=== PATIENT | male | born 1955 | race Caucasian/White ===

== ENCOUNTER 2022-08-04 14:57 | Emergency (ER) | payer SELFPAY ==
[2022-08-04 16:10] LABS: Urine Blood Trace-lysed (Negative); Urine Glucose Negative (Negative); Urine Protein 2+ (Negative)
--- NOTE | 2022-08-04 16:21 | RAD REPORT ---
EXAM DESCRIPTION: Irwin Single View08/04/2022 3:48 pm CLINICAL HISTORY: sob COMPARISON: none FINDINGS: The lungs appear clear of acute infiltrate. The heart is normal size IMPRESSION: No acute abnormalities displayed
[2022-08-04 16:25] LABS: Urine RBC <5 /HPF (None Seen)
[2022-08-04 16:43] LABS: Absolute Lymphocytes (CBC) 1.1 K/uL (0.7-4.9); Hematocrit 31.8 % (39.6-49.0); Lymphocytes % 13.8 % (15.3-44.8); MCV 88.7 fL (80-100); MPV 8.8 fL (7.6-11.3); Protime INR 0.96; RBC Red Blood Cell Count 3.59 M/uL (4.33-5.43)
[2022-08-04 17:01] LABS: ALT/SGPT 30 U/L (12-78); AST/SGOT 12 U/L (15-37); Albumin 3.8 g/dL (3.4-5.0); Alkaline Phosphatase 111 U/L (45-117); BUN Blood Urea Nitrogen 118 mg/dL (7-18); Bilirubin Direct 0.1 mg/dL (0-0.2); Bilirubin Total 0.3 mg/dL (0.2-1.0); Glomerular Filtration Rate 6 ml/min (=/>90); Glucose Level 127 mg/dL (74-106); Lipase 2900 U/L (73-393); Magnesium 1.7 mg/dL (1.8-2.4); NT PRO-BNP 1873 pg/mL (<125); Protein, Total 7.3 g/dL (6.4-8.2); Sodium Level 133 mmol/L (136-145); Troponin High Sensitivity 19.3 pg/mL (<58.9)
[2022-08-04 17:02] LABS: Bicarbonate < 8 mmol/L (21-32)
[2022-08-04 17:04] LABS: Potassium 5.9 mmol/L (3.5-5.1)
--- NOTE | 2022-08-04 17:59 | RAD REPORT ---
EXAM DESCRIPTION: USExtrem Venous W Compress Bil08/04/2022 5:50 pm CLINICAL HISTORY: Leg pain COMPARISON: none FINDINGS: The common femoral, superficial femoral, popliteal and posterior tibial veins bilaterally are compressible and demonstrate augmentation. Doppler demonstrates good flow. Grayscale, color and spectral analysis performed on all vessels IMPRESSION: No evidence of deep venous thrombosis involving either lower extremity.
--- NOTE | 2022-08-04 18:03 | RAD REPORT ---
EXAM DESCRIPTION: RAD - Foot Right 3 View - 08/04/2022 5:57 pm CLINICAL HISTORY: Right foot pain FINDINGS: No fracture or dislocation is seen Amputation fourth phalanx Osteoporosis. Vascular calcifications. Large calcaneal spurs
--- NOTE | 2022-08-04 18:05 | RAD REPORT ---
EXAM DESCRIPTION: RAD - Foot Left 3 View - 08/04/2022 5:56 pm CLINICAL HISTORY: Left Foot pain FINDINGS: No fracture or dislocation is seen. 2.5 centimeter ossification/ calcification along the posterior aspect of talus. Vascular calcifications. Osteoporosis. Moderate calcaneal spurs
--- NOTE | 2022-08-04 18:16 | RAD REPORT ---
EXAM DESCRIPTION: CT - Chest Abd Pelvis Wo Con - 08/04/2022 6:01 pm CLINICAL HISTORY: Chest and abdominal pain COMPARISON: none TECHNIQUE: Computed axial tomography of the chest, abdomen and pelvis was obtained. Oral contrast wa s given. IV contrast was not requested. All CT scans are performed using dose optimization technique as appropriate and may include automated exposure control or mA/KV adjustment according to patient size. FINDINGS: The evaluation of mediastinum, yesy, vessels and solid organs is limited secondary to the lack of IV contrast administration Lungs are clear No mediastinal or hilar lymphadenopathy is seen. A pleural effusion is not present. A pericardial effusion is not seen. Coronary arterial calcificatio ns The liver, spleen, pancreas, and adrenals appear grossly normal Atherosclerotic disease There is no evidence of diverticulitis. Normal appendix Bladder wall mildly thickened. Mild enlargement of the prostate Spondylosis lumbar spine results in spinal stenosis Cholelithiasis IMPRESSION: No acute abnormality of the chest Cholelithiasis Mild bladder wall thickening may indicate cystitis or be secondary to a chronic outlet obstruction
[2022-08-04 18:18] LABS: SARS-CoV-2 Antigen Rapid Res Negative (Negative)
--- NOTE | 2022-08-04 18:29 | RAD REPORT ---
EXAM DESCRIPTION: US - Lower Extremity Arterial Bilat - 08/04/2022 5:50 pm CLINICAL HISTORY: Leg pain COMPARISON: None FINDINGS: Right common femoral and right superficial femoral arterial waveform is triphasic Right popliteal artery waveform biphasic Right posterior tibial and dorsalis pedis arterial waveform is monophasic and diminished in amplitude Left common femoral, left superficial femoral, left popliteal, left dorsalis pedis and left posterior tibial arterial waveform is monophasic and diminished in amplitude Grayscale, color and spectral analysis performed on all vessels IMPRESSION: Significantly abnormal waveforms throughout the left lower extremity suggest a 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
[2022-08-04] MEDS ORDERED: ALBUTEROL 2.5 MG/3 ML NEB SOL ONE (19:09)
[2022-08-04] MEDS ORDERED: INSULIN -REGULAR HUMAN 50 UNIT/0.5 ML ML ONE (19:10)
[2022-08-04] MEDS ORDERED: DEXTROSE 10%-WATER 500 ML IV ONE (19:10)
[2022-08-04] MEDS ORDERED: SOD POLYSTYREN SUL 15 GM/60 ML UCUP ONE (19:10)
[2022-08-04] MEDS ORDERED: SODIUM BICARB 50 MEQ/50ML VIAL ONE (20:20)
[2022-08-04] MEDS ORDERED: D5W 1,000 ML IV ONE (20:22)
[2022-08-04 20:52] LABS: Arterial Blood Carboxyhemoglob 0.7 % (0-1.5); Blood Gas Oxyhemoglobin 95.1 % (94-97); Blood O2 Saturation 97.5 % (92-98.5)
[2022-08-04] MEDS ORDERED: FENTANYL CITR 100 MCG/2 ML ONE (21:35)
--- NOTE | 2022-08-04 21:35 | ER ---
Nurse's Notes [facility] Name: Charlie Sky Age: 67 yrs Sex: Male : 1955 Arrival Date: 08/04/2022 Time: 15:02 Bed 15 Private MD: Diagnosis: Metabolic acidemia, unspecified;Unspecified kidney failure;Acute pancreatitis without necrosis or infection, unspecified;Hyperkalemia;Pain in left leg;Pain in left foot Presentation: 08/04 15:29 Chief complaint: Patient states: left sided chest pain X 2 days. + SOB, +vomiting, iw +dizziness, numbness to left arm. Coronavirus screen: At this time, the client does not indicate any symptoms associated with coronavirus-19. Ebola Screen: Patient negative for fever greater than or equal to 101.5 degrees Fahrenheit, and additional compatible Ebola Virus Disease symptoms Patient denies exposure to infectious person. Patient denies travel to an Ebola-affected area in the 21 days before illness onset. No symptoms or risks identified at this time. Initial Sepsis Screen: Does the patient meet any 2 criteria? No. Patient's initial sepsis screen is negative. Does the patient have a suspected source of infection? No. Patient's initial sepsis screen is negative. Risk Assessment: Do you want to hurt yourself or someone else? Patient reports no desire to harm self or others. Onset of symptoms was August 02, 2022. 15:29 Method Of Arrival: Ambulatory iw 15:29 Acuity: MAURIZIO 3 iw Triage Assessment: 15:30 General: Appears in no apparent distress. comfortable, Behavior is calm, cooperative, bp appropriate for age. Pain: Complains of pain in chest. EENT: No deficits noted. Neuro: No deficits noted. Cardiovascular: Reports chest pain. Respiratory: Reports shortness of breath. GI: No signs and/or symptoms were reported involving the gastrointestinal system. : No signs and/or symptoms were reported regarding the genitourinary system. Derm: No deficits noted. Musculoskeletal: No deficits noted. Historical: - Allergies: 15:31 No Known Allergies; iw - Home Meds: 15:31 Januvia 100 mg oral tab 1 tab once daily [Active]; Lipitor 40 mg Oral tab 1 tab once iw daily [Active]; carvedilol 6.25 mg oral tab 1 tab 2 times per day [Active]; amlodipine 10 mg tab 1 tab once daily [Active]; enalapril maleate 10 mg Oral tab 1 tab once daily [Active]; - PMHx: 15:31 Hypertensive disorder; Kidney disease; Diabetes mellitus; iw - Immunization history:: Adult Immunizations up to date. - Social history:: Smoking status: Patient reports the use of cigarette tobacco products, smokes one-half pack cigarettes per day. Screenin:00 Abuse screen: Denies threats or abuse. Denies injuries from another. Nutritional bp screening: No deficits noted. Tuberculosis screening: No symptoms or risk factors identified. Fall Risk None identified. Assessment: 16:00 General: SEE TRIAGE NOTE. bp 18:00 Reassessment: No changes from previously documented assessment. Patient and/or family bp updated on plan of care and expected duration. Pain level reassessed. Vital Signs: 15:29 BP 138 / 66; Pulse 78; Resp 16; Temp 98.1; Pulse Ox 100% on R/A; iw 18:08 BP 115 / 60; Pulse 77; Resp 16; Pulse Ox 100% ; bp 22:00 BP 118 / 56; Pulse 86; Resp 14; Pulse Ox 100% on R/A; bm7 ED Course: 15:02 Patient arrived in ED. am2 15:06 Naseem Jean PA is PHCP. cp 15:06 Naseem Paz MD is Attending Physician. cp 15:30 Triage completed. iw 15:32 Arm band placed on. iw 15:49 XRAY Chest (1 view) In Process Unspecified. EDMS 16:00 Patient has correct armband on for positive identification. Client placed on continuous bp cardiac and pulse oximetry monitoring. NIBP monitoring applied. 16:00 Patient maintains SpO2 saturation greater than 95% on room air. bp 16:02 Anuel Cortez, RN is Primary Nurse. bp 16:10 EKG done, by ED staff, reviewed by Naseem PENNINGTON. Missed attempt(s): 20 gauge in right mb7 forearm. Bleeding controlled, band aid applied, catheter tip intact. 16:10 Urine Microscopic Only Sent. mb7 16:21 Initial lab(s) drawn, by mn, sent to lab. Inserted saline lock: 20 gauge in right mb7 forearm, using aseptic technique. Blood collected. 17:52 US Extremity Venous W Compression John In Process Unspecified. EDMS 17:52 US LE Arterial Bilateral In Process Unspecified. EDMS 17:59 XRAY Foot LEFT 3 View In Process Unspecified. EDMS 17:59 XRAY Foot RIGHT 3 View In Process Unspecified. EDMS 18:03 CT Chest Abdomen Pelvis W/O Contrast In Process Unspecified. EDMS 19:18 Contacted the [employer] Field Agent upper extremity surgeon for Naseem Pennington. mw2 19:38 initiated a transfer with Laxmi from [facility] [place]. mw2 20:38 Initiated a transfer with Anna from [facility] [place]. mw2 21:00 Repeat lab(s) drawn. by me, sent to lab. First set of blood cultures drawn by me. 3 21:06 Missed attempt(s): 22 gauge in left hand. antecubital area. 3 21:37 Connected Naseem PENNINGTON with the Doctor from [facility]. 2 22:40 Administrative approval given by Anna Johnson/ patient has been accepted to [address] to floor 8B bed 832/Dr. Higgins accepted the patient in transfer/report to be called to [phone]. 23:24 Notified Nurse Practitioner and/or Physician Flexo Operator of a critical lab result(s), bb bicarb of 10, creatinine of 9.25 Naseem PENNINGTON notified. 23:50 Report given to felice ramos. jaUsha 08/05 00:13 Inserted saline lock: 18 gauge upper arm, using aseptic technique. ja4 00:13 Accessed peripheral vein via ultrasound, utilizing dynamic ultrasound technique bb Powerglide midline 18g 10cm to right upper arm using hospital protocol with good blood return and flushes easily pt tolerated well. Administered Medications: 08/04 19:00 Drug: Kayexalate (polystyrene) 30 grams Route: PO; bp 19:00 Drug: Albuterol 2.5 mg Route: Inhalation; bp 19:07 Drug: Insulin Regular Human 5 units {Co-Signature: kevin (Wu Sinha RN).} Route: IVP; bp Site: right forearm; 19:07 Drug: D50W 50 ml Route: IVP; Site: right forearm; bp 20:33 Drug: D5W 1000 ml, Sodium Bicarbonate 150 mEq Route: IV; Rate: 100 ml/hr; Site: left ja4 antecubital; 21:33 Drug: Sodium Bicarbonate 1 amp Route: IVP; Site: left forearm; bm7 21:33 Drug: fentaNYL (PF) 25 mcg Route: IVP; Site: left forearm; bm7 Medication: 16:00 VIS not applicable for this client. bp Point of Care Testing: Blood Glucose: 20:42 Blood Glucose: 163 mg/dL; ll3 Ranges: Outcome: 21:35 ER care complete, transfer ordered by MD. conway 08/05 00:47 Patient left the ED. bb Signatures: Dispatcher [employer] EDMS Agueda Quiroz, RN RN Courtney Dai, RN RN iw Naseem Jean PA PA cp Moreno, Amanda amAnuel Mendoza RN RN bp Dorothy Francis 2 Aditi Langston RN RN 7 Charlotte Arevalo RN RN ll3 Mayte Crandall Wu Trammell RN RN ja4 Wu Sinha RN ja4
--- NOTE | 2022-08-04 21:36 | EDPHYS ---
Physician Documentation [facility] Name: Charlie Sky Age: 67 yrs Sex: Male : 1955 Arrival Date: 08/04/2022 Time: 15:02 Bed 15 Private MD: [place] Physician Naseem Paz HPI: 08/04 15:35 This 67 yrs old Male presents to ER via Ambulatory with complaints of Chest Pain, cp Shortness Of Breath, Foot Pain. 15:35 The patient or guardian reports chest pain that is located primarily in the anterior cp chest wall, left. 15:35 Onset: 2 day(s) ago. The pain does not radiate. Associated signs and symptoms: cp Pertinent positives: lower extremity pain, nausea, shortness of breath, vomiting, numbness of left arm, Pertinent negatives: abdominal pain, cough. 15:35 The chest pain is described as a pressure. Duration: The patient or guardian reports a cp single episode, that is still ongoing, and unchanged. 15:35 Patient also c/o left lateral lower leg pain that has worsened over past 1 week. Now cp having pain to left foot. Denies injury. Reports pain to left lower leg and left foot that is worse when walking and improves with rest. Historical: - Allergies: 15:31 No Known Allergies; iw - Home Meds: 15:31 Januvia 100 mg oral tab 1 tab once daily [Active]; Lipitor 40 mg Oral tab 1 tab once iw daily [Active]; carvedilol 6.25 mg oral tab 1 tab 2 times per day [Active]; amlodipine 10 mg tab 1 tab once daily [Active]; enalapril maleate 10 mg Oral tab 1 tab once daily [Active]; - PMHx: 15:31 Hypertensive disorder; Kidney disease; Diabetes mellitus; iw - Immunization history:: Adult Immunizations up to date. - Social history:: Smoking status: Patient reports the use of cigarette tobacco products, smokes one-half pack cigarettes per day. ROS: 15:40 Constitutional: Negative for body aches, chills, fever, poor PO intake. cp 15:40 Eyes: Negative for injury, pain, redness, and discharge. cp 15:40 ENT: Negative for drainage from ear(s), ear pain, sore throat, difficulty swallowing, difficulty handling secretions. 15:40 Cardiovascular: Positive for chest pain, Negative for edema, palpitations. 15:40 Respiratory: Positive for shortness of breath, at rest. Negative for cough, wheezing. 15:40 Abdomen/GI: Positive for nausea and vomiting, Negative for abdominal pain, diarrhea, constipation. 15:40 Back: Negative for pain at rest, pain with movement. 15:40 MS/extremity: Positive for pain, of the left lower leg and left foot, Negative for injury or acute deformity, decreased range of motion, paresthesias. 15:40 Neuro: Negative for altered mental status, dizziness, headache, syncope, weakness. 15:40 All other systems are negative. Exam: 15:45 Constitutional: The patient appears in no acute distress, alert, awake, cp non-diaphoretic, non-toxic, well developed, well nourished. 15:45 Head/Face: Normocephalic, atraumatic. cp 15:45 Eyes: Periorbital structures: appear normal, Pupils: equal, round, and reactive to light and accomodation, Extraocular movements: intact throughout, Conjunctiva: normal, no exudate, no injection, Sclera: no appreciated abnormality, Lids and lashes: appear normal, bilaterally. 15:45 ENT: External ear(s): are unremarkable, Nose: is normal, Mouth: Lips: moist, Oral mucosa: pink and intact, moist, Posterior pharynx: Airway: no evidence of obstruction, patent. 15:45 Neck: ROM/movement: is normal, is supple, without pain, no range of motions limitations, no nuchal rigidity. 15:45 Chest/axilla: Inspection: normal, Palpation: is normal, no crepitus, no tenderness. 15:45 Cardiovascular: Rate: normal, Rhythm: regular, Edema: is not appreciated, JVD: is not appreciated. 15:45 Respiratory: the patient does not display signs of respiratory distress, Respirations: normal, no use of accessory muscles, no retractions, labored breathing, is not present, Breath sounds: are clear throughout, no decreased breath sounds, no stridor, no wheezing. 15:45 Abdomen/GI: Inspection: abdomen appears normal, Palpation: abdomen is soft and non-tender, in all quadrants. 15:45 Back: pain, is absent, ROM is normal. 15:45 Musculoskeletal/extremity: Extremities: noted in the left leg: pain and tenderness to palpation noted left lateral lower leg and left foot, skin cool, dry with no discoloration, dorsalis pedis pulse not palpated. 15:45 Skin: cellulitis, is not appreciated, no rash present. 15:45 Neuro: Orientation: to person, place \T\ time. Mentation: is normal, Motor: moves all fours, strength is normal, Sensation: no obvious gross deficits. 15:51 ECG was reviewed by the Attending Physician. Vital Signs: 15:29 BP 138 / 66; Pulse 78; Resp 16; Temp 98.1; Pulse Ox 100% on R/A; iw 18:08 BP 115 / 60; Pulse 77; Resp 16; Pulse Ox 100% ; bp 22:00 BP 118 / 56; Pulse 86; Resp 14; Pulse Ox 100% on R/A; bm7 MDM: 15:30 Patient medically screened. 19:30 Data reviewed: vital signs, nurses notes, EMS record, lab test result(s), EKG, radiologic studies, CT scan, plain films, ultrasound. 19:30 Physician consultation: Jose Louie DO was called at 19:20, was contacted at 19:20, regarding consult, patient's condition, would like admission per Dr. Sergey Briceño wants patient started on IV D5W with 150 meq sodium bicarb administered at 100 cc/hr. 19:45 Physician consultation: Sergey Briceño regarding admission, to the ICU, patient's cp condition, after a discussion of the case, a recommendation for transfer for higher level of care is made, for vascular consultation of left leg. 21:35 ED course: spoke with DR Rios, electrical design engineer \T\ [facility], declined transfer at this time due to ph of 7.1. Wants patient to be given Sodium Bicarb times 2 and will accept transfer once ph is at least 7.2. 23:30 Physician consultation: was contacted at 23:30, regarding regarding transfer, to [facility]. patient's condition, accepting physician will be DR Calle, electrical design engineer. 08/04 15:31 Order name: Basic Metabolic Panel; Complete Time: 17:07 08/04 17:07 Interpretation: Normal except: NA 133; K 5.9; CL 111; CO2 < 8; ANION GAP 19.9; GLUC cp 127; BUN 118; CRE 9.44; GFR 6; CA 8.0. 08/04 15:31 Order name: CBC with Diff; Complete Time: 17:07 cp 08/04 17:08 Interpretation: Normal except: RBC 3.59; HGB 10.7; HCT 31.8; FABIENNE% 76.4; LYM% 13.8. cp 08/04 15:31 Order name: LFT's; Complete Time: 17:07 cp 08/04 18:27 Interpretation: Normal except: AST 12. cp 08/04 15:31 Order name: Magnesium; Complete Time: 17:07 cp 08/04 23:24 Interpretation: Abnormal: MG 1.7. cp 08/04 15:31 Order name: NT PRO-BNP; Complete Time: 17:07 cp 08/04 17:09 Interpretation: Abnormal: NT PRO-BNP 1873. cp 08/04 15:31 Order name: PT-INR; Complete Time: 17:07 cp 08/04 17:22 Interpretation: Reviewed. 08/04 15:31 Order name: Troponin HS; Complete Time: 17:07 cp 08/04 17:22 Interpretation: Reviewed. 08/04 15:31 Order name: Lipase; Complete Time: 17:07 cp 08/04 17:09 Interpretation: Abnormal: LIP 2900. cp 08/04 15:32 Order name: Urine Microscopic Only; Complete Time: 17:07 cp 08/04 16:10 Order name: Urine Dipstick-Ancillary; Complete Time: 17:07 EDMS 08/04 17:07 Order name: SARS RAPID; Complete Time: 18:25 iw 08/04 18:55 Order name: ABG; Complete Time: 21:08 cp 08/04 20:31 Order name: Lactate; Complete Time: 22:08 cp 08/04 22:08 Interpretation: Reviewed. cp 08/04 20:31 Order name: Procalcitonin; Complete Time: 22:08 cp 08/04 22:08 Interpretation: Reviewed. cp 08/04 15:31 Order name: XRAY Chest (1 view); Complete Time: 17:07 cp 08/04 17:22 Interpretation: Report review. cp 08/04 16:29 Order name: US Extremity Venous W Compression John; Complete Time: 18:25 cp 08/04 18:25 Interpretation: Report reviewed. cp 08/04 16:29 Order name: US LE Arterial Bilateral; Complete Time: 18:37 08/04 16:29 Order name: XRAY Foot LEFT 3 View; Complete Time: 18:25 08/04 18:26 Interpretation: Reviewed report. 08/04 16:29 Order name: XRAY Foot RIGHT 3 View; Complete Time: 18:25 08/04 18:26 Interpretation: Report reviewed. 08/04 17:10 Order name: CT Chest Abdomen Pelvis W/O Contrast; Complete Time: 18:25 08/04 20:31 Order name: Blood Culture Adult (2) 08/04 20:53 Order name: Glucose, Ancillary Testing; Complete Time: 21:08 EDMS 08/04 22:12 Order name: BMP: recheck at 2230; Complete Time: 23:23 08/04 23:23 Interpretation: Normal except: NA 134; CL 109; CO2 10; ANION GAP 19.7; GLUC 191; BUN cp 121; CRE 9.25; GFR 6; CA 7.6. 08/04 15:31 Order name: EKG; Complete Time: 15:31 08/04 15:31 Order name: Cardiac monitoring; Complete Time: 16:03 08/04 15:31 Order name: EKG - Nurse/Tech; Complete Time: 16:03 08/04 15:31 Order name: IV Saline Lock; Complete Time: 16:21 08/04 15:31 Order name: Labs collected and sent; Complete Time: 16:21 08/04 15:31 Order name: O2 Per Protocol; Complete Time: 16:03 08/04 15:31 Order name: O2 Sat Monitoring; Complete Time: 16:03 08/04 15:32 Order name: Urine Dipstick-Ancillary (obtain specimen); Complete Time: 16:02 cp EC:51 Rate is 71 beats/min. Rhythm is regular. NJ interval is normal. QRS interval is normal. cp QT interval is normal. T waves are Inverted in leads aVL, aVR. Interpreted by me. Reviewed by me. Administered Medications: 19:00 Drug: Kayexalate (polystyrene) 30 grams Route: PO; bp 19:00 Drug: Albuterol 2.5 mg Route: Inhalation; bp 19:07 Drug: Insulin Regular Human 5 units {Co-Signature: ja4 (Wu Bharath RN).} Route: IVP; bp Site: right forearm; 19:07 Drug: D50W 50 ml Route: IVP; Site: right forearm; bp 20:33 Drug: D5W 1000 ml, Sodium Bicarbonate 150 mEq Route: IV; Rate: 100 ml/hr; Site: left ja4 antecubital; 21:33 Drug: Sodium Bicarbonate 1 amp Route: IVP; Site: left forearm; bm7 21:33 Drug: fentaNYL (PF) 25 mcg Route: IVP; Site: left forearm; bm7 Point of Care Testing: Blood Glucose: 20:42 Blood Glucose: 163 mg/dL; ll3 Ranges: Critical Glucose Levels:Adult <50 mg/dl or >400 mg/dl <40 mg/dl or >180 mg/dl Disposition Summary: 08/04/22 21:35 Transfer Ordered Transfer Location: [facility] cp Reason: Higher level of care cp Condition: Stable cp Problem: new cp Symptoms: have improved cp Accepting Physician: DR Calle, electrical design engineer(08/05/22 00:47) mago Diagnosis - Metabolic acidemia, unspecified cp - Unspecified kidney failure cp - Acute pancreatitis without necrosis or infection, unspecified cp - Hyperkalemia cp - Pain in left leg cp - Pain in left foot cp Forms: - Medication Reconciliation Form cp - SBAR form cp Signatures: Dispatcher [employer] EDAgueda Prince RN RN bb Courtney Paulino RN RN Naseem Anderson PA PA cp Anuel Cortez RN Aditi Wheatley RN SAMARA [facility] Wu Sinha RN RN ja4 Wu brown Corrections: (The following items were deleted from the chart) 22:38 21:35 Doctor cp cp 22:41 22:38 DR Calle, electrical design engineer cp cp 08/05 00:47 08/04 22:41 DR Calle, electrical design engineer cp bb 08/05 15:16 08/04 15:35 The patient or guardian reports chest pain that is located primarily in the cp anterior chest wall, cp 08/05 15:16 08/04 15:35 Associated signs and symptoms: Pertinent positives: lower extremity pain, cp nausea, shortness of breath, vomiting, Pertinent negatives: abdominal pain, cough, cp
[2022-08-04 23:18] LABS: Potassium 4.7 mmol/L (3.5-5.1)
[2022-08-05 03:38] VITALS: TEMP 98.1; O2SAT 100
[2022-08-05 03:55] VITALS: BP 118/56
--- NOTE | 2022-08-05 15:39 | EKG ---
Test Date: 2022-08-04 Test Time: 15:45:29 Compensation And Hris Analyst: MB MEASUREMENT RESULTS: Intervals: Rate: 71 CT: 146 QRSD: 100 QT: 404 QTc: 439 [place]: P: 80 CT: 146 QRS: 69 T: 91 INTERPRETIVE STATEMENTS: Normal sinus rhythm Minimal voltage criteria for LVH, may be normal variant Borderline ECG No previous ECG available for comparison Electronically Signed On 08-05-22 15:38:33 CDT by Amado Chandra
== END 2022-08-05 00:47 | disposition short-term general hospital (02) ==
LOC: ER 14:57
DX: M79.605 Pain in left leg (principal); M79.672 Pain in left foot; K85.90 Acute pancreatitis without necrosis or infection, unspecified; E87.5 Hyperkalemia; N19 Unspecified kidney failure; E11.9 Type 2 diabetes mellitus without complications; I10 Essential (primary) hypertension; F17.210 Nicotine dependence, cigarettes, uncomplicated
CPT/HCPCS: 36415; 71045; 71250; 74176; 80048; 80076; 81003; 81015; 82805; 82947; 83605; 83690; 83735; 83880; 84145; 84484; 85025; 85610; 87040; 87811; 93005; 93925; 93970; 99285; J1815; J3010

== ENCOUNTER 2022-09-13 14:26 | Inpatient (IN) | payer OTHER ==
--- OUTSIDE RECORDS SUMMARY | 2022-09-13 14:34 | XMS REPORT | Continuity of Care Document ---
:1955 Author Organization [facility] t Address [address] [place] [place] [address] Care Team Providers Name Role Phone PCP, PATIENT DOES NOT HAVE A Primary Care Physician UnavailZHEN Gonzales Attending Clinician Unavailable Doctor Unassigned, Mears Attending Clinician Unavailable Jose Nelson RN A Attending Clinician Unavailable KEE WIN Attending Clinician Unavailable Raissa Guerra DO Attending Clinician Grace Milligan MD Attending Clinician Kee Win MD Attending Clinician RAISSA GUERRA Admitting Clinician Unavailable Raissa Guerra DO Admitting Clinician Payers Payer Name Policy Type Policy Number Effective Date Expiration Date S [facility] [employer] [facility]IC[facility] 7 [id number] 2022 [id number] [facility] 00:00:00 PLUS 2021 Problems Condition Condition Condition Status Onset Resolution Last Treating Co mments Source Name Details Category Date Date Treatment Clinician Date At risk At risk Disease Active 2021-11 Kylee for falls for falls 0-05 Seyb old 00:00: - 00 Externa l Repeated Repeated Disease Active 2021-11 Kelse y falls falls 0-05 Seybold 00:00: - 00 Externa l Primary Primary Disease Active 2021-11 Kylee hypertensi hypertensi 0-05 Se ybold on on 00:00: - 00 Externa l PVD PVD Disease Active 2021-11 Kylee (periphera (periphera 0-05 Se ybold l vascular l vascular 00:00: - disease) disease) 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 Type 2 Type 2 Disease Active 2021-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 0-05 Seybol d mellitus mellitus 00:00: - with with 00 Externa diabetic diabetic l peripheral peripheral angiopathy angiopathy without without gangrene, gangrene, without without long-term long-term current current use of use of insulin insulin Type 2 Type 2 Disease Active 2021-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 0-05 Seybol d mellitus mellitus 00:00: - with with 00 Externa chronic chronic l kidney kidney disease on disease on chronic chronic dialysis, dialysis, with with long-term long-term current current use of use of insulin insulin Well adult Well adult Disease Active 2021-11 K elsey exam exam 0-05 Seybold 00:00: - 00 Externa l Diabetic Diabetic Disease Active 2021-11 Kelse y ulcer of ulcer of 0-05 Seybol d toe of toe of 00:00: - left foot left foot 00 Exte rna associated associated l with type with type 2 diabetes 2 diabetes mellitus, mellitus, limited to limited to breakdown breakdown of skin of skin Tobacco Tobacco Disease Active 2021-11 Kylee abuse abuse 0-05 Seybold 00:00: - 00 Externa l ESRD (end ESRD (end Disease Active Uni vers stage stage 9-15 ity of renal renal 00:00: [place] disease) disease) 00 Medica l Branch Pulmonary Pulmonary Disease Active Uni vers disease disease 9-13 ity of 00:00: [place] 00 Medical Branch Vomiting, Vomiting, Disease Active Uni vers intractabi intractabi 9-13 it y of lity of lity of 00:00: [place] vomiting vomiting 00 Medica l not not Branch specified, specified, presence presence of nausea of nausea not not specified, specified, unspecifie unspecifie d vomiting d vomiting type type History of History of Disease Active Overview : Kylee osteomyeli osteomyeli 1-01 Formattin Seybold tis tis 00:00: g of this - 00 note Externa might be l different from the original. 4th right toe amputatio n Allergies, Adverse Reactions, Alerts Allergy Allergy Status Severity Reaction(s) Onset Inactive Treating Comm ents Source Name Type Date Date Clinician NO KNOWN Drug Active Univers ALLERGIE Class ity of S [facility] Social History Social Habit Start Date Stop Date Quantity Comments Source History of tobacco Cigarette Smoker Kylee Rizzo - use External Education 2022-08-27 2022-08-27 9 Kylee Rizzo - 00:00:00 00:00:00 External Cigarettes smoked 2022-08-27 2022-08-27 Kylee Rizzo - current (pack per 00:00:00 00:00:00 Externa l day) - Reported Cigarette 2022-08-27 2022-08-27 Kylee Rizzo - pack-years 00:00:00 00:00:00 External Tobacco use and 2022-08-27 2022-08-27 Smokeless Kylee torres - exposure 00:00:00 00:00:00 tobacco non-user External Alcohol intake 2022-08-27 2022-08-27 Lifetime Kylee pickard - 00:00:00 00:00:00 non-drinker External (finding) Exposure to 2022-07-26 2022-08-05 Not sure University SARS-CoV-2 (event) 00:00:00 06:24:00 [facility] Sex [birth year] Kylee torres - 00:00:00 00:00:00 External Smoking Status Start Date Stop Date Source Smokes tobacco daily 2022-08-27 00:00:00 Kylee Rizzo - External Medications Ordered Filled Start Stop Current Ordering Indication Dosage Frequency Signature Comments Components Source Medication Medication Date Date Medication? Clinician (SIG) Name Name Enalapril 2021-11- No 1{each} 1 each Ke lsey Maleate 10 0-05 10-05 daily Seybold MG oral 11:31: 00:00 - Tablet 13 :00 Externa l Carvedilol 2021-11- No 1{each} 1 each K elsey 6.25 MG 0-05 10-05 every 12 Seybold oral Tablet 11:31: 00:00 hours - 13 :00 Externa l Atorvastati 2021-11- No 40mg Take 40 mg Kylee henderson Calcium 0-05 10-05 by mouth Seybo ld 40 MG oral 11:31: 00:00 at bedtime - Tablet 13 :00 Externa l Amlodipine 2021-11- No amlodipine Kylee Besylate 10 0-05 10-05 10 mg Seybol d MG oral 11:31: 00:00 tablet - Tablet 13 :00 TAKE ONE Externa (1) l TABLET(S) BY MOUTH ONCE A DAY. Sitagliptin 2021-11 Yes 1{each} 1 each K elsey Phosphate 0-05 daily Seybold 100 MG oral 10:23: - Tablet 54 Externa l Insulin 2021-11 Yes 38U 38 units Kylee Glargine 0-05 daily Seybold (Lantus 10:23: - SoloStar) 54 Externa 100 UNIT/ML l subcutaneou s Solution Pen-injecto r Enalapril 2021-11 Yes [id number] 10mg Take 1 Ke lsey Maleate 10 0-05 tablet (10 Sey bold MG oral 00:00: mg total) - Tablet 00 by mouth Externa daily l Carvedilol 2021-11 Yes [id number] 6.25mg Take 1 Kylee 6.25 MG 0-05 tablet Seybold oral Tablet 00:00: (6.25 mg - 00 total) by Externa mouth l every 12 hours Atorvastati 2021-11 Yes [id number] 40mg Take 1 Kylee n Calcium 0-05 tablet (40 Seyb old 40 MG oral 00:00: mg total) - Tablet 00 by mouth Externa at bedtime l Amlodipine 2021-11 Yes [id number] amlodipine Kylee Besylate 10 0-05 10 mg Seybold MG oral 00:00: tablet - Tablet 00 TAKE ONE Externa (1) l TABLET(S) BY MOUTH ONCE A DAY. 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 Medical Branch atorvastati Yes 40mg Take 40 mg Univers n (LIPITOR) 9-21 by mouth ity of 40 mg 13:09: at [place] tablet 25 bedtime. Medical Branch atorvastati Yes 40mg Take 40 mg Univers n (LIPITOR) 9-21 by mouth ity of 40 mg 13:09: at [place] tablet 25 bedtime. Medical Branch carvediloL 2021- No 6.25mg Take 6.25 Univers 6.25 mg -13 08-21 mg by ity of tablet 12:00: 00:00 mouth in [place] 22 :00 the Medical morning Branch and 6.25 mg in the evening. Take with meals. SITagliptin 2021- No 100mg Take 100 Univers (JANUVIA) -13 08-21 mg by ity of 100 mg 12:00: 00:00 mouth in [place] tablet 20 :00 the Medical morning. Branch amLODIPine 2021- No 10mg Take 10 mg Univers 10 mg 08-13 by mouth ity of tablet 11:23: 00:00 in the [place] 28 :00 morning. Medical Branch enalapril 2021- No 10mg Take 10 mg U nivers 10 mg 08-13 by mouth ity of tablet 11:23: 00:00 in the [place] 28 :00 morning. Medical Branch insulin 2021- No 38U inject 38 Univ ers glargine 08-13- Units ity of (LANTUS 11:23: 00:00 under the [place] U-100 28 :00 skin at [facility] INSULIN) bedtime. Branch 100 unit/mL injection carvediloL Yes [id number] 6.25mg Take 1 Univers 6.25 mg 9-21 tablet by ity of tablet 00:00: mouth in [place] 00 the Medical morning Branch and 1 tablet in the evening. Take with meals. calcium Yes [id number] 1000mg Take 2 Un marivel carbonate 9-21 tablets by ity of 500 mg 00:00: mouth in [place] calcium 00 the Medical (1,250 mg) morning Branch tablet and 2 tablets at noon and 2 tablets in the evening. Take with meals. sevelamer Yes [id number] 800mg Take 1 U nivers 800 mg 9-21 tablet by ity of tablet 00:00: mouth in [place] 00 the Medical morning Branch and 1 tablet at noon and 1 tablet in the evening. Take with meals. insulin 2021-0 Yes [id number] 5U inject 5 Un marivel glargine 9-21 Units ity of 100 unit/mL 00:00: under the [place] injection 00 skin at Medical bedtime. Branch SITagliptin 2021-0 Yes [id number] 25mg Take 1 Univers (JANUVIA) 9-21 tablet by ity o f 25 mg 00:00: mouth in [place] tablet 00 the Medical morning. Branch carvediloL 2021-0 Yes [id number] 6.25mg Take 1 Univers 6.25 mg 9-21 tablet by ity of tablet 00:00: mouth in [place] [address] the [facility] morning Branch and 1 tablet in the evening. Take with meals. calcium 2021-0 Yes [id number] 1000mg Take 2 Un marivel carbonate 9-21 tablets by ity of 500 mg 00:00: mouth in [place] calcium 00 the [facility] (1,250 mg) morning Branch tablet and 2 tablets at noon and 2 tablets in the evening. Take with meals. sevelamer 2021-0 Yes [id number] 800mg Take 1 U nivers 800 mg 9-21 tablet by ity of tablet 00:00: mouth in [place] [address] the [facility] morning Branch and 1 tablet at noon and 1 tablet in the evening. Take with meals. insulin 2021-0 Yes [id number] 5U inject 5 Un marivel glargine 9-21 Units ity of 100 unit/mL 00:00: under the [place] injection 00 skin at Medical bedtime. Branch SITagliptin 2021-0 Yes [id number] 25mg Take 1 Univers (JANUVIA) 9-21 tablet by ity o f 25 mg 00:00: mouth in [place] tablet 00 the morning. Branch carvediloL 2021-0 Yes [id number] 6.25mg Take 1 Univers 6.25 mg 9-21 tablet by ity of tablet 00:00: mouth in [place] [address] the [facility] morning Branch and 1 tablet in the evening. Take with meals. calcium 2021-0 Yes [id number] 1000mg Take 2 Un marivel carbonate 9-21 tablets by ity of 500 mg 00:00: mouth in [place] calcium 00 the Medical (1,250 mg) morning Branch tablet and 2 tablets at noon and 2 tablets in the evening. Take with meals. sevelamer Yes [id number] 800mg Take 1 U nivers 800 mg - tablet by ity of tablet 00:00: mouth in [place] 00 the Medical morning Branch and 1 tablet at noon and 1 tablet in the evening. Take with meals. insulin Yes [id number] 5U inject 5 Un marivel glargine - Units ity of 100 unit/mL 00:00: under the [place] injection 00 skin at Medical bedtime. Branch SITagliptin Yes [id number] 25mg Take 1 Univers (JANUVIA) 08-13 tablet by ity o f 25 mg 00:00: mouth in [place] tablet 00 the Medical morning. Branch sevelamer 2021- No [id number] 800mg Take 1 Univers 800 mg 08-13 tablet by ity of tablet 00:00: 00:00 mouth in [place] 00 :00 the Medical morning Branch and 1 tablet at noon and 1 tablet in the evening. Take with meals. calcium 2021-2021- No [id number] 1000mg Take 2 U nivers carbonate 08-13 tablets by ity of 500 mg 00:00: 00:00 mouth in [place] calcium 00 :00 the Medical (1,250 mg) morning Branch tablet and 2 tablets at noon and 2 tablets in the evening. Take with meals. insulin 2021-2021- No [id number] 5U inject 5 U nivers glargine 08-13 Units ity of 100 unit/mL 00:00: 00:00 under the [place] injection 00 :00 skin at Medical bedtime. Branch SITagliptin 0 2021- No [id number] 25mg Take 1 Univers (JANUVIA) 08-13 tablet by ity of 25 mg 00:00: 00:00 mouth in [place] tablet 00 :00 the Medical morning. Branch NaCl 0.9% 2021- No 5mL 5 mL, Slow U nivers (NS) 08-12 IV Push, ity of injection 5 14:00: 18:36 ONCE, 1 [place] mL 00 :00 dose, On Medical Tue Branch 08/12/22 at 0900, Routine heparin 0 Yes 2000U PRN - SEE Univ ers 1,000 08-12 INSTRUCTIO ity of unit/mL 13:59: NS, [place] injection 32 Starting Medica l 2,000 Units on [facility] Branch 08/12/22 at 0859, Until Discontinu ed, Routine
For Priming of Ports:&nbs p; &n bsp; After initial saline flush, prime each port with heparin according to the priming volume listed on each catheter port for catheter lock.
magnesium 2021- No 4g 4 g, IV Univ ers sulfate in 08-12 Piggyback, it y of water 4 10:45: 20:53 ONCE, 1 [place] gram/50 mL 00 :00 dose, On Medic al (8 %) IV [facility] Branch Piggyback 4 08/12/22 at g 0545, Routine insulin Yes 5U 5 Units, Univer s glargine 08-10 Subcutaneo ity o f (LANTUS 02:00: us, HS, [place] U-100) 00 First dose Medical injection 5 on Sat Branch Units 08/09/22 at 2100, Until Discontinu ed, Routine NaCl 0.9% 2021- No 5mL 5 mL, Slow U nivers (NS) 08-08 IV Push, ity of injection 5 12:15: 15:00 ONCE, 1 [place] mL 00 :00 dose, On Medical Fri Branch 08/08/22 at 0715, Routine mupirocin Yes Nasal, Univer s (BACTROBAN 08-08 Q12H, For ity of NASAL OINT) 12:06: 5 days, [place] as 2 % nasal 33 First dose Medi liza ointment conditiona Branc h l, Routine sevelamer Yes 800mg 800 mg, Univ ers (RENVELA) 08-07 Oral, TID ity o f tablet 800 22:00: MEALS, [place] mg 00 First dose Medical on [place] Branch 08/07/22 at 1700, Until Discontinu ed, Routine iron 2021- No 200mg 200 mg, IV Unive rs sucrose 08-07 Infusion, ity of (VENOFER) 22:00: 06:51 ONCE, [place] 200 mg in 00 :00 Administer Medi liza NaCl 0.9% over 4 Branch (NS) 100 mL Hours, On infusion [place] 08/07/22 at 1700, For 1 dose FENTanyl PF 2021- No Slow IV Un marivel (SUBLIMAZE 08-07 Push, PRN, it y of (PF)) 20:09: 20:09 Starting [place] injection 00 :00 on [place] Medical 08/07/22 at Branch 1509, Until Discontinu ed, Routine midazolam 2021- No IV Push, Uni vers (VERSED) 08-07 PRN, ity of injection 20:09: 20:09 Starting [place] as 00 :00 on [facility] Medical 08/07/22 at Branch 1509, Until Discontinu ed, Routine heparin 2021- No 2000U PRN - SEE Uni vers 1,000 08-07 INSTRUCTIO ity of unit/mL 20:02: 14:02 NS, [place] injection 37 :05 Starting Medica l 2,000 Units on [place] Branch 08/07/22 at 1502, Until 08/12/22 at 0902, Routine
For Priming of Ports:&nbs p; &n bsp; After initial saline flush, prime each port with heparin according to the priming volume listed on each catheter port for catheter lock.
enalapril 2021- No 10mg 10 mg, Unive rs (VASOTEC) 08-07 Oral, ity of tablet 10 14:00: 16:32 DAILY, [place] mg 00 :56 First dose Medical on [place] Branch 08/07/22 at 0900, Until Discontinu ed, Routine amLODIPine 2021- No 10mg 10 mg, Univ ers (NORVASC) 08-07 Oral, ity of tablet 10 14:00: 16:32 DAILY, [place] mg 00 :56 First dose Medical on [place] Branch 08/07/22 at 0900, Until Discontinu ed, Routine carvediloL Yes 6.25mg 6.25 mg, U nivers (COREG) 08-07 Oral, BID ity of tablet 6.25 01:15: MEALS, [place] mg 00 First dose Medical on Thu Branch 08/06/22 at 2015, Until Discontinu ed, Routine SITagliptin Yes 100mg Take 100 U nivers (JANUVIA) 9-14 mg by ity of 100 mg 20:21: mouth in [place] tablet 16 the Medical morning. Branch atorvastati Yes 40mg Take 40 mg Univers n (LIPITOR) 9-14 by mouth ity of 40 mg 20:21: at [facility] 16 bedtime. Medical Branch carvediloL 0 Yes 6.25mg Take 6.25 Univers 6.25 mg 9-14 mg by ity of tablet 20:21: mouth in [place] [address] the Medical morning Branch and 6.25 mg in the evening. Take with meals. amLODIPine Yes 10mg Take 10 mg U nivers 10 mg 9-14 by mouth ity of tablet 20:21: in the [place] [address] morning. Medical Branch enalapril 0 Yes 10mg Take 10 mg Un marivel 10 mg 9-14 by mouth ity of tablet 20:21: in the [place] [address] morning. Medical Branch insulin Yes 38U inject 38 Unive rs glargine 9-14 Units ity of (LANTUS 20:21: under the [place] U-100 16 skin at [facility] INSULIN) bedtime. Branch 100 unit/mL injection lactated 2021- No 1000mL at 150 Univ ers ringers IV 08-06 mL/hr, ity of infusion 08:30: 23:58 1,000 mL, [place] as 1,000 mL 00 :56 IV Medical Infusion, Branch CONTINUOUS , Starting on Thu08/06/22 at 0330, Until Thu08/06/22 at 1858, Routine potassium 2021- No 20meq 20 mEq, IV Univers chloride in 08-06 Piggyback, i ty of water (KCL) 07:30: 12:32 Q2H, 2 [place] as 20 mEq/100 00 :00 doses, Medical mL RTU IVPB First dose Br anch 20 mEq on Thu08/06/22 at 0230, Last dose on Thu08/06/22 at 0400, 100 mL atorvastati 2022-0 Yes 40mg 40 mg, Univ ers n (LIPITOR) 08-06 Oral, QHS, it y of tablet 40 03:30: First dose [place] mg 00 on [facility] Medical 08/05/22 at Branch 2230, Until Discontinu ed, Routine proMETHazin Yes 12.5mg 12.5 mg, Univers e 08-05 IV ity of (PHENERGAN) 17:24: Piggyback, [place] 12.5 mg in 36 at 200 Medical NS 50 mL IV mL/hr Branch piggyback Administer (CNR) over 15 Minutes, Q4HPRN, Starting on Thu08/05/22 at 1224, Until Discontinu ed, Routine, Nausea and Vomiting (N/V) ondansetron Yes 4mg 4 mg, Slow Univers (ZOFRAN 08-05 IV Push, ity of (PF)) 17:24: Q6HPRN, [place] injection 4 24 Nausea and Me dical mg Vomiting Branch (N/V), Starting on Thu08/05/22 at 1224
Do ses of ondansetro n 16 mg and above need to be administer ed via IV piggyback. For Dose >=24mg ECG monitoring is advisable.
ondansetron 2021-0 2021- No 4mg 4 mg, Slow Univers (ZOFRAN 08-05 IV Push, ity of (PF)) 15:45: 16:29 ONCE, On [place] injection 4 00 :00 [facility] Medical mg 08/05/22 at Branch 1045, For 1 dose
Do ses of ondansetro n 16 mg and above need to be administer ed via IV piggyback. For Dose >=24mg ECG monitoring is advisable.
magnesium 2021-0 202- No 4g 4 g, IV Univ ers sulfate in 08-05 Piggyback, it y of water 4 13:45: 01:26 ONCE, 1 [place] gram/50 mL 00 :00 dose, On Medic al (8 %) IV [facility] Branch Piggyback 4 08/05/22 at g 0845, Routine calcium 0 Yes 1000mg 1,000 mg, Uni vers carbonate 08-05 Oral, TID ity o f (OSCAL-500) 13:00: MEALS, [place] tablet 00 First dose Medical 1,000 mg on Thu Branch 08/05/22 at 0800, Until Discontinu ed, Routine Sliding Yes Subcutaneo Univ ers Scale - us, TID ity of Insulin - 13:00: MEALS+HS, [place] as Lispro 00 First dose Medical (HumaLOG) + on Thu Fsbg 08/05/22 at Testing 0800, Until Discontinu ed, Routine heparin Yes 5000U 5,000 Univers (porcine) 08-05 Units, ity of injection 13:00: Subcutaneo [place] 5,000 Units 00 us, Q12H, Med ical First dose Branch on Thu08/05/22 at 0800, Until Discontinu ed, Routine sodium 202- No IV Univers bicarbonate 08-05 Infusion, it y of 150 mEq in 12:45: 07:23 CONTINUOUS [place] D5W 1,000 00 :38 , Starting Medi liza mL IV on Thu Branch Solution 08/05/22 at 0745, Until Thu08/06/22 at 0223, 1,000 mL, at 150 mL/hr magnesium 2021- No 4g 4 g, IV [facility] [place] [facility] ers sulfate in 08-05 Piggyback, it y of water 4 10:30: 01:26 ONCE, 1 [place] gram/50 mL 00 :00 dose, On Medic al (8 %) IV Thu Branch Piggyback 4 08/05/22 at g 0530, Routine sodium 2021- No 150meq IV Univers bicarbonate 08-05 Infusion, it y of 150 mEq in 10:15: 11:32 at 100 [place] D5W 1,000 00 :05 mL/hr, 150 Medi liza mL IV mEq, Branch infusion CONTINUOUS , Starting on Thu08/05/22 at 0515, Until Thu08/05/22 at 0632, Routine sodium 2021- No 100meq 100 mEq, [facility] [place] [facility] ers bicarbonate 08-05 Slow IV ity of 1 mEq/mL 10:00: 11:01 Push, [place] (8.4 %) 00 :00 ONCE, 1 Medical injection dose, On Branch 100 mEq Thu08/05/22 at 0500, Routine nicotine Yes 1{patch 1 Patch, Un marivel (NICODERM) 08-05 } Topical, ity o f 14 mg/24 hr 08:30: Administer [place] patch 1 00 over 24 Medical Patch Hours, Branch Q24H, First dose on Thu08/05/22 at 0330, Until Discontinu ed, Routine ondansetron 2021- No 4mg 4 mg, Slow Univers (ZOFRAN 08-05 IV Push, ity of (PF)) 08:30: 07:10 ONCE, On [place] injection 4 00 :00 Tue Medical mg 08/05/22 at Branch 0330, For 1 dose
Do ses of ondansetro n 16 mg and above need to be administer ed via IV piggyback. For Dose >=24mg ECG monitoring is advisable.
glucagon Yes 1mg 1 mg, Univers (GLUCAGEN 08-05 Intramuscu ity of DIAGNOSTIC 07:19: lar, PRN, [place] KIT) 17 Starting Medical injection 1 on Thu Branch mg 08/05/22 at 0219, Until Discontinu ed, ATUL, Blood Glucose < or = 70 mg/dL and patient is unable to swallow or has mental changes. Immunizations Ordered Immunization Filled Immunization Date Status Commen ts Source Name Name Pneumococcal Vaccine, 2022-08-27 Completed Gama Rizzo Polysaccharide 00:00:00 - External Vital Signs Vital Name Observation Time Observation Value Comments Source Systolic blood 2022-08-27 15:18:00 124 mm[Hg] Kylee Rizzo - pressure External Diastolic blood 2022-08-27 15:18:00 62 mm[Hg] Haleigh Rizzo - pressure External Heart rate 2022-08-27 15:18:00 73 /min Kylee sparks - External Body temperature 2022-08-27 15:18:00 36.39 Mona Harriett Rizzo - External Respiratory rate 2022-08-27 15:18:00 16 /min Harriett Rizzo - External Body height 2022-08-27 15:18:00 175.3 cm Kylee sparks - External Body weight 2022-08-27 15:18:00 83.008 kg Kylee S eybold - External BMI 2022-08-27 15:18:00 27.02 kg/m2 Kylee Smith eybold - External Systolic blood 2022-08-13 16:46:00 144 mm[Hg] Univer sity of pressure [place] [facility] Diastolic blood 2022-08-13 16:46:00 60 mm[Hg] Unive rsity of pressure [place] [facility] Heart rate 2022-08-13 16:46:00 56 /min Universi ty of [place] [facility] Body temperature 2022-08-13 16:46:00 36 Mona Univ ersity of [place] [facility] Respiratory rate 2022-08-13 16:46:00 16 /min Univ ersity of [place] [facility] Oxygen saturation in 2022-08-13 16:46:00 98 /min University of Arterial blood by [place] [employer] liza Pulse oximetry Branch Body weight 2022-08-12 18:38:00 81 kg Universi ty of [place] [facility] BMI 2022-08-12 18:38:00 27.15 kg/m2 [facility] [place] [facility] Body height 2022-08-05 10:00:00 172.7 cm Universi ty [facility] [place] [facility] Systolic blood 2022-08-09 15:45:00 156 mm[Hg] Univer sity of pressure [place] [facility] Diastolic blood 2022-08-09 15:45:00 78 mm[Hg] Unive rsity of pressure [place] [facility] Heart rate 2022-08-09 15:45:00 70 /min Universi ty [facility] [place] [facility] Body temperature 2022-08-09 13:30:00 36.61 Mona Univ ersity of [place] [facility] Respiratory rate 2022-08-09 13:30:00 20 /min Univ ersity [facility] [place] [facility] Body weight 2022-08-09 13:30:00 82.4 kg [facility]i [facility] [place] [facility] BMI 2022-08-09 13:30:00 27.62 kg/m2 [facility] [place] [facility] Oxygen saturation in 2022-08-09 13:15:00 98 /min University of Arterial blood by [place] [employer] liza Pulse oximetry Branch Body height 2022-08-05 10:00:00 172.7 cm [facility] [place] [facility] Procedures Procedure Date / Time Performing Clinician Source Performed [facility] 2022-08-27 15:37:11 Zhen Vargas - External EXTERNAL PROVIDER RECORDS 2022-08-25 05:01:00 Doctor Unassigned, [facility] Mears [facility] POCT GLUCOSE (AUTOMATED) 2022-08-13 16:49:00 Raissa Guerra [facility] POCT GLUCOSE (AUTOMATED) 2022-08-13 12:57:00 [facility] 10:40:00 [facility] 2022-08-13 10:40:00 L[facility] BASIC METABOLIC PANEL (NA, 2022-08-13 10:40:00 Allison Platt [facility] K, CL, CO2, GLUCOSE, BUN, Medica l Branch CREATININE, CA) POCT GLUCOSE (AUTOMATED) 2022-08-13 02:40:00 Raissa Guerar [facility] POCT GLUCOSE (AUTOMATED) 2022-08-12 21:00:00 Raissa Guerra [facility] POST DIALYSIS BUN 2022-08-12 18:36:00 Jc Chan [facility] POCT GLUCOSE (AUTOMATED) 2022-08-12 18:13:00 Raissa Guerra [facility] POCT GLUCOSE (AUTOMATED) 2022-08-12 13:04:00 Raissa Guerra [facility] PHOSPHORUS 2022-08-12 09:06:00 [facility] 2022-08-12 09:06:00 Lc [facility] BASIC METABOLIC PANEL (NA, 2022-08-12 09:06:00 Alilson Platt [facility] K, CL, CO2, GLUCOSE, BUN, Medica l Branch CREATININE, CA) CBC WITH DIFF 2022-08-12 09:06:00 Lc [facility] POCT GLUCOSE (AUTOMATED) 2022-08-12 00:55:00 Raissa Guerra [facility] POCT GLUCOSE (AUTOMATED) 2022-08-11 21:42:00 Raissa Guerra versity [facility] POCT GLUCOSE (AUTOMATED) 2022-08-11 17:16:00 Raissa Guerra versity of [facility] POCT GLUCOSE (AUTOMATED) 2022-08-11 12:37:00 Raissa Guerra versity of [facility] PHOSPHORUS 2022-08-11 08:18:00 [facility] MAGNESIUM 2022-08-11 08:18:[address] [facility] [place] [place] BASIC METABOLIC PANEL (NA, 2022-08-11 08:18:00 Cat Ventura [facility] K, CL, CO2, GLUCOSE, BUN, Medica l Branch CREATININE, CA) CBC WITH DIFF 2022-08-11 08:18:[address] [facility] [place] [place] POCT GLUCOSE (AUTOMATED) 2022-08-11 01:53:00 Raissa Guerra versity [facility] POCT GLUCOSE (AUTOMATED) 2022-08-10 22:48:00 Raissa Guerra versity [facility] POCT GLUCOSE (AUTOMATED) 2022-08-10 17:00:00 Raissa Guerra Uni versity of [facility] POCT GLUCOSE (AUTOMATED) 2022-08-10 14:05:00 Raissa Guerra versity [facility] MAGNESIUM 2022-08-10 07:54:00 Lc [facility] BASIC METABOLIC PANEL (NA, 2022-08-10 07:54:00 Allison Platt [facility] K, CL, CO2, GLUCOSE, BUN, Medica l Branch CREATININE, CA) CBC WITH DIFF 2022-08-10 07:54:00 Lc [facility] POCT GLUCOSE (AUTOMATED) 2022-08-10 01:40:00 Raissa Guerra versity of [facility] POCT GLUCOSE (AUTOMATED) 2022-08-09 23:04:00 Raissa Guerra versity of [facility] POCT GLUCOSE (AUTOMATED) 2022-08-09 21:19:00 Raissa Guerra versity of [facility] POCT GLUCOSE (AUTOMATED) 2022-08-09 15:22:00 Raissa Guerra versity of [facility] POCT GLUCOSE (AUTOMATED) 2022-08-09 15:22:00 Raissa Guerra versity of [facility] POCT GLUCOSE (AUTOMATED) 2022-08-09 01:06:00 Raissa Guerra Uni versity of [facility] POCT GLUCOSE (AUTOMATED) 2022-08-09 01:06:00 Raissa Guerra versity of [facility] POCT GLUCOSE (AUTOMATED) 2022-08-08 22:46:00 Raissa Guerra Uni versity of [facility] POCT GLUCOSE (AUTOMATED) 2022-08-08 22:46:00 Raissa Guerra Uni versity of [facility] POCT GLUCOSE (AUTOMATED) 2022-08-08 18:40:00 Raissa Guerra Uni versity of [facility] POCT GLUCOSE (AUTOMATED) 2022-08-08 18:40:00 Raissa Guerra versity of [facility] POCT GLUCOSE (AUTOMATED) 2022-08-08 14:15:00 Raissa Guerra versity of [facility] POCT GLUCOSE (AUTOMATED) 2022-08-08 14:15:00 Raissa Guerra versity of [facility] CBC WITH DIFF 2022-08-08 08:50:00 Lc [facility] BASIC METABOLIC PANEL (NA, 2022-08-08 08:50:00 [facility], CO2, GLUCOSE, BUN, Medica l Branch CREATININE, CA) MAGNESIUM 2022-08-08 08:50:00 Lc [facility] PHOSPHORUS 2022-08-08 08:50:00 Lc [facility] PHOSPHORUS 2022-08-08 08:50:00 L[facility] MAGNESIUM 2022-08-08 08:50:00 Lc [facility] BASIC METABOLIC PANEL (NA, 2022-08-08 08:50:00 [facility], CL, CO2, GLUCOSE, BUN, Medica l Branch CREATININE, CA) CBC WITH DIFF 2022-08-08 08:50:00 Lc [facility] POCT GLUCOSE (AUTOMATED) 2022-08-08 03:08:00 [facility] 2022-08-08 03:08:00 Raissa Guerra [facility] XR CHEST 1 VW 2022-08-08 00:59:00 Lc [facility] XR CHEST 1 VW 2022-08-08 00:59:00 L[facility] POCT GLUCOSE (AUTOMATED) 2022-08-07 22:46:00 [facility]) 2022-08-07 22:46:00 Raissa Guerra [facility] IR CENTRALLY INSERTED 2022-08-07 20:51:00 [facility]rita [facility] [place] DEVICE TUNNELED 5 OR OLDER Medic al Branch NO PORT/PUMP IR CENTRALLY INSERTED 2022-08-07 20:51:00 Chaparrita Barrett [facility] [place] DEVICE TUNNELED 5 OR OLDER Medic al Branch NO PORT/PUMP POCT GLUCOSE (AUTOMATED) 2022-08-07 16:46:00 Raissa Guerra [facility] POCT GLUCOSE (AUTOMATED) 2022-08-07 16:46:00 Raissa Guerra [facility] POCT GLUCOSE (AUTOMATED) 2022-08-07 13:34:00 Raissa Guerra [facility] POCT GLUCOSE (AUTOMATED) 2022-08-07 13:34:00 Raissa Guerra [facility] CBC WITH DIFF 2022-08-07 10:29:00 Wilfredo [facility] BASIC METABOLIC PANEL (NA, 2022-08-07 10:29:00 Delilah Villalobos [facility] K, CL, CO2, GLUCOSE, BUN, Medica l Branch CREATININE, CA) MAGNESIUM 2022-08-07 10:29:00 Wilfredo [facility] MAGNESIUM 2022-08-07 10:29:00 Wilfredo [facility] BASIC METABOLIC PANEL (NA, 2022-08-07 10:29:00 Delilah Villalobos [facility] K, CL, CO2, GLUCOSE, BUN, Medica l Branch CREATININE, CA) CBC WITH DIFF 2022-08-07 10:29:00 Delilah Villalobos o f [facility] POCT GLUCOSE (AUTOMATED) 2022-08-07 01:25:00 [facility]) 2022-08-07 01:25:00 Raissa Guerra [facility] IRON PANEL 2022-08-06 22:56:00 Jennifer Valero [facility] FERRITIN SERUM 2022-08-06 22:56:00 Jennifer Valero [facility] HEPATITIS B SURFACE 2022-08-06 22:56:[facility] HEPATITIS B SURFACE 2022-08-06 22:56:00 [facility] ANTIBODY [facility] HBC ANTIBODY (IGM & IGG) 2022-08-06 22:56:00 Lc [facility] FERRITIN SERUM 2022-08-06 22:56:00 Jennifer Valero [facility] IRON PANEL 2022-08-06 22:56:00 Jennifer Valero [facility] HEPATITIS B SURFACE 2022-08-06 22:56:00 [facility] ANTIBODY [facility] HEPATITIS B SURFACE 2022-08-06 22:56:00 [facility] ANTIGEN [facility] HBC ANTIBODY (IGM & IGG) 2022-08-06 22:56:00 Allison Platt [facility] POCT GLUCOSE (AUTOMATED) 2022-08-06 21:57:00 [facility]) 2022-08-06 21:57:00 [facility] ([facility]OMATED) 2022-08-06 21:25:00 [facility] (AUTOMATED) 2022-08-06 21:25:00 Guerra, Shiwan [facility] POCT GLUCOSE (AUTOMATED) 2022-08-06 16:54:00 Raissa Guerra [facility] POCT GLUCOSE (AUTOMATED) 2022-08-06 16:54:00 Raissa Guerra [facility] BASIC METABOLIC PANEL (NA, 2022-08-06 13:38:00 Hoover [facility] K, CL, CO2, GLUCOSE, BUN, Medica l Branch CREATININE, CA) MAGNESIUM 2022-08-06 13:38:00 Hoover [place] PHOSPHORUS 2022-08-06 13:38:00 Hoover [place] PHOSPHORUS 2022-08-06 13:38:00 Hoover [place] MAGNESIUM 2022-08-06 13:38:00 Hoover [place] BASIC METABOLIC PANEL (NA, 2022-08-06 13:38:00 Hoover [facility] K, CL, CO2, GLUCOSE, BUN, Medica l Branch CREATININE, CA) POCT GLUCOSE (AUTOMATED) 2022-08-06 13:01:00 Raissa Guerra [facility] POCT GLUCOSE (AUTOMATED) 2022-08-06 13:01:00 Raissa Guerra [facility] MAGNESIUM 2022-08-06 04:11:00 Chris [facility] PHOSPHORUS 2022-08-06 04:11:00 Chris [facility] PHOSPHORUS 2022-08-06 04:11:00 Chris [facility] MAGNESIUM 2022-08-06 04:11:00 Chris [facility] BASIC METABOLIC PANEL (NA, 2022-08-06 04:11:00 Braden Perez [facility] K, CL, CO2, GLUCOSE, BUN, Medica l Branch CREATININE, CA) AC PANEL 21 + LACTIC ACID 2022-08-06 04:11:00 Keyla Hassan [facility] AC PANEL 21 + LACTIC ACID 2022-08-06 04:11:00 Keyla Hassan [facility] BASIC METABOLIC PANEL (NA, 2022-08-06 04:11:00 Braden Perez [facility] K, CL, CO2, GLUCOSE, BUN, Medica l Branch CREATININE, CA) POCT GLUCOSE (AUTOMATED) 2022-08-06 01:15:00 Raissa Guerra Uni versity [facility] POCT GLUCOSE (AUTOMATED) 2022-08-06 01:15:00 [facility] ([facility]ATED) 2022-08-05 20:52:00 Raissa Guerra Uni versity [facility] POCT GLUCOSE (AUTOMATED) 2022-08-05 20:52:00 Raissa Guerra [facility] MAGNESIUM 2022-08-05 20:35:00 [facility] 2022-08-05 20:35:00 Sneha [place] MAGNESIUM 2022-08-05 20:35:00 [facility] 2022-08-05 20:35:00 Sneha [place] DUPLEX VENOUS LEG LEFT - 2022-08-05 17:34:34 Dosmendoza Dipesh [facility] [place] BY VASCULAR LAB [facility] DUPLEX VENOUS LEG LEFT - 2022-08-05 17:34:34 Dostal, Dipesh Uni [facility] BY VASCULAR LAB [facility] DUPLEX ARTERIAL LEG LEFT - 2022-08-05 17:34:24 DostalBassams U niversity [facility] BY VASCULAR LAB [facility] DUPLEX ARTERIAL LEG LEFT - 2022-08-05 17:34:24 Dostal, Dipesh U [facility] BY VASCULAR LAB [facility] POCT GLUCOSE (AUTOMATED) 2022-08-05 17:08:00 Raissa Guerra versity [facility] POCT GLUCOSE (AUTOMATED) 2022-08-05 17:08:00 Raissa Guerra Uni versity [facility] CT ABDOMEN PELVIS WO 2022-08-05 16:11:25 Sonja Vanessa [facility] [place] CONTRAST [facility] CT ABDOMEN PELVIS WO 2022-08-05 16:11:25 Sonja Vanessa [facility] [place] CONTRAST [facility] CT THORAX WO CONTRAST 2022-08-05 16:11:14 Sonja Vanessa Un iversity of [facility] CT THORAX WO CONTRAST 2022-08-05 16:11:14 [facility]+ VW BILATERAL 2022-08-05 16:10:44 [facility] XR FOOT 3+ VW BILATERAL 2022-08-05 16:10:44 Rasheeda [facility] XR CHEST 1 VW 2022-08-05 16:09:17 Rasheeda [facility] XR CHEST 1 VW 2022-08-05 16:09:17 [facility] AC PANEL 20 + LACTIC ACID 2022-08-05 13:42:00 [facility] PANEL 20 + LACTIC ACID 2022-08-05 13:42:00 Vashti Marshall [facility] PHOSPHORUS 2022-08-05 13:13:00 [facility] 2022-08-05 13:13:00 [facility] 2022-08-05 13:13:00 Tato Hoover [facility] BASIC METABOLIC PANEL (NA, 2022-08-05 13:13:00 Dostal, [facility] K, CL, CO2, GLUCOSE, BUN, Medica l Branch CREATININE, CA) BASIC METABOLIC PANEL (NA, 2022-08-05 13:13:00 Dostal, [facility] K, CL, CO2, GLUCOSE, BUN, Medica l Branch CREATININE, CA) MAGNESIUM 2022-08-05 13:13:00 Dostal, [facility] PHOSPHORUS 2022-08-05 13:13:00 [facility] TROPONIN [facility] 2022-08-05 13:13:00 Tato Hoover [facility] POCT GLUCOSE (AUTOMATED) 2022-08-05 12:57:00 Raissa Guerra [facility] POCT GLUCOSE (AUTOMATED) 2022-08-05 12:57:00 Raissa Guerra [facility] RETROPERITONEAL LIMITED 2022-08-05 11:00:00 DostalDipesh [facility] RETROPERITONEAL LIMITED 2022-08-05 11:00:00 DostalDipesh [facility] INTACT PTH CALCIUM GROUP 2022-08-05 10:47:00 Dostal [facility] INTACT PTH CALCIUM GROUP 2022-08-05 10:47:00 [facility] 2022-08-05 10:46:00 Amparo Moyer [facility] PROTEIN CREAT RATIO URINE 2022-08-05 10:46:00 Amparo Moyer [facility] UREA NITROGEN, URINE 2022-08-05 10:46:00 Amparo Moyer [facility] SODIUM, URINE RANDOM 2022-08-05 10:46:00 Amparo Moyer [facility] URINALYSIS 2022-08-05 10:46:00 Amparo Moyer [facility] PROTEIN CREAT RATIO URINE 2022-08-05 10:46:00 Amparo Moyer [facility] SODIUM, URINE RANDOM 2022-08-05 10:46:00 Amparo Moyer [facility] UREA NITROGEN, URINE 2022-08-05 10:46:00 Amparo Moyer [facility] AC PANEL 20 + LACTIC ACID 2022-08-05 08:41:00 Calvin Vanessa [facility] AC PANEL 20 + LACTIC ACID 2022-08-05 08:41:00 Calvin Vanessa [facility] BLOOD CULTURE SCREEN 2022-08-05 08:39:00 Amparo Moyer [facility] COVID-19 (ID NOW RAPID 2022-08-05 08:39:00 Sonja Vanessa [facility] TESTING) [facility] LAB ONLY COVID 2022-08-05 08:39:00 Sonja Vanessa [facility] INTERPRETATION [facility] COVID-19 (ID NOW RAPID 2022-08-05 08:39:00 Sonja Vanessa [facility] TESTING) [facility] BLOOD CULTURE SCREEN 2022-08-05 08:39:00 Amparo Moyer [facility] LAB ONLY COVID 2022-08-05 08:39:00 [facility] INTERPRE[facility] PHOSPHORUS 2022-08-05 07:38:00 Rasheeda [facility] LACTATE DEHYDROGENASE 2022-08-05 07:38:00 [facility] 2022-08-05 07:38:00 [facility] TROPONIN I 2022-08-05 07:38:00 [facility] HEPATIC FUNCTION PANEL 2022-08-05 07:38:00 [facility] ([id number]) (ALB,T.PRO,BILI [facility] T,BU/BC,ALT,AST,ALK PHOS) BASIC METABOLIC PANEL (NA, 2022-08-05 07:38:00 Louisa Vanessa [facility] K, CL, CO2, GLUCOSE, BUN, [facility] CREATININE, CA) LIPID PANEL ([id number])(TOTAL 2022-08-05 07:38:00 Calvin Vanessa [facility] TRIGLYCERIDES, HDL) CBC WITH DIFF 2022-08-05 07:38:00 Sonja Vanessa [facility] GLYCOSYLATED HEMOGLOBIN 2022-08-05 07:38:00 Rasheeda [facility] (A1C) [facility] PROTHROMBIN TIME / INR 2022-08-05 07:38:00 Sonja Vanessa [facility] MRSA / MSSA SCREEN BY PCR, 2022-08-05 07:38:00 Louisa Vanessa [facility] MRSA / MSSA SCREEN BY PCR, 2022-08-05 07:38:00 Louisa Vanessa [facility] CBC WITH DIFF 2022-08-05 07:38:00 Rasheeda [facility] PROTHROMBIN TIME / INR 2022-08-05 07:38:00 Sonja Vanessa [facility] BASIC METABOLIC PANEL (NA, 2022-08-05 07:38:00 Louisa Vanessa [facility] K, CL, CO2, GLUCOSE, BUN, [facility] CREATININE, CA) MAGNESIUM 2022-08-05 07:38:00 Sonja Vanessa [facility] PHOSPHORUS 2022-08-05 07:38:00 Rasheeda [facility] HEPATIC FUNCTION PANEL 2022-08-05 07:38:00 Sonja Vanessa [facility] ([id number]) (ALB,T.PRO,BILI [facility] T,BU/BC,ALT,AST,ALK PHOS) LACTATE DEHYDROGENASE 2022-08-05 07:38:00 Sonja Vanessa [facility] TROPONIN I 2022-08-05 07:38:00 Sonja Vanessa [facility] GLYCOSYLATED HEMOGLOBIN 2022-08-05 07:38:00 Sonja Vanessa [facility] (A1C) [facility] LIPID PANEL (70139)(TOTAL 2022-08-05 07:38:00 Calvin Vanessa [facility] CHOLESTEROL, [facility] TRIGLYCERIDES, HDL) HOSPITAL ADMISSION 2022-08-05 05:01:00 Doctor Unassigned, [facility] HOSPITAL ADMISSION 2022-08-05 05:01:00 Doctor Unassigned, [facility] Medical [place] Encounters Start End Encounter Admission Attending Care Care Encounter Source Date/Time Date/Time Type Type Clinicians Facility Department ID 2022-09-23 2022-09-23 Outpatient KYLEE VARGAS [id number] Kylee 11:15:00 11:15:00 ZHEN Lakhaniol kenneth 2022-09-11 2022-09-11 Outpatient KYLEE MARIA [id number] Kylee 13:30:00 13:30:00 Seybol d 2022-08-27 2022-08-27 Outpatient KYLEE VARGAS [id number] Kylee 10:30:00 10:30:00 ZHEN Seybol d 2022-08-25 2022-08-25 Orders Doctor NAREN [id number] Univers 00:00:00 00:00:00 Only Unassigned, BEN 350.1.13.10 [facility] [place] [facility] 4.2.7.2.686 Rolando as [id number] [facility] 009 Branch 2022-08-14 2022-08-14 Transition LEODAN Nelson [id number] Univers 00:00:00 00:00:00 of Care Jose RAWLS 350.1.13.10 [place] [id number] [facility] 403 Branch 2022-08-05 2022-08-13 Inpatient U [facility] [id number] Univers 02:04:00 13:09:00 ity of [facility] 2022-08-05 2022-08-13 Hospital Raissa Guerra [id number] Univers 02:04:00 13:09:00 Encounter Grace Milligan 350.1.13.10 [facility] [place] [facility] 4.2.7.2.686 [place] [id number] [facility] 099 Branch 2022-08-05 2022-08-05 Travel 1.2.840.1 [id number] [id number] Univers 00:00:00 00:00:00 80464.1.1 350.1.13.10 ity of 3.104.2.[place].698 [place][id number] 084.8 Medica l .8 Branch Results Test Description Test Time Test Comments Results Result Comments Source [facility] 2022-08-27 15:39:02 Test Item Value Reference Range Interpretation Comme nts [facility] left side (test code See_Comment L [Automated message] The system = 55960-5N) which generated this result transmitted ref erence range: 1.40 - 0.90 NA. The reference range was not u sed to interpret this result as normal/abnormal. [facility] right side (test See_Comment L P resentation Factors: code = 34112-3N) Hypertensio n, Hyperlipidemia, Smoking History , DiabetesExercis e Modality: At Restmultiple at tempts on bilateral feet. feet feel warm to touch. turne d lights off and got same readin g. 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 Normal - 1.40 - 1.00Bord lewis - 0.99 - 0.90Mild - 0.89 - 0.60Moderate - 0.59 - 0.30Seve re - 0.29 - 0.00 [Automated mess age] The system which generated this result transmitted ref erence range: 1.40 - 0.90 NA. The reference range was not u sed to interpret this result as normal/abnormal. Lab Interpretation (test code Abnormal = 42094-5) Kylee Rizzo [facility] GLUCOSE (AUTOMATED)2022-08-13 16:50:21 Test Item Value Reference Range Interpretation Comments POCT GLU (test code = 5998387119) 142 mg/dL 70-110 H Lab Interpretation (test code = Abnormal 87278-7) [facility] GLUCOSE (AUTOMATED)2022-08-13 12:58:22 Test Item Value Reference Range Interpretation Comments POCT GLU (test code = 8258513049) 111 mg/dL 70-110 H Lab Interpretation (test code = Abnormal 92079-2) [facility] GLUCOSE (AUTOMATED)2022-08-13 02:41:43 Test Item Value Reference Range Interpretation Comments POCT GLU (test code = 7265983942) 195 mg/dL 70-110 H Lab Interpretation (test code = Abnormal 61773-2) [facility] GLUCOSE (AUTOMATED)2022-08-12 21:01:39 Test Item Value Reference Range Interpretation Comments POCT GLU (test code = 3982795883) 110 mg/dL 70-110 Lab Interpretation (test code = Normal 14910-2) [facility]IAL[facility] [id number] 19:10:16 Test Item Value Reference Range Interpretation Comments PostBUN (test code = 9815362715) 14 mg/dl 7-23 Lab Interpretation (test code = Normal 86552-3) [facility] GLUCOSE (AUTOMATED)2022-08-12 18:14:14 Test Item Value Reference Range Interpretation Comments POCT GLU (test code = 7148442986) 130 mg/dL 70-110 H Lab Interpretation (test code = Abnormal 52891-0) [facility]2022-08-12 13:05:35 Test Item Value Reference Range Interpretation Comments POCT GLU (test code = 4119934877) 115 mg/dL 70-110 H Lab Interpretation (test code = Abnormal 25342-5) [facility] METABOLIC PANEL (NA, K, CL, CO2, GLUCOSE, BUN, CREATININE, CA)2022-08-12 09:50:31 Test Item Value Reference Range Interpretation Comments NA (test code = 127 mmol/L 135-145 L 4457812366) K (test code = 4.4 mmol/L 3.5-5 6460483847) CL (test code = 100 mmol/L 98-108 3517806762) CO2 TOTAL (test code = 20 mmol/L 23-31 L 8719322861) AGAP (test code = 2-16 6024930375) BUN (test code = 45 mg/dL 7-23 H 6394160220) GLUCOSE (test code = 104 mg/dL 70-110 2392506293) CREATININE (test code = 3.99 mg/dL 0.6-1.25 H 2738455327) CALCIUM (test code = 8.4 mg/dL 8.6-10.6 L 8479020218) eGFR (test code = mL/min/1.73m2 1485434413) TORITO (test code = TORITO) Association of Glomerular Filtration Rate (GFR) and Staging of Kidney Disease* + --+ --+ ------+| GFR (mL/min/1.73 m2) ?| With Kidney Damage ?| ?Without Kidney Damage+ --------+ --------+ +| ?>90 ?| ?Stage one ?| ? Normal ?+ ---+ ---+ -------+| ?60-89 ?| ?Stage two ?| ? Decreased GFR ? + --+ --+ ------+| ?30-59 ?| ?Stage three ?| ? Stage three ? + --+ --+ ------+| ?15-29 ?| ?Stage four ? | ? Stage four ?+ ---+ ---+ -------+| ?<15 (or dialysis) ? ?| ?Stage five ? | ? Stage five ?+ ---+ ---+ -------+ *Each stage assumes the associated GFR level has been in effect for at least three months. ?Stages 1 to 5, with or without kidney disease, indicate chronic kidney disease. Notes: Determination of stages one and two (with eGFR >59mL/min/1.73 m2) requires estimation of kidney damage for at least three months as defined by structural or functional abnormalities of the kidney, manifested by either:Pathological abnormalities or Markers of kidney damage (including abnormalities in the composition of the blood or urine or abnormalities in imaging tests). Lab Interpretation Abnormal (test code = 90220-2) [facility] 09:50:31 Test Item Value Reference Range Interpretation Comments MAGNESIUM (test code = 5773669996) 1.5 mg/dL 1.7-2.4 L Lab Interpretation (test code = Abnormal 49349-6) [facility] 09:50:31 Test Item Value Reference Range Interpretation Comments PHOSPHORUS (test code = 1679727711) 3.4 mg/dL 2.5-5 Lab Interpretation (test code = Normal 24922-3) [facility] [id number] 09:21:11 Test Item Value Reference Range Interpretation Comments WBC (test code = See_Comment [Automated 6690-2) message] The sy stem which generated this result transmitted reference range : 4.20 - 10.70 10*3/?L. The reference range was not used to interpret this result as normal/abnormal . RBC (test code = See_Comment L [Automated 719-8) message] The sy stem which generated this result transmitted reference range : 4.26 - 5.52 10*6/?L. The reference range was not used to interpret this result as normal/abnormal . HGB (test code = 8.2 g/dL 12.2-16.4 L 718-7) HCT (test code = 22.4 % 38.4-49.3 L 4544-3) MCV (test code = 83.3 fL 81.7-95.6 787-2) MCH (test code = 30.5 pg 26.1-32.7 785-6) MCHC (test code = 36.6 g/dL 31.2-35 H 786-4) RDW-SD (test code = 38.5 fL 38.5-51.6 67774-1) RDW-CV (test code = 12.9 % 12.1-15.4 788-0) PLT (test code = See_Comment [Automated 777-3) message] The sy stem which generated this result transmitted reference range : 150 - 328 10*3/ ?L. The reference r mallika was not used to interpret this result as normal/abnormal . MPV (test code = 9.9 fL 9.8-13 49630-2) NRBC/100 WBC (test See_Comment [Automat ed code = 5655335660) message] The system which generated this result transmitted reference range : 0.0 - 10.0 /100 WBCs. The refer ence range was not u sed to interpret th is result as normal/abnormal . NRBC x10^3 (test code See_Comment [Auto mated = 6518661595) message] The s ystem which generated this result transmitted reference range : 10*3/?L. The reference range was not used to interpret this result as normal/abnormal . GRAN MAT (NEUT) % 66.5 % (test code = 770-8) IMM GRAN % (test code 0.60 % = 1738035032) LYMPH % (test code = 18.8 % 736-9) MONO % (test code = 7.6 % 5905-5) EOS % (test code = 5.9 % 713-8) BASO % (test code = 0.6 % 706-2) GRAN MAT x10^3(ANC) 4.39 10*3/uL 1.99-6.95 (test code = 0278340719) IMM GRAN x10^3 (test 0.04 10*3/uL 0-0.06 code = 0296782352) LYMPH x10^3 (test code 1.24 10*3/uL 1.09-3.23 = 731-0) MONO x10^3 (test code 0.50 10*3/uL 0.36-1.02 = 742-7) EOS x10^3 (test code = 0.39 10*3/uL 0.06-0.53 711-2) BASO x10^3 (test code 0.04 10*3/uL 0.01-0.09 = 704-7) Lab Interpretation Abnormal (test code = 17139-3) [facility] GLUCOSE (AUTOMATED)2022-08-12 00:57:06 Test Item Value Reference Range Interpretation Comments POCT GLU (test code = 9141430856) 210 mg/dL 70-110 H Lab Interpretation (test code = Abnormal 61421-9) [facility] GLUCOSE (AUTOMATED)2022-08-11 21:43:33 Test Item Value Reference Range Interpretation Comments POCT GLU (test code = 6167270675) 145 mg/dL 70-110 H Lab Interpretation (test code = Abnormal 65015-1) [facility] GLUCOSE (AUTOMATED)2022-08-11 17:17:25 Test Item Value Reference Range Interpretation Comments POCT GLU (test code = 8985611481) 178 mg/dL 70-110 H Lab Interpretation (test code = Abnormal 62888-3) [facility] GLUCOSE (AUTOMATED)2022-08-11 12:37:49 Test Item Value Reference Range Interpretation Comments POCT GLU (test code = 1979663698) 118 mg/dL 70-110 H Lab Interpretation (test code = Abnormal 98111-2) [facility] GLUCOSE (AUTOMATED)2022-08-11 01:54:39 Test Item Value Reference Range Interpretation Comments POCT GLU (test code = 0106418710) 184 mg/dL 70-110 H Lab Interpretation (test code = Abnormal 09748-0) [facility] GLUCOSE (AUTOMATED)2022-08-10 22:51:08 Test Item Value Reference Range Interpretation Comments POCT GLU (test code = 0710535628) 167 mg/dL 70-110 H Lab Interpretation (test code = Abnormal 38135-7) [facility] GLUCOSE (AUTOMATED)2022-08-10 17:02:13 Test Item Value Reference Range Interpretation Comments POCT GLU (test code = 4287719948) 165 mg/dL 70-110 H Lab Interpretation (test code = Abnormal 96760-8) [facility] GLUCOSE (AUTOMATED)2022-08-10 14:06:48 Test Item Value Reference Range Interpretation Comments POCT GLU (test code = 7775591297) 143 mg/dL 70-110 H Lab Interpretation (test code = Abnormal 41171-7) [facility] GLUCOSE (AUTOMATED)2022-08-10 01:43:42 Test Item Value Reference Range Interpretation Comments POCT GLU (test code = 6393572909) 193 mg/dL 70-110 H Lab Interpretation (test code = Abnormal 99539-6) [facility] GLUCOSE (AUTOMATED)2022-08-09 23:05:58 Test Item Value Reference Range Interpretation Comments POCT GLU (test code = 7235699686) 186 mg/dL 70-110 H Lab Interpretation (test code = Abnormal 68689-4) [facility] GLUCOSE (AUTOMATED)2022-08-09 21:28:17 Test Item Value Reference Range Interpretation Comments POCT GLU (test code = 2148243900) 202 mg/dL 70-110 H Lab Interpretation (test code = Abnormal 96734-0) [facility] GLUCOSE (AUTOMATED)2022-08-09 15:23:04 Test Item Value Reference Range Interpretation Comments POCT GLU (test code = 1392128388) 106 mg/dL 70-110 Lab Interpretation (test code = Normal 36826-2) [facility] GLUCOSE (AUTOMATED)2022-08-09 15:23:04 Test Item Value Reference Range Interpretation Comments POCT GLU (test code = 2181050321) 106 mg/dL 70-110 Lab Interpretation (test code = Normal 53068-7) [facility] GLUCOSE (AUTOMATED)2022-08-09 01:22:12 Test Item Value Reference Range Interpretation Comments POCT GLU (test code = 9360753599) 217 mg/dL 70-110 H Lab Interpretation (test code = Abnormal 96178-7) [facility] GLUCOSE (AUTOMATED)2022-08-08 22:48:26 Test Item Value Reference Range Interpretation Comments POCT GLU (test code = 1067180578) 183 mg/dL 70-110 H Lab Interpretation (test code = Abnormal 94412-2) [facility] GLUCOSE (AUTOMATED)2022-08-08 18:41:48 Test Item Value Reference Range Interpretation Comments POCT GLU (test code = 9980578110) 208 mg/dL 70-110 H Lab Interpretation (test code = Abnormal 31086-3) [facility] GLUCOSE (AUTOMATED)2022-08-08 14:17:16 Test Item Value Reference Range Interpretation Comments POCT GLU (test code = 1259128984) 126 mg/dL 70-110 H Lab Interpretation (test code = Abnormal 43150-8) [facility] GLUCOSE (AUTOMATED)2022-08-08 03:10:01 Test Item Value Reference Range Interpretation Comments POCT GLU (test code = 0182389552) 250 mg/dL 70-110 H Lab Interpretation (test code = Abnormal 36512-6) [facility] GLUCOSE (AUTOMATED)2022-08-07 22:50:11 Test Item Value Reference Range Interpretation Comments POCT GLU (test code = 2313948111) 127 mg/dL 70-110 H Lab Interpretation (test code = Abnormal 74177-7) [facility] [id number] 22:45:00 Test Item Value Reference Range Interpretation Comments HBsAB (test code = Negative 3843088773) HBsAb mIU/mL Semi-Quantitative (test code = 0154058655) TOIRTO (test code = Interpretation: TORITO) ?Hepatitis B Surface Antibody ? Negative - Patient is considered to be not immune to infection with HBV. ? ? Positive - Anti-HBs detected at greater than or equal to 12 mIU/mL. ?Patient is considered to be immune to infection with HBV. ? [facility]2022-08-07 22:45:00 Test Item Value Reference Range Interpretation Comments HBC (test code = 1884570017) Negative HBC Semi-Quantitative (test code = 8685832393) [facility] B SURFACE [id number] 22:45:00 Test Item Value Reference Range Interpretation Comments HBsAB (test code = Negative 2606424550) HBsAb mIU/mL Semi-Quantitative (test code = 9027264674) TORITO (test code = Interpretation: TORITO) ?Hepatitis B Surface Antibody ? Negative - Patient is considered to be not immune to infection with HBV. ? ? Positive - Anti-HBs detected at greater than or equal to 12 mIU/mL. ?Patient is considered to be immune to infection with HBV. ? [facility]2022-08-07 22:45:00 Test Item Value Reference Range Interpretation Comments HBC (test code = 4790226709) Negative HBC Semi-Quantitative (test code = 7637300295) [facility] B SURFACE [id number] 22:26:56 Test Item Value Reference Range Interpretation Comments HBsAg Semi-Quantitative (test code = Negative Negative 5195-3) [facility] B SURFACE [id number] 22:26:56 Test Item Value Reference Range Interpretation Comments HBsAg Semi-Quantitative (test code = Negative Negative 5195-3) [facility] GLUCOSE (AUTOMATED)2022-08-07 16:51:06 Test Item Value Reference Range Interpretation Comments POCT GLU (test code = 0442402336) 116 mg/dL 70-110 H Lab Interpretation (test code = Abnormal 10201-7) [facility] GLUCOSE (AUTOMATED)2022-08-07 13:39:37 Test Item Value Reference Range Interpretation Comments POCT GLU (test code = 7558734518) 147 mg/dL 70-110 H Lab Interpretation (test code = Abnormal 86169-1) [facility] GLUCOSE (AUTOMATED)2022-08-07 01:27:04 Test Item Value Reference Range Interpretation Comments POCT GLU (test code = 2642478111) 193 mg/dL 70-110 H Lab Interpretation (test code = Abnormal 51310-7) [facility] [id number] 00:41:11 Test Item Value Reference Range Interpretation Comments FERRITIN (test code = 393.0 ng/mL 18464 4650215479) TORITO (test code = TORITO) Biotin has been reported to cause a negative bias, interpret results relative to patient's use of biotin. Lab Interpretation (test Normal code = 62463-6) [facility] [id number] 00:41:11 Test Item Value Reference Range Interpretation Comments FERRITIN (test code = 393.0 ng/mL 18-464 1812877338) TORITO (test code = TORITO) Biotin has been reported to cause a negative bias, interpret results relative to patient's use of biotin. Lab Interpretation (test Normal code = 01478-7) [facility] [id number] 00:14:07 Test Item Value Reference Range Interpretation Comments IRON (test code = 2836146320) 41 ug/dL 50-160 L TIBC (test code = 2556156363) 200 ug/dL 250-410 L % FE SAT (test code = 9801163351) 21 % 20-50 Lab Interpretation (test code = Abnormal 73763-4) [facility] [id number] 00:14:07 Test Item Value Reference Range Interpretation Comments IRON (test code = 5432590188) 41 ug/dL 50-160 L TIBC (test code = 4012009541) 200 ug/dL 250-410 L % FE SAT (test code = 7199712366) 21 % 20-50 Lab Interpretation (test code = Abnormal 79856-1) [facility] GLUCOSE (AUTOMATED)2022-08-06 22:28:19 Test Item Value Reference Range Interpretation Comments POCT GLU (test code = 7746096721) 139 mg/dL 70-110 H Lab Interpretation (test code = Abnormal 25497-1) [facility] GLUCOSE (AUTOMATED)2022-08-06 22:28:19 Test Item Value Reference Range Interpretation Comments POCT GLU (test code = 8793459944) 109 mg/dL 70-110 Lab Interpretation (test code = Normal 14195-0) [facility] GLUCOSE (AUTOMATED)2022-08-06 16:58:03 Test Item Value Reference Range Interpretation Comments POCT GLU (test code = 4136097818) 211 mg/dL 70-110 H Lab Interpretation (test code = Abnormal 51718-9) [facility] METABOLIC PANEL (NA, K, CL, CO2, GLUCOSE, BUN, CREATININE, CA)2022-08-06 13:56:59 Test Item Value Reference Range Interpretation Comments NA (test code = 139 mmol/L 135-145 8610546444) K (test code = 3.7 mmol/L 3.5-5 8682192425) CL (test code = 104 mmol/L 98-108 8692364673) CO2 TOTAL (test code = 27 mmol/L 23-31 1437375136) AGAP (test code = 2-16 1692237523) BUN (test code = 91 mg/dL 7-23 H 9303221064) GLUCOSE (test code = 149 mg/dL 70-110 H 9989291339) CREATININE (test code = 6.98 mg/dL 0.6-1.25 H 9468842669) CALCIUM (test code = 7.1 mg/dL 8.6-10.6 L 4711656663) eGFR (test code = mL/min/1.73m2 9451250227) TORITO (test code = TORITO) Association of Glomerular Filtration Rate (GFR) and Staging of Kidney Disease* + --+ --+ ------+| GFR (mL/min/1.73 m2) ?| With Kidney Damage ?| ?Without Kidney Damage+ --------+ --------+ +| ?>90 ?| ?Stage one ?| ? Normal ?+ ---+ ---+ -------+| ?60-89 ?| ?Stage two ?| ? Decreased GFR ? + --+ --+ ------+| ?30-59 ?| ?Stage three ?| ? Stage three ? + --+ --+ ------+| ?15-29 ?| ?Stage four ? | ? Stage four ?+ ---+ ---+ -------+| ?<15 (or dialysis) ? ?| ?Stage five ? | ? Stage five ?+ ---+ ---+ -------+ *Each stage assumes the associated GFR level has been in effect for at least three months. ?Stages 1 to 5, with or without kidney disease, indicate chronic kidney disease. Notes: Determination of stages one and two (with eGFR >59mL/min/1.73 m2) requires estimation of kidney damage for at least three months as defined by structural or functional abnormalities of the kidney, manifested by either:Pathological abnormalities or Markers of kidney damage (including abnormalities in the composition of the blood or urine or abnormalities in imaging tests). Lab Interpretation Abnormal (test code = 90569-7) [facility] 13:56:59 Test Item Value Reference Range Interpretation Comments MAGNESIUM (test code = 1419206806) 2.7 mg/dL 1.7-2.4 H Lab Interpretation (test code = Abnormal 42382-9) [facility] 13:56:59 Test Item Value Reference Range Interpretation Comments PHOSPHORUS (test code = 7929085152) 6.3 mg/dL 2.5-5 H Lab Interpretation (test code = Abnormal 77930-0) [facility]2022-08-06 13:05:26 Test Item Value Reference Range Interpretation Comments POCT GLU (test code = 2829526919) 135 mg/dL 70-110 H Lab Interpretation (test code = Abnormal 83928-4) [facility] METABOLIC PANEL (NA, K, CL, CO2, GLUCOSE, BUN, CREATININE, CA)2022-08-06 05:06:04 Test Item Value Reference Range Interpretation Comments NA (test code = 137 mmol/L 135-145 8219828163) K (test code = 3.2 mmol/L 3.5-5 L 4159010003) CL (test code = 104 mmol/L 98-108 6650865478) CO2 TOTAL (test code = 24 mmol/L 23-31 4139181739) AGAP (test code = 2-16 0210735584) BUN (test code = 103 mg/dL 7-23 H 7494053796) GLUCOSE (test code = 158 mg/dL 70-110 H 5951688250) CREATININE (test code = 7.29 mg/dL 0.6-1.25 H 3493778053) CALCIUM (test code = 7.3 mg/dL 8.6-10.6 L 4817976887) eGFR (test code = mL/min/1.73m2 1251646100) TORITO (test code = TORITO) Association of Glomerular Filtration Rate (GFR) and Staging of Kidney Disease* + --+ --+ ------+| GFR (mL/min/1.73 m2) ?| With Kidney Damage ?| ?Without Kidney Damage+ --------+ --------+ +| ?>90 ?| ?Stage one ?| ? Normal ?+ ---+ ---+ -------+| ?60-89 ?| ?Stage two ?| ? Decreased GFR ? + --+ --+ ------+| ?30-59 ?| ?Stage three ?| ? Stage three ? + --+ --+ ------+| ?15-29 ?| ?Stage four ? | ? Stage four ?+ ---+ ---+ -------+| ?<15 (or dialysis) ? ?| ?Stage five ? | ? Stage five ?+ ---+ ---+ -------+ *Each stage assumes the associated GFR level has been in effect for at least three months. ?Stages 1 to 5, with or without kidney disease, indicate chronic kidney disease. Notes: Determination of stages one and two (with eGFR >59mL/min/1.73 m2) requires estimation of kidney damage for at least three months as defined by structural or functional abnormalities of the kidney, manifested by either:Pathological abnormalities or Markers of kidney damage (including abnormalities in the composition of the blood or urine or abnormalities in imaging tests). Lab Interpretation Abnormal (test code = 64832-6) [facility] 05:06:04 Test Item Value Reference Range Interpretation Comments MAGNESIUM (test code = 8633346351) 3.4 mg/dL 1.7-2.4 H Lab Interpretation (test code = Abnormal 70362-2) [facility] 05:06:04 Test Item Value Reference Range Interpretation Comments PHOSPHORUS (test code = 6922783139) 7.4 mg/dL 2.5-5 H Lab Interpretation (test code = Abnormal 27246-5) [facility] + LACTIC [id number] 04:22:52 Test Item Value Reference Range Interpretation Comments PH (test code = 7.32-7.42 H 7683411464) PCO2 NADIR (test code = See_Comment L [Auto mated 8657151014) message] The sy stem which generated this result transmitted reference range : 41 - 51 mmHg. The reference range was not used to interpret this result as normal/abnormal . PO2 NADIR (test code = See_Comment H [Autom ated 0732407999) message] The sy stem which generated this result transmitted reference range : 25 - 40 mmHg. The reference range was not used to interpret this result as normal/abnormal . HCO3 NADIR (test code = See_Comment [Auto mated 4418539449) message] The sy stem which generated this result transmitted reference range : 24 - 28 mEq/L. The reference range was not used to interpret this result as normal/abnormal . AC VBE(BEAKER) (test mEq/L code = 8819549670) THB NADIR (test code = 10.3 g/dL 13.5-18 L 5247842009) %O2HB NADIR (test code = 79.1 % 52-63 H 1456110397) %COHB NADIR (test code = 0.5 % 0-1.5 2098420880) %METHB NADIR (test code = 0.3 % 0.4-1.5 L 1862501255) VOL%O2 NADIR (test code = 11.5 % 6-12 4732427181) NA (test code = 137 mmol/L 135-145 2082533994) K+ (test code = 3.2 mmol/L 3.5-5 L 1519131337) AC CA IONZ (test code = 4.00 mg/dL 4.5-5.3 L 1654159108) GLUCOSE (test code = 164 mg/dL 70-110 H 1599574846) LACTIC ACID (test code 0.95 mmol/L 0.5-2.2 = 0382292876) Lab Interpretation Abnormal (test code = 70519-7) [facility] + LACTIC [id number] 04:22:52 Test Item Value Reference Range Interpretation Comments PH (test code = 7.32-7.42 H 0233892091) PCO2 NADIR (test code = See_Comment L [Auto mated 6514812265) message] The sy stem which generated this result transmitted reference range : 41 - 51 mmHg. The reference range was not used to interpret this result as normal/abnormal . PO2 NADIR (test code = See_Comment H [Autom ated 4756075886) message] The sy stem which generated this result transmitted reference range : 25 - 40 mmHg. The reference range was not used to interpret this result as normal/abnormal . HCO3 NADIR (test code = See_Comment [Auto mated 3230554847) message] The sy stem which generated this result transmitted reference range : 24 - 28 mEq/L. The reference range was not used to interpret this result as normal/abnormal . AC VBE(BEAKER) (test mEq/L code = 6264257665) THB NADIR (test code = 10.3 g/dL 13.5-18 L 0080714092) %O2HB NADIR (test code = 79.1 % 52-63 H 3431995384) %COHB NADIR (test code = 0.5 % 0-1.5 9312233757) %METHB NADIR (test code = 0.3 % 0.4-1.5 L 7110959867) VOL%O2 NADIR (test code = 11.5 % 6-12 5322292149) NA (test code = 137 mmol/L 135-145 5446304344) K+ (test code = 3.2 mmol/L 3.5-5 L 2648701783) AC CA IONZ (test code = 4.00 mg/dL 4.5-5.3 L 5070968440) GLUCOSE (test code = 164 mg/dL 70-110 H 5821105671) LACTIC ACID (test code 0.95 mmol/L 0.5-2.2 = 3068001994) Lab Interpretation Abnormal (test code = 43097-0) [facility] GLUCOSE (AUTOMATED)2022-08-06 01:26:24 Test Item Value Reference Range Interpretation Comments POCT GLU (test code = 6858694936) 231 mg/dL 70-110 H Lab Interpretation (test code = Abnormal 75532-4) [facility] [id number] 21:13:49 Test Item Value Reference Interpretation Comments Range TROPONIN I (test 0.026 ng/mL See_Comment [Automated code = 5030951612) message] The system which generated this result transmitted reference range : <=0.034. The reference range was not used to interpret this result as normal/abnormal . TORITO (test code = Reference (Normal) TORITO) Range (defined by the 99th percentile reference limit): <= 0.034 ng/mL Note: Cardiac troponin begins to rise 3-4 hours after the onset of ischemia. Repeat in 4-6 hours if the sample was drawn within 3-4 hours of the onset of the symptom and found normal. Diagnosis of myocardial injury is made with acute changes in cTn concentrations with at least one serial sample above the 99th percentile upper reference limit (URL), taken together with the patient's clinical presentation. Biotin has been reported to cause a negative bias, interpret results relative to patient's use of biotin. Lab Interpretation Normal (test code = 00632-6) [facility] [id number] 21:13:49 Test Item Value Reference Interpretation Comments Range TROPONIN I (test 0.026 ng/mL See_Comment [Automated code = 1662116282) message] The system which generated this result transmitted reference range : <=0.034. The reference range was not used to interpret this result as normal/abnormal . TORITO (test code = Reference (Normal) TORITO) Range (defined by the 99th percentile reference limit): <= 0.034 ng/mL Note: Cardiac troponin begins to rise 3-4 hours after the onset of ischemia. Repeat in 4-6 hours if the sample was drawn within 3-4 hours of the onset of the symptom and found normal. Diagnosis of myocardial injury is made with acute changes in cTn concentrations with at least one serial sample above the 99th percentile upper reference limit (URL), taken together with the patient's clinical presentation. Biotin has been reported to cause a negative bias, interpret results relative to patient's use of biotin. Lab Interpretation Normal (test code = 01970-2) [facility]:10:16 Test Item Value Reference Range Interpretation Comments MAGNESIUM (test code = 5074162111) 5.2 mg/dL 1.7-2.4 H Lab Interpretation (test code = Abnormal 60409-2) [facility] GLUCOSE (AUTOMATED)2022-08-05 20:53:12 Test Item Value Reference Range Interpretation Comments POCT GLU (test code = 3198997001) 270 mg/dL 70-110 H Lab Interpretation (test code = Abnormal 62832-1) [facility] GLUCOSE (AUTOMATED)2022-08-05 17:14:05 Test Item Value Reference Range Interpretation Comments POCT GLU (test code = 3984298332) 370 mg/dL 70-110 H Lab Interpretation (test code = Abnormal 53394-6) [facility] [id number] 14:50:57 Test Item Value Reference Interpretation Comments Range TROPONIN I (test 0.026 ng/mL See_Comment [Automated code = 8583397284) message] The system which generated this result transmitted reference range : <=0.034. The reference range was not used to interpret this result as normal/abnormal . TORITO (test code = Reference (Normal) TORITO) Range (defined by the 99th percentile reference limit): <= 0.034 ng/mL Note: Cardiac troponin begins to rise 3-4 hours after the onset of ischemia. Repeat in 4-6 hours if the sample was drawn within 3-4 hours of the onset of the symptom and found normal. Diagnosis of myocardial injury is made with acute changes in cTn concentrations with at least one serial sample above the 99th percentile upper reference limit (URL), taken together with the patient's clinical presentation. Biotin has been reported to cause a negative bias, interpret results relative to patient's use of biotin. Lab Interpretation Normal (test code = 20470-0) [facility] 13:55:06 Test Item Value Reference Range Interpretation Comments MAGNESIUM (test code = 3206610900) 6.2 mg/dL 1.7-2.4 H Lab Interpretation (test code = Abnormal 81909-7) [facility] + Lactic [id number] 13:45:21 Test Item Value Reference Range Interpretation Comments PH (test code = 2) 7.35-7.45 L PCO2 (test code = See_Comment L [Automate d 1212379565) message] The sy stem which generated this result transmitted reference range : 35 - 45 mmHg. The reference range was not used to interpret this result as normal/abnormal . PO2 (test code = See_Comment [Automated 2013915179) message] The sy stem which generated this result transmitted reference range : 80 - 100 mmHg. The reference range was not used to interpret this result as normal/abnormal . HCO3 (test code = See_Comment L [Automate d 4642620096) message] The sy stem which generated this result transmitted reference range : 22 - 26 mEq/L. The reference range was not used to interpret this result as normal/abnormal . BE (test code = See_Comment L [Automated 7252796985) message] The sy stem which generated this result transmitted reference range : -3.0 - 3.0 mEq/ L. The reference r mallika was not used to interpret this result as normal/abnormal . THB (test code = 9.5 g/dL 13.5-18 L 0630491513) %O2HB (test code = 95.5 % 94-99 9801150328) %COHB ART (test code = 0.2 % 0-1.5 1215177726) %METHB ART (test code = 0.3 % 0.4-1.5 L 3315618530) VOL%O2 ART (test code = 12.9 % 15-23 L 8883582431) NA (test code = 136 mmol/L 135-145 9069451767) K+ (test code = 3.9 mmol/L 3.5-5 3150060651) AC CA IONZ (test code = 4.10 mg/dL 4.5-5.3 L 8361036091) GLUCOSE (test code = 148 mg/dL 70-110 H 5438314145) LACTIC ACID (test code 0.65 mmol/L 0.5-2.2 = 9310435888) Lab Interpretation Abnormal (test code = 95508-4) [facility] + Lactic [id number] 13:45:21 Test Item Value Reference Range Interpretation Comments PH (test code = 2) 7.35-7.45 L PCO2 (test code = See_Comment L [Automate d 0813279353) message] The sy stem which generated this result transmitted reference range : 35 - 45 mmHg. The reference range was not used to interpret this result as normal/abnormal . PO2 (test code = See_Comment [Automated 3204920993) message] The sy stem which generated this result transmitted reference range : 80 - 100 mmHg. The reference range was not used to interpret this result as normal/abnormal . HCO3 (test code = See_Comment L [Automate d 6518410806) message] The sy stem which generated this result transmitted reference range : 22 - 26 mEq/L. The reference range was not used to interpret this result as normal/abnormal . BE (test code = See_Comment L [Automated 8970009694) message] The sy stem which generated this result transmitted reference range : -3.0 - 3.0 mEq/ L. The reference r mallika was not used to interpret this result as normal/abnormal . THB (test code = 9.5 g/dL 13.5-18 L 2154062785) %O2HB (test code = 95.5 % 94-99 1353505134) %COHB ART (test code = 0.2 % 0-1.5 2485770539) %METHB ART (test code = 0.3 % 0.4-1.5 L 6187760515) VOL%O2 ART (test code = 12.9 % 15-23 L 0606467927) NA (test code = 136 mmol/L 135-145 9129955556) K+ (test code = 3.9 mmol/L 3.5-5 4160541651) AC CA IONZ (test code = 4.10 mg/dL 4.5-5.3 L 3743044671) GLUCOSE (test code = 148 mg/dL 70-110 H 9272073546) LACTIC ACID (test code 0.65 mmol/L 0.5-2.2 = 4815590797) Lab Interpretation Abnormal (test code = 88212-8) [facility] METABOLIC PANEL (NA, K, CL, CO2, GLUCOSE, BUN, CREATININE, CA)2022-08-05 13:30:47 Test Item Value Reference Range Interpretation Comments NA (test code = 136 mmol/L 135-145 2095489787) K (test code = 4.0 mmol/L 3.5-5 7358040954) CL (test code = 110 mmol/L 98-108 H 1493198669) CO2 TOTAL (test code = 14 mmol/L 23-31 L 2040852060) AGAP (test code = 2-16 4188114723) BUN (test code = 99 mg/dL 7-23 H 4553493797) GLUCOSE (test code = 141 mg/dL 70-110 H 8853816530) CREATININE (test code = 8.68 mg/dL 0.6-1.25 H 0795154860) CALCIUM (test code = 7.0 mg/dL 8.6-10.6 L 2186453855) eGFR (test code = mL/min/1.73m2 1826141242) TORITO (test code = TORITO) Association of Glomerular Filtration Rate (GFR) and Staging of Kidney Disease* + --+ --+ ------+| GFR (mL/min/1.73 m2) ?| With Kidney Damage ?| ?Without Kidney Damage+ --------+ --------+ +| ?>90 ?| ?Stage one ?| ? Normal ?+ ---+ ---+ -------+| ?60-89 ?| ?Stage two ?| ? Decreased GFR ? + --+ --+ ------+| ?30-59 ?| ?Stage three ?| ? Stage three ? + --+ --+ ------+| ?15-29 ?| ?Stage four ? | ? Stage four ?+ ---+ ---+ -------+| ?<15 (or dialysis) ? ?| ?Stage five ? | ? Stage five ?+ ---+ ---+ -------+ *Each stage assumes the associated GFR level has been in effect for at least three months. ?Stages 1 to 5, with or without kidney disease, indicate chronic kidney disease. Notes: Determination of stages one and two (with eGFR >59mL/min/1.73 m2) requires estimation of kidney damage for at least three months as defined by structural or functional abnormalities of the kidney, manifested by either:Pathological abnormalities or Markers of kidney damage (including abnormalities in the composition of the blood or urine or abnormalities in imaging tests). Lab Interpretation Abnormal (test code = 14786-6) [facility]30[facility]47 Test Item Value Reference Range Interpretation Comments PHOSPHORUS (test code = 9438016297) 8.8 mg/dL 2.5-5 H Lab Interpretation (test code = Abnormal 80886-1) [facility]2022-08-05 13:02:18 Test Item Value Reference Range Interpretation Comments POCT GLU (test code = 2117681489) 163 mg/dL 70-110 H Lab Interpretation (test code = Abnormal 57822-8) [facility] + Lactic [id number] 08:48:06 Test Item Value Reference Range Interpretation Comments PH (test code = 2) 7.35-7.45 LL PCO2 (test code = See_Comment L [Automate d 6654089405) message] The sy stem which generated this result transmitted reference range : 35 - 45 mmHg. The reference range was not used to interpret this result as normal/abnormal . PO2 (test code = See_Comment L [Automated [id number]) message] The sy stem which generated this result transmitted reference range : 80 - 100 mmHg. The reference range was not used to interpret this result as normal/abnormal . HCO3 (test code = See_Comment L [Automate d 5224377175) message] The sy stem which generated this result transmitted reference range : 22 - 26 mEq/L. The reference range was not used to interpret this result as normal/abnormal . BE (test code = See_Comment L [Automated 3495709586) message] The sy stem which generated this result transmitted reference range : -3.0 - 3.0 mEq/ L. The reference r mallika was not used to interpret this result as normal/abnormal . THB (test code = 9.7 g/dL 13.5-18 L 0587228795) %O2HB (test code = 75.0 % 94-99 L 7270393801) %COHB ART (test code = 0.4 % 0-1.5 4934802166) %METHB ART (test code = 0.3 % 0.4-1.5 L 1554510928) VOL%O2 ART (test code = 10.2 % 15-23 L 3131134338) NA (test code = 135 mmol/L 135-145 7569306052) K+ (test code = 4.4 mmol/L 3.5-5 9917910068) AC CA IONZ (test code = 4.40 mg/dL 4.5-5.3 L 3882872736) GLUCOSE (test code = 136 mg/dL 70-110 H 8278147556) LACTIC ACID (test code 0.84 mmol/L 0.5-2.2 = 9716415196) Lab Interpretation Abnormal (test code = 84812-5) [facility]"
[2022-09-13] MEDS ORDERED: FENTANYL CITR 100 MCG/2 ML ONE (15:29)
--- NOTE | 2022-09-13 15:55 | RAD REPORT ---
EXAM DESCRIPTION: RAD - Foot Left 3 View - 09/13/2022 3:49 pm CLINICAL HISTORY: Left Foot pain FINDINGS: No fracture or dislocation is seen. No bony destructive lesion visualized. Vascular calcifications 2.5 centimeter calcification posterior to the talus unchanged
[2022-09-13 15:57] LABS: Lymphocytes % 15.4 % (15.3-44.8); MCV 89.4 fL (80-100); RBC Red Blood Cell Count 2.91 M/uL (4.33-5.43)
[2022-09-13 16:00] LABS: Albumin 3.9 g/dL (3.4-5.0); Bilirubin Direct 0.1 mg/dL (0-0.2); Bilirubin Total 0.4 mg/dL (0.2-1.0); C-Reactive Protein 5.33 mg/L (<3.00); Magnesium 1.8 mg/dL (1.8-2.4); Potassium 4.1 mmol/L (3.5-5.1); Protein, Total 7.4 g/dL (6.4-8.2)
[2022-09-13] MEDS ORDERED: VANCOMYCIN 1 GM/VIAL ONE (16:28)
[2022-09-13] MEDS ORDERED: WATER FOR INJ,STERILE 20 ML ONE (16:30)
[2022-09-13] MEDS ORDERED: NA CHLORIDE 0.9% 250 ML ONE (16:35)
--- NOTE | 2022-09-13 16:40 | EDPHYS ---
Physician Documentation [facility] Name: Charlie Sky Age: 67 yrs Sex: Male : 1955 Arrival Date: 09/13/2022 Time: 14:29 Bed 14 Private MD: ED Physician Dion Lazo HPI: 09/13 15:00 This 67 yrs old Male presents to ER via Wheelchair with complaints of Toe Problem- cp diabetic ulcer. 15:00 The patient presents with swelling, tenderness, redness. cp 15:00 The complaints affect the dorsum of left foot. cp 15:00 Associated signs and symptoms: Pertinent positives: swelling, warmth, Pertinent cp negatives fever, vomiting, weakness. 15:00 Reports recently completing prescribed antibiotics for infected wound to left foot 2-3 cp days ago. Historical: - Allergies: 14:41 Unknown DM medication; hb - Immunization history:: Adult Immunizations unknown. - Social history:: Smoking status: Patient denies any tobacco usage or history of. ROS: 15:05 Constitutional: Negative for body aches, chills, fever, poor PO intake. cp 15:05 Eyes: Negative for injury, pain, redness, and discharge. cp 15:05 Cardiovascular: Negative for chest pain, palpitations. 15:05 Respiratory: Negative for cough, shortness of breath, wheezing. 15:05 Abdomen/GI: Negative for abdominal pain, nausea, vomiting, and diarrhea. 15:05 Neuro: Negative for altered mental status, headache, weakness. 15:05 All other systems are negative. Exam: 15:10 Constitutional: The patient appears in no acute distress, alert, awake, cp non-diaphoretic, non-toxic, well developed, well nourished. 15:10 Head/Face: Normocephalic, atraumatic. cp 15:10 Chest/axilla: Inspection: normal. 15:10 Cardiovascular: Rate: normal. 15:10 Respiratory: the patient does not display signs of respiratory distress, Respirations: normal, no use of accessory muscles, no retractions, labored breathing, is not present, Breath sounds: are clear throughout, no decreased breath sounds, no stridor, no wheezing. 15:10 Abdomen/GI: Inspection: abdomen appears normal, Palpation: abdomen is soft and non-tender, in all quadrants. 15:10 Skin: cellulitis, that is moderate, on the left foot, superficial wound noted web space of left fourth and left fifth toes with scant drainage. 15:10 Neuro: Orientation: to person, place \T\ time. Mentation: is normal, Motor: moves all fours, strength is normal. Vital Signs: 14:39 BP 139 / 78; Pulse 88; Resp 16; Temp 97.8; Pulse Ox 100% on R/A; Weight 88.9 kg; Height hb 5 ft. 9 in. (175.26 cm); Pain 10/10; 14:45 BP 136 / 76; Pulse 78; Resp 16; Pulse Ox 99% ; ko1 15:15 BP 136 / 71; Pulse 72; ko1 16:00 BP 129 / 78; Pulse 69; ko1 16:30 BP 126 / 68; Pulse 63; ko1 18:51 BP 136 / 72; Pulse 70; Resp 18; Temp 97.4; Pulse Ox 99% ; ko1 14:39 Body Mass Index 28.94 (88.90 kg, 175.26 cm) hb MDM: 14:36 Patient medically screened. cp 16:00 Differential diagnosis: osteomyelitis, cellulitis, sepsis. cp 16:35 Data reviewed: vital signs, nurses notes, lab test result(s), radiologic studies, plain cp films, and as a result, I will admit patient. 16:36 Physician consultation: Yuval Henning was called at 16:30, was contacted at 16:30, cp regarding admission, to the telemetry unit. patient's condition. 09/13 14:56 Order name: Basic Metabolic Panel; Complete Time: 16:07 cp 09/13 16:07 Interpretation: Normal except: NA 132; GLUC 154; BUN 31; CRE 3.36; GFR 20. cp 09/13 14:56 Order name: CBC with Diff; Complete Time: 17:15 cp 09/13 16:08 Interpretation: Normal except: RBC 2.91; HGB 9.0; HCT 26.0; EOSINOPHIL % 6.1. cp 09/13 14:56 Order name: LFT's; Complete Time: 16:07 cp 09/13 16:08 Interpretation: Normal except: ALK 122. cp 09/13 14:56 Order name: Magnesium; Complete Time: 16:07 cp 09/13 14:56 Order name: ESR; Complete Time: 17:15 09/13 14:56 Order name: Procalcitonin; Complete Time: 16:33 cp 09/13 14:50 Order name: XRAY Foot LEFT 3 View; Complete Time: 15:57 09/13 15:58 Interpretation: Reviewed report. 09/13 14:56 Order name: Lactate; Complete Time: 16:07 09/13 16:08 Interpretation: LAC 1.1; Reviewed. 09/13 14:56 Order name: CRP; Complete Time: 16:07 09/13 16:08 Interpretation: Abnormal: C-REACTIVE PROT 5.33. 09/13 14:56 Order name: Blood Culture Adult (2) 09/13 16:16 Order name: Wound Culture 09/13 17:51 Order name: SARS RAPID eb 09/13 18:27 Order name: SARS-COV-2 Antigen Rapid EDME 09/13 21:57 Order name: Glucose, Ancillary Testing EDMS 09/13 14:56 Order name: EKG; Complete Time: 14:57 09/13 14:56 Order name: Cardiac monitoring; Complete Time: 18:05 09/13 14:56 Order name: EKG - Nurse/Tech; Complete Time: 18:05 09/13 14:56 Order name: IV Saline Lock; Complete Time: 15:23 09/13 14:56 Order name: Labs collected and sent; Complete Time: 15:23 09/13 14:56 Order name: O2 Per Protocol; Complete Time: 16:02 09/13 14:56 Order name: O2 Sat Monitoring; Complete Time: 16:02 Administered Medications: 15:33 Drug: fentaNYL (PF) 25 mcg Route: IVP; Site: right antecubital; ko1 16:48 Drug: vancoMYCIN 1 grams Route: IVPB; Infused Over: 2 hrs; Site: right antecubital; ko1 Disposition: 09/14 07:17 Co-signature as Attending Physician, Dion Lazo MD. rn Disposition Summary: 09/13/22 16:40 Hospitalization Ordered Hospitalization Status: Inpatient Admission cp Provider: Yuval Henning cp Location: Telemetry/MedSurg (Inpatient) cp Condition: Stable cp Problem: an ongoing problem cp Symptoms: are unchanged cp Bed/Room Type: Standard cp Room Assignment: 422(09/13/22 18:36) eb Diagnosis - Cellulitis of left lower limb cp Forms: - Medication Reconciliation Form cp - SBAR form cp Signatures: Dispatcher [employer] EDDoin Beebe MD MD rn Page, Corey, PA PA cp Aicha Valle RN RN Mariella Mendoza Arlyn Glass RN RN ko1 Corrections: (The following items were deleted from the chart) 09/13 14:41 14:41 Allergies: No Known Allergies; [facility] 18:36 16:40 cp eb
--- NOTE | 2022-09-13 16:40 | ER ---
Nurse's Notes [facility] Name: Charlie Sky Age: 67 yrs Sex: Male : 1955 Arrival Date: 09/13/2022 Time: 14:29 Bed 14 Private MD: Diagnosis: Cellulitis of left lower limb Presentation: 09/13 14:39 Chief complaint: Recently completed ABX for chronic wound on left foot, reports wound hb is worse. Coronavirus screen: At this time, the client does not indicate any symptoms associated with coronavirus-19. Ebola Screen: No symptoms or risks identified at this time. Risk Assessment: Do you want to hurt yourself or someone else? Patient reports no desire to harm self or others. Onset of symptoms was September 13, 2022. 14:39 Method Of Arrival: Wheelchair hb 14:39 Acuity: MAURIZIO 3 hb Historical: - Allergies: 14:41 Unknown DM medication; hb - Immunization history:: Adult Immunizations unknown. - Social history:: Smoking status: Patient denies any tobacco usage or history of. Screenin:45 Abuse screen: Denies threats or abuse. Denies injuries from another. Nutritional ko1 screening: No deficits noted. Tuberculosis screening: No symptoms or risk factors identified. Fall Risk None identified. Assessment: 14:45 General: Appears in no apparent distress. uncomfortable, Behavior is calm, cooperative, ko1 appropriate for age. Pain: Complains of pain in left foot between fourth and fifth toes Pain currently is 6 out of 10 on a pain scale. Neuro: No deficits noted. Cardiovascular: No deficits noted. Respiratory: No deficits noted. GI: No deficits noted. : Reports he does dialysis. EENT: No deficits noted. Derm: Wound noted between fourth and fifth toes (wounds on each). Musculoskeletal: No deficits noted. 20:00 Reassessment: called 4th floor for report nurse to call back. ke1 20:40 Reassessment: called 4th floor, nobody answering the phone. ke1 Vital Signs: 14:39 BP 139 / 78; Pulse 88; Resp 16; Temp 97.8; Pulse Ox 100% on R/A; Weight 88.9 kg; Height hb 5 ft. 9 in. (175.26 cm); Pain 10/10; 14:45 BP 136 / 76; Pulse 78; Resp 16; Pulse Ox 99% ; ko1 15:15 BP 136 / 71; Pulse 72; ko1 16:00 BP 129 / 78; Pulse 69; ko1 16:30 BP 126 / 68; Pulse 63; ko1 18:51 BP 136 / 72; Pulse 70; Resp 18; Temp 97.4; Pulse Ox 99% ; ko1 14:39 Body Mass Index 28.94 (88.90 kg, 175.26 cm) hb ED Course: 14:29 Patient arrived in ED. as 14:32 Naseem Jean PA is PHCP. cp 14:32 Dion Lazo MD is Attending Physician. cp 14:41 Triage completed. hb 14:41 Arm band placed on. hb 14:45 Patient has correct armband on for positive identification. Bed in low position. Call ko1 light in reach. Side rails up X 1. 15:09 Arlyn Glass, RN is Primary Nurse. ko1 15:22 Initial lab(s) drawn, by me, sent to lab. Inserted saline lock: 20 gauge in right iw antecubital area, using aseptic technique. Blood collected. 15:51 XRAY Foot LEFT 3 View In Process Unspecified. EDMS 16:37 Yuval Henning is Hospitalizing Provider. cp 16:42 Wound Culture Sent. ko1 16:57 Wound culture swab sent to lab. ko1 18:05 SARS RAPID Sent. ko1 Administered Medications: 15:33 Drug: fentaNYL (PF) 25 mcg Route: IVP; Site: right antecubital; ko1 16:48 Drug: vancoMYCIN 1 grams Route: IVPB; Infused Over: 2 hrs; Site: right antecubital; ko1 Outcome: 16:40 Decision to Hospitalize by Provider. cp 22:11 Patient left the ED. ke1 Signatures: Dispatcher [employer] EDMS Rehana Vasques Irene RN SAMARA Naseem Jean PA PA cp Aicha Valle RN RN Cale Bautista RN RN ke1 Arlyn Glass, RN RN ko1 Corrections: (The following items were deleted from the chart) 14:41 14:41 Allergies: No Known Allergies; hb hb
--- NOTE | 2022-09-13 17:59 | P.HP ---
Certification for Inpatient Patient admitted to: Inpatient With expected LOS: >2 Midnights Practitioner: I am a practitioner with admitting privileges, knowledge of patient current condition, hospital course, and medical plan of care. Services: Services provided to patient in accordance with Admission requirements found in Title 42 Section 412.3 of the Code of Federal Regulations Patient History Date of Service: 09/13/22 Reason for admission: Nonhealing left foot wound. History of Present Illness: 67-year-old gentleman with a history of end-stage renal disease on hemodialysis, diabetes mellitus on insulin therapy presented to the emergency department due to nonhealing wound on the left 4th toe. Patient was in the emergency department about 2 weeks ago for evaluation of the wound. Arterial Doppler done at that time showed monophasic flow highly suspicious for aortoiliac arterial occlusive disease. Patient completed 10 days of oral doxycycline without improved. He reports increased pain and redness in the left foot. He saw his PCP-Dr. Vargas who referred him to see a [place] studies director. Patient presented to the emergency department he did not see any improvement with antibiotic. Foot x-ray does not show any bony involvement or tissue gas. Patient is hospitalized for further management. - Past Medical/Surgical History -: End-stage renal disease on hemodialysis -: Diabetes mellitus type 2 -: Right fourth toe amputation - Family History Brother -: Diabetes - Social History Smoking Status: Current every day smoker Alcohol use: No CD- Drugs: No Place of Residence: Home Review of Systems Other: Patient denied any fever. Except as documented, all other systems reviewed and negative. Physical Examination - Physical Exam General: Alert, In no apparent distress, Oriented x3 HEENT: Mucous membr. moist/pink, Sclerae nonicteric Neck: Supple, JVD not distended Respiratory: Clear to auscultation bilaterally, Normal air movement Cardiovascular: No edema, Regular rate/rhythm, Normal S1 S2, No murmurs Capillary refill: <2 Seconds Gastrointestinal: Normal bowel sounds, Soft and benign, Non-distended, No tenderness Musculoskeletal: Swelling (Mild swelling-forefoot) Integumentary: Erythema (erythema-Left forefoot) Neurological: Normal strength at 5/5 x4 extr, Cranial nerves 3-12 intact Lymphatics: No axilla or inguinal lymphadenopathy - Studies Laboratory Data (last 24 hrs) 09/13/22 15:17: WBC 6.60, Hgb 9.0 L, Hct 26.0 L, Plt Count 230 09/13/22 15:17: Sodium 132 L, Potassium 4.1, BUN 31 H, Creatinine 3.36 H, Glucose 154 H, Magnesium 1.8, Total Bilirubin 0.4, AST 19, ALT 30, Alkaline Phosphatase 122 H Assessment and Plan - Problems (Diagnosis) (1) Non-healing ulcer of left foot Current Visit: Yes Status: Acute (2) Peripheral vascular disease Current Visit: Yes Status: Acute (3) Diabetes mellitus type 2 in obese Current Visit: Yes Status: Acute (4) End-stage renal disease on hemodialysis Current Visit: Yes Status: Acute - Plan Admit the patient to the medical floor. Start aggressive antibiotic therapy. Consults surgery-Dr. Michaud to evaluate for possible degree Patient will need an angiogram to further evaluate peripheral vascular disease. Wound care consult Pain medication as needed. Nephrology consult for hemodialysis. - Advance Directives Does patient have a Living Will: No Does patient have a Durable POA for Healthcare: No
[2022-09-13 18:27] LABS: SARS-CoV-2 Antigen Rapid Res Negative (Negative)
[2022-09-13] MEDS ORDERED: VANCOMYCIN 1 GM in NA CHLORIDE 0.9% 250 ML IVPB SCH (21:13)
[2022-09-13] MEDS ORDERED: ACETAMINOPHEN 500 MG TAB PO PRN (21:13)
[2022-09-13 21:45] VITALS: BMI 28.3
[2022-09-13] MEDS: CEFEPIME 1 GM in NA CHLORIDE 0.9% 100 ML IV SCH (22:17)
[2022-09-13] MEDS ORDERED: VANCOMYCIN 500 MG in NA CHLORIDE 0.9% 100 ML IVPB ONE (22:30)
[2022-09-13] MEDS: INSULIN -REGULAR HUMAN 50 UNIT/0.5 ML ML SQ SCH (22:39)
[2022-09-13] MEDS: HYDROCODONE/APAP 5/325 MG TAB PO PRN (22:41)
[2022-09-14] MEDS: HEPARIN 5000 UNIT/ML 1 ML VIAL SQ SCH ×3 (01:40→17:09)
[2022-09-14 06:21] LABS: Absolute Lymphocytes (CBC) 1.2 K/uL (0.7-4.9); Hematocrit 24.3 % (39.6-49.0); Lymphocytes % 22.5 % (15.3-44.8); MCV 90.2 fL (80-100); MPV 8.1 fL (7.6-11.3); RBC Red Blood Cell Count 2.69 M/uL (4.33-5.43)
[2022-09-14 06:32] LABS: Potassium 4.6 mmol/L (3.5-5.1)
[2022-09-14] MEDS: INSULIN -REGULAR HUMAN 50 UNIT/0.5 ML ML SQ SCH ×4 (07:30→21:00)
[2022-09-14] MEDS: CEFEPIME 1 GM in NA CHLORIDE 0.9% 100 ML IV SCH ×2 (07:53→21:35)
[2022-09-14 08:06] LABS: Specific Gravity 1.006 (1.005-1.030); Urine Bilirubin NEGATIVE (Negative); Urine Blood Negative (Negative); Urine Clarity Clear (Clear); Urine Color Colorless (Yellow); Urine Glucose TRACE (Negative); Urine Protein 1+ (Negative); Urine RBC <5 /HPF (None Seen); Urine Urobilinogen Normal (Normal); Urine pH 6.5 (5.0-7.0)
[2022-09-14] MEDS ORDERED: D10W 250 ML BAG IV PRN (08:14)
[2022-09-14] MEDS ORDERED: D10W 250 ML IV SCH (09:00)
[2022-09-14] MEDS ORDERED: VANCOMYCIN 1 GM in NA CHLORIDE 0.9% 250 ML IVPB SCH (10:00)
--- NOTE | 2022-09-14 14:01 | P.PN ---
Subjective Date of Service: 09/14/22 Chief Complaint: Nonhealing left foot wound. Patient reports improvement in his left foot pain. No recorded fever. Physical Examination - Vital Signs Temperature: 97.4 F Blood Pressure: 139/73 Pulse: 63 Respirations: 16 Pulse Ox (%): 100 - Studies Laboratory Data (last 24 hrs) 09/13/22 15:17: WBC 6.60, Hgb 9.0 L, Hct 26.0 L, Plt Count 230 09/13/22 15:17: Sodium 132 L, Potassium 4.1, BUN 31 H, Creatinine 3.36 H, Glucose 154 H, Magnesium 1.8, Total Bilirubin 0.4, AST 19, ALT 30, Alkaline Phosphatase 122 H Assessment And Plan - Current Problems (Diagnosis) (1) Non-healing ulcer of left foot Current Visit: Yes Status: Acute (2) Peripheral vascular disease Current Visit: Yes Status: Acute (3) Diabetes mellitus type 2 in obese Current Visit: Yes Status: Acute (4) End-stage renal disease on hemodialysis Current Visit: Yes Status: Acute - Plan Physical Exam General: Alert, In no apparent distress, Oriented x3 HEENT: Mucous membr. moist/pink, Sclerae nonicteric Respiratory: Clear to auscultation bilaterally, Normal air movement Cardiovascular: No edema, Regular rate/rhythm, Normal S1 S2, No murmurs Gastrointestinal: Normal bowel sounds, Soft and benign, Non-distended, No tenderness Musculoskeletal: Left forefoot swelling resolve Integumentary: Left forefoot erythema resolved` Neurological: No focal motor deficit Plan: Continue antibiotic therapy. Keep left lower extremity elevated. Seen by Dr. Michaud was recommended to amputation. Patient yet to decide on to amputation after discussing it with his son Patient will need an angiogram to further evaluate peripheral vascular disease. Dr. Michaud have offered to arrange for vascular surgery evaluation as outpatient Wound care Pain medication as needed. Nephrology consult for hemodialysis.
[2022-09-14] MEDS: HYDROCODONE/APAP 5/325 MG TAB PO PRN ×2 (14:27→21:36)
--- NOTE | 2022-09-14 16:35 | EKG ---
Test Date: 2022-09-13 Test Time: 15:41:45 Vp Compliance: GARY MEASUREMENT RESULTS: Intervals: Rate: 67 HI: 186 QRSD: 92 QT: 394 QTc: 416 [place]: P: 52 HI: 186 QRS: 29 T: 51 INTERPRETIVE STATEMENTS: Normal sinus rhythm Normal ECG Compared to ECG 08/04/2022 15:45:29 Left ventricular hypertrophy no longer present Electronically Signed On 09-14-22 16:34:42 CDT by Amado Chandra
--- NOTE | 2022-09-14 18:55 | CON ---
Date of Consultation: 09/14/2022 Brief History Of Present Illness: The patient is a 67-year-old male with a history of diabetes, hype rtension, end-stage renal disease on hemodialysis, who has a significant history of peripheral arteri al disease as well, who presents with an additional history of right fourth toe amputation for osteom yelitis in the past, who presents now with left fourth toe drainage, pain, redness, swelling, concern ing for infection. He states this has been going on for over 2 weeks. It is on the lateral aspect o f his fourth toe. In between his toes, he noted the pain got significantly worse. He was placed on antibiotics. He had arterial Dopplers done which had a monophasic flow, highly suspicious for aortoi liac arterial occlusive disease in the past. He had a 10-day course of doxycycline without improveme nt and as such he came to the emergency room with the above-stated complaints. Past Medical History: End-stage renal disease, on hemodialysis, diabetes. Past Surgical History: Includes right fourth toe amputation and right knee replacement as well as [facility] chest hemodialysis catheter placement. Family History: Significant for diabetes in his brother. Social History: He smokes tobacco every day or approximately 1 pack per day. Denies alcohol or recr eational drug use. Review of Systems: Ten-point review of systems other than HPI, he has no other symptoms. Physical Examination: VITAL SIGNS: At the time of my examination, his BMI is 28. Blood pressure 131/71, pulse 61, respira tory rate 16, temperature 97.4, O2 saturation was 100% on room air. General: He is awake, alert, and oriented. PSYCHIATRIC: Appropriate and conversive. HEENT: He is normocephalic. Sclerae icteric. Mucous membranes are moist. Oropharynx clear. Neck: Supple without JVD. Chest: Normal expansion and excursion. Cardiovascular: Regular rate and rhythm. Pulmonary: Clear to auscultation bilaterally. Extremities: Focused examination of lower extremity, he has an absent fourth toe on the right foot. On the left foot, he has an ulcer with evidence necrosis on the lateral aspect at the proximal phala nx extending up to almost the metatarsophalangeal joint and web space of the fourth and fifth toes. There is no fifth toe involvement obviously at this time. There are cellulitic changes up to the pro ximal forefoot as well and there is tenderness to palpation of the entire area. No other skin change s are noted. Laboratory Data: He had laboratory exam which reveals white blood cell count of 5.5, hemoglobin is 8 .3, hematocrit of 24.3, platelet count was 205. His sodium 138, potassium 4.6, chloride 106, carbon dioxide is 27, BUN 39, creatinine 3.5, glucose is 81. His alkaline phosphatase is 122 on admission. He had imaging performed, which included an x-ray of the left foot, which showed no fracture disloca tion. No bony destructive lesions visualized, vascular calcifications, 2.5 cm calcification posterio r to the talus unchanged. Assessment And Plan: This is a 67-year-old male who presents with a diabetic ulcer of the fourth toe of the left foot. 1.IV fluid hydration. 2.Antibiotic coverage. 3.Wound care with topical mupirocin cream to the web space with separation of toes, wrap, elevation. 4.Continue medical management for diabetes and other medical comorbidities. 5.The patient will need evaluation of his arterial occlusive disease and ultimately see if he is a c andidate for some form of improved vascularization procedure. 6.I have explained the options of medical versus surgical management, medical being nonoperative wit h ongoing wound care. Surgical being debridement and/or likely amputation of the fourth toe includin g but not limited to bleeding, infection, damage around the tissue, need further operation and proced ures. I have explained that if the patient undergoes surgery, he will likely have to have his blood supply evaluated in a very timely fashion to ensure optimal outcome for his surgical wound and for th e optimal healing process as well as continue ongoing medical management and optimization. The patie nt agrees to proceed. At this point, he opted for surgical intervention with amputation rather than ongoing wound care. However, he would like to discuss this with his son prior to intervention and as such, we will reevaluate in the morning and see if the patient wants to continue with surgical inter vention at that time. If not, I have discussed the medical options as described above. Thank you for this interesting consult. CHE/CAITLIN Voice ID: [id number] Report ID: [id number]
[2022-09-14] MEDS: MUPIROCIN 2% OINT 22GM TUBE TOP SCH (21:36)
[2022-09-15] MEDS: HEPARIN 5000 UNIT/ML 1 ML VIAL SQ SCH ×3 (01:44→17:00)
[2022-09-15 05:48] LABS: Absolute Lymphocytes (CBC) 1.1 K/uL (0.7-4.9); Hematocrit 23.5 % (39.6-49.0); Lymphocytes % 20.6 % (15.3-44.8); MCV 88.8 fL (80-100); MPV 8.3 fL (7.6-11.3); RBC Red Blood Cell Count 2.65 M/uL (4.33-5.43)
[2022-09-15 05:57] LABS: Potassium 4.8 mmol/L (3.5-5.1)
[2022-09-15] MEDS: INSULIN -REGULAR HUMAN 50 UNIT/0.5 ML ML SQ SCH ×4 (07:30→21:00)
[2022-09-15] MEDS: MUPIROCIN 2% OINT 22GM TUBE TOP SCH ×2 (09:16→20:20)
[2022-09-15] MEDS: CEFEPIME 1 GM in NA CHLORIDE 0.9% 100 ML IV SCH ×2 (09:16→20:18)
[2022-09-15] MEDS ORDERED: VANCOMYCIN 1.5 GM in NA CHLORIDE 0.9% 500 ML IVPB SCH (10:00)
[2022-09-15] MEDS ORDERED: NA CHLORIDE 0.9% 1,000 ML ONE (11:24)
[2022-09-15] MEDS ORDERED: FENTANYL CITR 100 MCG/2 ML ONE (11:57)
[2022-09-15] MEDS ORDERED: MIDAZOLAM HCL 2 MG/2 ML INJ ONE (11:58)
[2022-09-15] MEDS ORDERED: ONDANSETRON 4 MG/2 ML VIAL ONE (11:58)
[2022-09-15] MEDS ORDERED: propofoL 200 MG/20 ML VIAL IV ONE (11:58)
[2022-09-15] MEDS ORDERED: LIDOCAINE 2% MPF 5 ML VIAL ONE (11:58)
[2022-09-15] MEDS ORDERED: BUPIVACAINE 0.25% PF 10 ML VIAL ONE (12:11)
[2022-09-15] MEDS ORDERED: EPHEDRINE SULF 50 MG/ML VIAL ONE (12:26)
--- NOTE | 2022-09-15 12:34 | P.OP ---
Preoperative diagnosis: LEFT foot 4th Toe Infection / Ulcer Postoperative diagnosis: LEFT foot 4th Toe Infection / Ulcer Primary procedure: Amputation of 4th Toe of LEFT Foot Anesthesia: GETA + Local Estimated blood loss: <1cc Specimen: toe Findings: ischemia to toe Complications: None Transferred to: Recovery Room Condition: Good
--- NOTE | 2022-09-15 13:26 | OP ---
Date of Procedure: 09/15/2022 Surgeon: Navid Michaud MD, Preoperative Diagnosis: Left foot fourth toe infection/ulcer. Postoperative Diagnosis: Left foot fourth toe infection/ulcer. Procedure Performed: Amputation of the fourth toe of the left foot to the metatarsophalangeal joint. Anesthesia: General endotracheal plus local. Estimated Blood Loss: Less than 1 cc. Specimen: Toe from including phalanx to the metatarsophalangeal joint. Complications: None. Disposition: The patient was transferred to the recovery room in good condition. Procedure In Detail: After informed consent was obtained, the patient was brought to the operating r oom, prepped and draped in the usual sterile fashion after adequate anesthesia was achieved. I place d additional anesthesia in the fourth toe of the left foot circumferentially around to block the area . I then made an incision based on a dorsal flap as there was an open ulcer extending on the medial to plantar aspect of the toe extending almost to the metatarsophalangeal joint. As such, I demarcate d the area with a marking pen, then cut down through subcutaneous tissues with a 15-blade circumferen tiagayle around the base of the dorsal flap. At this point, I dissected the 2 tissue attachments to th e metatarsophalangeal joint using a combination of electrocautery and sharp dissection with Metzenbau m and tenotomy scissors. Ultimately, joint space was entered and circumferentially dissected the ten dinous and ligamentous attachments ultimately transecting this and sending the digit off at the metat arsophalangeal joint. The head of the metatarsal appeared nice and plane. At this point, there was minimal bleeding throughout the procedure consistent with his previous history of monophasic/ischemic flow to the lower extremity. The area was copiously irrigated and all nonviable tissue was debrided back at this point and sent off for pathologic examination. I then closed the defect using steve meyers 2-0 nylon sutures after irrigating copiously and drying the area. Minimal hemostatic maneuvers w ere required throughout the procedure. A sterile dressing was placed over top. The patient tolerate d the procedure well without evidence of complication and transferred to PACU in good condition. All counts were correct at the end of the case. TK/MODL Voice ID: [id number] Report ID: [id number]
[2022-09-15] MEDS: HYDROCODONE/APAP 5/325 MG TAB PO PRN ×2 (15:37→21:10)
--- NOTE | 2022-09-15 15:57 | P.PN ---
Subjective Date of Service: 09/15/22 Chief Complaint: Nonhealing left foot wound. Patient has no new complain. S/p Left 4th toe amputation. Physical Examination - Vital Signs Temperature: 97.8 F Blood Pressure: 140/67 Pulse: 63 Respirations: 20 Pulse Ox (%): 98 - Studies Microbiology Data (last 24 hrs): 09/13/22 16:40 Wound - Left Foot Gram Stain - Final 09/13/22 16:40 Wound - Left Foot Culture & Sensitivity - Final Streptococcus Agalactiae Grp B Assessment And Plan - Current Problems (Diagnosis) (1) Non-healing ulcer of left foot Current Visit: Yes Status: Acute (2) Peripheral vascular disease Current Visit: Yes Status: Acute (3) Diabetes mellitus type 2 in obese Current Visit: Yes Status: Acute (4) End-stage renal disease on hemodialysis Current Visit: Yes Status: Acute - Plan Physical Exam General: Alert, In no apparent distress, Oriented x3 HEENT: Mucous membr. moist/pink, Sclerae nonicteric Respiratory: Clear to auscultation bilaterally, Normal air movement Cardiovascular: No edema, Regular rate/rhythm, Normal S1 S2, No murmurs Gastrointestinal: Normal bowel sounds, Soft and benign, Non-distended, No tenderness Musculoskeletal: Left forefoot swelling resolve Integumentary: Left forefoot erythema resolved` Neurological: No focal motor deficit Plan: Status post left 4th toe amputation. Continue antibiotics Patient will need an angiogram to further evaluate peripheral vascular disease. Dr. Michaud have offered to arrange for vascular surgery evaluation as outpatient. Wound care Pain medication as needed. Nephrology consult for hemodialysis. Patient will need hemodialysis today.
[2022-09-15] MEDS ORDERED: HYDROMORPHONE HCL 1 MG/ML INJ IV ONE (18:00)
[2022-09-15] MEDS ORDERED: HYDROMORPHONE HCL 1 MG/ML INJ ONE (18:02)
[2022-09-15] MEDS: ONDANSETRON 4 MG/2 ML VIAL IV PRN (20:12)
[2022-09-15] MEDS: AMINO ACIDS/PROTEIN HYDROLYS 30 ML LIQUID.PKT PO SCH (20:21)
--- NOTE | 2022-09-15 20:39 | P.PN ---
Date of Service: 09/16/22 Subjective: ROS: 10 point ROS as noted above, otherwise negative Physical Exam: Gen: NAD, AOx3 HEENT: normal conjunctiva, sclera anicteric CV: regular rate & rhythm, no edema Pulm: non-labored respirations, clear bilaterally Abd: soft, non-tender, non-distended MSK: no contractures, no tenderness Skin: s/p L 5th toe amputation; no surrounding erythema Neuro: normal speech, normal affect, moves all extremities vitals reviewed Problem List Non-healing ulcer of left foot; s/p amputation Peripheral vascular disease DM2 ESRD on HD s/pt left 4th toe amputation by Dr. Michaud Continues on empiric antibiotics cultures obtained Patient will need an angiogram to further evaluate peripheral vascular disease. Dr. Michaud has offered to arrange for vascular surgery evaluation as outpatient. Wound care Pain medication as needed. Nephrology consulted for hemodialysis. Code: full Dispo: home, home health ~1-2 days Time Spent Managing Pts Care (In Minutes): 35
[2022-09-16] MEDS ORDERED: HYDROMORPHONE HCL 1 MG/ML INJ IV ONE (01:03)
[2022-09-16] MEDS: HEPARIN 5000 UNIT/ML 1 ML VIAL SQ SCH ×3 (01:14→16:00)
--- NOTE | 2022-09-16 01:23 | CON ---
Date of Consultation: 09/15/2022 Chief Complaint: End-stage renal disease, on hemodialysis. History Of Present Illness: Patient presented to the hospital because of nonhealing left foot wound. He underwent amputation of the toe today. He is a 67-year-old man with history of end-stage renal disease, diabetes mellitus, hypertension, anemia, CKD, renal osteodystrophy, and diabetic foot ulcer. The patient completed antibiotics with doxycycline although cellulitis and wound have not improved. The patient was referred to the hospital for further management. Foot x-ray did not show any invol vement of tissue. Review of Systems: General: Denies fever or chills. Eyes: Denies vision changes. Ears, Nose, Mouth And Throat: Denies sore throat or earache. Respiratory: Denies PND or orthopnea. Cardiovascular: Denies chest pain or palpitations. GI: Denies nausea or vomiting. : Denies dysuria or hematuria. All other systems reviewed and all are negative. Past Medical History: Diabetes mellitus, hypertension, right 4th toe amputation, anemia, CKD, and re nal osteodystrophy. Family History: Brother had diabetes. Physical Examination: General: Patient is awake, alert, follows commands. Eyes: Anicteric sclerae. EOMI. Ears, Nose, Mouth And Throat: Oral mucosa moist. No pallor. Neck: Supple. No JVD. No bruits. Skin: There is erythema of left foot. Neurological: Moving extremities. Cranial nerves intact. Lab Work: WBC 6.6, hemoglobin 9.0, hematocrit 26, platelet count 230,000. Potassium 4.1, sodium 132 , glucose 154, creatinine 3.36, magnesium 1.8. Impression: 1.Nonhealing diabetic foot infection. Continue antibiotic, debridement, wound care. 2.Peripheral vascular disease. Continue statin medication. 3.End-stage renal disease. Patient is to have dialysis today with ultrafiltration. Monitor blood p ressure during dialysis. 4.Anemia of chronic kidney disease. Monitor hemoglobin level. 5.Renal osteodystrophy. Continue renal diet and binders. Monitor phosphorus level. EB/MODL Voice ID: [id number] Report ID: [id number]
[2022-09-16 03:46] LABS: Absolute Lymphocytes (CBC) 0.8 K/uL (0.7-4.9); Hematocrit 23.8 % (39.6-49.0); Lymphocytes % 13.1 % (15.3-44.8); MCV 88.7 fL (80-100); MPV 8.1 fL (7.6-11.3); RBC Red Blood Cell Count 2.69 M/uL (4.33-5.43)
[2022-09-16 04:04] LABS: Potassium 4.4 mmol/L (3.5-5.1)
[2022-09-16] MEDS: INSULIN -REGULAR HUMAN 50 UNIT/0.5 ML ML SQ SCH ×3 (07:30→16:30)
[2022-09-16] MEDS: MUPIROCIN 2% OINT 22GM TUBE TOP SCH (09:00)
[2022-09-16] MEDS: AMINO ACIDS/PROTEIN HYDROLYS 30 ML LIQUID.PKT PO SCH (09:00)
[2022-09-16] MEDS: ONDANSETRON 4 MG/2 ML VIAL IV PRN (09:47)
[2022-09-16] MEDS: CEFEPIME 1 GM in NA CHLORIDE 0.9% 100 ML IV SCH (09:47)
[2022-09-16 12:48] VITALS: O2SAT 98
[2022-09-16] MEDS ORDERED: AMLODIPINE 10 MG TAB PO SCH (14:30)
[2022-09-16] MEDS ORDERED: ENALAPRIL 10 MG TAB PO SCH (14:30)
--- NOTE | 2022-09-16 14:52 | P.CNS ---
Chief Complaint: Nonhealing left foot wound. Allergies Unable to Assess Allergy (Unverified 09/13/22 21:12) Home Medications: Amlodipine Besylate [Norvasc] 10 mg PO DAILY 09/13/22 Atorvastatin Calcium [Lipitor] 40 mg PO BEDTIME 09/13/22 Enalapril Maleate [Vasotec] 10 mg PO DAILY 09/13/22 Sitagliptin Phosphate [Januvia] 25 mg PO DAILY 09/13/22 carvediloL [Carvedilol] 6.25 mg PO BID 09/13/22 - Past Medical/Surgical History Diabetic: Yes -: End-stage renal disease on hemodialysis -: Diabetes mellitus type 2 -: Right fourth toe amputation - Family History Brother Medical History: Diabetes - Social History Smoking Status: Current some day smoker Alcohol use: No CD- Drugs: No Caffeine use: No Place of Residence: Home Physical Examination Temp Pulse Resp BP Pulse Ox 97.7 F 71 16 173/77 H 98 09/16/22 08:00 09/16/22 08:00 09/16/22 08:00 09/16/22 08:00 09/16/22 08:00
--- NOTE | 2022-09-16 16:51 | P.DS ---
Admission Date: 09/13/22 Discharge Date: 09/16/22 Disposition: ROUTINE DISCHARGE Discharge Condition: GOOD Reason for Admission: Nonhealing left foot wound. Consultations: General Surgery - Dr. Michaud Brief History of Present Illness: 67yo M, PMH: ESRD-HD, IDDM2 Presented to ED due to nonhealing wound on left 4th toe with increased swelling and redness. 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 S/p 10 days of PO doxycycline without improvement. Foot x-ray does not show any bony involvement or tissue gas. Patient is hospitalized for further management. Hospital Course: Problem List Non-healing ulcer of left foot; s/p amputation Peripheral vascular disease DM2 ESRD on HD Patient presented with a nonhealing ulcer of his left foot. Dr. Michaud was consulted and patient underwent 4th toe amputation. Patient was treated with IV antibiotics during hospitalization. Dr. Michaud recommended no further antibiotics on discharge. Patient will need to follow up with Dr. Michaud in 1-[address] Michaud will help arrange follow up with vascular surgery evaluation for peripheral vascular disease. Patient is to continued with dressing changes as directed by Dr. Michaud. Recommend minimal to no weightbearing on left foot until follow up with Dr. Michaud. Ok to walk on heel if needed. Xeroform on 4th toe, separate toes with gauze, wrap with dry kerlix daily, keep elevated Follow up: PCP within [address] Michaud in 1-2 weeks. Nephrology as scheduled. Continue dialysis as previously scheduled. Vital Signs/Physical Exam: Temp Pulse Resp BP Pulse Ox 98.2 F 71 16 163/74 H 99 09/16/22 12:00 09/16/22 16:00 09/16/22 12:00 09/16/22 16:00 09/16/22 12:00 General: Alert, In no apparent distress HEENT: Mucous membr. moist/pink, EOMI, Sclerae nonicteric Neck: Supple, No LAD Respiratory: Clear to auscultation bilaterally, Normal air movement Cardiovascular: No edema, Regular rate/rhythm Gastrointestinal: Soft and benign, Non-distended, No tenderness Integumentary: Other (Left 4th toe amputation, dressing in place) Neurological: Normal speech, Normal strength at 5/5 x4 extr, Normal affect Laboratory Data at Discharge: WBC 6.00 K/uL (4.3-10.9) 09/16/22 02:53 Hgb 8.4 g/dL (13.6-17.9) L 09/16/22 02:53 Hct 23.8 % (39.6-49.0) L 09/16/22 02:53 Plt Count 192 K/uL (152-406) 09/16/22 02:53 Sodium 136 mmol/L (136-145) 09/16/22 02:53 Potassium 4.4 mmol/L (3.5-5.1) 09/16/22 02:53 BUN 20 mg/dL (7-18) H 09/16/22 02:53 Creatinine 2.49 mg/dL (0.55-1.3) H 09/16/22 02:53 Glucose 113 mg/dL (74-106) H 09/16/22 02:53 Magnesium 1.8 mg/dL (1.8-2.4) 09/13/22 15:17 Total Bilirubin 0.4 mg/dL (0.2-1.0) 09/13/22 15:17 AST 19 U/L (15-37) 09/13/22 15:17 ALT 30 U/L (12-78) 09/13/22 15:17 Alkaline Phosphatase 122 U/L (45-117) H 09/13/22 15:17 Home Medications: Amlodipine Besylate [Norvasc] 10 mg PO DAILY 09/13/22 Atorvastatin Calcium [Lipitor] 40 mg PO BEDTIME 09/13/22 Enalapril Maleate [Vasotec] 10 mg PO DAILY 09/13/22 Sitagliptin Phosphate [Januvia] 25 mg PO DAILY 09/13/22 carvediloL [Carvedilol] 6.25 mg PO BID 09/13/22 Hydrocodone 5/APAP 325 [[place] 5/325*] 1 tab PO Q8H PRN #10 tab 09/16/22 New Medications: Hydrocodone 5/APAP 325 [[place] 5/325*] 1 tab PO Q8H PRN #10 tab PRN Reason: Pain Scale 5-7 (Moderate) Physician Discharge Instructions: Patient presented with a nonhealing ulcer of his left foot. Dr. Michaud was consulted and patient underwent 4th toe amputation. Patient was treated with IV antibiotics during hospitalization. Dr. Michaud recommended no further antibiotics on discharge. Patient will need to follow up with Dr. Michaud in 1-[address] Michaud will help arrange follow up with vascular surgery evaluation for peripheral vascular disease. Patient is to continued with dressing changes as directed by Dr. Michaud. Recommend minimal to no weightbearing on left foot until follow up with Dr. Michaud. Ok to walk on heel if needed. Xeroform on 4th toe, separate toes with gauze, wrap with dry kerlix daily, keep elevated Follow up: PCP within [address] Michadu in 1-2 weeks. Nephrology as scheduled. Continue dialysis as previously scheduled. Diet: Renal Activity: Non-weight bearing (LEFT forefoot - crutches) Followup: Navid Michaud MD [ACTIVE - CAN ADMIT] - 1 Week (Call to schedule an appointment ) Joao Vargas DO [Primary Care Provider] - 1 Week (Call to schedule an appointment. ) Time spent managing pt's care (in minutes): 45
[2022-09-16 18:43] VITALS: BP 172/80; TEMP 98.7
[2022-09-16] MEDS ORDERED: carvediloL 6.25 MG TAB PO SCH (21:00)
[2022-09-16] MEDS ORDERED: ATORVASTATIN 40 MG TAB PO SCH (21:00)
== END 2022-09-16 19:10 | disposition home or self-care (01) | DRG 617 ==
LOC: ER 14:26 → ERHOLD 17:43 → 4TH 21:03
PROVIDERS: ADMIT Internal Medicine; ATTEND Hospitalist
PROC: 5A1D70Z Performance of Urinary Filtration, Intermittent, Less than 6 Hours Per Day (ICD-10-PCS; 2022-09-15)
PROC: 0Y6W0Z0 Detachment at Left 4th Toe, Complete, Open Approach (ICD-10-PCS; principal; 2022-09-15 11:45)
DX: E11.621 Type 2 diabetes mellitus with foot ulcer (principal); I12.0 Hypertensive chronic kidney disease with stage 5 chronic kidney disease or end stage renal disease; L03.116 Cellulitis of left lower limb; N18.6 End stage renal disease; E11.22 Type 2 diabetes mellitus with diabetic chronic kidney disease; E11.51 Type 2 diabetes mellitus with diabetic peripheral angiopathy without gangrene; D63.1 Anemia in chronic kidney disease; L97.529 Non-pressure chronic ulcer of other part of left foot with unspecified severity; N25.0 Renal osteodystrophy; E66.9 Obesity, unspecified; F17.210 Nicotine dependence, cigarettes, uncomplicated; Z99.2 Dependence on renal dialysis; Z68.28 Body mass index [BMI] 28.0-28.9, adult; Z79.899 Other long term (current) drug therapy; Z20.822 Contact with and (suspected) exposure to COVID-19
CPT/HCPCS: 36415; 80048; 80076; 81001; 82947; 83605; 83735; 84145; 85025; 85652; 86140; 87040; 87070; 87077; 87186; 87205; 87811; 88305; 88311; 90935; 93005; 96374; 96375; 99284; J0692; J1170; J1644; J1815; J2001; J2250; J2405; J2704; J3010; J3370; J7030; J7040; J7050

== ENCOUNTER 2022-09-21 13:59 | Inpatient (IN) | payer OTHER ==
--- OUTSIDE RECORDS SUMMARY | 2022-09-21 14:07 | XMS REPORT | Continuity of Care Document ---
:1955 Author Organization [facility] t Address [address] [place] [place] [address] Care Team Providers Name Role Phone PCP, PATIENT DOES NOT HAVE A Primary Care Physician UnavailZHEN Gonzales Attending Clinician Unavailable TRISH CASIANO Attending Clinician Unavailable Doctor Unassigned, [place] Attending Clinician Unavailable Leslie PASCUAL, Jose King Attending Clinician Unavailable KEE WIN Attending Clinician Unavailable Raissa Guerra DO Attending Clinician Grace Milligan MD Attending Clinician Kee Win MD Attending Clinician RAISSA GUERRA Admitting Clinician Unavailable Raissa Guerra DO Admitting Clinician Payers Payer Name Policy Type Policy Number Effective Date Expiration Date S ource [employer] MEDICARE 7 [id number] 2022 [id number] [facility] 00:00:00 PLUS 2021 Problems Condition Condition [...] l vascular 00:00: - disease) disease) 00 Assistant To The Director a l 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 4th right toe amputatio n Allergies, Adverse Reactions, Alerts Allergy Allergy Status Severity Reaction(s) Onset Inactive Treating Comm ents Source Name Type Date Date Clinician NO KNOWN Drug Active Univers ALLERGIE Class ity of S [facility] Social History Social Habit Start Date Stop [...] (finding) Exposure to 2022-07-26 2022-08-05 Not sure [facility]-CoV-2 (event) 00:00:00 06:24:00 [facility] Sex Assigned At [birth year] Kylee torres [...] Tablet 13 :00 Externa l Amlodipine 2021-11- amlodipine Kylee Besylate 10 0-05 10-05 10 [...] s Solution Pen-injecto r Enalapril 2021-11 Yes [id number] 10mg Take 1 Ke lsey Maleate 10 0-05 tablet (10 Sey bold MG oral 00:00: mg total) - Tablet 00 by mouth Externa daily l Carvedilol 2021-11 Yes [id number] 6.25mg Take 1 Kylee 6.25 MG 0-05 tablet Seybold oral Tablet 00:00: (6.25 mg - 00 total) by Externa mouth l every 12 hours Atorvastati 2021-11 Yes [id number] 40mg Take 1 Kylee n Calcium 0-05 tablet (40 Seyb old 40 MG oral 00:00: mg total) - Tablet 00 by mouth Externa at bedtime l Amlodipine 2021-11 Yes [id number] amlodipine Kylee Besylate 10 0-05 10 mg Seybold MG oral 00:00: tablet - Tablet 00 TAKE ONE Externa (1) l TABLET(S) BY MOUTH ONCE A DAY. 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 Medical Branch atorvastati Yes 40mg Take 40 mg Univers n (LIPITOR) 9-21 by mouth ity of 40 mg 13:09: at [place] tablet 25 bedtime. Medical Branch carvediloL 2021- No 6.25mg Take 6.25 Univers 6.25 mg -13 08-21 mg by ity of tablet 12:00: 00:00 mouth in [place] 22 :00 the Medical morning Branch and 6.25 mg in the evening. Take with meals. SITagliptin 2021- No 100mg Take 100 Univers (JANUVIA) - 09-21 mg by ity of 100 mg 12:00: 00:00 mouth in [place] tablet 20 :00 the Medical morning. Branch amLODIPine 2021- No 10mg Take 10 mg Univers 10 mg 08-13 by mouth ity of tablet 11:23: 00:00 in the [place] 28 :00 morning. Medical Branch enalapril 2021- No 10mg Take 10 mg U nivers 10 mg 08-13 by mouth ity of tablet 11:23: 00:00 in the [place] 28 :00 morning. Medical Branch insulin 2021- No 38U inject 38 Univ ers glargine 08-13- Units ity of (LANTUS 11:23: 00:00 under the [facility] s U-100 28 :00 skin at [facility] INSULIN) bedtime. Branch 100 unit/mL injection carvediloL Yes [id number] 6.25mg Take 1 Univers 6.25 mg 9-21 tablet by ity of tablet 00:00: mouth in [place] 00 the Medical morning Branch and 1 tablet in the evening. Take with meals. calcium Yes [id number] 1000mg Take 2 Un marivel carbonate 9-21 tablets by ity of 500 mg 00:00: mouth in [place] calcium 00 the Medical (1,250 mg) morning Branch tablet and 2 tablets at noon and 2 tablets in the evening. Take with meals. sevelamer 2022-0 Yes [id number] 800mg Take 1 U nivers 800 mg 9-21 tablet by ity of tablet 00:00: mouth in [place] 00 the Medical morning Branch and 1 tablet at noon and 1 tablet in the evening. Take with meals. insulin 2021-0 Yes [id number] 5U inject 5 Un marivel glargine 9-21 Units ity of 100 unit/mL 00:00: under the [place] injection 00 skin at Medical bedtime. Branch SITagliptin 2021-0 Yes [id number] 25mg Take 1 Univers (JANUVIA) 9-21 tablet by ity o f 25 mg 00:00: mouth in [place] tablet 00 the Medical morning. Branch carvediloL 2021-0 Yes [id number] 6.25mg Take 1 Univers 6.25 mg 9-21 tablet by ity of tablet 00:00: mouth in [place] [address] the [facility] morning Branch and 1 tablet in the evening. Take with meals. calcium 2021-0 Yes [id number] 1000mg Take 2 Un marivel carbonate 9-21 tablets by ity of 500 mg 00:00: mouth in [place] calcium 00 the [facility] (1,250 mg) morning Branch tablet and 2 tablets at noon and 2 tablets in the evening. Take with meals. sevelamer 2021-0 Yes [id number] 800mg Take 1 U nivers 800 mg 9-21 tablet by ity of tablet 00:00: mouth in [place] the [facility] morning Branch and 1 tablet at noon and 1 tablet in the evening. Take with meals. insulin 2021-0 Yes [id number] 5U inject 5 Un marivel glargine 9-21 Units ity of 100 unit/mL 00:00: under the [place] injection 00 skin at Medical bedtime. Branch SITagliptin 2021-0 Yes [id number] 25mg Take 1 Univers (JANUVIA) 9-21 tablet by ity o f 25 mg 00:00: mouth in [place] tablet 00 the Medical morning. Branch carvediloL 2021-0 Yes [id number] 6.25mg Take 1 Univers 6.25 mg 9-21 tablet by ity of tablet 00:00: mouth in [place] [address] the [facility] morning Branch and 1 tablet in the evening. Take with meals. calcium 2021-0 Yes [id number] 1000mg Take 2 Un marivel carbonate 9-21 tablets by ity of 500 mg 00:00: mouth in [place] calcium 00 the Medical (1,250 mg) morning Branch tablet and 2 tablets at noon and 2 tablets in the evening. Take with meals. sevelamer Yes [id number] 800mg Take 1 U nivers 800 mg - tablet by ity of tablet 00:00: mouth in [place] 00 the Medical morning Branch and 1 tablet at noon and 1 tablet in the evening. Take with meals. insulin Yes [id number] 5U inject 5 Un marivel glargine 08-13 Units ity of 100 unit/mL 00:00: under the [place] injection 00 skin at Medical bedtime. Branch SITagliptin Yes [id number] 25mg Take 1 Univers (JANUVIA) 08-13 tablet by ity o f 25 mg 00:00: mouth in [place] tablet 00 the Medical morning. Branch sevelamer 2021- No [id number] 800mg Take 1 Univers 800 mg 08-13 tablet by ity of tablet 00:00: 00:00 mouth in [place] 00 :00 the Medical morning Branch and 1 tablet at noon and 1 tablet in the evening. Take with meals. calcium 2021- No [id number] 1000mg Take 2 U nivers carbonate 08-13 tablets by ity of 500 mg 00:00: 00:00 mouth in [place] calcium 00 :00 the Medical (1,250 mg) morning Branch tablet and 2 tablets at noon and 2 tablets in the evening. Take with meals. insulin 2021-2021- No [id number] 5U inject 5 U nivers glargine 08-13 Units ity of 100 unit/mL 00:00: 00:00 under the [place] injection 00 :00 skin at Medical bedtime. Branch SITagliptin 2021- No [id number] 25mg Take 1 Univers (JANUVIA) 08-13 tablet [...] 32 Starting Medica l 2,000 Units on Tue Branch 08/12/22 at 0859, Until Discontinu ed, [...] dose, On Medic al (8 %) IV [facility] Branch Piggyback 4 08/12/22 at g 0545, Routine insulin Yes 5U 5 Units, Univer s glargine 08-10 Subcutaneo ity o f (LANTUS 02:00: us, [facility], [place] U-100) 00 First dose Medical injection [...] 20:09 Starting Rolando as 00 :00 on [facility] 08/07/22 at [...] Yes 6.25mg 6.25 mg, U nivers (COREG) 9-15 Oral, BID ity of tablet 6.25 01:15: MEALS, [place] mg 00 First dose Medical on Thu Branch 08/06/22 at 2015, Until Discontinu ed, Routine SITagliptin Yes 100mg Take 100 U nivers (JANUVIA) 9-14 mg by ity of 100 mg 20:21: mouth in [place] tablet 16 the Medical morning. Branch atorvastati Yes 40mg Take 40 mg Univers n (LIPITOR) 9-14 by mouth ity of 40 mg 20:21: at [place] tablet 16 bedtime. Medical Branch carvediloL 0 Yes 6.25mg Take 6.25 Univers 6.25 mg 9-14 mg by ity of tablet 20:21: mouth in [place] [address] the Medical morning Branch and 6.25 mg in the evening. Take with meals. amLODIPine Yes 10mg Take 10 mg U nivers 10 mg 9-14 by mouth ity of tablet 20:21: in the [place] [address] morning. Medical Branch enalapril Yes 10mg Take 10 mg Un marivel 10 mg -14 by mouth ity of tablet 20:21: in the [place] [address] morning. Medical Branch insulin Yes 38U inject 38 Unive rs glargine 9-14 Units ity of (LANTUS 20:21: under the [place] U-100 16 skin at [facility] INSULIN) bedtime. Branch 100 unit/mL injection lactated [...] on Thu08/06/22 at 0400, 100 mL atorvastati Yes 40mg 40 mg, Univ ers n (LIPITOR) 08-06 Oral, QHS, it y of tablet 40 03:30: First dose [place] mg 00 on [facility] 08/05/22 at Branch 2230, Until Discontinu [...] Dose >=24mg ECG monitoring is advisable.
ondansetron 2021- No 4mg 4 mg, Slow Univers (ZOFRAN 08-05 IV Push, ity of (PF)) 15:45: 16:29 ONCE, On [place] injection 4 00 :00 [facility] mg 08/05/22 at Branch 1045, For 1 dose
Do ses of ondansetro n 16 mg and above need to be administer ed via IV piggyback. For Dose >=24mg ECG monitoring is advisable.
magnesium 2021-0 2021- No 4g 4 g, IV Univ ers sulfate in 08-05 Piggyback, it y of water 4 13:45: 01:26 ONCE, 1 [place] gram/50 mL 00 :00 dose, On Medic al (8 %) IV e Branch Piggyback 4 08/05/22 at g 0845, Routine calcium Yes 1000mg 1,000 mg, Uni vers carbonate [...] at 0800, Until Discontinu ed, Routine sodium 2021- No IV Univers bicarbonate 08-05 Infusion, it y of 150 mEq in 12:45: 07:23 CONTINUOUS [place] D5W 1,000 00 :38 , Starting Medi [...] Routine sodium 2021- No 100meq 100 mEq, Univ ers bicarbonate 08-05 Slow IV ity of [...] at 0330, Until Discontinu ed, Routine ondansetron No 4mg 4 mg, Slow Univers (ZOFRAN [...] Body weight 2022-08-27 15:18:00 83.008 kg Kylee Smith eybold - External BMI 2022-08-27 15:18:00 27.02 kg/m2 Kylee Smith eybold - External Systolic blood 2022-08-13 16:46:00 144 mm[Hg] Univer sity of pressure [place] [facility] Branch Diastolic blood 2022-08-13 16:46:00 60 mm[Hg] Unive rsity of pressure [place] [facility] Heart rate 2022-08-13 16:46:00 56 /min Universi ty of [place] [facility] Body temperature 2022-08-13 16:46:00 36 Mona Univ ersity of [place] [facility] Respiratory rate 2022-08-13 16:46:00 16 /min Univ ersity of [place] [facility] Oxygen saturation in 2022-08-13 16:46:00 98 /min University of Arterial blood by [place] [employer] liza Pulse oximetry Branch Body weight 2022-08-12 18:38:00 81 kg Universi ty of [place] [facility] BMI 2022-08-12 18:38:00 27.15 kg/m2 Universi ty of [place] [facility] Body height 2022-08-05 10:00:00 172.7 cm Universi ty of [place] [facility] Systolic blood 2022-08-09 15:45:00 156 mm[Hg] Univer sity of pressure [place] [facility] Diastolic blood 2022-08-09 15:45:00 78 mm[Hg] Unive rsity of pressure [place] [facility] Heart rate 2022-08-09 15:45:00 70 /min Universi ty of [place] [facility] Body temperature 2022-08-09 13:30:00 36.61 Mona Univ ersity of [place] [facility] Respiratory rate 2022-08-09 13:30:00 20 /min Univ ersity of [place] [facility] Body weight 2022-08-09 13:30:00 82.4 kg Universi ty of [place] [facility] BMI 2022-08-09 13:30:00 27.62 kg/m2 Universi ty of [place] [facility] Oxygen saturation in 2022-08-09 13:15:00 98 /min University of Arterial blood by [place] [employer] liza Pulse oximetry Branch Body height 2022-08-05 10:00:00 172.7 cm Universi ty of [place] [facility] Procedures Procedure Date / Time Performing Clinician Source Performed QUANTAFLO 2022-08-27 15:37:11 Zhen Vargas - External EXTERNAL PROVIDER RECORDS 2022-08-25 05:01:00 Doctor Unassigned, [facility] [place] [facility] POCT GLUCOSE (AUTOMATED) 2022-08-13 16:49:00 Raissa Guerra [facility] POCT GLUCOSE (AUTOMATED) 2022-08-13 12:57:00 Raissa Guerra [facility] PHOSPHORUS 2022-08-13 10:40:00 Lc [facility] MAGNESIUM 2022-08-13 10:40:00 Lc [facility] BASIC METABOLIC PANEL (NA, 2022-08-13 10:40:00 Allison Platt [facility] K, CL, CO2, GLUCOSE, BUN, Medica l Branch CREATININE, CA) POCT GLUCOSE (AUTOMATED) 2022-08-13 02:40:00 Raissa Guerra [facility] POCT GLUCOSE (AUTOMATED) 2022-08-12 21:00:00 Raissa Guerra [facility] POST DIALYSIS BUN 2022-08-12 18:36:00 Jc Chan [facility] POCT GLUCOSE (AUTOMATED) 2022-08-12 18:13:00 Raissa Guerra [facility] POCT GLUCOSE (AUTOMATED) 2022-08-12 13:04:00 Raissa Guerra [facility] PHOSPHORUS 2022-08-12 09:06:00 Lc [facility] MAGNESIUM 2022-08-12 09:06:00 L[facility] BASIC METABOLIC PANEL (NA, 2022-08-12 09:06:00 Allison Platt [facility] K, CL, CO2, GLUCOSE, BUN, Medica l Branch CREATININE, CA) CBC WITH DIFF 2022-08-12 09:06:00 L[facility] POCT GLUCOSE (AUTOMATED) 2022-08-12 00:55:00 Raissa Guerra [facility] POCT GLUCOSE (AUTOMATED) 2022-08-11 21:42:00 Raissa Guerra versity of [facility] POCT GLUCOSE (AUTOMATED) 2022-08-11 17:16:00 Raissa Guerra versity of [facility] POCT GLUCOSE (AUTOMATED) 2022-08-11 12:37:00 Raissa Guerra versity of [facility] PHOSPHORUS 2022-08-11 08:18:00 [facility] MAGNESIUM 2022-08-11 08:18:00 [facility] BASIC METABOLIC PANEL (NA, 2022-08-11 08:18:00 [facility] [place] [facility], [facility], CO2, GLUCOSE, BUN, Medica l Branch CREATININE, CA) CBC WITH DIFF 2022-08-11 08:18:00 [facility] POCT GLUCOSE (AUTOMATED) 2022-08-11 01:53:00 Raissa Guerra Uni versity [facility] POCT GLUCOSE (AUTOMATED) 2022-08-10 22:48:00 Raissa Guerra Uni versity [facility] POCT GLUCOSE (AUTOMATED) 2022-08-10 17:00:00 Raissa Guerra Uni versity [facility] POCT GLUCOSE (AUTOMATED) 2022-08-10 14:05:00 Raissa Guerra versity of [facility] MAGNESIUM 2022-08-10 07:54:00 L[facility] BASIC METABOLIC PANEL (NA, 2022-08-10 07:54:00 Allison Platt [facility] K, CL, CO2, GLUCOSE, BUN, Medica l Branch CREATININE, CA) CBC WITH DIFF 2022-08-10 07:54:00 L[facility] POCT GLUCOSE (AUTOMATED) 2022-08-10 01:40:00 Raissa Guerra versity of [facility] POCT GLUCOSE (AUTOMATED) 2022-08-09 23:04:00 Raissa Guerra versity of [facility] POCT GLUCOSE (AUTOMATED) 2022-08-09 21:19:00 Raissa Guerra Uni versity of [facility] POCT GLUCOSE (AUTOMATED) 2022-08-09 15:22:00 Raissa Guerra versity of [facility] POCT GLUCOSE (AUTOMATED) 2022-08-09 15:22:00 Raissa Guerra versity of [facility] POCT GLUCOSE (AUTOMATED) 2022-08-09 01:06:00 Raissa Guerra versity of [facility] POCT GLUCOSE (AUTOMATED) 2022-08-09 01:06:00 Raissa Guerra versity of [facility] POCT GLUCOSE (AUTOMATED) 2022-08-08 22:46:00 Raissa Guerra Uni versity of [facility] POCT GLUCOSE (AUTOMATED) 2022-08-08 22:46:00 Raissa Guerra versity of [facility] POCT GLUCOSE (AUTOMATED) 2022-08-08 18:40:00 Raissa Guerra Britta versity of [facility] POCT GLUCOSE (AUTOMATED) 2022-08-08 18:40:00 Raissa Guerra versity of [facility] POCT GLUCOSE (AUTOMATED) 2022-08-08 14:15:00 Raissa Guerra Britta versity of [facility] POCT GLUCOSE (AUTOMATED) 2022-08-08 14:15:00 Raissa Guerra versity of [facility] CBC WITH DIFF 2022-08-08 08:50:00 Lc [facility] BASIC METABOLIC PANEL (NA, 2022-08-08 08:50:00 [facility], [facility], GLUCOSE, BUN, Medica l Branch CREATININE, CA) MAGNESIUM 2022-08-08 08:50:00 Lc [facility] PHOSPHORUS 2022-08-08 08:50:00 Lc [facility] PHOSPHORUS 2022-08-08 08:50:00 Lc [facility] MAGNESIUM 2022-08-08 08:50:00 Lc [facility] BASIC METABOLIC PANEL (NA, 2022-08-08 08:50:00 [facility], CO2, GLUCOSE, BUN, Medica l Branch CREATININE, CA) CBC WITH DIFF 2022-08-08 08:50:00 Lc [facility] POCT GLUCOSE (AUTOMATED) 2022-08-08 03:08:00 Raissa Guerra [facility] POCT GLUCOSE (AUTOMATED) 2022-08-08 03:08:00 Raissa Guerra [facility] XR CHEST 1 VW 2022-08-08 00:59:00 Lc [facility] XR CHEST 1 VW 2022-08-08 00:59:00 Lc [facility] POCT GLUCOSE (AUTOMATED) 2022-08-07 22:46:00 Raissa Guerra [facility] POCT GLUCOSE (AUTOMATED) 2022-08-07 22:46:00 Raissa Guerra [facility] IR CENTRALLY INSERTED 2022-08-07 20:51:00 Chaparrita Barrett [facility] sity of [place] DEVICE TUNNELED 5 OR OLDER Medic al Branch NO PORT/PUMP IR CENTRALLY INSERTED 2022-08-07 20:51:00 Chaparrita Barrett [facility] sity of [place] DEVICE TUNNELED 5 OR OLDER Medic al Branch NO PORT/PUMP POCT GLUCOSE (AUTOMATED) 2022-08-07 16:46:00 Raissa Guerra [facility] POCT GLUCOSE (AUTOMATED) 2022-08-07 16:46:00 Raissa Guerra [facility] POCT GLUCOSE (AUTOMATED) 2022-08-07 13:34:00 Raissa Guerra [facility] POCT GLUCOSE (AUTOMATED) 2022-08-07 13:34:00 Raissa Guerra [facility] CBC WITH DIFF 2022-08-07 10:29:00 Wilfredo [facility] BASIC METABOLIC PANEL (NA, 2022-08-07 10:29:00 Delilah Villalobos [facility] K, CL, CO2, GLUCOSE, BUN, Medica l Branch CREATININE, CA) MAGNESIUM 2022-08-07 10:29:00 Wilfredo [facility] MAGNESIUM 2022-08-07 10:29:00 Wilfredo [facility] BASIC METABOLIC PANEL (NA, 2022-08-07 10:29:00 Delilah Villalobos [facility] K, CL, CO2, GLUCOSE, BUN, Medica l Branch CREATININE, CA) CBC WITH DIFF 2022-08-07 10:29:00 Delilah Villalobos [facility] POCT GLUCOSE (AUTOMATED) 2022-08-07 01:25:00 [facility] ([facility]OM[facility]) 2022-08-07 01:25:00 Raissa Guerra [facility] IRON PANEL 2022-08-06 22:56:00 Jennifer Valero [facility] FERRITIN SERUM 2022-08-06 22:56:00 Jennifer Valero [facility] HEPATITIS B SURFACE 2022-08-06 22:56:00 Lc [facility] [place] ANTIGEN [facility] HEPATITIS B SURFACE 2022-08-06 22:56:00 Lc [facility] [place] ANTIBODY [facility] Branch HBC ANTIBODY (IGM & IGG) 2022-08-06 22:56:00 Lc [facility] FERRITIN SERUM 2022-08-06 22:56:00 Jennifer Valero [facility] IRON PANEL 2022-08-06 22:56:00 Jennifer Valero [facility] HEPATITIS B SURFACE 2022-08-06 22:56:00 Lc [facility] [place] ANTIBODY [facility] HEPATITIS B SURFACE 2022-08-06 22:56:00 Lc [facility] [place] ANTIGEN [facility] HBC ANTIBODY (IGM & IGG) 2022-08-06 22:56:00 Allison Platt [facility] POCT GLUCOSE (AUTOMATED) 2022-08-06 21:57:00 [facility] PO[facility] GLUCOSE (AUTOMATED) 2022-08-06 21:57:00 [facility] POCT GLUCOSE (AUTOMATED) 2022-08-06 21:25:00 [facility] POCT GLUCOSE (AUTOMATED) 2022-08-06 21:25:00 Raissa Guerra [facility] POCT GLUCOSE (AUTOMATED) 2022-08-06 16:54:00 Raissa Guerra [facility] POCT GLUCOSE (AUTOMATED) 2022-08-06 16:54:00 Raissa Guerra [facility] BASIC METABOLIC PANEL (NA, 2022-08-06 13:38:00 Hoover [facility] K, CL, CO2, GLUCOSE, BUN, Medica l Branch CREATININE, CA) MAGNESIUM 2022-08-06 13:38:[address] [facility] PHOSPHORUS 2022-08-06 13:38:[address] [facility] PHOSPHORUS 2022-08-06 13:38:[address] [facility] MAGNESIUM 2022-08-06 13:38:[address] [facility] BASIC METABOLIC PANEL (NA, 2022-08-06 13:38:00 Hoover [facility] K, CL, CO2, GLUCOSE, BUN, Medica l Branch CREATININE, CA) POCT GLUCOSE (AUTOMATED) 2022-08-06 13:01:00 Raissa Guerra [facility] POCT GLUCOSE (AUTOMATED) 2022-08-06 13:01:00 Raissa Guerra [facility] MAGNESIUM 2022-08-06 04:11:00 Chris [facility] PHOSPHORUS 2022-08-06 04:11:00 Chris [facility] PHOSPHORUS 2022-08-06 04:11:00 Chris [facility] MAGNESIUM 2022-08-06 04:11:00 Chris [facility] BASIC METABOLIC PANEL (NA, 2022-08-06 04:11:00 Chris Braden [facility] K, CL, CO2, GLUCOSE, BUN, Medica l Branch CREATININE, CA) AC PANEL 21 + LACTIC ACID 2022-08-06 04:11:00 Keyla Hassan [facility] AC PANEL 21 + LACTIC ACID 2022-08-06 04:11:00 [facility] BASIC METABOLIC PANEL (NA, 2022-08-06 04:11:00 Braden Perez [facility] K, CL, CO2, GLUCOSE, BUN, Medica l Branch CREATININE, CA) POCT GLUCOSE (AUTOMATED) 2022-08-06 01:15:00 Raissa Guerra Uni versity [facility] POCT GLUCOSE (AUTOMATED) 2022-08-06 01:15:00 Raissa Guerra Uni versity [facility] POCT GLUCOSE (AUTOMATED) 2022-08-05 20:52:00 Raissa Guerra Uni versity [facility] POCT GLUCOSE (AUTOMATED) 2022-08-05 20:52:00 Raissa Guerra [facility] MAGNESIUM 2022-08-05 20:35:00 [facility] TROPONIN I 2022-08-05 20:35:[address] [facility] MAGNESIUM 2022-08-05 20:35:[facility]22-[facility]-05 20:35:[address] [facility] DUPLEX VENOUS LEG LEFT - 2022-08-05 17:34:34 Dosmendoza, Dipesh Uni versity [facility] BY VASCULAR LAB [facility] DUPLEX VENOUS LEG LEFT - 2022-08-05 17:34:34 Dostal, Dipesh Uni [facility] BY VASCULAR LAB [facility] DUPLEX ARTERIAL LEG LEFT - 2022-08-05 17:34:24 Dostal, Dipesh U niversity [facility] BY VASCULAR LAB [facility] DUPLEX ARTERIAL LEG LEFT - 2022-08-05 17:34:24 [facility]ostal[facility] POCT GLUCOSE (AUTOMATED) 2022-08-05 17:08:00 Raissa Guerra versity [facility] POCT GLUCOSE (AUTOMATED) 2022-08-05 17:08:00 Raissa Guerra Uni versity [facility] CT ABDOMEN PELVIS WO 2022-08-05 16:11:25 Sonja Vanessa Uni versity of [place] CONTRAST Mei [facility] CT ABDOMEN PELVIS WO 2022-08-05 16:11:25 Sonja Vanessa Uni [facility] CONTRAST [facility] CT THORAX WO CONTRAST 2022-08-05 16:11:14 [facility] 2022-08-05 16:11:14 [facility] X[facility] FOOT 3+ VW BILATERAL 2022-08-05 16:10:44 Rasheeda [facility] XR FOOT 3+ VW BILATERAL 2022-08-05 16:10:44 Deliciaantonio [facility] XR CHEST 1 VW 2022-08-05 16:09:17 Deliciaantonio [facility] XR CHEST 1 VW 2022-08-05 16:09:17 Deliciaantonio [facility] AC PANEL 20 + LACTIC ACID 2022-08-05 13:42:00 [facility] + LACTIC ACID 2022-08-05 13:42:00 Vashti Marshall [facility] PHOSPHORUS 2022-08-05 13:13:00 [facility]-05 13:13[facility]00 [facility]IN [facility] 2022-08-05 13:13:00 Tato Hoover [facility] BASIC METABOLIC PANEL (NA, 2022-08-05 13:13:00 Dostal, [facility] K, CL, CO2, GLUCOSE, BUN, Medica l Branch CREATININE, CA) BASIC METABOLIC PANEL (NA, 2022-08-05 13:13:00 Dostal, [facility] K, CL, CO2, GLUCOSE, BUN, Medica l Branch CREATININE, CA) MAGNESIUM 2022-08-05 13:13:00 [facility]al[facility] PHOS[facility]ORUS 2022-08-05 13:13:00 [facility] 2022-08-05 13:13:00 Tato Hoover [facility] POCT GLUCOSE (AUTOMATED) 2022-08-05 12:57:00 Raissa Guerra [facility] POCT GLUCOSE (AUTOMATED) 2022-08-05 12:57:00 Raissa Guerra [facility] US RETROPERITONEAL LIMITED 2022-08-05 11:00:00 DostalDipesh U [facility] US RETROPERITONEAL LIMITED 2022-08-05 11:00:00 DostalDipesh U [facility] INTACT PTH CALCIUM GROUP 2022-08-05 10:47:00 Dostal Dipesh [facility] INTACT PTH CALCIUM GROUP 2022-08-05 10:47:00 DostalDipesh [facility] URINALYSIS 2022-08-05 10:46:00 [facility] PROTEIN CREAT RATIO URINE 2022-08-05 10:46:[address] [facility] UREA NITROGEN, URINE 2022-08-05 10:46:00 Amparo Moyer [facility] SODIUM, URINE RANDOM 2022-08-05 10:46:00 Amparo Moyer [facility] URINALYSIS 2022-08-05 10:46:00 Am[facility]o [facility] PROTEIN CREAT RATIO URINE 2022-08-05 10:46:[address] [facility] SODIUM, URINE RANDOM 2022-08-05 10:46:00 Amparo Moyer [facility] UREA NITROGEN, URINE 2022-08-05 10:46:00 Amparo Moyer [facility] AC PANEL 20 + LACTIC ACID 2022-08-05 08:41:00 Calvin Vanessa [facility] AC PANEL 20 + LACTIC ACID 2022-08-05 08:41:00 Calvin Vanessa [facility] BLOOD CULTURE SCREEN 2022-08-05 08:39:00 Amparo Moyer [facility] COVID-19 (ID NOW RAPID 2022-08-05 08:39:00 Sonja Vanessa [facility] TESTING) [facility] LAB ONLY COVID 2022-08-05 08:39:00 [facility] COVID-19 (ID NOW RAPID 2022-08-05 08:39:00 Sonja Vanessa [facility] TESTING) [facility] BLOOD CULTURE SCREEN 2022-08-05 08:39:00 Amparo Moyer [facility] LAB ONLY COVID 2022-08-05 08:39:00 Sonja Vanessa [facility] INTERPRETATION [facility] PHOSPHORUS 2022-08-05 07:38:00 Rasheeda [facility] LACTATE DEHYDROGENASE 2022-08-05 07:38:00 [facility] 2022-08-05 07:38:00 Rasheeda [facility] TROPONIN I 2022-08-05 07:38:00 [facility] HEPATIC FUNCTION PANEL 2022-08-05 07:38:00 [facility] ([id number]) (ALB,T.PRO,BILI [facility] T,BU/BC,ALT,AST,ALK PHOS) BASIC METABOLIC PANEL (NA, 2022-08-05 07:38:00 Louisa Vanessa [facility] K, CL, CO2, GLUCOSE, BUN, [facility] CREATININE, CA) LIPID PANEL ([id number])(TOTAL 2022-08-05 07:38:00 Calvin Vanessa [facility] CHOLESTEROL, [facility] TRIGLYCERIDES, HDL) CBC WITH DIFF 2022-08-05 07:38:00 Sonja Vanessa [facility] GLYCOSYLATED HEMOGLOBIN 2022-08-05 07:38:00 Rasheeda [facility] (A1C) [facility] PROTHROMBIN TIME / INR 2022-08-05 07:38:00 Sonja Vanessa [facility] MRSA / MSSA SCREEN BY PCR, 2022-08-05 07:38:[address] [facility] MRSA / MSSA SCREEN BY PCR, 2022-08-05 07:38:[address] [facility] CBC WITH DIFF 2022-08-05 07:38:00 Rasheeda Sonja [facility] PROTHROMBIN TIME / INR 2022-08-05 07:38:00 Sonja Vanessa [facility] BASIC METABOLIC PANEL (NA, 2022-08-05 07:38:00 Louisa Vanessa [facility] K, CL, CO2, GLUCOSE, BUN, [facility] Branch CREATININE, CA) MAGNESIUM 2022-08-05 07:38:00 Sonja Vanessa [facility] PHOSPHORUS 2022-08-05 07:38:00 Rasheeda [facility] HEPATIC FUNCTION PANEL 2022-08-05 07:38:00 Sonja Vanessa [facility] ([id number]) (ALB,T.PRO,BILI [facility] T,BU/BC,ALT,AST,ALK PHOS) LACTATE DEHYDROGENASE 2022-08-05 07:38:00 Sonja Vanessa [facility] TROPONIN I 2022-08-05 07:38:00 Sonja Vanessa [facility] GLYCOSYLATED HEMOGLOBIN 2022-08-05 07:38:00 Sonja Vanessa [facility] (A1C) [facility] LIPID PANEL ([id number])(TOTAL 2022-08-05 07:38:00 Calvin Vanessa [facility] CHOLESTEROL, [facility] TRIGLYCERIDES, HDL) HOSPITAL ADMISSION 2022-08-05 05:01:00 Doctor Unassigned, [facility] [place] [facility] HOSPITAL ADMISSION 2022-08-05 05:01:00 Doctor Unassigned, [facility] Encounters Start End Encounter Admission Attending Care Care Encounter Source Date/Time Date/Time Type Type Clinicians Facility Department ID 2022-09-23 2022-09-23 Outpatient KYLEE VARGAS [id number] Kylee 11:15:00 11:15:00 ZHEN Dawsonybol d 2022-09-16 2022-09-16 Outpatient KYLEE CASIANO [id number] Kylee 00:00:00 00:00:00 TRISH Seybol d 2022-09-11 2022-09-11 Outpatient KYLEE MARIA [id number] Kylee 13:30:00 13:30:00 Seybol d 2022-08-27 2022-08-27 Outpatient LASHONKYLEE Smith KYLEE [id number] Kylee 10:30:00 10:30:00 ZHEN Lakhaniol kenneth 2022-08-25 2022-08-25 Orders Doctor NAREN [id number] Univers 00:00:00 00:00:00 Only Unassigned, BEN 350.1.13.10 ity of [place] [facility] 4.2.7.2.686 Rolando as [id number] [facility] 009 Branch 2022-08-14 2022-08-14 Transition LEODAN Nelson 1.2.840.114 [id number] Univers 00:00:00 00:00:00 of Care Jose King RAWLS 350.1.13.10 [place] [id number] [facility] 403 Branch 2022-08-05 2022-08-13 Inpatient U KEE WIN [facility] [id number] Univers 02:04:00 13:09:00 ity of [facility] 2022-08-05 2022-08-13 Hospital Raissa Guerra 1.2.840.114 [id number] Univers 02:04:00 13:09:00 Encounter ChelGrace BEN 350.1.13.10 ity of [place] [facility] 4.2.7.2.686 [place] [id number] [facility] 099 Branch 2022-08-05 2022-08-05 Travel 1.2.840.1 [id number] Univers 00:00:00 00:00:00 04515.1.1 350.1.13.10 ity of 3.104.2.[place] 4.[place].3.698 [place] .[id number] 084.8 Medica l .8 Branch Results Test Description Test Time Test Comments Results Result Comments Source [facility] 2022-08-27 15:39:02 Test Item Value Reference Range Interpretation Comme nts [facility] left side (test code See_Comment L [Automated message] The system = 57758-4A) which generated this result transmitted ref erence range: 1.40 - 0.90 NA. The reference range was not u sed to interpret this result as normal/abnormal. [employer] right side (test See_Comment L P resentation Factors: code = 74575-5X) Hypertensio n, Hyperlipidemia, Smoking History , DiabetesExercis [...] normal/abnormal. Lab Interpretation (test code Abnormal = 91788-7) Kylee Rizzo [facility] GLUCOSE (AUTOMATED)2022-08-13 16:50:21 Test Item Value Reference Range Interpretation Comments POCT GLU (test code = 5087827749) 142 mg/dL 70-110 H Lab Interpretation (test code = Abnormal 31300-4) [facility] GLUCOSE (AUTOMATED)2022-08-13 12:58:22 Test Item Value Reference Range Interpretation Comments POCT GLU (test code = 2879350825) 111 mg/dL 70-110 H Lab Interpretation (test code = Abnormal 66288-2) [facility] GLUCOSE (AUTOMATED)2022-08-13 02:41:43 Test Item Value Reference Range Interpretation Comments POCT GLU (test code = 9573188696) 195 mg/dL 70-110 H Lab Interpretation (test code = Abnormal 18112-4) [facility] GLUCOSE (AUTOMATED)2022-08-12 21:01:39 Test Item Value Reference Range Interpretation Comments POCT GLU (test code = 1208330993) 110 mg/dL 70-110 Lab Interpretation (test code = Normal 13141-1) [facility] DIALYSIS [id number] 19:10:16 Test Item Value Reference Range Interpretation Comments PostBUN (test code = 0011898333) 14 mg/dl 7-23 Lab Interpretation (test code = Normal 35799-3) [facility] GLUCOSE (AUTOMATED)2022-08-12 18:14:14 Test Item Value Reference Range Interpretation Comments POCT GLU (test code = 0163577619) 130 mg/dL 70-110 H Lab Interpretation (test code = Abnormal 47459-9) [facility] GLUCOSE (AUTOMATED)2022-08-12 13:05:35 Test Item Value Reference Range Interpretation Comments POCT GLU (test code = 4581523942) 115 mg/dL 70-110 H Lab Interpretation (test code = Abnormal 73335-5) [facility] METABOLIC PANEL (NA, K, CL, CO2, GLUCOSE, BUN, CREATININE, CA)2022-08-12 09:50:31 Test Item Value Reference Range Interpretation Comments NA (test code = 127 mmol/L 135-145 L 7659309724) K (test code = 4.4 mmol/L 3.5-5 7889386311) CL (test code = 100 mmol/L 98-108 2277348871) CO2 TOTAL (test code = 20 mmol/L 23-31 L 8463867025) AGAP (test code = 2-16 4042051369) BUN (test code = 45 mg/dL 7-23 H 6258308177) GLUCOSE (test code = 104 mg/dL 70-110 6617535043) CREATININE (test code = 3.99 mg/dL 0.6-1.25 H 8065890758) CALCIUM (test code = 8.4 mg/dL 8.6-10.6 L 7356777657) eGFR (test code = mL/min/1.73m2 6872430572) TORITO (test code = TORITO) Association of [...] tests). Lab Interpretation Abnormal (test code = 27876-4) [facility] 09:[facility]:31 Test Item Value Reference Range Interpretation Comments MAGNESIUM (test code = 4301543087) 1.5 mg/dL 1.7-2.4 L Lab Interpretation (test code = Abnormal 72539-8) [facility] 09:50:31 Test Item Value Reference Range Interpretation Comments PHOSPHORUS (test code = 1797195378) 3.4 mg/dL 2.5-5 Lab Interpretation (test code = Normal 08366-1) [facility] [id number] 09:21:11 Test Item Value Reference Range Interpretation Comments WBC (test code = See_Comment [Automated 2990-2) message] The sy stem which generated this result transmitted reference range : 4.20 - 10.70 10*3/?L. The reference range was not used to interpret this result as normal/abnormal . RBC (test code = See_Comment L [Automated 849-8) message] The sy stem which generated this [...] RDW-SD (test code = 38.5 fL 38.5-51.6 79698-8) RDW-CV (test code = 12.9 % 12.1-15.4 788-0) PLT (test code = See_Comment [Automated 777-3) message] The sy stem which generated this result transmitted reference range : 150 - 328 10*3/ ?L. The reference r mallika was not used to interpret this result as normal/abnormal . MPV (test code = 9.9 fL 9.8-13 99323-3) NRBC/100 WBC (test See_Comment [Automat ed code = 1525693107) message] The system which generated this result transmitted reference range : 0.0 - 10.0 /100 WBCs. The refer ence range was not u sed to interpret th is result as normal/abnormal . NRBC x10^3 (test code See_Comment [Auto mated = 2120873171) message] The s ystem which generated this result transmitted reference range : 10*3/?L. The reference range was not used to interpret this result as normal/abnormal . GRAN MAT (NEUT) % 66.5 % (test code = 770-8) IMM GRAN % (test code 0.60 % = 8236720709) LYMPH % (test code = 18.8 % 736-9) MONO % (test code = 7.6 % 5905-5) EOS % (test code = 5.9 % 713-8) BASO % (test code = 0.6 % 706-2) GRAN MAT x10^3(ANC) 4.39 10*3/uL 1.99-6.95 (test code = 2979126919) IMM GRAN x10^3 (test 0.04 10*3/uL 0-0.06 code = 6975127316) LYMPH x10^3 (test code 1.24 10*3/uL 1.09-3.23 = 731-0) MONO x10^3 (test code 0.50 10*3/uL 0.36-1.02 = 742-7) EOS x10^3 (test code = 0.39 10*3/uL 0.06-0.53 711-2) BASO x10^3 (test code 0.04 10*3/uL 0.01-0.09 = 704-7) Lab Interpretation Abnormal (test code = 05588-6) [facility] GLUCOSE (AUTOMATED)2022-08-12 00:57:06 Test Item Value Reference Range Interpretation Comments POCT GLU (test code = 7447046706) 210 mg/dL 70-110 H Lab Interpretation (test code = Abnormal 33699-9) [facility] GLUCOSE (AUTOMATED)2022-08-11 21:43:33 Test Item Value Reference Range Interpretation Comments POCT GLU (test code = 3760695551) 145 mg/dL 70-110 H Lab Interpretation (test code = Abnormal 59134-8) [facility] GLUCOSE (AUTOMATED)2022-08-11 17:17:25 Test Item Value Reference Range Interpretation Comments POCT GLU (test code = 9825221780) 178 mg/dL 70-110 H Lab Interpretation (test code = Abnormal 56531-0) [facility] GLUCOSE (AUTOMATED)2022-08-11 12:37:49 Test Item Value Reference Range Interpretation Comments POCT GLU (test code = 2683981959) 118 mg/dL 70-110 H Lab Interpretation (test code = Abnormal 05901-5) [facility] GLUCOSE (AUTOMATED)2022-08-11 01:54:39 Test Item Value Reference Range Interpretation Comments POCT GLU (test code = 5713643824) 184 mg/dL 70-110 H Lab Interpretation (test code = Abnormal 09415-8) [facility] GLUCOSE (AUTOMATED)2022-08-10 22:51:08 Test Item Value Reference Range Interpretation Comments POCT GLU (test code = 4027751915) 167 mg/dL 70-110 H Lab Interpretation (test code = Abnormal 89216-0) [facility] GLUCOSE (AUTOMATED)2022-08-10 17:02:13 Test Item Value Reference Range Interpretation Comments POCT GLU (test code = 2523357902) 165 mg/dL 70-110 H Lab Interpretation (test code = Abnormal 65287-6) [facility]2022-08-10 14:06:48 Test Item Value Reference Range Interpretation Comments POCT GLU (test code = 8933892462) 143 mg/dL 70-110 H Lab Interpretation (test code = Abnormal 08042-7) [facility] GLUCOSE (AUTOMATED)2022-08-10 01:43:42 Test Item Value Reference Range Interpretation Comments POCT GLU (test code = 5802386822) 193 mg/dL 70-110 H Lab Interpretation (test code = Abnormal 92352-9) [facility] GLUCOSE (AUTOMATED)2022-08-09 23:05:58 Test Item Value Reference Range Interpretation Comments POCT GLU (test code = 3948701157) 186 mg/dL 70-110 H Lab Interpretation (test code = Abnormal 53241-2) [facility] GLUCOSE (AUTOMATED)2022-08-09 21:28:17 Test Item Value Reference Range Interpretation Comments POCT GLU (test code = 6407380701) 202 mg/dL 70-110 H Lab Interpretation (test code = Abnormal 90690-0) [facility] GLUCOSE (AUTOMATED)2022-08-09 15:23:04 Test Item Value Reference Range Interpretation Comments POCT GLU (test code = 1947588855) 106 mg/dL 70-110 Lab Interpretation (test code = Normal 04695-7) [facility] GLUCOSE (AUTOMATED)2022-08-09 15:23:04 Test Item Value Reference Range Interpretation Comments POCT GLU (test code = 6470639103) 106 mg/dL 70-110 Lab Interpretation (test code = Normal 91947-2) [facility] GLUCOSE (AUTOMATED)2022-08-09 01:22:12 Test Item Value Reference Range Interpretation Comments POCT GLU (test code = 5339045299) 217 mg/dL 70-110 H Lab Interpretation (test code = Abnormal 98733-5) [facility] GLUCOSE (AUTOMATED)2022-08-08 22:48:26 Test Item Value Reference Range Interpretation Comments POCT GLU (test code = 7676004180) 183 mg/dL 70-110 H Lab Interpretation (test code = Abnormal 09142-6) [facility] GLUCOSE (AUTOMATED)2022-08-08 18:41:48 Test Item Value Reference Range Interpretation Comments POCT GLU (test code = 1632363650) 208 mg/dL 70-110 H Lab Interpretation (test code = Abnormal 08302-6) [facility] GLUCOSE (AUTOMATED)2022-08-08 14:17:16 Test Item Value Reference Range Interpretation Comments POCT GLU (test code = 1672745656) 126 mg/dL 70-110 H Lab Interpretation (test code = Abnormal 86372-6) [facility] GLUCOSE (AUTOMATED)2022-08-08 03:10:01 Test Item Value Reference Range Interpretation Comments POCT GLU (test code = 7261426295) 250 mg/dL 70-110 H Lab Interpretation (test code = Abnormal 88909-2) [facility] GLUCOSE (AUTOMATED)2022-08-07 22:50:11 Test Item Value Reference Range Interpretation Comments POCT GLU (test code = 9295852008) 127 mg/dL 70-110 H Lab Interpretation (test code = Abnormal 71043-7) [facility] B SURFACE [id number] 22:45:00 Test Item Value Reference Range Interpretation Comments HBsAB (test code = Negative 7936681043) HBsAb mIU/mL Semi-Quantitative (test code = 0274219450) TORITO (test code = Interpretation: TORITO) ?Hepatitis B Surface Antibody ? Negative - Patient is considered to be not immune to infection with HBV. ? ? Positive - Anti-HBs detected at greater than or equal to 12 mIU/mL. ?Patient is considered to be immune to infection with HBV. ? [facility]2022-08-07 22:45:00 Test Item Value Reference Range Interpretation Comments HBC (test code = 4019506606) Negative HBC Semi-Quantitative (test code = 9292539042) [facility] B SURFACE [id number] 22:45:00 Test Item Value Reference Range Interpretation Comments HBsAB (test code = Negative 9513782538) HBsAb mIU/mL Semi-Quantitative (test code = 6314287130) TORITO (test code = Interpretation: TORITO) ?Hepatitis B Surface Antibody ? Negative - Patient is considered to be not immune to infection with HBV. ? ? Positive - Anti-HBs detected at greater than or equal to 12 mIU/mL. ?Patient is considered to be immune to infection with HBV. ? [facility]2022-08-07 22:45:00 Test Item Value Reference Range Interpretation Comments HBC (test code = 6118101980) Negative HBC Semi-Quantitative (test code = 2996632284) [facility] B SURFACE [id number] 22:26:56 Test Item Value Reference Range Interpretation Comments HBsAg Semi-Quantitative (test code = Negative Negative 5195-3) [facility] B SURFACE [id number] 22:26:56 Test Item Value Reference Range Interpretation Comments HBsAg Semi-Quantitative (test code = Negative Negative 5195-3) [facility] GLUCOSE (AUTOMATED)2022-08-07 16:51:06 Test Item Value Reference Range Interpretation Comments POCT GLU (test code = 5034809719) 116 mg/dL 70-110 H Lab Interpretation (test code = Abnormal 17442-9) [facility] GLUCOSE (AUTOMATED)2022-08-07 13:39:37 Test Item Value Reference Range Interpretation Comments POCT GLU (test code = 4665561459) 147 mg/dL 70-110 H Lab Interpretation (test code = Abnormal 91836-6) [facility] GLUCOSE (AUTOMATED)2022-08-07 01:27:04 Test Item Value Reference Range Interpretation Comments POCT GLU (test code = 8523770590) 193 mg/dL 70-110 H Lab Interpretation (test code = Abnormal 07211-9) [facility] [id number] 00:41:11 Test Item Value Reference Range Interpretation Comments FERRITIN (test code = 393.0 ng/mL 18-464 7940571604) TORITO (test code = TORITO) Biotin has been reported to cause a negative bias, interpret results relative to patient's use of biotin. Lab Interpretation (test Normal code = 19704-9) [facility] [id number] 00:41:11 Test Item Value Reference Range Interpretation Comments FERRITIN (test code = 393.0 ng/mL 18-464 1667159526) TORITO (test code = TORITO) Biotin has been reported to cause a negative bias, interpret results relative to patient's use of biotin. Lab Interpretation (test Normal code = 24741-3) [facility] [id number] 00:14:07 Test Item Value Reference Range Interpretation Comments IRON (test code = 0406196143) 41 ug/dL 50-160 L TIBC (test code = 0901629658) 200 ug/dL 250-410 L % FE SAT (test code = 2004948900) 21 % 20-50 Lab Interpretation (test code = Abnormal 99307-0) [facility] [id number] 00:14:07 Test Item Value Reference Range Interpretation Comments IRON (test code = 1270101796) 41 ug/dL 50-160 L TIBC (test code = 3102741955) 200 ug/dL 250-410 L % FE SAT (test code = 3864114347) 21 % 20-50 Lab Interpretation (test code = Abnormal 67760-0) [facility] GLUCOSE (AUTOMATED)2022-08-06 22:28:19 Test Item Value Reference Range Interpretation Comments POCT GLU (test code = 4051156185) 139 mg/dL 70-110 H Lab Interpretation (test code = Abnormal 30879-1) [facility] GLUCOSE (AUTOMATED)2022-08-06 22:28:19 Test Item Value Reference Range Interpretation Comments POCT GLU (test code = 1742870471) 109 mg/dL 70-110 Lab Interpretation (test code = Normal 42501-0) [facility] GLUCOSE (AUTOMATED)2022-08-06 16:58:03 Test Item Value Reference Range Interpretation Comments POCT GLU (test code = 2678318460) 211 mg/dL 70-110 H Lab Interpretation (test code = Abnormal 66346-4) [facility] METABOLIC PANEL (NA, K, CL, CO2, GLUCOSE, BUN, CREATININE, CA)2022-08-06 13:56:59 Test Item Value Reference Range Interpretation Comments NA (test code = 139 mmol/L 135-145 0123431538) K (test code = 3.7 mmol/L 3.5-5 4703373415) CL (test code = 104 mmol/L 98-108 8019737957) CO2 TOTAL (test code = 27 mmol/L 23-31 1879322780) AGAP (test code = 2-16 1247189188) BUN (test code = 91 mg/dL 7-23 H 8139210986) GLUCOSE (test code = 149 mg/dL 70-110 H 9428567971) CREATININE (test code = 6.98 mg/dL 0.6-1.25 H 2577945550) CALCIUM (test code = 7.1 mg/dL 8.6-10.6 L 1961092360) eGFR (test code = mL/min/1.73m2 9502688693) TORITO (test code = TORITO) Association of [...] tests). Lab Interpretation Abnormal (test code = 73192-8) [facility] 13:56:59 Test Item Value Reference Range Interpretation Comments MAGNESIUM (test code = 9908818443) 2.7 mg/dL 1.7-2.4 H Lab Interpretation (test code = Abnormal 10217-9) [facility] 13:56:59 Test Item Value Reference Range Interpretation Comments PHOSPHORUS (test code = 9071239660) 6.3 mg/dL 2.5-5 H Lab Interpretation (test code = Abnormal 52088-4) [facility]2022-08-06 13:05:26 Test Item Value Reference Range Interpretation Comments POCT GLU (test code = 6645277551) 135 mg/dL 70-110 H Lab Interpretation (test code = Abnormal 96378-7) [facility] (NA, K, CL, CO2, GLUCOSE, BUN, CREATININE, CA)2022-08-06 05:06:04 Test Item Value Reference Range Interpretation Comments NA (test code = 137 mmol/L 135-145 5542655574) K (test code = 3.2 mmol/L 3.5-5 L 5084597465) CL (test code = 104 mmol/L 98-108 9382066271) CO2 TOTAL (test code = 24 mmol/L 23-31 5009712480) AGAP (test code = 2-16 2077977137) BUN (test code = 103 mg/dL 7-23 H 5820343672) GLUCOSE (test code = 158 mg/dL 70-110 H 6101022929) CREATININE (test code = 7.29 mg/dL 0.6-1.25 H 3808448545) CALCIUM (test code = 7.3 mg/dL 8.6-10.6 L 6731629574) eGFR (test code = mL/min/1.73m2 7329803237) TORITO (test code = TORITO) Association of [...] tests). Lab Interpretation Abnormal (test code = 94441-0) [facility] Test Item Value Reference Range Interpretation Comments MAGNESIUM (test code = 3305409576) 3.4 mg/dL 1.7-2.4 H Lab Interpretation (test code = Abnormal 69502-3) [facility]04 Test Item Value Reference Range Interpretation Comments PHOSPHORUS (test code = 0321409150) 7.4 mg/dL 2.5-5 H Lab Interpretation (test code = Abnormal 07577-4) [facility] LACTIC [id number] 04:22:52 Test Item Value Reference Range Interpretation Comments PH (test code = 7.32-7.42 H 4962492151) PCO2 NADIR (test code = See_Comment L [Auto mated 9564908581) message] The sy stem which generated this result transmitted reference range : 41 - 51 mmHg. The reference range was not used to interpret this result as normal/abnormal . PO2 NADIR (test code = See_Comment H [Autom ated 5414655814) message] The sy stem which generated this result transmitted reference range : 25 - 40 mmHg. The reference range was not used to interpret this result as normal/abnormal . HCO3 NADIR (test code = See_Comment [Auto mated 8104005933) message] The sy stem which generated this result transmitted reference range : 24 - 28 mEq/L. The reference range was not used to interpret this result as normal/abnormal . AC VBE(BEAKER) (test mEq/L code = 9182933808) THB NADIR (test code = 10.3 g/dL 13.5-18 L 9417204587) %O2HB NADIR (test code = 79.1 % 52-63 H 9806700412) %COHB NADIR (test code = 0.5 % 0-1.5 1055518487) %METHB NADIR (test code = 0.3 % 0.4-1.5 L 3952175659) VOL%O2 NADIR (test code = 11.5 % 6-12 1175318416) NA (test code = 137 mmol/L 135-145 6623701553) K+ (test code = 3.2 mmol/L 3.5-5 L 9227599682) AC CA IONZ (test code = 4.00 mg/dL 4.5-5.3 L 1686476981) GLUCOSE (test code = 164 mg/dL 70-110 H 2134475014) LACTIC ACID (test code 0.95 mmol/L 0.5-2.2 = 9254949722) Lab Interpretation Abnormal (test code = 95218-5) [facility] [id number] 04:22:52 Test Item Value Reference Range Interpretation Comments PH (test code = 7.32-7.42 H 2242159100) PCO2 NADIR (test code = See_Comment L [Auto mated 6237957707) message] The sy stem which generated this result transmitted reference range : 41 - 51 mmHg. The reference range was not used to interpret this result as normal/abnormal . PO2 NADIR (test code = See_Comment H [Autom ated 0148265832) message] The sy stem which generated this result transmitted reference range : 25 - 40 mmHg. The reference range was not used to interpret this result as normal/abnormal . HCO3 NADIR (test code = See_Comment [Auto mated 1227502866) message] The sy stem which generated this result transmitted reference range : 24 - 28 mEq/L. The reference range was not used to interpret this result as normal/abnormal . AC VBE(BEAKER) (test mEq/L code = 5400629600) THB NADIR (test code = 10.3 g/dL 13.5-18 L 6383944705) %O2HB NADIR (test code = 79.1 % 52-63 H 9389555504) %COHB NADIR (test code = 0.5 % 0-1.5 8998710957) %METHB NADIR (test code = 0.3 % 0.4-1.5 L 8556852657) VOL%O2 NADIR (test code = 11.5 % 6-12 9768394333) NA (test code = 137 mmol/L 135-145 9061588297) K+ (test code = 3.2 mmol/L 3.5-5 L 5387365961) AC CA IONZ (test code = 4.00 mg/dL 4.5-5.3 L 3712568430) GLUCOSE (test code = 164 mg/dL 70-110 H 7349957492) LACTIC ACID (test code 0.95 mmol/L 0.5-2.2 = 3296282080) Lab Interpretation Abnormal (test code = 17494-2) [facility] 01:26:24 Test Item Value Reference Range Interpretation Comments POCT GLU (test code = 3992029746) 231 mg/dL 70-110 H Lab Interpretation (test code = Abnormal 02738-7) [facility] [id number] 21:13:49 Test Item Value Reference Interpretation Comments Range TROPONIN I (test 0.026 ng/mL See_Comment [Automated code = 4904431405) message] The system which generated this result [...] biotin. Lab Interpretation Normal (test code = 99328-8) [facility] [id number] 21:13:49 Test Item Value Reference Interpretation Comments Range TROPONIN I (test 0.026 ng/mL See_Comment [Automated code = 2452660544) message] The system which generated this result [...] biotin. Lab Interpretation Normal (test code = 59233-6) [facility] Test Item Value Reference Range Interpretation Comments MAGNESIUM (test code = 3772172196) 5.2 mg/dL 1.7-2.4 H Lab Interpretation (test code = Abnormal 46074-0) [facility] GLUCOSE (AUTOMATED)2022-08-05 20:53:12 Test Item Value Reference Range Interpretation Comments POCT GLU (test code = 3751364631) 270 mg/dL 70-110 H Lab Interpretation (test code = Abnormal 98790-2) [facility] GLUCOSE (AUTOMATED)2022-08-05 17:14:05 Test Item Value Reference Range Interpretation Comments POCT GLU (test code = 0706490391) 370 mg/dL 70-110 H Lab Interpretation (test code = Abnormal 31498-2) [facility] [id number] 14:50:57 Test Item Value Reference Interpretation Comments Range TROPONIN I (test 0.026 ng/mL See_Comment [Automated code = 9054223807) message] The system which generated this result [...] biotin. Lab Interpretation Normal (test code = 41060-7) [facility] 13:55:06 Test Item Value Reference Range Interpretation Comments MAGNESIUM (test code = 1231169174) 6.2 mg/dL 1.7-2.4 H Lab Interpretation (test code = Abnormal 88756-2) [facility] + Lactic [id number] 13:45:21 Test Item Value Reference Range Interpretation Comments PH (test code = 2) 7.35-7.45 L PCO2 (test code = See_Comment L [Automate d 5713995924) message] The sy stem which generated this result transmitted reference range : 35 - 45 mmHg. The reference range was not used to interpret this result as normal/abnormal . PO2 (test code = See_Comment [Automated 4644105086) message] The sy stem which generated this result transmitted reference range : 80 - 100 mmHg. The reference range was not used to interpret this result as normal/abnormal . HCO3 (test code = See_Comment L [Automate d 8649090530) message] The sy stem which generated this result transmitted reference range : 22 - 26 mEq/L. The reference range was not used to interpret this result as normal/abnormal . BE (test code = See_Comment L [Automated 4767656203) message] The sy stem which generated this result transmitted reference range : -3.0 - 3.0 mEq/ L. The reference r mallika was not used to interpret this result as normal/abnormal . THB (test code = 9.5 g/dL 13.5-18 L 8608140498) %O2HB (test code = 95.5 % 94-99 9847964566) %COHB ART (test code = 0.2 % 0-1.5 8543754708) %METHB ART (test code = 0.3 % 0.4-1.5 L 0212727252) VOL%O2 ART (test code = 12.9 % 15-23 L 3414748379) NA (test code = 136 mmol/L 135-145 0184074795) K+ (test code = 3.9 mmol/L 3.5-5 1905012731) AC CA IONZ (test code = 4.10 mg/dL 4.5-5.3 L 7775391101) GLUCOSE (test code = 148 mg/dL 70-110 H 4302288411) LACTIC ACID (test code 0.65 mmol/L 0.5-2.2 = 8558849677) Lab Interpretation Abnormal (test code = 38284-2) [facility] Lactic [id number] 13:45:21 Test Item Value Reference Range Interpretation Comments PH (test code = 2) 7.35-7.45 L PCO2 (test code = See_Comment L [Automate d 1144710717) message] The sy stem which generated this result transmitted reference range : 35 - 45 mmHg. The reference range was not used to interpret this result as normal/abnormal . PO2 (test code = See_Comment [Automated 0428296183) message] The sy stem which generated this result transmitted reference range : 80 - 100 mmHg. The reference range was not used to interpret this result as normal/abnormal . HCO3 (test code = See_Comment L [Automate d 9307714524) message] The sy stem which generated this result transmitted reference range : 22 - 26 mEq/L. The reference range was not used to interpret this result as normal/abnormal . BE (test code = See_Comment L [Automated 6417151921) message] The sy stem which generated this result transmitted reference range : -3.0 - 3.0 mEq/ L. The reference r mallika was not used to interpret this result as normal/abnormal . THB (test code = 9.5 g/dL 13.5-18 L 6336843588) %O2HB (test code = 95.5 % 94-99 4324415729) %COHB ART (test code = 0.2 % 0-1.5 2149660993) %METHB ART (test code = 0.3 % 0.4-1.5 L 9618287556) VOL%O2 ART (test code = 12.9 % 15-23 L 9314644006) NA (test code = 136 mmol/L 135-145 9385934915) K+ (test code = 3.9 mmol/L 3.5-5 5561580918) AC CA IONZ (test code = 4.10 mg/dL 4.5-5.3 L 0963200279) GLUCOSE (test code = 148 mg/dL 70-110 H 5596978755) LACTIC ACID (test code 0.65 mmol/L 0.5-2.2 = 5545306587) Lab Interpretation Abnormal (test code = 37033-8) [facility] METABOLIC PANEL (NA, K, CL, CO2, GLUCOSE, BUN, CREATININE, CA)2022-08-05 13:30:47 Test Item Value Reference Range Interpretation Comments NA (test code = 136 mmol/L 135-145 0226266899) K (test code = 4.0 mmol/L 3.5-5 9438588298) CL (test code = 110 mmol/L 98-108 H 2311369402) CO2 TOTAL (test code = 14 mmol/L 23-31 L 4948154919) AGAP (test code = 2-16 5947332023) BUN (test code = 99 mg/dL 7-23 H 1409703059) GLUCOSE (test code = 141 mg/dL 70-110 H 4020514261) CREATININE (test code = 8.68 mg/dL 0.6-1.25 H 1580468261) CALCIUM (test code = 7.0 mg/dL 8.6-10.6 L 0548017355) eGFR (test code = mL/min/1.73m2 6542367486) TORITO (test code = TORITO) Association of [...] tests). Lab Interpretation Abnormal (test code = 03354-7) [facility] 13:30:47 Test Item Value Reference Range Interpretation Comments PHOSPHORUS (test code = 5329485337) 8.8 mg/dL 2.5-5 H Lab Interpretation (test code = Abnormal 65671-3) [facility] 13:02:18 Test Item Value Reference Range Interpretation Comments POCT GLU (test code = 2567597670) 163 mg/dL 70-110 H Lab Interpretation (test code = Abnormal 79996-8) [facility] + Lactic [id number] 08:48:06 Test Item Value Reference Range Interpretation Comments PH (test code = 2) 7.35-7.45 LL PCO2 (test code = See_Comment L [Automate d 5111699822) message] The sy stem which generated this result transmitted reference range : 35 - 45 mmHg. The reference range was not used to interpret this result as normal/abnormal . PO2 (test code = See_Comment L [Automated 3627762737) message] The sy stem which generated this result transmitted reference range : 80 - 100 mmHg. The reference range was not used to interpret this result as normal/abnormal . HCO3 (test code = See_Comment L [Automate d 2403970646) message] The sy stem which generated this result transmitted reference range : 22 - 26 mEq/L. The reference range was not used to interpret this result as normal/abnormal . BE (test code = See_Comment L [Automated 7657323029) message] The sy stem which generated this result transmitted reference range : -3.0 - 3.0 mEq/ L. The reference r mallika was not used to interpret this result as normal/abnormal . THB (test code = 9.7 g/dL 13.5-18 L 9908213038) %O2HB (test code = 75.0 % 94-99 L 2610241211) %COHB ART (test code = 0.4 % 0-1.5 2800857562) %METHB ART (test code = 0.3 % 0.4-1.5 L 0476926331) VOL%O2 ART (test code = 10.2 % 15-23 L 2799057458) NA (test code = 135 mmol/L 135-145 3031549974) K+ (test code = 4.4 mmol/L 3.5-5 2745087882) AC CA IONZ (test code = 4.40 mg/dL 4.5-5.3 L 3091509204) GLUCOSE (test code = 136 mg/dL 70-110 H 2200079099) LACTIC ACID (test code 0.84 mmol/L 0.5-2.2 = 9249870687) Lab Interpretation Abnormal (test code = 47861-5) [facility]"
[2022-09-21] MEDS ORDERED: MORPHINE 4 MG/ML SYR ONE (15:33)
[2022-09-21 15:54] LABS: Absolute Lymphocytes (CBC) 0.8 K/uL (0.7-4.9); Hematocrit 28.8 % (39.6-49.0); Lymphocytes % 7.6 % (15.3-44.8); MCV 87.4 fL (80-100); MPV 8.4 fL (7.6-11.3)
[2022-09-21 16:07] LABS: Potassium 4.2 mmol/L (3.5-5.1)
[2022-09-21 16:13] LABS: Protime INR 0.92
--- NOTE | 2022-09-21 17:12 | RAD REPORT ---
EXAM DESCRIPTION: USExtremity Venous Uni Ltd09/21/2022 5:05 pm CLINICAL HISTORY: left leg pain COMPARISON: August 28, 2022 FINDINGS: Left common femoral, superficial femoral, popliteal and posterior tibial veins are compre ssible and demonstrate augmentation. Doppler demonstrates good flow. Grayscale, color and spectral analysis performed on all vessels IMPRESSION: No evidence of deep venous thrombosis involving the left lower extremity.
--- NOTE | 2022-09-21 17:16 | RAD REPORT ---
EXAM DESCRIPTION: US - Lower Extremity Artery Uni Ltd - 09/21/2022 5:05 pm CLINICAL HISTORY: Leg pain COMPARISON: August 28, 2022 FINDINGS: The left common femoral, superficial femoral and popliteal arteries demonstrate monophasic waveforms The left posterior tibial and dorsalis pedis arteries demonstrate monophasic waveforms Some of the waveforms diminished in amplitude Grayscale, color and spectral analysis performed on all vessels IMPRESSION: Monophasic waveforms left lower extremity may indicate significant iliac arterial disease
[2022-09-21] MEDS ORDERED: VANCOMYCIN 1 GM/VIAL ONE (17:19)
[2022-09-21] MEDS ORDERED: NA CHLORIDE 0.9% 250 ML ONE (17:19)
--- NOTE | 2022-09-21 17:30 | EDPHYS ---
Physician Documentation [facility] Name: Charlie Sky Age: 67 yrs Sex: Male : 1955 Arrival Date: 09/21/2022 Time: 14:02 Bed 12 Private MD: ED Physician Radu Yates HPI: 09/21 15:35 This 67 yrs old Male presents to ER via Wheelchair with complaints of Foot Pain - toe cp amputation 09/15, Feet Swelling. 15:35 The patient presents with pain. The complaints affect the left foot. cp 15:35 Associated signs and symptoms: Pertinent positives: warmth, increased pain, Pertinent cp negatives fever, vomiting. 15:35 Patient reports having left fourth toe amputated by DR Michaud on 09/15/2022. cp Historical: - Allergies: 14:37 Unknown DM medication; ll1 - PMHx: 14:37 diabetes mellitus; Hypertensive disorder; kidney disease; ll1 16:18 HD - MWF; hb - PSHx: 14:37 toe amputation; ll1 - Immunization history:: Client reports having NOT received the Covid vaccine. - Social history:: Smoking status: Patient reports the use of cigarette tobacco products, smokes one-half pack cigarettes per day. ROS: 15:40 MS/extremity: Positive for pain, of the left foot. cp 15:40 Constitutional: Negative for body aches, chills, fever, poor PO intake. cp 15:40 Cardiovascular: Negative for chest pain. 15:40 Respiratory: Negative for cough, shortness of breath, wheezing. 15:40 Abdomen/GI: Negative for abdominal pain, vomiting, diarrhea, constipation. 15:40 Back: Negative for pain at rest, pain with movement. 15:40 Neuro: Negative for altered mental status. 15:40 All other systems are negative. Exam: 15:45 Constitutional: The patient appears in no acute distress, alert, awake, non-toxic, well cp developed, well nourished, uncomfortable. 15:45 Head/Face: Normocephalic, atraumatic. cp 15:45 Eyes: Periorbital structures: appear normal, Conjunctiva: normal, no exudate, no injection, Sclera: no appreciated abnormality, Lids and lashes: appear normal, bilaterally. 15:45 ENT: External ear(s): are unremarkable, Nose: is normal, Mouth: Lips: moist, Oral mucosa: moist, Posterior pharynx: Airway: no evidence of obstruction, patent. 15:45 Chest/axilla: Inspection: normal. 15:45 Cardiovascular: Rate: normal, Rhythm: regular, Edema: is not appreciated, JVD: is not appreciated. 15:45 Respiratory: the patient does not display signs of respiratory distress, Respirations: normal. 15:45 Musculoskeletal/extremity: Extremities: noted in the surgical incision left foot cp appears with erythema, swelling: Pulses: weak left dorsalis pedis. the left foot Severe pain noted. 15:45 Neuro: Orientation: to person, place \T\ time. Mentation: is normal. Vital Signs: 14:37 BP 141 / 73; Pulse 90; Resp 17; Temp 98.3; Pulse Ox 99% ; Weight 81.65 kg; Height 5 ft. ll1 7 in. (170.18 cm); Pain 10/10; 16:09 BP 136 / 76; Pulse 88; Resp 16; Pulse Ox 99% on R/A; hb 18:00 BP 146 / 76; Pulse 82; Resp 15; Pulse Ox 99% ; hb 20:11 BP 140 / 72; Pulse 78; Resp 16; Pulse Ox 100% on R/A; Pain 2/10; hb 14:37 Body Mass Index 28.19 (81.65 kg, 170.18 cm) ll1 MDM: 15:19 Patient medically screened. cp 16:00 Differential diagnosis: sepsis, abscess, arterial blockage. cp 17:00 Physician consultation: Navid Michaud MD was contacted at 17:00, regarding consult, cp patient's condition, wants patient admitted for IV antibiotics to hospitalist and will consult. 17:20 Data reviewed: vital signs, nurses notes, lab test result(s), radiologic studies, cp ultrasound. 17:20 Counseling: I had a detailed discussion with the patient and/or guardian regarding: the cp historical points, exam findings, and any diagnostic results supporting the discharge/admit diagnosis, lab results, radiology results, the need for further work-up and treatment in the hospital. Response to treatment: the patient's symptoms have mildly improved after treatment. 09/21 15:30 Order name: Basic Metabolic Panel; Complete Time: 16:17 cp 09/21 16:17 Interpretation: Normal except: NA 130; CL 95; GLUC 134; BUN 51; CRE 4.04; GFR 16. cp 09/21 15:30 Order name: CBC with Diff; Complete Time: 16:17 cp 09/21 16:17 Interpretation: Normal except: RBC 3.30; HGB 10.1; HCT 28.8; FABIENNE% 81.2; LYM% 7.6; NEUT cp A 8.6. 09/21 15:30 Order name: Magnesium; Complete Time: 16:17 cp 09/21 15:30 Order name: PT-INR; Complete Time: 16:17 cp 09/21 17:03 Order name: Lactate; Complete Time: 19:23 cp 09/21 17:03 Order name: Blood Culture Adult (2) cp 09/21 15:53 Order name: US Extremity Venous Unilateral Ltd; Complete Time: 17:19 cp 09/21 17:19 Interpretation: Report reviewed. cp 09/21 15:53 Order name: US LE Artery Uni Ltd; Complete Time: 17:19 cp 09/21 17:19 Interpretation: Report reviewed. cp 09/21 17:03 Order name: Procalcitonin; Complete Time: 19:23 cp 09/21 17:35 Order name: SARS RAPID; Complete Time: 19:23 ss 09/21 19:56 Order name: Foot Left 2 View XRAY sb4 09/21 21:08 Order name: RAD EDMS 09/21 15:30 Order name: EKG; Complete Time: 15:30 cp 09/21 15:30 Order name: Cardiac monitoring; Complete Time: 16:08 cp 09/21 15:30 Order name: EKG - Nurse/Tech; Complete Time: 16:08 cp 09/21 15:30 Order name: IV Saline Lock; Complete Time: 15:43 cp 09/21 15:30 Order name: Labs collected and sent; Complete Time: 15:43 cp 09/21 15:30 Order name: O2 Per Protocol; Complete Time: 15:43 cp 09/21 15:30 Order name: O2 Sat Monitoring; Complete Time: 15:43 cp Administered Medications: 15:43 Drug: morphine 4 mg Route: IVP; Infused Over: 4 mins; Site: right antecubital; hb 17:49 Follow up: Response: No adverse reaction hb 17:48 Drug: vancoMYCIN 1 grams Route: IVPB; Infused Over: 2 hrs; Site: right antecubital; hb Disposition: 09/22 14:17 Co-signature as Attending Physician, Radu Yates MD I agree with the assessment and kdr plan of care. Disposition Summary: 09/21/22 17:29 Hospitalization Ordered Hospitalization Status: Inpatient Admission cp Provider: Segun Lazo cp Location: Telemetry/MedSurg (Inpatient) cp Condition: Stable cp Problem: an ongoing problem cp Symptoms: have improved cp Bed/Room Type: Standard cp Room Assignment: 403(09/21/22 20:17) cg Diagnosis - Cellulitis of left lower limb - left foot cp Forms: - Medication Reconciliation Form cp - SBAR form cp Signatures: Dispatcher [employer] EDMS Radu Yates MD MD [facility] Naseem Jean PA PA cp Garcia, Cindy RN RN cg Aicha Valle RN RN Neha Young RN RN ll1 Paula Sheldon PANahid PANahid sb4 Corrections: (The following items were deleted from the chart) 09/21 20:17 17:29 cp cg
--- NOTE | 2022-09-21 17:30 | ER ---
Nurse's Notes [facility] Name: Charlie Sky Age: 67 yrs Sex: Male : 1955 Arrival Date: 09/21/2022 Time: 14:02 Bed 12 Private MD: Diagnosis: Cellulitis of left lower limb-left foot Presentation: 09/21 14:37 Chief complaint: Patient states: Had 4th digit from L foot removed last Thursday. Now ll1 site has a lot of swelling, bruising, and pain since last night. Son concerned for new ulcer on 5th digit. No known fever. Coronavirus screen: Vaccine status: Patient reports being unvaccinated. Client denies travel out of the [place] in the last 14 days. At this time, the client does not indicate any symptoms associated with coronavirus-19. Ebola Screen: Patient denies travel to an Ebola-affected area in the 21 days before illness onset. Initial Sepsis Screen: Does the patient meet any 2 criteria? No. Patient's initial sepsis screen is negative. Does the patient have a suspected source of infection? Yes: Skin breakdown/wound. Risk Assessment: Do you want to hurt yourself or someone else? Patient reports no desire to harm self or others. Onset of symptoms was September 20, 2022. 14:37 Method Of Arrival: Wheelchair ll1 14:37 Acuity: MAURIZIO 3 ll1 Triage Assessment: 14:40 General: Appears uncomfortable, Behavior is cooperative, appropriate for age. Pain: ll1 Complains of pain in left foot Pain currently is 10 out of 10 on a pain scale. Quality of pain is described as aching, throbbing. Derm: Wound noted right foot Reports pain. Historical: - Allergies: 14:37 Unknown DM medication; ll1 - PMHx: 14:37 diabetes mellitus; Hypertensive disorder; kidney disease; ll1 16:18 HD - MWF; hb - PSHx: 14:37 toe amputation; ll1 - Immunization history:: Client reports having NOT received the Covid vaccine. - Social history:: Smoking status: Patient reports the use of cigarette tobacco products, smokes one-half pack cigarettes per day. Screenin:08 Abuse screen: Denies threats or abuse. Denies injuries from another. Nutritional hb screening: No deficits noted. Tuberculosis screening: No symptoms or risk factors identified. Fall Risk None identified. Assessment: 16:09 General: Appears in no apparent distress. uncomfortable, Behavior is calm, cooperative. hb Pain: Pain currently is 10 out of 10 on a pain scale. Neuro: Level of Consciousness is awake, alert, obeys commands, Oriented to person, place, time, situation. Cardiovascular: Patient's skin is warm and dry. Respiratory: Respiratory effort is even, unlabored, Respiratory pattern is regular, symmetrical. GI: No signs and/or symptoms were reported involving the gastrointestinal system. : No signs and/or symptoms were reported regarding the genitourinary system. EENT: No signs and/or symptoms were reported regarding the EENT system. Derm: Skin is pink, warm \T\ dry. Musculoskeletal: Reports severe left foot pain, worse in amputated 4th toe area. 17:26 Reassessment: Patient appears in no apparent distress at this time. Patient and/or hb family updated on plan of care and expected duration. Pain level reassessed. Patient is alert, oriented x 3, equal unlabored respirations, skin warm/dry/pink. 19:00 Reassessment: Patient appears in no apparent distress at this time. Patient and/or hb family updated on plan of care and expected duration. Pain level reassessed. Patient is alert, oriented x 3, equal unlabored respirations, skin warm/dry/pink. 20:09 Reassessment: Patient appears in no apparent distress at this time. Patient and/or hb family updated on plan of care and expected duration. Pain level reassessed. Patient is alert, oriented x 3, equal unlabored respirations, skin warm/dry/pink. Vital Signs: 14:37 BP 141 / 73; Pulse 90; Resp 17; Temp 98.3; Pulse Ox 99% ; Weight 81.65 kg; Height 5 ft. ll1 7 in. (170.18 cm); Pain 10/10; 16:09 BP 136 / 76; Pulse 88; Resp 16; Pulse Ox 99% on R/A; hb 18:00 BP 146 / 76; Pulse 82; Resp 15; Pulse Ox 99% ; hb 20:11 BP 140 / 72; Pulse 78; Resp 16; Pulse Ox 100% on R/A; Pain 2/10; hb 14:37 Body Mass Index 28.19 (81.65 kg, 170.18 cm) ll1 ED Course: 14:02 Patient arrived in ED. as 14:03 Naseem Jean PA is PHCP. cp 14:03 Radu Yates MD is Attending Physician. cp 14:37 Arm band placed on. ll1 14:40 Triage completed. ll1 15:30 Aicha Valle, RN is Primary Nurse. hb 15:42 Inserted saline lock: 20 gauge in right antecubital area, using aseptic technique. hb Blood collected. 15:43 Basic Metabolic Panel Sent. hb 15:43 CBC with Diff Sent. hb 15:43 Magnesium Sent. hb 15:43 PT-INR Sent. hb 16:08 Patient has correct armband on for positive identification. hb 17:07 US Extremity Venous Unilateral Ltd In Process Unspecified. EDMS 17:07 US LE Artery Uni Ltd In Process Unspecified. EDMS 17:28 Segun Lazo MD is Hospitalizing Provider. cp 20:41 No provider procedures requiring assistance completed. Patient admitted, IV remains in tw5 place. Administered Medications: 15:43 Drug: morphine 4 mg Route: IVP; Infused Over: 4 mins; Site: right antecubital; hb 17:49 Follow up: Response: No adverse reaction hb 17:48 Drug: vancoMYCIN 1 grams Route: IVPB; Infused Over: 2 hrs; Site: right antecubital; hb Medication: 16:09 VIS not applicable for this client. hb Outcome: 17:29 Decision to Hospitalize by Provider. cp 20:41 Admitted to Med/surg Report called to Called report to Deana [facility] 20:41 Condition: stable 20:41 Instructed on the need for admit. 21:31 Patient left the ED. hb Signatures: Dispatcher [employer] EDRehana Flores as Naseem Jean PA PA cp Aicha Valle, RN RN Neha Russell RN RN [facility] Anisa Clarke [facility]
[2022-09-21 18:10] LABS: SARS-CoV-2 Antigen Rapid Res Negative (Negative)
--- NOTE | 2022-09-21 19:54 | P.HP ---
Certification for Inpatient Patient admitted to: Inpatient With expected LOS: >2 Midnights Patient will require the following post-hospital care: None Practitioner: I am a practitioner with admitting privileges, knowledge of patient current condition, hospital course, and medical plan of care. Services: Services provided to patient in accordance with Admission requirements found in Title 42 Section 412.3 of the Code of Federal Regulations Patient History Date of Service: 09/21/22 Primary Care Provider: Alicia Reason for admission: Cellulitus L Foot History of Present Illness: Patient is a 67-year-old male with history of ESRD on HD MWF and IDDM who presented to the ED with complaints of increasing pain, swelling, and eryt araseli/bruising to his left 5th toe. Patient was admitted here 1 week ago for treatment of nonhealing wound of left 4th toe ulcer, treated with IV antibiotics, and ended up having left 4th toe amputated due by Dr. Michaud. He was discharged without the need for antibiotics. Today, Left foot xray showed "Subtle cortical irregularity fifth distal phalanx. This may indicate osteomyelitis. Amputation fourth phalanx with air in the soft tissue. It is unclear whether this is secondary to an ulceration or infection. No fracture or dislocation." Arterial Doppler showed "Monophasic waveforms left lower extremity may indicate significant iliac arterial disease. Venous Doppler negative. No significant lab abnormalities or concern for sepsis at this time. Vital signs stable. Dr. Michaud was notified and will see patient tomorrow. Patient started on vancomyin in ED. He is hospitalized for further management. Allergies Unable to Assess Allergy (Unverified 09/13/22 21:12) Home medications list reviewed: Yes Home Medications: Amlodipine Besylate [Norvasc] 10 mg PO DAILY 09/13/22 Atorvastatin Calcium [Lipitor] 40 mg PO BEDTIME 09/13/22 Enalapril Maleate [Vasotec] 10 mg PO DAILY 09/13/22 Sitagliptin Phosphate [Januvia] 25 mg PO DAILY 09/13/22 carvediloL [Carvedilol] 6.25 mg PO BID 09/13/22 Hydrocodone 5/APAP 325 [Caputa 5/325*] 1 tab PO Q8H PRN #10 tab 09/16/22 - Past Medical/Surgical History Diabetic: Yes -: End-stage renal disease on hemodialysis -: Diabetes mellitus type 2 -: Left fourth toe amputation Psychosocial/ Personal History: Patient lives at home. He has a son. - Family History Brother -: Diabetes - Social History Smoking Status: Current every day smoker Alcohol use: No CD- Drugs: No Caffeine use: No Place of Residence: Home Review of Systems Musculoskeletal: Foot Pain Physical Examination - Physical Exam General: Alert, In no apparent distress HEENT: Atraumatic, PERRLA, EOMI, Sclerae nonicteric Neck: Supple, 2+ carotid pulse no bruit, No LAD, Without JVD or thyroid abnormality Respiratory: Clear to auscultation bilaterally, Normal air movement Cardiovascular: Regular rate/rhythm, Normal S1 S2 Gastrointestinal: Normal bowel sounds, No tenderness Musculoskeletal: No tenderness Integumentary: Tenderness/swelling, Erythema, Other (Bruising) Neurological: Normal speech, Normal strength at 5/5 x4 extr, Normal affect - Studies Laboratory Data (last 24 hrs) 09/21/22 15:41: PT 10.1, INR 0.92 09/21/22 15:41: WBC 10.50, Hgb 10.1 L, Hct 28.8 L, Plt Count 285 09/21/22 15:41: Sodium 130 L, Potassium 4.2, BUN 51 H, Creatinine 4.04 H, Glucose 134 H, Magnesium 2.0 Assessment and Plan - Problems (Diagnosis) (1) Osteomyelitis of fifth toe of left foot Current Visit: Yes Status: Acute (2) Diabetes mellitus type 2 in obese Current Visit: Yes Status: Chronic (3) End-stage renal disease on hemodialysis Current Visit: Yes Status: Chronic (4) Peripheral vascular disease Current Visit: Yes Status: Chronic - Plan Continue IV vancomycin. Previous wound culture grew pansensitive group B strep. New wound culture ordered. Consulted general surgery-Dr. Michaud to evaluate. NPO at midnight in case of surgical intervention. Wound care consult. Glucose monitoring and control. Pain medication as needed. Nephrology consult for hemodialysis. Monitor and replete electrolytes per protocol. Reconcile and continue home medications. Heparin for VTE prophylaxis. Full code. Discharge Plan: Home Plan to discharge in: Greater than 2 days - Advance Directives Does patient have a Living Will: No Does patient have a Durable POA for Healthcare: No - Code Status/Comfort Care Code Status Assessed: Yes (Full) Critical Care: No Time Spent Managing Pts Care (In Minutes): 50
--- NOTE | 2022-09-21 21:07 | RAD REPORT ---
EXAM DESCRIPTION: RAD - Foot Left 2 View - 09/21/2022 8:46 pm CLINICAL HISTORY: Left Foot pain FINDINGS: A limited two view series Subtle cortical irregularity fifth distal phalanx. This may indicate osteomyelitis Amputation fourth phalanx with arir in the soft tissue. It is unclear whether this is secondary to an ulceration or infection No fracture or dislocation Vascular calcifications. Unchanged calcification posterior to the talus
[2022-09-21] MEDS ORDERED: ACETAMINOPHEN 500 MG TAB PO PRN (21:38)
[2022-09-21] MEDS: INSULIN -REGULAR HUMAN 50 UNIT/0.5 ML ML SQ SCH (21:38)
[2022-09-21] MEDS ORDERED: ONDANSETRON 4 MG/2 ML VIAL IV PRN (21:38)
[2022-09-21] MEDS: MORPHINE 4 MG/ML SYR IV PRN (22:29)
[2022-09-21 23:04] LABS: Specific Gravity 1.006 (1.005-1.030); Urine Bacteria <20 /HPF (<20); Urine Bilirubin NEGATIVE (Negative); Urine Blood Negative (Negative); Urine Clarity Clear (Clear); Urine Color Colorless (Yellow); Urine Glucose TRACE (Negative); Urine Protein 1+ (Negative); Urine RBC <5 /HPF (None Seen); Urine Urobilinogen Normal (Normal); Urine pH 5.5 (5.0-7.0)
[2022-09-22] MEDS: HEPARIN 5000 UNIT/ML 1 ML VIAL SQ SCH ×3 (00:10→16:32)
[2022-09-22 03:46] LABS: Absolute Lymphocytes (CBC) 1.1 K/uL (0.7-4.9); Hematocrit 23.3 % (39.6-49.0); MCV 87.8 fL (80-100); MPV 8.6 fL (7.6-11.3); RBC Red Blood Cell Count 2.66 M/uL (4.33-5.43)
[2022-09-22 04:09] LABS: Magnesium 1.9 mg/dL (1.8-2.4); Phosphorus 3.6 mg/dL (2.5-4.9); Potassium 4.1 mmol/L (3.5-5.1)
[2022-09-22] MEDS: MORPHINE 4 MG/ML SYR IV PRN ×2 (07:26→14:12)
[2022-09-22] MEDS: INSULIN -REGULAR HUMAN 50 UNIT/0.5 ML ML SQ SCH ×4 (07:30→21:56)
[2022-09-22] MEDS: ENALAPRIL 10 MG TAB PO SCH (09:20)
[2022-09-22] MEDS: AMLODIPINE 10 MG TAB PO SCH (09:21)
[2022-09-22] MEDS: carvediloL 6.25 MG TAB PO SCH ×2 (09:21→21:53)
[2022-09-22] MEDS: HYDROCODONE/APAP 5/325 MG TAB PO PRN ×2 (09:33→21:52)
--- NOTE | 2022-09-22 13:23 | P.PN ---
Date of Service: 09/22/22 Subjective: Patient and son upset this morning, feels that they are not updated and kept in the loop with everything going on Continues with pain in his foot Denies nausea/vomiting, no chills, no fever ROS: 10 point ROS as noted above, otherwise negative Physical exam GEN: Alert, oriented, frustrated HEENT: Normal conjunctiva, sclera anicteric CV: Regular rate and rhythm, no edema Pulm: Nonlabored respirations on room air ABD: Soft, nontender, nondistended Integumentary: Left fourth toe amputation, mild erythema tracking up dorsum of foot, with mild edema. Tenderness on the dorsum and plantar aspect around fourth and fifth metatarsal area Neuro: Normal speech, normal affect Problem List Osteomyelitis of left fourth toe s/p amputation post-op wound infection, nonhealing peripheral vascular disease - monophasic blood flow LLE ESRD on HD Continue IV vancomycin, renally dosed, pharmacy consulted Prior wound culture grew pansensitive group B strep General surgery, Dr. Michaud, consulted continue NPO every midnight for possible surgery monophasic blood flow throughout LLE pt hasn't seen vascular yet needs improved blood flow high risk for nonhealing / infection cardiology consulted sliding scale insulin DVT prophylaxis Nephrology consulted for HD Code: full Dispo: home, ~2-3 days Time Spent Managing Pts Care (In Minutes): 35
--- NOTE | 2022-09-22 15:58 | EKG ---
Test Date: 2022-09-21 Test Time: 16:05:58 [employer]: HB MEASUREMENT RESULTS: Intervals: Rate: 82 SC: 180 QRSD: 90 QT: 378 QTc: 441 [place]: P: 63 SC: 180 QRS: 24 T: 62 INTERPRETIVE STATEMENTS: Normal sinus rhythm Normal ECG Compared to ECG 09/13/2022 15:41:45 No significant changes Electronically Signed On 09-22-22 15:56:23 CDT by Amado Chandra
--- NOTE | 2022-09-22 20:41 | CON ---
Date of Consultation: 09/22/2022 Reason For Consultation: Peripheral vascular disease with nonhealing ulcers. History Of Present Illness: A 67-year-old male with history of end-stage renal disease, on hemodialy sis Thursday, Thursday, Thursday; insulin-dependent diabetes; hypertension and dyslipidemia presented wi th cellulitis of the left foot and black discoloration and open wound that is not healing. An arteri al Doppler was done and showed a monophasic waveform throughout suggestive of significant peripheral vascular disease. The patient denies having any complaints. Past Medical History: As outlined above in HPI. Medications: Refer to reconciliation sheet for detailed list. Allergies: NO KNOWN DRUG ALLERGIES. Review of Systems: No premature coronary artery disease or cancer. Social History: He is an active smoker. Does not drink or use any drugs. Review of Systems: All systems reviewed and they are negative except as mentioned in HPI. Physical Examination: Vital Signs: Reviewed. Head And Neck: Pupils are equal and reactive to light. Intact eye movements. No JVD. No cervical lymphadenopathy. Neck is supple. Thyroid is not enlarged. Lungs: Clear to auscultation bilaterally. No rhonchi, wheezing, or crackles. No accessory muscle u se. Heart: Regular rate and rhythm. No extra sounds. Abdomen: Soft, nontender. Bowel sounds positive. No organomegaly. No masses or hernia. No rigidi ty or rebound. Extremities: No edema, clubbing, or cyanosis. Intact pulses. On the left lower extremity, there is erythema involving the foot with black discoloration and open wound. Neurologic: Alert, awake, and oriented x3. No acute focal deficits appreciated. Investigations: BUN 54, creatinine 4, and hemoglobin is 8.1. Assessment And Recommendation: 1.Peripheral vascular disease by ultrasound and nonhealing wound and ulcer. Plan for peripheral ang iogram selectively to be done tomorrow and percutaneous intervention as needed. 2.Hypertension. Blood pressure is controlled. 3.Cellulitis of left lower extremity, on IV antibiotics. I will plan for peripheral angiogram to as sess the blood flow. SR/MODL Voice ID: [id number] Report ID: [id number]
[2022-09-22] MEDS: SODIUM HYPOCHLORITE 0.25% 473 ML TOP SCH (21:00)
[2022-09-22] MEDS: ATORVASTATIN 40 MG TAB PO SCH (21:53)
[2022-09-22] MEDS: VANCOMYCIN 1 GM in NA CHLORIDE 0.9% 250 ML IVPB SCH (22:24)
[2022-09-23] MEDS: HEPARIN 5000 UNIT/ML 1 ML VIAL SQ SCH ×4 (01:00→20:50)
[2022-09-23] MEDS: MORPHINE 4 MG/ML SYR IV PRN (01:17)
[2022-09-23 04:17] LABS: Absolute Lymphocytes (CBC) 1.1 K/uL (0.7-4.9); Hematocrit 22.1 % (39.6-49.0); Lymphocytes % 16.7 % (15.3-44.8); MPV 8.1 fL (7.6-11.3); RBC Red Blood Cell Count 2.51 M/uL (4.33-5.43)
[2022-09-23 04:27] LABS: Magnesium 1.9 mg/dL (1.8-2.4); Potassium 4.9 mmol/L (3.5-5.1)
[2022-09-23] MEDS: HYDROCODONE/APAP 5/325 MG TAB PO PRN ×3 (07:18→22:04)
[2022-09-23] MEDS: INSULIN -REGULAR HUMAN 50 UNIT/0.5 ML ML SQ SCH ×4 (07:30→20:48)
[2022-09-23] MEDS: AMLODIPINE 10 MG TAB PO SCH (08:36)
[2022-09-23] MEDS: ENALAPRIL 10 MG TAB PO SCH (08:37)
[2022-09-23] MEDS: carvediloL 6.25 MG TAB PO SCH ×2 (08:37→21:00)
[2022-09-23] MEDS: SODIUM HYPOCHLORITE 0.25% 473 ML TOP SCH ×2 (08:37→20:49)
[2022-09-23 09:14] LABS: Potassium 4.5 mmol/L (3.5-5.1)
[2022-09-23] MEDS ORDERED: HEPA 1000U/500MLS 2,000 UNIT/1,000 ML BAG IV ONE (11:55)
[2022-09-23] MEDS ORDERED: FENTANYL CITR 100 MCG/2 ML ONE ×3 (11:55→13:57)
[2022-09-23] MEDS ORDERED: MIDAZOLAM HCL 2 MG/2 ML INJ ONE ×3 (11:55→13:58)
[2022-09-23] MEDS ORDERED: CLOPIDOGREL 75 MG TABLET ONE (11:56)
[2022-09-23] MEDS ORDERED: LIDOCAINE 1% 20 ML MDV ONE (11:56)
[2022-09-23] MEDS ORDERED: NITROGLYCERIN 100 MCG/ML SYR (for cath lab use only) IV ONE (11:56)
[2022-09-23] MEDS ORDERED: NITROGLYCERIN/D5W 25 MG/250 ML BTL IV ONE (11:56)
[2022-09-23] MEDS ORDERED: HEPARIN 10,000 UNIT/10 ML VIAL IV ONE (11:56)
[2022-09-23] MEDS ORDERED: ATROPINE SULF 1 MG/10 ML SYR IV ONE (11:57)
[2022-09-23] MEDS ORDERED: ASPIRIN 325 MG TAB ONE (11:57)
[2022-09-23] MEDS ORDERED: NA CHLORIDE 0.9% 500 ML ONE (12:28)
--- NOTE | 2022-09-23 13:30 | P.PN ---
Subjective Date of Service: 09/23/22 Primary Care Provider: Alicia Chief Complaint: Cellulitus L Foot Patient has no new complaint. He denies any pain. Physical Examination - Vital Signs Temperature: 98.8 F Blood Pressure: 124/61 Pulse: 72 Respirations: 16 Pulse Ox (%): 99 Assessment And Plan - Plan Physical exam GEN: Alert, oriented. NAD CV: Regular rate and rhythm, no edema Pulm: Clear to auscultation bilaterally. ABD: Soft, nontender, nondistended Integumentary: Left fourth toe amputation, mild erythema tracking up dorsum of foot, with mild edema. Tenderness on the dorsum and plantar aspect around fourth and fifth metatarsal area Neuro: Normal speech, normal affect Problem List Osteomyelitis of left fourth toe s/p amputation post-op wound infection, nonhealing peripheral vascular disease - monophasic blood flow LLE ESRD on HD Hypertension Continue IV vancomycin, renally dosed. Prior wound culture grew group B strep Patient seen by Dr. Michaud. Prior arterial Doppler suggested monophasic blood flow throughout LLE Did not get the chance to see vascular surgery as outpatient. Patient seen by cardiology-Dr. Chandra who is planning angiogram and possible intervention to establish blood flow in the LLE. sliding scale insulin Nephrology is following for hemodialysis. Continue home medications for hypertension. Code: full DVT prophylaxis
[2022-09-23] MEDS ORDERED: HEPA 1000U/500MLS 1,000 UNIT/500 ML BAG IV ONE (13:58)
[2022-09-23] MEDS ORDERED: HEPARIN 5000 UNIT/ML 1 ML VIAL ONE (14:26)
--- NOTE | 2022-09-23 16:27 | P.CNS ---
Date of Consult: 09/23/22 Primary Care Provider: Alicia Chief Complaint: Cellulitus L Foot History of Present Illness: Pt is a 67 y/o male with past medical hx of hypertension, Esrd, DM presenting with complaints of left foot pain s/p recent amputation of toe. Pt seen s/p angiogram. He states he preent due to significant pain in foot. Labs non emergent but consistent with esrd. Allergies unknown DM oral pill Allergy (Uncoded 09/21/22 21:41) Itching/Hives/Rash Home Medications: Amlodipine Besylate [Norvasc] 10 mg PO DAILY 09/13/22 Atorvastatin Calcium [Lipitor] 40 mg PO BEDTIME 09/13/22 Enalapril Maleate [Vasotec] 10 mg PO DAILY 09/13/22 Sitagliptin Phosphate [Januvia] 25 mg PO DAILY 09/13/22 carvediloL [Carvedilol] 6.25 mg PO BID 09/13/22 Hydrocodone 5/APAP 325 [[place]elia 5/325*] 1 tab PO Q8H PRN #10 tab 09/16/22 Insulin Glargine,Hum.rec.anlog [Lantus] 20 unit SQ BEDTIME 09/21/22 - Past Medical/Surgical History Diabetic: Yes -: End-stage renal disease on hemodialysis -: Diabetes mellitus type 2 -: Left fourth toe amputation -: Left fourth toe amputation Psychosocial/ Personal History: Patient lives at home. He has a son. - Family History Brother Medical History: Diabetes - Social History Smoking Status: Current every day smoker Alcohol use: No CD- Drugs: No Caffeine use: No Place of Residence: Home Review of Systems 10-point ROS is otherwise unremarkable Musculoskeletal: Foot Pain Physical Examination Temp Pulse Resp BP Pulse Ox 98.7 F 87 14 145/69 H 99 09/23/22 15:30 09/23/22 15:30 09/23/22 15:30 09/23/22 15:30 09/23/22 13:35 General: Alert, In no apparent distress HEENT: Atraumatic, PERRLA, Mucous membr. moist/pink, EOMI, Sclerae nonicteric Neck: Supple, 2+ carotid pulse no bruit, No LAD, Without JVD or thyroid abnormality Respiratory: Clear to auscultation bilaterally, Normal air movement Cardiovascular: Regular rate/rhythm, Normal S1 S2 Gastrointestinal: Normal bowel sounds, No tenderness Musculoskeletal: Other (pain in left foot) Neurological: Normal gait, Normal speech, Normal tone, Normal affect Physician Review Additional Text: Problems ESRD Hypertension DM Hypernatremia Plan Dialyzed yesterday. MInimal UF. More for clearance Renal diet Epogen Maintain on [facility]wf dialysis schedule. Will continue to follow.
[2022-09-23] MEDS: ATORVASTATIN 40 MG TAB PO SCH (20:47)
[2022-09-24 00:42] VITALS: BMI 28.4
[2022-09-24 05:52] LABS: Absolute Lymphocytes (CBC) 0.8 K/uL (0.7-4.9); Hematocrit 22.4 % (39.6-49.0); Lymphocytes % 10.9 % (15.3-44.8); MCV 87.4 fL (80-100); MPV 8.1 fL (7.6-11.3); RBC Red Blood Cell Count 2.56 M/uL (4.33-5.43)
[2022-09-24 06:12] LABS: Potassium 4.8 mmol/L (3.5-5.1)
[2022-09-24] MEDS: HYDROCODONE/APAP 5/325 MG TAB PO PRN ×3 (06:20→20:34)
[2022-09-24] MEDS: INSULIN -REGULAR HUMAN 50 UNIT/0.5 ML ML SQ SCH ×4 (07:30→20:35)
--- NOTE | 2022-09-24 08:43 | CON ---
Date of Consultation: 09/21/2022 Brief History Of Present Illness: The patient is a 67-year-old male with end-stage renal disease, on hemodialysis Thursday, Thursday, Thursday, diabetes, who presents to the hospital with concern of eryth rosi and bruising over his fifth toe 2 days prior to his admission. I had performed a left fourth toe amputation for ulceration and cortical irregularities consistent with possible osteomyelitis. His a mputation went well; however, he had been noncompliant, as an outpatient did not follow up with me, vilma nd did not follow up with the endovascular specialist that I recommended for to correct his severe pe ripheral arterial disease with monophasic flow to his left lower extremity. As such, he came back in to the hospital with concerns now of his fifth toe. He had not had dressings on his foot and was ess entially walking on the area with no coverage. His son instructed me that he had to continuously rem ind the patient that he was to be nonweightbearing on that foot and when he was around, he was nonwei ghtbearing; however, when the redness, pain and discoloration occurred to the fifth toe, he came to [facility] emergency room with the above-stated complaints. He had a left foot x-ray, which showed a subtle cortical irregularity of the fifth distal phalanx, possibly early osteomyelitis, amputation of the fo urth phalanx, had air in the soft tissue, unclear secondary ulceration or infection. There was ulcer ation. There is arterial Doppler showed monophasic waveforms to the left lower extremity, which show ed significant iliac arterial disease, likely venous Doppler was negative. No evidence of sepsis and no irregularities. He had tenderness and pain and redness to his foot extending from the fifth toe and discoloration with darkness to his previous incision. Past Medical History: Significant for diabetes, end-stage renal disease, hypertension, peripheral ar terial disease. Past Surgical History: Includes a right and left fourth toe amputation. His left fourth toe amputat ion was approximately a week ago. Social History: He lives at home with his son. He smokes cigarettes every day. He denies alcohol o r recreational drug use. Review of Systems: Ten-point review of systems other than HPI, denies. Physical Examination: General: At the time of my examination; he is awake, alert, oriented. Psychiatric: Appropriate, conversive. HEENT: Normocephalic. Sclerae anicteric. Mucous membranes moist. Oropharynx clear. Neck: Supple without JVD. Chest: Diminished excursion. Cardiovascular: Regular rate and rhythm. Pulmonary: Clear to auscultation bilaterally. Extremities: Focused examination of his left lower extremity shows cellulitis and discoloration cons istent with ischemic changes to the left toe. There is cellulitis to the distal aspect of the left f oot over the dorsal aspect of the foot and discoloration and darkness consistent with ischemia to the suture line. Sutures are in place with a small opening in this area consistent with a small wound d ehiscence with debris in the area consistent with the patient walking on this area without protection and coverage for the wound. Laboratory Data: His laboratory exam revealed a white blood cell count of 10.5, hemoglobin 10.1, hem atocrit of 28.8, platelet count was 285. His chemistry showed a sodium of 130, potassium 4.2, chlori de 95, carbon dioxide 25, BUN 51, creatinine 4.04, glucose is 134, lactic acid 0.7. Procalcitonin is 0.1. His COVID was negative. He had imaging performed as described above including a Doppler study , an extremity venous study, and a foot x-ray on the left. Assessment And Plan: This is a 67-year-old male, who comes in with severe peripheral arterial diseas e, noncompliance with wound care, with now cellulitis to his left foot, most severe at the fifth toe and at the previous suture line. Sutures in place with a small dehiscence. 1.Medical management. 2.Antibiotic coverage with vancomycin. 3.Dakin solution to be applied, wrapped, damp to dry over the foot with elevation. 4.I have consulted Dr. Chandra for peripheral arterial disease management to see if we can increase t he flow to his lower extremity and improve perfusion and therefore limb salvage will be attempted. I will monitor his toe and foot for improvement or worsening symptoms. If we can save his fifth toe, I will attempt to do so, but his perfusion must be improved as I feel that there is severe ischemia t o the area precluding a good outcome if he is noncompliant and does not optimize his medical comorbid ities. I have explained the risks, benefits, and alternatives of the above stated plan including, bu t not limited to amputation of his fifth toe. The risks of this were discussed in detail including, but not limited to bleeding, infection, damage to surrounding tissue, need for further operation and procedures, need for higher level amputation. The patient agrees to proceed as indicated with medica l management. Dr. Chandra to attempt endovascular procedure and we will follow along with you should the patient require an amputation. Thank you for this interesting consult. CHE/CAITLIN Voice ID: [id number] Report ID: [id number]
[2022-09-24] MEDS: ASPIRIN EC 81 MG TAB PO SCH (08:59)
[2022-09-24] MEDS: CLOPIDOGREL 75 MG TABLET PO SCH (08:59)
[2022-09-24] MEDS: HEPARIN 5000 UNIT/ML 1 ML VIAL SQ SCH ×2 (09:00→16:28)
[2022-09-24] MEDS: ENALAPRIL 10 MG TAB PO SCH (09:00)
[2022-09-24] MEDS: AMLODIPINE 10 MG TAB PO SCH (13:14)
[2022-09-24] MEDS: SODIUM HYPOCHLORITE 0.25% 473 ML TOP SCH ×2 (13:14→20:35)
[2022-09-24] MEDS: carvediloL 6.25 MG TAB PO SCH ×2 (13:14→20:34)
--- NOTE | 2022-09-24 13:46 | P.PN ---
Subjective Date of Service: 09/24/22 Primary Care Provider: Alicia Chief Complaint: Cellulitus L Foot Patient has no new complaint. Status post left angiogram yesterday by Dr. Chandra. Physical Examination - Vital Signs Temperature: 98.7 F Blood Pressure: 148/82 Pulse: 82 Respirations: 16 Pulse Ox (%): 98 Assessment And Plan - Plan Physical exam GEN: Alert, oriented. NAD CV: Regular rate and rhythm, no edema Pulm: Clear to auscultation bilaterally. ABD: Soft, nontender, nondistended Integumentary: Left fourth toe amputation, mild erythema tracking up dorsum of foot, with mild edema. Tenderness on the dorsum and plantar aspect around fourth and fifth metatarsal area Neuro: Normal speech, normal affect Problem List Osteomyelitis of left fourth toe s/p amputation post-op wound infection, nonhealing peripheral vascular disease - monophasic blood flow LLE ESRD on HD Hypertension Continue IV vancomycin, renally dosed. Wound culture obtained. Follow result Patient seen by Dr. Michaud. Status post angiogram by Dr. Chandra. sliding scale insulin Nephrology is following for hemodialysis. Hemodialysis today. Continue home medications for hypertension. Dr. Michaud is monitoring his response to antibiotics and reestablishment of blood flow for further surgery/debridement as needed. Code: full DVT prophylaxis
[2022-09-24] MEDS: VANCOMYCIN 1 GM in NA CHLORIDE 0.9% 250 ML IVPB SCH (15:34)
--- NOTE | 2022-09-24 17:29 | CON ---
History Of Present Illness: This is a 67-year-old male. I was consulted for left foot necrotic left fourth toe wound and cellulitis. The patient has significant past medical history of diabetes melli tus and being on dialysis for last 2 months. The patient denies any headache, nausea, vomiting, ches t pain, abdominal pain, constipation, or diarrhea. Past Medical History: Diabetes mellitus, end-stage renal disease, hyperlipidemia, hypertension. Social History: Tobacco positive. Alcohol negative. Family History: Noncontributory. Medications: Zosyn, vancomycin. See MAR for other medications. Allergies: COUGH MEDICATION, NOT KNOWN EXACTLY WHICH ONE, BUT CAUSES ITCHING, HIVES AND RASH. Review of Systems: A 10-point review was performed. Physical Examination: General: This is a 67-year-old male, lying in bed, not in any acute cardiopulmonary distress. Vital Signs: Temperature 99, pulse 94, respirations 16, blood pressure 138/64. The patient is getti ng dialyzed. Extremities: Left foot is in surgical dressing, not in any acute distress. Laboratory Data: Shows WBC 7.6, hemoglobin 7.7, platelets 282. Chemistry shows sodium 131, potassiu m 4.8, chloride 99, bicarb 25, BUN 48, creatinine 3.6, glucose is 97. Blood cultures are negative fo r 24 hours. Assessment And Plan: Left foot diabetic foot ulcer with cellulitis, peripheral arterial disease, sta tus post angioplasty. The patient also has severe diabetic neuropathy, does not have any pain sensat ion. End-stage renal disease. Continue vancomycin. Consider applying Silvadene to the wound site. Continue supportive care. Monitor for signs of infection with WBC and fever trends. Thank you, Dr. Henning for consult. NF/MODL Voice ID: [id number] Report ID: [id number]
[2022-09-24] MEDS: ATORVASTATIN 40 MG TAB PO SCH (20:34)
[2022-09-25] MEDS: HEPARIN 5000 UNIT/ML 1 ML VIAL SQ SCH ×3 (02:07→15:43)
[2022-09-25] MEDS ORDERED: DIPHENHYDRAMINE 25 MG TAB/CAP PO PRN (02:11)
[2022-09-25 06:09] LABS: Lymphocytes % 12.6 % (15.3-44.8); MCV 87.6 fL (80-100)
[2022-09-25 06:15] LABS: Hematocrit 20.2 % (39.6-49.0)
[2022-09-25] MEDS: INSULIN -REGULAR HUMAN 50 UNIT/0.5 ML ML SQ SCH ×4 (07:30→21:00)
[2022-09-25] MEDS: AMLODIPINE 10 MG TAB PO SCH (09:00)
[2022-09-25] MEDS: CLOPIDOGREL 75 MG TABLET PO SCH (09:00)
[2022-09-25] MEDS: ENALAPRIL 10 MG TAB PO SCH (09:00)
[2022-09-25] MEDS: ASPIRIN EC 81 MG TAB PO SCH (09:00)
[2022-09-25] MEDS: SODIUM HYPOCHLORITE 0.25% 473 ML TOP SCH ×2 (09:31→21:00)
[2022-09-25] MEDS: carvediloL 6.25 MG TAB PO SCH ×2 (09:31→20:17)
[2022-09-25] MEDS ORDERED: NA CHLORIDE 0.9% 500 ML ONE (09:42)
[2022-09-25] MEDS ORDERED: PIPER TAZO 3.375 GM in NA CHLORIDE 0.9% 100 ML IV ONE (09:45)
[2022-09-25] MEDS ORDERED: FENTANYL CITR 100 MCG/2 ML ONE (10:02)
[2022-09-25] MEDS ORDERED: MIDAZOLAM HCL 2 MG/2 ML INJ ONE (10:02)
[2022-09-25] MEDS ORDERED: LIDOCAINE 1% MPF 5 ML VIAL ONE (10:02)
[2022-09-25] MEDS ORDERED: propofoL 200 MG/20 ML VIAL IV ONE (10:02)
[2022-09-25] MEDS ORDERED: BUPIVACAINE 0.25% PF 10 ML VIAL ONE (10:16)
[2022-09-25] MEDS ORDERED: ONDANSETRON 4 MG/2 ML VIAL ONE (10:59)
--- NOTE | 2022-09-25 11:26 | P.OP ---
Preoperative diagnosis: LEFT 5th Toe Osteomyelitis / Severe PAD Postoperative diagnosis: LEFT 5th Toe Osteomyelitis / Severe PAD Primary procedure: Amputation of LEFT 5th Toe, debridement of necrotic tissue Anesthesia: GETA + Local Estimated blood loss: <2cc Specimen: 5th toe, debridment of 4th toe tissue Findings: severe PAD Complications: None Drain(s): Other (WVAC) Transferred to: Recovery Room Condition: Good
[2022-09-25 11:43] LABS: HBsAG Nonreactive (Nonreactive)
[2022-09-25] MEDS: HYDROMORPHONE HCL 1 MG/ML INJ ONE ×4 (11:45→12:10)
--- NOTE | 2022-09-25 13:38 | P.PN ---
Subjective Date of Service: 09/25/22 Primary Care Provider: Alicia Chief Complaint: Cellulitus L Foot Patient has no new complaint. Status left fifth toe amputation today Physical Examination - Vital Signs Temperature: 98.0 F Blood Pressure: 132/85 Pulse: 85 Respirations: 16 Pulse Ox (%): 94 Assessment And Plan - Plan Physical exam GEN: Alert, oriented. NAD CV: Regular rate and rhythm, no edema Pulm: Clear to auscultation bilaterally. ABD: Soft, nontender, nondistended Integumentary: Left fourth toe amputation, mild erythema tracking up dorsum of foot, with mild edema. Tenderness on the dorsum and plantar aspect around fourth and fifth metatarsal area Neuro: Normal speech, normal affect Problem List Osteomyelitis of left fourth toe s/p amputation post-op wound infection, nonhealing peripheral vascular disease - monophasic blood flow LLE ESRD on HD Hypertension Anemia of chronic kidney disease. Continue IV vancomycin, renally dosed. Wound culture: Normal skin jagjit Status post angiogram of left lower extremity with stent placement by Dr. Chandra. sliding scale insulin Nephrology is following for hemodialysis. Hemodialysis today. Transfuse PRBC for hemoglobin less than 7 Continue home medications for hypertension. Wound care. Pain management as needed. Code: full DVT prophylaxis
--- NOTE | 2022-09-25 14:54 | OP ---
Date of Procedure: 09/25/2022 Surgeon: Mira Michaud MD, Preoperative Diagnosis: Left fifth toe osteomyelitis/severe peripheral arterial disease. Postoperative Diagnosis: Left fifth toe osteomyelitis/severe peripheral arterial disease. Procedures Performed: Amputation of left fifth toe, debridement of necrotic tissue. Anesthesia: General endotracheal plus local 1% Marcaine. Estimated Blood Loss: Less than 2 cc. Specimen: Fifth toe of the left foot and debridement tissue from the fourth toe web space consistent with necrosis due to severe peripheral arterial disease. Findings: Severe peripheral arterial disease. Complications: None. Drains: Negative pressure wound therapy was applied at the end of the procedure. Disposition: The patient was transferred to the recovery in good condition. Indications: After informed consent was obtained, I explained the risks, benefits, and alternatives of amputation of the fifth toe and debridement of the necrotic tissue including, but not limited to b leeding, infection, damage to surrounding tissues, need for further operation and procedures. I inst ructed the patient because of the severe peripheral artery disease, he may require subsequent high-le issa amputation if this amputation is not successful and if his peripheral arterial disease is not opt imized, he additionally had a peripheral arterial procedure with Dr. Chandra to improve flow to the ar ea. As such, we will proceed with surgery at this point when the fifth toe still appeared dusky and ischemic and he had necrosis over the fourth web space in the previous amputation site. Procedure In Detail: After informed consent was obtained as described above, the patient was prepped and draped in the usual sterile fashion after adequate anesthesia was achieved. I used a marking pe n to demarcate the area of ischemia circumferentially around to include the fifth toe. I dissected d own through the subcutaneous tissues with a 15 blade. There was minimal bleeding throughout the proc edure concerning for severe peripheral arterial disease and ongoing ischemic changes. I then used el ectrocautery to debride all necrotic tissues over the fourth web space extending to the metatarsophal angeal joint along the fifth toe. This joint space was entered sharply using Metzenbaum scissors. I then ligated the fifth digit and sent off for pathological examination after being completely amputa mira and cutting the tendons back. In the area, minimal bleeding was encountered throughout the proce dure. Minimal electrocautery was used to achieve hemostasis with minimal bleeding in the cut surface s and opted to debride all necrotic tissue in this area and opted to place a white foam wound VAC and here to help with ongoing wound care. As such, the white foam was brought on the field. After appr opriately irrigating and cleansing the wound, white foam was applied and then black foam was applied as well and negative pressure wound therapy was applied continuous. The patient tolerated the procedure well without evidence of complication and transferred to PACU in good condition. All counts were correct at the end of the case. CHE/CAITLIN Voice ID: [id number] Report ID: [id number]
[2022-09-25] MEDS: HYDROCODONE/APAP 5/325 MG TAB PO PRN (15:55)
--- NOTE | 2022-09-25 16:39 | PN ---
Date of Progress Note: 09/25/2022 Subjective: Seen by bedside, doing clinically better, status post debridement and further surgical a mputation of infected tissue and bones of the left foot, status post revascularization done last week . Review of Systems: No chest pain, shortness of breath, orthopnea, or cough. No nausea, vomiting, or diarrhea. No abdom inal pain. No history of urinary urgency. No skin rash. All other systems were reviewed and they w ere negative. Physical Examination: Vital Signs: Reviewed. Head and Neck: Pupils are equal and reactive to light. Intact eye movements. No JVD. No cervical lymphadenopathy. Neck is supple. Thyroid is not enlarged. Lungs: Clear to auscultation bilaterally. No rhonchi, wheezing, or crackles. No accessory muscle u se. Heart: Regular rate and rhythm. No extra sounds. Abdomen: Soft, nontender. Bowel sounds positive. No organomegaly. No masses or hernia. No rigidi ty or rebound. Extremities: No edema clubbing, or cyanosis, status post recent surgery on the left foot. Neurological: Alert, awake, and oriented x3. No acute focal deficits appreciated. Investigations: Labs reviewed. Assessment And Recommendations: Severe peripheral vascular disease, status post balloon angioplasty and stent placement on the left SFA. He needs to work on the right SFA, which we will plan for it as an outpatient. Meanwhile, continue aspirin and Plavix and low-dose Xarelto 2.5 mg twice a day and high-dose statin as well, and patient was encouraged to quit smoking. SR/MODL Voice ID: [id number] Report ID: [id number]
[2022-09-25] MEDS: FENTANYL CITR 100 MCG/2 ML IV PRN (19:23)
[2022-09-25] MEDS: ATORVASTATIN 40 MG TAB PO SCH (20:17)
[2022-09-26] MEDS: HEPARIN 5000 UNIT/ML 1 ML VIAL SQ SCH ×3 (00:09→17:20)
[2022-09-26] MEDS: FENTANYL CITR 100 MCG/2 ML IV PRN ×3 (00:10→22:58)
[2022-09-26 03:57] LABS: Absolute Lymphocytes (CBC) 0.8 K/uL (0.7-4.9); Hematocrit 21.2 % (39.6-49.0); Lymphocytes % 10.4 % (15.3-44.8); MCV 87.5 fL (80-100); MPV 7.9 fL (7.6-11.3); RBC Red Blood Cell Count 2.42 M/uL (4.33-5.43)
[2022-09-26 04:11] LABS: Potassium 4.2 mmol/L (3.5-5.1)
[2022-09-26] MEDS: INSULIN -REGULAR HUMAN 50 UNIT/0.5 ML ML SQ SCH ×4 (07:30→23:02)
[2022-09-26] MEDS: ASPIRIN EC 81 MG TAB PO SCH (07:47)
[2022-09-26] MEDS: CLOPIDOGREL 75 MG TABLET PO SCH (07:47)
[2022-09-26] MEDS: carvediloL 6.25 MG TAB PO SCH ×2 (07:47→22:57)
[2022-09-26] MEDS: ENALAPRIL 10 MG TAB PO SCH (07:47)
[2022-09-26] MEDS: AMLODIPINE 10 MG TAB PO SCH (07:47)
[2022-09-26] MEDS: HYDROCODONE/APAP 5/325 MG TAB PO PRN ×2 (07:47→17:20)
[2022-09-26] MEDS: SODIUM HYPOCHLORITE 0.25% 473 ML TOP SCH ×2 (09:00→21:00)
--- NOTE | 2022-09-26 10:03 | P.PN ---
Subjective Date of Service: 09/26/22 Primary Care Provider: Alicia Chief Complaint: Cellulitus L Foot Subjective: Improving Physical Examination - Vital Signs Temperature: 99.0 F Blood Pressure: 154/72 Pulse: 75 Respirations: 18 Pulse Ox (%): 96 - Physical Exam General: Alert, In no apparent distress, Cooperative Musculoskeletal: Other (WVAC in place, minimal scant output, foot continues to have some minimal improved cellulitis) Assessment And Plan - Current Problems (Diagnosis) (1) Peripheral vascular disease Current Visit: Yes Status: Chronic Plan: s/p Amputation of 5th Toe and Debridment of 4th web space on 09-25-2022 - antibiotics x 10 days - will need ongoing endovascular evaulation for optimization of severe peripheral arterial disease - continue negative pressure wound therapy - follow up with me in 1 week - follow up with Dr. Chandra per his recommendations
--- NOTE | 2022-09-26 11:06 | P.DS ---
Admission Date: 09/21/22 Discharge Date: 09/26/22 Primary Care Provider: Alicia Disposition: DC HOME/HOME HEALTH CARE Discharge Condition: FAIR Reason for Admission: Cellulitus L Foot Brief History of Present Illness: Patient is a 67-year-old male with history of ESRD on HD MWF and IDDM who presented to the ED with complaints of increasing pain, swelling, and erythema/bruising to his left 5th toe. Patient was admitted here 1 week ago for treatment of nonhealing wound of left 4th toe ulcer, treated with IV antibiotics, and ended up having left 4th toe amputated due by Dr. Michaud. He was discharged without the need for antibiotics. Today, Left foot xray showed "Subtle cortical irregularity fifth distal phalanx. This may indicate osteomyelitis. Amputation fourth phalanx with air in the soft tissue. It is unclear whether this is secondary to an ulceration or infection. No fracture or dislocation." Arterial Doppler showed "Monophasic waveforms left lower extremity may indicate significant iliac arterial disease. Venous Doppler negative. No significant lab abnormalities or concern for sepsis at this time. Vital signs stable. Dr. Michaud was notified, patient given vancomycin and admitted for furt her management. Hospital Course: Problem List Osteomyelitis of left fourth toe s/p amputation post-op wound infection, nonhealing peripheral vascular disease - monophasic blood flow LLE ESRD on HD Hypertension Anemia of chronic kidney disease. Patient admitted to the medical floor and treated with IV vancomycin Wound culture: Normal skin jagjit He was seen by cardiology Dr. Chandra who performed angiogram of left lower extremity with stent placement. Dr. Chandra performed left fifth toe amputation and wound debridement Nephrology saw patient for hemodialysis. Hemodialysis done Wednesdays and Fridays Patient hemoglobin was stable at 7. He did not receive blood transfusion Dr. Esteves have recommended wound VAC which is applied Patient is deemed stable for discharge. Vital Signs/Physical Exam: Temp Pulse Resp BP Pulse Ox 99.0 F 75 18 154/72 H 96 09/26/22 10:03 09/26/22 10:03 09/26/22 10:03 09/26/22 10:03 09/26/22 10:03 General: Alert, In no apparent distress, Oriented x3 HEENT: Mucous membr. moist/pink, Sclerae nonicteric Neck: JVD not distended Respiratory: Clear to auscultation bilaterally, Normal air movement Cardiovascular: No edema, Regular rate/rhythm, Normal S1 S2 Gastrointestinal: Soft and benign, Non-distended Musculoskeletal: No swelling, Other (Wound VAC applied to left foot fourth and fifth toe amputation area) Integumentary: No cyanosis Neurological: Normal strength at 5/5 x4 extr Laboratory Data at Discharge: WBC 8.10 K/uL (4.3-10.9) 09/26/22 03:32 Hgb 7.4 g/dL (13.6-17.9) L 09/26/22 03:32 Hct 21.2 % (39.6-49.0) L 09/26/22 03:32 Plt Count 301 K/uL (152-406) 09/26/22 03:32 PT 10.1 SECONDS (9.5-12.5) 09/21/22 15:41 INR 0.92 09/21/22 15:41 Sodium 133 mmol/L (136-145) L 09/26/22 03:32 Potassium 4.2 mmol/L (3.5-5.1) 09/26/22 03:32 BUN 48 mg/dL (7-18) H 09/26/22 03:32 Creatinine 4.60 mg/dL (0.55-1.3) H 09/26/22 03:32 Glucose 162 mg/dL (74-106) H 09/26/22 03:32 Phosphorus 3.6 mg/dL (2.5-4.9) 09/22/22 03:20 Magnesium 1.9 mg/dL (1.8-2.4) 09/23/22 03:49 Home Medications: Amlodipine Besylate [Norvasc] 10 mg PO DAILY 09/13/22 Atorvastatin Calcium [Lipitor] 40 mg PO BEDTIME 09/13/22 Enalapril Maleate [Vasotec] 10 mg PO DAILY 09/13/22 Sitagliptin Phosphate [Januvia] 25 mg PO DAILY 09/13/22 carvediloL [Carvedilol] 6.25 mg PO BID 09/13/22 Clopidogrel Bisulfate [Plavix*] 75 mg PO DAILY #30 tab 09/26/22 Diphenhydramine [Benadryl*] 25 mg PO BEDTIME PRN #30 tab 09/26/22 Hydrocodone 5/APAP 325 [[place] 5/325*] 1 tab PO Q4H PRN #20 tab 09/26/22 Vancomycin/0.9 % Sod Chloride [Vanco 1 Gram/250 ml-0.9% NaCl] 1 gm IV M,W,F #3 amp 09/26/22 levoFLOXacin [Levaquin] 250 mg PO Q48H #4 tab 09/26/22 New Medications: Diphenhydramine [Benadryl*] 25 mg PO BEDTIME PRN #30 tab PRN Reason: Insomnia levoFLOXacin [Levaquin] 250 mg PO Q48H #4 tab Hydrocodone 5/APAP 325 [[place] 5/325*] 1 tab PO Q4H PRN #20 tab PRN Reason: Pain Scale 5-7 (Moderate) Clopidogrel Bisulfate [Plavix*] 75 mg PO DAILY #30 tab Vancomycin/0.9 % Sod Chloride [Vanco 1 Gram/250 ml-0.9% NaCl] 1 gm IV M,W,F #3 amp Activity: Non-weight bearing (to LEFT foot) Followup: Navid Michaud MD [Primary Care Provider] - 1 Week Amado Chandra MD [ACTIVE - CAN ADMIT] - Time spent managing pt's care (in minutes): 37
--- NOTE | 2022-09-26 11:42 | P.PN ---
Subjective Date of Service: 09/26/22 Primary Care Provider: Alicia Chief Complaint: Cellulitus L Foot Patient complains of intermittent pain in the amputation area of the left foot. Physical Examination - Vital Signs Temperature: 99.0 F Blood Pressure: 154/72 Pulse: 75 Respirations: 18 Pulse Ox (%): 96 Assessment And Plan - Plan Physical exam GEN: Alert, oriented. NAD CV: Regular rate and rhythm, no edema Pulm: Clear to auscultation bilaterally. ABD: Soft, nontender, nondistended Integumentary: Left fourth toe amputation, mild erythema tracking up dorsum of foot, with mild edema. Tenderness on the dorsum and plantar aspect around fourth and fifth metatarsal area Neuro: Normal speech, normal affect Problem List Osteomyelitis of left fourth toe s/p amputation post-op wound infection, nonhealing peripheral vascular disease - monophasic blood flow LLE ESRD on HD Hypertension Anemia of chronic kidney disease. Continue IV vancomycin, renally dosed. Wound culture: Normal skin jagjit Status post angiogram of left lower extremity with stent placement by Dr. Chandra. sliding scale insulin Nephrology is following for hemodialysis. Hemodialysis on Thursday and Fridays. Monitor H&H transfuse PRBC for hemoglobin less than 7 Continue home medications for hypertension. Wound care-Dr. Michaud recommended woundvac which is applied. Pain management as needed. Planning 1 week of IV vancomycin with dialysis plus renally dosed Levaquin. Code: full DVT prophylaxis
--- NOTE | 2022-09-26 16:45 | PN ---
Subjective: Patient is status post surgical amputation of fourth and fifth toe. Left toe has a woun d VAC in place. Denies any fever or discomfort. Objective: Vital Signs: Temperature 99, pulse 75, respiration 18, blood pressure 152/72. Lungs: Basal crackles. Heart: S1, S2. Regular. Abdomen: Soft, nontender. Bowel sounds present. Extremities: No edema. Laboratory Data: Shows WBC 8.1, hemoglobin 7.4, platelets 301. Chemistry shows BUN 48, creatinine 4 .6, glucose is 162. Cultures are negative. Assessment And Plan: Left diabetic foot ulcer, status post amputation of fourth and fifth toe. Cont inue antibiotic for 7 more days. Follow up with the surgical team and the Wound Care will follow the patient as needed. NF/MODL Voice ID: [id number] Report ID: [id number]
[2022-09-26] MEDS: VANCOMYCIN 1 GM in NA CHLORIDE 0.9% 250 ML IVPB SCH (19:36)
[2022-09-26] MEDS: ATORVASTATIN 40 MG TAB PO SCH (22:57)
[2022-09-27] MEDS: HEPARIN 5000 UNIT/ML 1 ML VIAL SQ SCH ×3 (00:26→16:32)
[2022-09-27] MEDS: HYDROCODONE/APAP 5/325 MG TAB PO PRN ×3 (00:35→22:24)
[2022-09-27] MEDS: FENTANYL CITR 100 MCG/2 ML IV PRN ×4 (04:52→23:32)
[2022-09-27] MEDS: INSULIN -REGULAR HUMAN 50 UNIT/0.5 ML ML SQ SCH ×4 (07:30→21:00)
[2022-09-27] MEDS: ASPIRIN EC 81 MG TAB PO SCH (08:34)
[2022-09-27] MEDS: CLOPIDOGREL 75 MG TABLET PO SCH (08:34)
[2022-09-27] MEDS: ENALAPRIL 10 MG TAB PO SCH (08:34)
[2022-09-27] MEDS: AMLODIPINE 10 MG TAB PO SCH (08:34)
[2022-09-27] MEDS: carvediloL 6.25 MG TAB PO SCH ×2 (08:35→22:23)
--- NOTE | 2022-09-27 14:18 | P.PN ---
Subjective Date of Service: 09/27/22 Primary Care Provider: Alicia Chief Complaint: Cellulitus L Foot Patient has no new complain. Wound VAC is in place. Physical Examination - Vital Signs Temperature: 97.4 F Blood Pressure: 137/65 Pulse: 71 Respirations: 14 Pulse Ox (%): 98 - Studies Microbiology Data (last 24 hrs): 09/21/22 17:01 Blood - Blood Aerobic Blood Culture - Final No growth in 5 days. 09/21/22 17:01 Blood - Blood Anaerobic Blood Culture - Final No growth in 5 days. 09/21/22 17:32 Blood - Blood Aerobic Blood Culture - Final No growth in 5 days. 09/21/22 17:32 Blood - Blood Anaerobic Blood Culture - Final No growth in 5 days. Assessment And Plan - Plan Physical exam GEN: Alert, oriented. NAD CV: Regular rate and rhythm, no edema Pulm: Clear to auscultation bilaterally. ABD: Soft, nontender, nondistended Integumentary: Left fourth toe amputation, mild erythema tracking up dorsum of foot, with mild edema. Wound VAC applied to left fourth and fifth toe amputation area. Neuro: Normal speech, normal affect Problem List Osteomyelitis of left fourth toe s/p amputation post-op wound infection, nonhealing peripheral vascular disease - monophasic blood flow LLE ESRD on HD Hypertension Anemia of chronic kidney disease. Continue IV vancomycin, renally dosed. Wound culture: Normal skin jagjit Status post angiogram of left lower extremity with stent placement by Dr. Chandra. sliding scale insulin Nephrology is following for hemodialysis. Hemodialysis on Thursday and Fridays. Hemoglobin has been stable around 7. Monitor H&H transfuse PRBC for hemoglobin less than 7 Continue home medications for hypertension. Wound care-Dr. Michaud recommended woundvac which is applied. Pain management as needed. Planning 1 week of IV vancomycin with dialysis plus renally dosed Levaquin. Awaiting outpatient wound VAC for discharge. Code: full DVT prophylaxis
[2022-09-27] MEDS: ATORVASTATIN 40 MG TAB PO SCH (22:23)
[2022-09-27] MEDS ORDERED: HYDROMORPHONE HCL 1 MG/ML INJ IV ONE (22:45)
[2022-09-28] MEDS: HEPARIN 5000 UNIT/ML 1 ML VIAL SQ SCH ×3 (01:12→16:04)
[2022-09-28 04:09] LABS: Hematocrit 21.1 % (39.6-49.0); Lymphocytes % 14.7 % (15.3-44.8); MPV 7.8 fL (7.6-11.3); RBC Red Blood Cell Count 2.42 M/uL (4.33-5.43)
[2022-09-28 04:25] LABS: Potassium 4.1 mmol/L (3.5-5.1)
[2022-09-28] MEDS: INSULIN -REGULAR HUMAN 50 UNIT/0.5 ML ML SQ SCH ×4 (07:30→20:54)
[2022-09-28] MEDS: FENTANYL CITR 100 MCG/2 ML IV PRN (08:04)
[2022-09-28] MEDS: CLOPIDOGREL 75 MG TABLET PO SCH (08:05)
[2022-09-28] MEDS: AMLODIPINE 10 MG TAB PO SCH (08:05)
[2022-09-28] MEDS: carvediloL 6.25 MG TAB PO SCH ×2 (08:06→20:53)
[2022-09-28] MEDS: ASPIRIN EC 81 MG TAB PO SCH (08:07)
[2022-09-28] MEDS: ENALAPRIL 10 MG TAB PO SCH (08:07)
[2022-09-28] MEDS: SODIUM HYPOCHLORITE 0.25% 473 ML TOP SCH ×2 (09:00→21:00)
[2022-09-28] MEDS: HYDROCODONE/APAP 5/325 MG TAB PO PRN (10:15)
--- NOTE | 2022-09-28 11:22 | P.PN ---
Subjective Date of Service: 09/28/22 Primary Care Provider: Alicia Chief Complaint: Cellulitus L Foot Patient complaining of intermittent pain on the left foot. Wound VAC is in place. Physical Examination - Vital Signs Temperature: 98.7 F Blood Pressure: 145/68 Pulse: 78 Respirations: 16 Pulse Ox (%): 100 Assessment And Plan - Plan Physical exam GEN: Alert, oriented. NAD CV: Regular rate and rhythm, no edema Pulm: Clear to auscultation bilaterally. ABD: Soft, nontender, nondistended Integumentary: Left fourth toe amputation, mild erythema tracking up dorsum of foot, with mild edema. Wound VAC applied to left fourth and fifth toe amputation area. Neuro: Normal speech, normal affect Problem List Osteomyelitis of left fourth toe s/p amputation post-op wound infection, nonhealing peripheral vascular disease - monophasic blood flow LLE ESRD on HD Hypertension Anemia of chronic kidney disease. Continue IV vancomycin, renally dosed. Wound culture: Normal skin jagjit Status post angiogram of left lower extremity with stent placement by Dr. Chandra. sliding scale insulin Nephrology is following for hemodialysis. Hemodialysis on Thursday and Fridays. Hemoglobin has been stable around 7. Monitor H&H transfuse PRBC for hemoglobin less than 7 Continue home medications for hypertension. Wound care-Dr. Michaud recommended woundvac which is applied. Pain management as needed. Planning 1 week of IV vancomycin with dialysis plus renally dosed Levaquin. Awaiting outpatient wound VAC for discharge. Pain management as needed. Code: full DVT prophylaxis
[2022-09-28] MEDS: HYDROCODONE/APAP 7.5/325 MG TAB PO PRN ×3 (14:23→23:20)
[2022-09-28] MEDS: ATORVASTATIN 40 MG TAB PO SCH (20:53)
[2022-09-29] MEDS: HEPARIN 5000 UNIT/ML 1 ML VIAL SQ SCH ×3 (01:13→18:12)
[2022-09-29] MEDS: FENTANYL CITR 100 MCG/2 ML IV PRN (01:21)
[2022-09-29] MEDS: INSULIN -REGULAR HUMAN 50 UNIT/0.5 ML ML SQ SCH ×4 (07:30→20:29)
[2022-09-29] MEDS: CLOPIDOGREL 75 MG TABLET PO SCH (08:20)
[2022-09-29] MEDS: ASPIRIN EC 81 MG TAB PO SCH (08:22)
[2022-09-29] MEDS: AMLODIPINE 10 MG TAB PO SCH (08:24)
[2022-09-29] MEDS: carvediloL 6.25 MG TAB PO SCH ×2 (08:24→20:24)
[2022-09-29] MEDS: ENALAPRIL 10 MG TAB PO SCH (08:24)
[2022-09-29] MEDS: SODIUM HYPOCHLORITE 0.25% 473 ML TOP SCH ×2 (08:27→20:31)
[2022-09-29] MEDS: HYDROCODONE/APAP 7.5/325 MG TAB PO PRN ×2 (08:51→20:24)
[2022-09-29] MEDS: COLLAGENASE 30 GM OINTMENT TOP SCH (10:52)
--- NOTE | 2022-09-29 17:06 | P.PN ---
Subjective Date of Service: 09/29/22 Primary Care Provider: Alicia Chief Complaint: Cellulitus L Foot Patient complaining of intermittent pain on the left foot. Wound VAC removed today. Physical Examination - Vital Signs Temperature: 97.6 F Blood Pressure: 127/61 Pulse: 79 Respirations: 14 Pulse Ox (%): 98 Assessment And Plan - Plan Physical exam GEN: Alert, oriented. NAD CV: Regular rate and rhythm, no edema Pulm: Clear to auscultation bilaterally. ABD: Soft, nontender, nondistended Integumentary: Left fourth toe amputation, mild erythema tracking up dorsum of foot, with mild edema. left 3rd toe is turning purple. Neuro: No focal motor deficit. Problem List Osteomyelitis of left fourth toe s/p amputation post-op wound infection, nonhealing peripheral vascular disease - monophasic blood flow LLE ESRD on HD Hypertension Anemia of chronic kidney disease. Continue IV vancomycin, renally dosed. Wound culture: Normal skin jagjit Status post angiogram for culture recommend double antibiotic coverage left lower extremity with stent placement by Dr. Chandra. sliding scale insulin Nephrology is following for hemodialysis. Hemodialysis on Thursday and Fridays. Hemoglobin has been stable around 7. Monitor H&H transfuse PRBC for hemoglobin less than 7 Continue home medications for hypertension. Dr. Michaud removed wound vac because it is contricting his toes and affecting blood flow. Patient seen by Dr. Pate who is recommending hyperbaric oxygen. He also recommend double antibiotic coverage. We will add IV cefepime. According to Dr. Pate, patient may be a candidate for LTAC placement for complex wound care with hyperbaric oxygen and IV antibiotics. Pain management as needed. According to the patient, Dr. Chandra want to do another angiogram to further evaluate blood flow in the left leg given intermittent foot pain. His left third toe was looking cyanotic today. Code: full DVT prophylaxis
--- NOTE | 2022-09-29 18:00 | PN ---
Subjective: The patient is lying in bed. Had new changes of infection in his left foot. The patien t denies any chest pain, abdominal pain, constipation, or diarrhea. Objective: Vital Signs: Temperature 98, pulse 77, respirations 20, blood pressure 153/74. Lungs: Clear to auscultation. Heart: S1, S2. Regular. Abdomen: Soft, nontender. Bowel sounds present. Extremity: Left foot wound noted. Laboratory Data: WBC 6.7, hemoglobin 7.2, platelets are 343. Chemistry shows sodium 134, potassium 4.1, chloride 101, bicarb 26, BUN 39, creatinine 3.7, glucose is 126. Assessment And Plan: Diabetic foot ulceration to the left foot, status post amputation of toe surgic ally. The patient continues to develop new wounds. Recommend to apply recurrent vancomycin and cefe pime and consider long-term acute care, consider hyperbaric treatment, consider Vascular Surgery eval uation. We will follow the patient closely. NF/MODL Voice ID: [id number] Report ID: [id number]
--- NOTE | 2022-09-29 18:36 | PN ---
Date of Progress Note: 09/29/2022 Subjective: Seen by bedside. The patient is still having problem with wound healing after opening h is SFA. He has diffuse below the knee disease, which we will plan on to try to intervene on tomorrow . Review of Systems: No chest pain, shortness of breath, orthopnea, or cough. All systems reviewed and they were negative . Physical Examination: Vital Signs: Reviewed. Head and Neck: Pupils are equal, reactive to light. Intact eye movements. No JVD. No cervical lym phadenopathy. Neck is supple. Thyroid is not enlarged. Lungs: Clear to auscultation bilaterally. No rhonchi, wheezing, or crackles. No accessory muscle u se. Heart: Regular rate and rhythm. No extra sounds. Abdomen: Soft, nontender. Bowel sounds positive. No organomegaly. No masses or hernia. No rigidi ty or rebound. Extremities: No clubbing or cyanosis. Intact pulses. Open wound of the left foot. Extremities are nicely warm. Neurologic: Alert, awake, oriented x3. No acute focal deficits appreciated. Investigations: Labs are reviewed. Assessment And Recommendations: Severe peripheral vascular disease with nonhealing wound. I will pl an for repeat peripheral angiogram tomorrow and we will focus on below the knee vessels to try to opt imize the blood flow to facilitate the healing process. /CAITLIN Voice ID: [id number] Report ID: [id number]
[2022-09-29] MEDS: VANCOMYCIN 1 GM in NA CHLORIDE 0.9% 250 ML IVPB SCH (19:18)
[2022-09-29] MEDS: ATORVASTATIN 40 MG TAB PO SCH (20:24)
[2022-09-29] MEDS: AMINO ACIDS/PROTEIN HYDROLYS 30 ML LIQUID.PKT PO SCH (21:48)
[2022-09-30] MEDS: HEPARIN 5000 UNIT/ML 1 ML VIAL SQ SCH ×3 (01:03→17:00)
[2022-09-30 03:49] LABS: Lymphocytes % 14.9 % (15.3-44.8); MCV 86.3 fL (80-100); MPV 7.9 fL (7.6-11.3); RBC Red Blood Cell Count 2.44 M/uL (4.33-5.43)
[2022-09-30 04:00] LABS: Potassium 4.1 mmol/L (3.5-5.1)
[2022-09-30] MEDS: HYDROCODONE/APAP 7.5/325 MG TAB PO PRN ×2 (06:07→21:12)
[2022-09-30] MEDS: INSULIN -REGULAR HUMAN 50 UNIT/0.5 ML ML SQ SCH ×4 (07:30→21:59)
[2022-09-30] MEDS: ENALAPRIL 10 MG TAB PO SCH (08:46)
[2022-09-30] MEDS: ASPIRIN EC 81 MG TAB PO SCH (08:46)
[2022-09-30] MEDS: carvediloL 6.25 MG TAB PO SCH ×2 (08:46→21:13)
[2022-09-30] MEDS: COLLAGENASE 30 GM OINTMENT TOP SCH (08:47)
[2022-09-30] MEDS: CLOPIDOGREL 75 MG TABLET PO SCH (08:47)
[2022-09-30] MEDS: AMLODIPINE 10 MG TAB PO SCH (08:47)
[2022-09-30] MEDS: SODIUM HYPOCHLORITE 0.25% 473 ML TOP SCH ×2 (08:48→21:00)
[2022-09-30] MEDS: AMINO ACIDS/PROTEIN HYDROLYS 30 ML LIQUID.PKT PO SCH ×2 (08:49→22:14)
--- NOTE | 2022-09-30 10:44 | P.PN ---
Subjective Date of Service: 09/25/22 Primary Care Provider: Alicia Chief Complaint: Cellulitus L Foot Physical Examination - Vital Signs Temperature: 97.6 F Blood Pressure: 132/64 Pulse: 65 Respirations: 18 Pulse Ox (%): 97
--- NOTE | 2022-09-30 10:46 | P.PN ---
Subjective Date of Service: 09/26/22 Primary Care Provider: Alicia Chief Complaint: Cellulitus L Foot Physical Examination - Vital Signs Temperature: 97.6 F Blood Pressure: 132/64 Pulse: 65 Respirations: 18 Pulse Ox (%): 97
[2022-09-30] MEDS ORDERED: NA CHLORIDE 0.9% 500 ML ONE (12:29)
[2022-09-30] MEDS ORDERED: FENTANYL CITR 100 MCG/2 ML ONE (15:07)
[2022-09-30] MEDS ORDERED: HEPA 1000U/500MLS 3,000 UNIT/1,500 ML BAG IV ONE (15:07)
[2022-09-30] MEDS ORDERED: MIDAZOLAM HCL 2 MG/2 ML INJ ONE (15:07)
[2022-09-30] MEDS ORDERED: LIDOCAINE 1% 20 ML MDV ONE (15:07)
[2022-09-30] MEDS ORDERED: CLOPIDOGREL 75 MG TABLET ONE (15:08)
[2022-09-30] MEDS ORDERED: HEPARIN 10,000 UNIT/10 ML VIAL IV ONE (15:08)
[2022-09-30] MEDS ORDERED: ATROPINE SULF 1 MG/10 ML SYR IV ONE (15:08)
--- NOTE | 2022-09-30 17:12 | PN ---
Date of Progress Note: 09/30/2022 Subjective: Seen by bedside. Doing well. No new complaints. Review of Systems: No chest pain, shortness of breath, orthopnea, cough. No nausea, vomiting, diarrhea. No abdominal p ain. No dysuria, polyuria, or urinary urgency. No skin rash, headache. All other systems reviewed and they were negative. Physical Examination: Vital Signs: Reviewed. Head and Neck: Pupils are equal, reactive to light. Intact eye movements. No JVD. No cervical lym phadenopathy. Neck is supple. Thyroid is not enlarged. Lungs: Clear to auscultation bilaterally. No rhonchi, wheezing, or crackles. No accessory muscle u se. Heart: Regular rate and rhythm. No extra sounds. Abdomen: Soft, nontender. Bowel sounds positive. No organomegaly. No masses or hernia. No rigidi ty or rebound. Extremities: No edema, clubbing, or cyanosis. Intact pulses. Skin: No rash. Neurologic: Alert, awake, oriented x3. No acute focal deficits appreciated. Lymph Nodes: No cervical or axillary lymphadenopathy. Investigations: Labs were reviewed. Assessment And Recommendations: 1.Severe peripheral vascular disease. Still not get a good perfusion after the intervention of his left SFA. I would like to take him back to the [facility] today and perform angiogram and try to see i f anything can be done for the small diffuse disease of the below- the-knee arteries. Continue aspirin and Plavix. 2.End-stage renal disease, on hemodialysis. /CAITLIN Voice ID: [id number] Report ID: [id number]
--- NOTE | 2022-09-30 20:21 | P.PN ---
Date of Service: 09/30/22 Subjective: no acute events overnight patient upset he is NPO again for procedure ROS: 10 point ROS as noted above, otherwise negative Physical exam GEN: Alert, oriented, frustrated HEENT: Normal conjunctiva, sclera anicteric CV: Regular rate and rhythm, no edema Pulm: Nonlabored respirations on room air ABD: Soft, nontender, nondistended Integumentary: Left 4th/5th toe amputation, 3rd toe dusky / purple appearance Neuro: Normal speech, normal affect Problem List Osteomyelitis of left fourth toe s/p amputation post-op wound infection, nonhealing peripheral vascular disease - monophasic blood flow LLE ESRD on HD Hypertension Anemia of chronic kidney disease. Continue IV vancomycin, renally dosed, pharmacy consulted Prior wound culture grew pansensitive group B strep General surgery, Dr. Michaud, consulted s/p amputation monophasic blood flow throughout LLE s/p stent placement of SFA by Dr. Chandra plans to take patient back for another angio today pt with less than ideal flow to toes may benefit from hyperbaric O2 sliding scale insulin DVT prophylaxis Nephrology consulted for HD ID consulted, recommended hyperbaric O2, IV antibiotics, LTAC placement patient unsure of LTAC Code: full Dispo: home, ~2-3 days Time Spent Managing Pts Care (In Minutes): 25
[2022-09-30] MEDS: ATORVASTATIN 40 MG TAB PO SCH (21:13)
[2022-10-01] MEDS: HEPARIN 5000 UNIT/ML 1 ML VIAL SQ SCH ×3 (01:15→16:13)
[2022-10-01] MEDS: HYDROCODONE/APAP 7.5/325 MG TAB PO PRN ×2 (04:48→18:23)
[2022-10-01 05:51] LABS: Magnesium 1.9 mg/dL (1.8-2.4); Potassium 4.5 mmol/L (3.5-5.1)
[2022-10-01 05:52] LABS: MCV 87.3 fL (80-100); MPV 7.9 fL (7.6-11.3); RBC Red Blood Cell Count 2.34 M/uL (4.33-5.43)
[2022-10-01 06:06] LABS: Hematocrit 20.5 % (39.6-49.0)
[2022-10-01] MEDS: INSULIN -REGULAR HUMAN 50 UNIT/0.5 ML ML SQ SCH ×4 (07:30→21:32)
[2022-10-01] MEDS: ENALAPRIL 10 MG TAB PO SCH (07:48)
[2022-10-01] MEDS: carvediloL 6.25 MG TAB PO SCH ×2 (07:49→21:27)
[2022-10-01] MEDS: CLOPIDOGREL 75 MG TABLET PO SCH (07:50)
[2022-10-01] MEDS: ASPIRIN EC 81 MG TAB PO SCH (07:50)
[2022-10-01] MEDS: COLLAGENASE 30 GM OINTMENT TOP SCH (07:51)
[2022-10-01] MEDS: SODIUM HYPOCHLORITE 0.25% 473 ML TOP SCH (07:51)
[2022-10-01] MEDS: AMLODIPINE 10 MG TAB PO SCH (07:52)
[2022-10-01] MEDS: AMINO ACIDS/PROTEIN HYDROLYS 30 ML LIQUID.PKT PO SCH ×2 (08:50→21:00)
--- NOTE | 2022-10-01 09:21 | OP ---
Date of Procedure: 09/30/2022 Surgeon: ANGELICA MCFARLAND Procedure Performed: Selective peripheral angiogram of the left lower extremity. Indication: Ischemic foot, nonhealing ulcer and wound. Access: Right femoral artery 6-Croatian closed with 6-Croatian Angio-Seal. Complications: None. Bleeding: Less than 10 mL. Anesthesia: Total sedation time was 65 minutes. Used fentanyl and Versed. Description Of Procedure: After risks, benefits, alternatives were explained, the patient agreed to the procedure and signed informed consent. The patient was brought into the cardiac catheterization laboratory, prepped and draped in the usual sterile fashion. Then, I accessed the right femoral suellen ry using a micropuncture kit, fluoroscopy, and ultrasound guidance, placed a 6-Croatian kilgore th. Then, I took an Omni Flush sheath into the distal aorta and using a [place] Advantage wire across to the side, then exchanged for a long 65 cm 6-Croatian Destination sheath and placed it in the distal SFA and performed dedicated angiogram of the vessels below the knee. Then, I took a long Run-Through wire into the anterior tibial artery and used a 2.0 x 20 mm Compliant balloon to high pressure with good expansion and systemic heparin was given throughout the procedure to assure ACT level above 250 wire into the peroneal artery and then performed also angioplasty of the proxim al severe stenosis with good results. Then, I removed the wire and sheath, placed a 6-Croatian Angio-S eal for closure with good hemostasis. Findings: 1.The left common iliac, internal iliac, and common femoral artery are patent without disease. Prof belindaa is with mild diffuse disease, the SFA there is a long patent stent with no significant restenosi s. 2. the anterior tibial has proximal 90% stenosis at multiple locations status post balloon angioplasty, used 2.0 x 20 mm Compliant balloon to high pressure with good results and then this art freddy unfortunately becomes totally occluded right at the ankle level and no ability to see where the v essel goes into the toe, then there are no collaterals. 3.The peroneal artery also has an about 80% stenosis proximally and diffuse, status post balloon ang ioplasty. We used the same size balloon 2.0 x 20 mm high-pressure and established a good lumen and t his is opened and given blood flow to the whole backside of the foot. 4.The posterior tibial is proximally occluded 100% and there are stents that were placed in the past are totally occluded. There is mild collateral that provides blood supply to the distal portion of it; however, it is not amenable to intervention. Conclusion: Severe triple-vessel disease below the knee, status post balloon angioplasty of anterior tibial and peroneal arteries. Plan: If does not help the perfusion, then transmetatarsal amputation will be recommended. /MODL Voice ID: [id number] Report ID: [id number]
--- NOTE | 2022-10-01 16:07 | P.PN ---
Date of Service: 10/01/22 Subjective: s/p angio yesterday; reportedly bad vascular disease distally, able to improve flow slightly patient without any worsening of symptoms expressed frustration with lack of communication ROS: 10 point ROS as noted above, otherwise negative Physical exam GEN: Alert, oriented, frustrated HEENT: Normal conjunctiva, sclera anicteric CV: Regular rate and rhythm, no edema Pulm: Nonlabored respirations on room air ABD: Soft, nontender, nondistended Integumentary: Left 4th/5th toe amputation, 3rd toe dusky / purple appearance, slight edema Neuro: Normal speech, normal affect Problem List Osteomyelitis of left fourth toe s/p amputation post-op wound infection, nonhealing peripheral vascular disease - monophasic blood flow LLE ESRD on HD Hypertension Anemia of chronic kidney disease. Continue IV vancomycin, renally dosed, pharmacy consulted Prior wound culture grew pansensitive group B strep General surgery, Dr. Michaud, consulted s/p amputation of 4th toe this hospitalization 3rd toe now dusky / purple concerned patient will not heal may need TMA, or possible BKA if flow doesn't improve monophasic blood flow throughout LLE s/p stent placement of SFA by Dr. Chandra s/p repeat angio 09/30 pt with less than ideal flow to toes may benefit from hyperbaric O2 sliding scale insulin DVT prophylaxis Nephrology consulted for HD ID consulted, recommended hyperbaric O2, IV antibiotics, LTAC placement patient unsure of LTAC; possibly may be able to go to [facility], if hyperbaric O2 is an option there Code: full Dispo: SNF ~2-3 days may be further delayed if needing amputation Time Spent Managing Pts Care (In Minutes): 25
--- NOTE | 2022-10-01 16:24 | PN ---
Subjective: The patient is lying in bed. No new acute events. Getting dialyzed in dialysis unit. Objective: Vital Signs: Temperature 98, pulse 63, respirations 18, blood pressure 121/57. Lungs: Clear to auscultation. Heart: S1, S2. Regular. Abdomen: Soft, nontender. Bowel sounds present. Extremity: Left foot with third toe purplish coloration. Laboratory Data: Shows WBC 6.9, hemoglobin 7.1, platelets are 370. BUN of 33, creatinine 3.5, gluco se 159. Micro data shows blood cultures no growth. Assessment And Plan: Osteomyelitis of the left foot, peripheral vascular disease, diabetes mellitus, diabetic neuropathy, and diabetic foot ulcer. Consider long-term acute care and IV antibiotic. Con shot man hyperbaric treatment. We will follow the patient as needed. NF/MODL Voice ID: [id number] Report ID: [id number]
[2022-10-01] MEDS: ATORVASTATIN 40 MG TAB PO SCH (21:29)
[2022-10-01] MEDS: VANCOMYCIN 1 GM in NA CHLORIDE 0.9% 250 ML IVPB SCH (21:29)
[2022-10-02] MEDS: HYDROCODONE/APAP 7.5/325 MG TAB PO PRN ×3 (01:08→19:57)
[2022-10-02] MEDS: HEPARIN 5000 UNIT/ML 1 ML VIAL SQ SCH ×3 (01:09→16:42)
[2022-10-02 07:05] LABS: Magnesium 1.9 mg/dL (1.8-2.4); Potassium 4.2 mmol/L (3.5-5.1)
[2022-10-02 07:26] LABS: Hematocrit 21.4 % (39.6-49.0); MCV 87.5 fL (80-100); MPV 7.8 fL (7.6-11.3); RBC Red Blood Cell Count 2.45 M/uL (4.33-5.43)
[2022-10-02] MEDS: INSULIN -REGULAR HUMAN 50 UNIT/0.5 ML ML SQ SCH ×4 (07:30→21:02)
[2022-10-02] MEDS: ASPIRIN EC 81 MG TAB PO SCH (08:34)
[2022-10-02] MEDS: CLOPIDOGREL 75 MG TABLET PO SCH (08:34)
[2022-10-02] MEDS: carvediloL 6.25 MG TAB PO SCH ×2 (08:34→21:00)
[2022-10-02] MEDS: AMLODIPINE 10 MG TAB PO SCH (08:34)
[2022-10-02] MEDS: ENALAPRIL 10 MG TAB PO SCH (08:34)
[2022-10-02] MEDS: SODIUM HYPOCHLORITE 0.25% 473 ML TOP SCH ×2 (08:35→21:00)
[2022-10-02] MEDS: COLLAGENASE 30 GM OINTMENT TOP SCH (08:35)
[2022-10-02] MEDS: AMINO ACIDS/PROTEIN HYDROLYS 30 ML LIQUID.PKT PO SCH ×2 (08:36→21:00)
--- NOTE | 2022-10-02 20:45 | P.PN ---
Date of Service: 10/02/22 Subjective: family meeting with Dr. Michaud this morning decided on BKA no new/worsening symptoms pt notes slight swelling/discoloration of 2nd toe ROS: 10 point ROS as noted above, otherwise negative Physical exam GEN: Alert, oriented, NAD HEENT: Normal conjunctiva, sclera anicteric CV: Regular rate and rhythm, no edema Pulm: Nonlabored respirations on room air ABD: Soft, nontender, nondistended Integumentary: Left 4th/5th toe amputation, 3rd toe dusky / purple appearance, slight edema Neuro: Normal speech, normal affect Problem List Osteomyelitis of left fourth toe s/p amputation post-op wound infection, nonhealing peripheral vascular disease - monophasic blood flow LLE ESRD on HD Hypertension Anemia of chronic kidney disease. Continue IV vancomycin, renally dosed, pharmacy consulted Prior wound culture grew pansensitive group B strep General surgery, Dr. Michaud, consulted s/p amputation of 4th toe this hospitalization 3rd toe now dusky / purple concerned patient will not heal; poor blood flow planned for BKA 10/03 monophasic blood flow throughout LLE s/p stent placement of SFA by Dr. Chandra s/p repeat angio 09/30; poor blood flow may benefit from hyperbaric O2 sliding scale insulin DVT prophylaxis Nephrology consulted for HD ID consulted, recommended hyperbaric O2, IV antibiotics, LTAC placement patient unsure of LTAC; possibly may be able to go to [facility], if hyperbaric O2 is an option there Code: full Dispo: possible SNF ~3 days Time Spent Managing Pts Care (In Minutes): 25
[2022-10-02] MEDS: ATORVASTATIN 40 MG TAB PO SCH (21:00)
--- NOTE | 2022-10-02 21:00 | P.PN ---
Subjective Date of Service: 10/02/22 Primary Care Provider: Alicia Chief Complaint: Cellulitus L Foot Patient and son wanted to discuss findings and plan after discussion with Dr. Chandra, and results of last endovascular evaluation completed. Patient and son have decided based on the imaging and ongoing wound issues he would like to proceed with below the knee amputation. Physical Examination - Vital Signs Temperature: 97.6 F Blood Pressure: 146/65 Pulse: 65 Respirations: 18 Pulse Ox (%): 100 - Physical Exam General: Alert, In no apparent distress, Cooperative HEENT: Mucous membr. moist/pink Cardiovascular: Regular rate/rhythm Musculoskeletal: Other (continued ischemia to toes, but wound has no infection @ this lay. ) Assessment And Plan - Current Problems (Diagnosis) (1) Peripheral vascular disease Current Visit: Yes Status: Chronic Plan: s/p Amputation of 5th Toe and Debridment of 4th web space on 09-25-2022 - antibiotics to continue - endovascular evaulation was not able to improve flow to the foot and as such recommendation for below the knee amputation is made - continue negative pressure wound therapy - follow up with Dr. Chandra per his recommendations after completion of surgery for ongoing care as he has PAD - I have discussed the risks, benefits and alternatives to below the knee amputation including but not limited to bleeding, infection, damage to surrounding tissues, phantom limb pain, need for ongoing wound care, heart attack, stroke, need for more surgery, unforseen complications, complication related to anesthesia. - all questions answered to patient and his son present in room
[2022-10-03] MEDS: HEPARIN 5000 UNIT/ML 1 ML VIAL SQ SCH ×4 (01:15→23:53)
[2022-10-03] MEDS: HYDROCODONE/APAP 7.5/325 MG TAB PO PRN (01:20)
[2022-10-03 04:43] LABS: Absolute Lymphocytes (CBC) 1.1 K/uL (0.7-4.9); Lymphocytes % 15.7 % (15.3-44.8); MCV 87.2 fL (80-100); MPV 7.9 fL (7.6-11.3)
[2022-10-03 04:53] LABS: Hematocrit 20.1 % (39.6-49.0)
[2022-10-03 04:58] LABS: Potassium 4.5 mmol/L (3.5-5.1)
[2022-10-03] MEDS ORDERED: NA CHLORIDE 0.9% 250 ML IV SCH (05:00)
[2022-10-03] MEDS: INSULIN -REGULAR HUMAN 50 UNIT/0.5 ML ML SQ SCH ×4 (07:26→21:00)
[2022-10-03] MEDS: SODIUM HYPOCHLORITE 0.25% 473 ML TOP SCH ×2 (07:47→21:00)
[2022-10-03] MEDS: ASPIRIN EC 81 MG TAB PO SCH (07:47)
[2022-10-03] MEDS: carvediloL 6.25 MG TAB PO SCH ×2 (07:48→20:27)
[2022-10-03] MEDS: AMLODIPINE 10 MG TAB PO SCH (07:48)
[2022-10-03] MEDS: CLOPIDOGREL 75 MG TABLET PO SCH (07:48)
[2022-10-03] MEDS: ENALAPRIL 10 MG TAB PO SCH (07:49)
[2022-10-03] MEDS: AMINO ACIDS/PROTEIN HYDROLYS 30 ML LIQUID.PKT PO SCH ×2 (07:49→20:28)
[2022-10-03] MEDS: COLLAGENASE 30 GM OINTMENT TOP SCH (07:49)
[2022-10-03] MEDS ORDERED: NA CHLORIDE 0.9% 1,000 ML ONE (12:36)
[2022-10-03] MEDS ORDERED: CEFAZOLIN SODIUM 1 GM/VIAL ONE (13:44)
[2022-10-03] MEDS ORDERED: MIDAZOLAM HCL 2 MG/2 ML INJ ONE (13:48)
[2022-10-03] MEDS ORDERED: propofoL 200 MG/20 ML VIAL IV ONE (13:48)
[2022-10-03] MEDS ORDERED: FENTANYL CITR 100 MCG/2 ML ONE ×3 (13:48→15:34)
[2022-10-03] MEDS ORDERED: LIDOCAINE 2% MPF 5 ML VIAL ONE (13:49)
[2022-10-03] MEDS ORDERED: EPHEDRINE SULF 50 MG/ML VIAL ONE (14:22)
[2022-10-03] MEDS ORDERED: EPINEPHrine 1 MG/10 ML SYR ONE (15:43)
[2022-10-03] MEDS ORDERED: dexAMETHasone 10 MG/ML VIAL ONE (15:43)
--- NOTE | 2022-10-03 16:13 | P.OP ---
Preoperative diagnosis: Severe Peripheral Arterial Disease of LEFT lower extremity Postoperative diagnosis: Severe Peripheral Arterial Disease of LEFT lower extremity Primary procedure: LEFT Below the Knee Amputation Anesthesia: GETA + Local Estimated blood loss: ~ 75cc Specimen: Foot and Debridement tissue Findings: Severe PAD Complications: None Drain(s): Other (10mm Flat KINGSTON ) Transferred to: Recovery Room Condition: Good
--- NOTE | 2022-10-03 16:35 | PN ---
Subjective: Patient lying in bed. Denies any headache, nausea, vomiting, chest pain, abdominal pain , constipation, or diarrhea. Objective: Vital Signs: Temperature 97, pulse 62, respirations 16, blood pressure 138/67. General: Patient is going for BKA. Lungs: Clear to auscultation. Heart: S1, S2. Regular. Abdomen: Soft, nontender. Bowel sounds are present. Extremity: Wounds noted. Laboratory Data: Reviewed. Assessment And Plan: 1.Osteomyelitis of the foot and patient with diabetes and diabetic foot ulcer. 2.End-stage renal disease. 3.Anemia of chronic disease. Continue supportive care and wound care. We will follow patient, and currently on vancomycin. NF/MODL Voice ID: [id number] Report ID: [id number]
[2022-10-03] MEDS: ATORVASTATIN 40 MG TAB PO SCH (20:28)
--- NOTE | 2022-10-03 20:38 | P.PN ---
Date of Service: 10/03/22 Subjective: no acute events overnight waiting for BKA today ROS: 10 point ROS as noted above, otherwise negative Physical exam GEN: Alert, oriented, NAD HEENT: Normal conjunctiva, sclera anicteric CV: Regular rate and rhythm, no edema Pulm: Nonlabored respirations on room air ABD: Soft, nontender, nondistended Integumentary: Left 4th/5th toe amputation, 3rd toe dusky / purple appearance, tender Neuro: Normal speech, normal affect Problem List Osteomyelitis of left fourth toe s/p amputation post-op wound infection, nonhealing peripheral vascular disease - monophasic blood flow LLE ESRD on HD Hypertension Anemia of chronic kidney disease. Continue IV vancomycin, renally dosed, pharmacy consulted Prior wound culture grew pansensitive group B strep General surgery, Dr. Michaud, consulted s/p amputation of 4th toe this hospitalization 3rd toe now dusky / purple concerned patient will not heal; poor blood flow planned for BKA today monophasic blood flow throughout LLE s/p stent placement of SFA by Dr. Chandra s/p repeat angio 09/30; poor blood flow sliding scale insulin DVT prophylaxis Nephrology consulted for HD ID consulted Code: full Dispo: possible SNF vs home ~3 days Time Spent Managing Pts Care (In Minutes): 25
--- NOTE | 2022-10-04 00:12 | OP ---
Date of Procedure: 10/03/2022 Surgeon: Navid Michaud MD, Preoperative Diagnosis: Severe peripheral arterial disease of the left lower extremity. Postoperative Diagnosis: Severe peripheral arterial disease of the left lower extremity. Procedure Performed: Left [id number] amputation. Anesthesia: General endotracheal plus local with 0.25% Marcaine. Estimated Blood Loss: 75 cc. Specimen: Foot and debridement tissue. Finding: Severe peripheral arterial disease noted through all vessels encountered. Complications: None. Drains: A 10 mm flat KINGSTON drain. Disposition: The patient was transferred to recovery room in good condition. Indications: The patient is a 67-year-old male with a history of significant peripheral arterial dis ease who ultimately had a toe amputation, which was complicated by nonhealing wound. As such, he cam e to the emergency room with an ischemic change to the adjacent toe next to his previous amputation t oe. He had a consultation for endovascular evaluation and noted to have monophasic flow. As such, c ardiovascular intervention was performed to attempt to increase flow to the area. However, he had an ischemia to his 2nd toe and ultimately this required amputation and subsequently he had ischemic nuris nges to the 3rd toe as well. As such, I discussed the case with Dr. Chandra who ultimately took him b ack for angiography and found that he had significant severe peripheral arterial disease below the tr ifurcation with almost single-vessel runoff to the posterior tibial. Therefore ischemic changes were anticipated to the mid foot and anterior foot. As such, we opted to discuss the options and the pat ient opted for a left [id number] amputation and we decided to proceed therefore. Procedure In Detail: After informed consent was obtained, the patient was prepped and draped in the usual sterile fashion. After adequate anesthesia was achieved, the foot and leg were exsanguinated u sing an Esmarch wrap and ultimately the tourniquet was applied to 250 mmHg. I then marked the leg 2 cm below the tibial tuberosity based on a posterior gastrocnemius flap. Ultimately, I demarcated the area circumferentially around and after the margarito was complete, I used a 10 blade down to subcutaneou s tissues circumferentially around as I encountered both superficial and deep saphenous systems. The se were individually suture ligated with a 3-0 silk tie. I then dissected the anterior compartment o barbara the tibia ultimately to expose the tibial bone. At this point, I used a periosteal elevator to p ush the periosteum proximally away from the dissection point. I continued to dissect down through th e anterior compartment to the interosseous membrane. This was opened sharply. At this point, I circ umferentially dissected the medial and lateral compartment muscular tissue to expose the blood vessel s and nerve structures. The nerve structures encountered were individually suture ligated and allowe d to retract back and at this point, I opted to ligate the tibia and bevelled the bone using a powerBoke d bone cutter at this point. I then individually suture ligated the vessels in the interosseous memb kelvin and found them to be quite severely stricken with peripheral arterial disease. I used a 2-0 mahnaz k suture to individual stick tie the proximal and distal aspects of these vessels. Both arterial and venous were individually ligated. At this point, I then turned my attention to the peroneal system as I dissected laterally. When this was encountered, the nerve was also trimmed and allowed to retra ct back and I individually ligated the artery and vein in the system using the same said 2-0 nylon swift ture and ligated these structures. I then continued the dissection based on the gastrocnemius flap a nd ultimately exposed the fibula at this point. The fibula was taken approximately 1.5 to 2 cm highe r than the tibia. I circumferentially dissected this area around using electrocautery and the perios teal elevator. At this point, the powered saw once again was used to dissect through this with good straight cut. At this point, I elevated the leg and used the Bobby knife to cut down to the posteri or flap based on the gastrocnemius flap and ultimately extending to include portions of the soleus as the gastrocnemius muscle was somewhat thin. At this point, I ligated the Achilles tendon and the sp ecimen was passed off. At this point, the tourniquet was turned down and no additional suture ligatu res were required. Minimal hemostasis was required at the muscular portion using electrocautery. At this point, I trimmed the muscular flaps to allow for good apposition on a posterior gastroc flap wi th retention portions of the soleus muscle, which were well vascularized. At this point, I cleansed the area and beveled the anterior tibia using the powered bone saw once again. I then used a rasp to circumferentially bevel the edges of the bone of both the tibia and fibula. I then irrigated the ar ea copiously until all bone fragments were completely irrigated. Minimal additional hemostat was req uired. At this point, I brought in a 10 mm K[place] drain and brought it out through a separate lateral st ab incision, passing it through the space. The 10 mm drain was trimmed appropriately and secured to the skin using a 3-0 nylon suture. I then re-apposed the gastrocnemius/soleus flap over the anterior tibialis using the anterior and posterior fascias of the Achilles tendon to the anterior fascia of t he tibia. I used a series of 0 Vicryl sutures to bring the flaps in an anterior apposition. Dog ear s in the lateral aspects were trimmed using Metzenbaum scissors and electrocautery. At this point, t he area was irrigated once again when good apposition of the tissue was appreciated and the skin was reapproximated using interrupted venkat and a sterile dressing placed over top. The patient tolerat ed the procedure without evidence of any complication and transferred to PACU in good condition. All counts correct at the end of the case. TK/MODL Voice ID: [id number] Report ID: [id number]
[2022-10-04 06:52] LABS: Absolute Lymphocytes (CBC) 0.5 K/uL (0.7-4.9); Hematocrit 24.6 % (39.6-49.0); MCV 87.1 fL (80-100); MPV 7.8 fL (7.6-11.3); RBC Red Blood Cell Count 2.82 M/uL (4.33-5.43)
[2022-10-04 07:59] LABS: Albumin 2.8 g/dL (3.4-5.0); Phosphorus 3.9 mg/dL (2.5-4.9); Potassium 4.6 mmol/L (3.5-5.1)
[2022-10-04 08:33] LABS: Blood Morphology Comment NOT SEEN (NOT SEEN); Platelet Estimate ADEQ
[2022-10-04] MEDS: SODIUM HYPOCHLORITE 0.25% 473 ML TOP SCH ×2 (09:00→20:49)
[2022-10-04] MEDS: AMLODIPINE 10 MG TAB PO SCH ×2 (09:00→13:39)
[2022-10-04] MEDS: carvediloL 6.25 MG TAB PO SCH ×2 (09:00→20:44)
[2022-10-04] MEDS: AMINO ACIDS/PROTEIN HYDROLYS 30 ML LIQUID.PKT PO SCH ×2 (09:00→20:49)
[2022-10-04] MEDS: COLLAGENASE 30 GM OINTMENT TOP SCH (09:00)
[2022-10-04] MEDS: ENALAPRIL 10 MG TAB PO SCH ×2 (09:00→13:39)
[2022-10-04] MEDS: ASPIRIN EC 81 MG TAB PO SCH (09:07)
[2022-10-04] MEDS: HEPARIN 5000 UNIT/ML 1 ML VIAL SQ SCH ×2 (09:07→16:18)
[2022-10-04] MEDS: INSULIN -REGULAR HUMAN 50 UNIT/0.5 ML ML SQ SCH ×4 (09:08→20:45)
[2022-10-04] MEDS: HYDROCODONE/APAP 7.5/325 MG TAB PO PRN ×3 (12:05→20:44)
--- NOTE | 2022-10-04 16:00 | P.PN ---
Date of Service: 10/04/22 Subjective: s/p BKA yesterday slight discomfort in stump no new/worsening symptoms ROS: 10 point ROS as noted above, otherwise negative Physical exam GEN: Alert, oriented, NAD CV: Regular rate and rhythm, no edema Pulm: Non-labored respirations on room air ABD: Soft, nontender, nondistended MSK: s/p L BKA, surgical dressing in place c/d/i Problem List Osteomyelitis of left fourth toe s/p amputation with severe PAD post-op wound infection, nonhealing no s/p L BKA peripheral vascular disease - monophasic blood flow LLE ESRD on HD Hypertension Anemia of chronic kidney disease. General surgery, Dr. Michaud, consulted s/p amputation of 4th toe this hospitalization 3rd toe now dusky / purple concerned patient will not heal; poor blood flow s/p BKA 10/03 Nonweightbearing, PT consulted continue IV vanc 24hrs post-op monophasic blood flow throughout LLE s/p stent placement of SFA by Dr. Chandra s/p repeat angio 09/30; poor blood flow -> recommended BKA sliding scale insulin DVT prophylaxis Nephrology consulted for HD ID consulted Code: full Dispo: home ~1-2 days Time Spent Managing Pts Care (In Minutes): 25
[2022-10-04] MEDS: ATORVASTATIN 40 MG TAB PO SCH (20:44)
[2022-10-04 22:28] VITALS: O2SAT 99
[2022-10-05] MEDS: HYDROCODONE/APAP 7.5/325 MG TAB PO PRN ×4 (00:53→15:18)
[2022-10-05] MEDS: HEPARIN 5000 UNIT/ML 1 ML VIAL SQ SCH ×3 (00:55→16:41)
[2022-10-05 03:47] LABS: Absolute Lymphocytes (CBC) 1.2 K/uL (0.7-4.9); Hematocrit 21.1 % (39.6-49.0); Lymphocytes % 11.3 % (15.3-44.8); MCV 86.2 fL (80-100); RBC Red Blood Cell Count 2.45 M/uL (4.33-5.43)
[2022-10-05 04:01] LABS: Potassium 4.4 mmol/L (3.5-5.1)
[2022-10-05] MEDS: INSULIN -REGULAR HUMAN 50 UNIT/0.5 ML ML SQ SCH ×4 (08:50→20:56)
[2022-10-05] MEDS: carvediloL 6.25 MG TAB PO SCH ×2 (08:51→20:55)
[2022-10-05] MEDS: AMLODIPINE 10 MG TAB PO SCH (08:51)
[2022-10-05] MEDS: ENALAPRIL 10 MG TAB PO SCH (08:51)
[2022-10-05] MEDS: ASPIRIN EC 81 MG TAB PO SCH (08:51)
[2022-10-05] MEDS: AMINO ACIDS/PROTEIN HYDROLYS 30 ML LIQUID.PKT PO SCH ×2 (08:53→20:58)
[2022-10-05] MEDS: COLLAGENASE 30 GM OINTMENT TOP SCH (09:00)
[2022-10-05] MEDS: SODIUM HYPOCHLORITE 0.25% 473 ML TOP SCH ×2 (09:00→20:56)
--- NOTE | 2022-10-05 18:12 | P.PN ---
Date of Service: 10/05/22 Subjective: slight discomfort at bka site otherwise doing ok, slight decreased appetite no new/worsening symptoms ROS: 10 point ROS as noted above, otherwise negative Physical exam GEN: Alert, oriented, NAD CV: Regular rate and rhythm, no edema Pulm: Non-labored respirations on room air ABD: Soft, nontender, nondistended MSK: s/p L BKA, surgical dressing in place c/d/i Problem List Osteomyelitis of left fourth toe s/p amputation with severe PAD post-op wound infection, nonhealing no s/p L BKA peripheral vascular disease - monophasic blood flow LLE ESRD on HD Hypertension Anemia of chronic kidney disease. General surgery, Dr. Michaud, consulted s/p amputation of 4th toe this hospitalization 3rd toe now dusky / purple s/p BKA 10/03 Nonweightbearing, PT consulted IV vanc 24hrs post-op monophasic blood flow throughout LLE s/p stent placement of SFA by Dr. Chandra s/p repeat angio 09/30; poor blood flow -> recommended BKA sliding scale insulin DVT prophylaxis Nephrology consulted for HD ID consulted Code: full Dispo: home ~1 day Time Spent Managing Pts Care (In Minutes): 25
--- NOTE | 2022-10-05 18:28 | P.PN ---
Subjective Date of Service: 10/05/22 Primary Care Provider: Alicia Chief Complaint: Cellulitus L Foot 67 year old man s/p LEFT Below the Knee Amputation on 10/03/2022 - Surgical site is doing well, flaps remain pink, viable, well perfused, [place] in place, minimal bloody drainage - continue medical management - antibiotics to DC soon - Physical therapy - non-weight bearing to LEFT lower extremity - Daily dressing changes to LEFT surgical site, Xeroform, kerlix, ct, knee immobilizer, - follow up in 2 weeks Physical Examination - Vital Signs Temperature: 97.7 F Blood Pressure: 153/75 Pulse: 74 Respirations: 17 Pulse Ox (%): 98 Assessment And Plan - Current Problems (Diagnosis) (1) Peripheral vascular disease Current Visit: Yes Status: Chronic Plan: s/p Amputation of 5th Toe and Debridment of 4th web space on 09-25-2022 - antibiotics to continue - endovascular evaulation was not able to improve flow to the foot and as such recommendation for below the knee amputation is made - continue negative pressure wound therapy - follow up with Dr. Chandra per his recommendations after completion of surgery for ongoing care as he has PAD - I have discussed the risks, benefits and alternatives to below the knee amputation including but not limited to bleeding, infection, damage to surrounding tissues, phantom limb pain, need for ongoing wound care, heart attack, stroke, need for more surgery, unforseen complications, complication related to anesthesia. - all questions answered to patient and his son present in room
[2022-10-05] MEDS: ATORVASTATIN 40 MG TAB PO SCH (20:56)
[2022-10-06] MEDS: HEPARIN 5000 UNIT/ML 1 ML VIAL SQ SCH ×2 (01:55→09:44)
[2022-10-06] MEDS: HYDROCODONE/APAP 7.5/325 MG TAB PO PRN (02:01)
[2022-10-06 05:37] LABS: Hematocrit 21.9 % (39.6-49.0); MCV 87.2 fL (80-100); MPV 7.9 fL (7.6-11.3); RBC Red Blood Cell Count 2.51 M/uL (4.33-5.43)
[2022-10-06 05:53] LABS: Magnesium 1.9 mg/dL (1.8-2.4); Potassium 5.3 mmol/L (3.5-5.1)
[2022-10-06] MEDS: SODIUM HYPOCHLORITE 0.25% 473 ML TOP SCH (09:00)
[2022-10-06] MEDS: AMINO ACIDS/PROTEIN HYDROLYS 30 ML LIQUID.PKT PO SCH (09:00)
[2022-10-06] MEDS ORDERED: MORPHINE 2 MG/ML SYR IV ONE (09:00)
[2022-10-06] MEDS: carvediloL 6.25 MG TAB PO SCH (09:00)
[2022-10-06] MEDS: AMLODIPINE 10 MG TAB PO SCH (09:00)
[2022-10-06] MEDS: ENALAPRIL 10 MG TAB PO SCH (09:00)
[2022-10-06] MEDS: COLLAGENASE 30 GM OINTMENT TOP SCH (09:00)
[2022-10-06] MEDS: INSULIN -REGULAR HUMAN 50 UNIT/0.5 ML ML SQ SCH ×2 (09:43→11:30)
[2022-10-06] MEDS: ASPIRIN EC 81 MG TAB PO SCH (09:43)
[2022-10-06 12:27] VITALS: BP 132/75; TEMP 97.6
--- NOTE | 2022-10-06 15:31 | P.DS ---
Admission Date: 09/21/22 Discharge Date: 10/06/22 Primary Care Provider: Alicia Disposition: DC HOME/HOME HEALTH CARE Discharge Condition: FAIR Reason for Admission: Cellulitus L Foot Vital Signs/Physical Exam: Temp Pulse Resp BP Pulse Ox 97.6 F 76 16 132/75 97 10/06/22 12:00 10/06/22 12:00 10/06/22 12:00 10/06/22 12:00 10/06/22 12:00 Laboratory Data at Discharge: WBC 8.90 K/uL (4.3-10.9) 10/06/22 05:25 Hgb 7.4 g/dL (13.6-17.9) L 10/06/22 05:25 Hct 21.9 % (39.6-49.0) L 10/06/22 05:25 Plt Count 431 K/uL (152-406) H 10/06/22 05:25 PT 10.1 SECONDS (9.5-12.5) 09/21/22 15:41 INR 0.92 09/21/22 15:41 Sodium 134 mmol/L (136-145) L 10/06/22 05:25 Potassium 5.3 mmol/L (3.5-5.1) H D 10/06/22 05:25 BUN 68 mg/dL (7-18) H 10/06/22 05:25 Creatinine 3.64 mg/dL (0.55-1.3) H 10/06/22 05:25 Glucose 206 mg/dL (74-106) H 10/06/22 05:25 Phosphorus 3.9 mg/dL (2.5-4.9) 10/04/22 06:39 Magnesium 1.9 mg/dL (1.8-2.4) 10/06/22 05:25 Home Medications: Amlodipine Besylate [Norvasc] 10 mg PO DAILY 09/13/22 Atorvastatin Calcium [Lipitor] 40 mg PO BEDTIME 09/13/22 Enalapril Maleate [Vasotec] 10 mg PO DAILY 09/13/22 Sitagliptin Phosphate [Januvia] 25 mg PO DAILY 09/13/22 carvediloL [Carvedilol] 6.25 mg PO BID 09/13/22 Clopidogrel Bisulfate [Plavix*] 75 mg PO DAILY #30 tab 09/26/22 Diphenhydramine [Benadryl*] 25 mg PO BEDTIME PRN #30 tab 09/26/22 Hydrocodone 5/APAP 325 [[place] 5/325*] 1 tab PO Q4H PRN #20 tab 09/26/22 New Medications: Diphenhydramine [Benadryl*] 25 mg PO BEDTIME PRN #30 tab PRN Reason: Insomnia Hydrocodone 5/APAP 325 [[place] 5/325*] 1 tab PO Q4H PRN #20 tab PRN Reason: Pain Scale 5-7 (Moderate) Clopidogrel Bisulfate [Plavix*] 75 mg PO DAILY #30 tab Physician Discharge Instructions: Patient presented with nonhealing postoperative wound after amputation. He underwent a subsequent amputation of his fourth toe. Postoperatively was noted to have more dusky appearance and and further involvement of his other toes. Cardiology was consulted, and performed repeat angiogram was and stenting/angioplasty of his left lower leg arteries. Patient was noted to have severe distal arterial disease of his left leg. After multidisciplinary meeting and further discussion with the patient and his family, was decided the best plan of care at this point would be a BKA. Patient underwent left BKA without complications. Postoperative course was uncomplicated. He was deemed stable for discharge home. Continue chronic home medications as previously prescribed. Wound care as instructed Counseled on smoking cessation and good glucose/diabetes control. non-weight bearing to LEFT lower extremity - Daily dressing changes to LEFT surgical site, Xeroform, kerlix, ct, knee immobilizer, - follow up in [address] Michaud Activity: Non-weight bearing (to LEFT foot) Followup: Navid Michaud MD [Primary Care Provider] - 1 Week Amado Chandra MD [ACTIVE - CAN ADMIT] -
--- NOTE | 2022-10-07 02:03 | PN ---
Subjective: Patient lying in bed, getting dialyzed. Denies any headache, nausea, vomiting, chest pa in, abdominal pain, constipation, diarrhea. Being discharged today. Objective: Vital signs: Reviewed. Lungs: Basal crackles. Heart: S1, S2. Regular. Abdomen: Soft, nontender. Bowel sounds present. Extremities: Wound noted status post left BKA. Assessment And Plan: Status post left [id number] amputation secondary to osteomyelitis and perip heral arterial disease. The patient is doing well. End-stage renal disease. Continue supportive ca re and wound care. Follow up with the surgical team. Will follow the patient as needed. NF/MODL Voice ID: [id number] Report ID: [id number]
== END 2022-10-06 15:59 | disposition home health service (06) | DRG 239 ==
LOC: ER 13:59 → ERHOLD 19:32 → 4TH 21:22 → 2ND 10-04 17:36
PROVIDERS: ADMIT Hospitalist; ATTEND Hospitalist
PROC: 5A1D70Z Performance of Urinary Filtration, Intermittent, Less than 6 Hours Per Day (ICD-10-PCS; 2022-09-22)
PROC: 0Y6Y0Z0 Detachment at Left 5th Toe, Complete, Open Approach (ICD-10-PCS; 2022-09-25)
PROC: 0JBR0ZZ Excision of Left Foot Subcutaneous Tissue and Fascia, Open Approach (ICD-10-PCS; 2022-09-25)
PROC: B41G1ZZ Fluoroscopy of Left Lower Extremity Arteries using Low Osmolar Contrast (ICD-10-PCS; 2022-09-30)
PROC: 30233N1 Transfusion of Nonautologous Red Blood Cells into Peripheral Vein, Percutaneous Approach (ICD-10-PCS; 2022-10-03)
PROC: 0Y6J0Z1 Detachment at Left Lower Leg, High, Open Approach (ICD-10-PCS; principal; 2022-10-03 13:30)
DX: E11.52 Type 2 diabetes mellitus with diabetic peripheral angiopathy with gangrene (principal); N18.6 End stage renal disease; E87.0 Hyperosmolality and hypernatremia; M86.172 Other acute osteomyelitis, left ankle and foot; L03.116 Cellulitis of left lower limb; I12.0 Hypertensive chronic kidney disease with stage 5 chronic kidney disease or end stage renal disease; E11.69 Type 2 diabetes mellitus with other specified complication; E11.628 Type 2 diabetes mellitus with other skin complications; E11.22 Type 2 diabetes mellitus with diabetic chronic kidney disease; E11.40 Type 2 diabetes mellitus with diabetic neuropathy, unspecified; E11.621 Type 2 diabetes mellitus with foot ulcer; L97.529 Non-pressure chronic ulcer of other part of left foot with unspecified severity; D63.1 Anemia in chronic kidney disease; E66.9 Obesity, unspecified; E78.5 Hyperlipidemia, unspecified; F17.210 Nicotine dependence, cigarettes, uncomplicated; Z79.4 Long term (current) use of insulin; Z99.2 Dependence on renal dialysis; Z79.02 Long term (current) use of antithrombotics/antiplatelets; Z79.82 Long term (current) use of aspirin; Z89.422 Acquired absence of other left toe(s); Z28.310 Unvaccinated for COVID-19; Z91.199 Patient's noncompliance with other medical treatment and regimen due to unspecified reason; Z79.899 Other long term (current) drug therapy; Z20.822 Contact with and (suspected) exposure to COVID-19
CPT/HCPCS: 36200; 36415; 36430; 37226; 37229; 75625; 76937; 80048; 80069; 80202; 81001; 82947; 83605; 83735; 84100; 84145; 85014; 85018; 85025; 85027; 85347; 85610; 86317; 86850; 86900; 86901; 87040; 87070; 87205; 87340; 87811; 88305; 88307; 88311; 90935; 93005; 93926; 93971; 96374; 96375; 97161; 99285; C1725; C1760; C1769; C1893; G0269; J0171; J0690; J1100; J1170; J1644; J1815; J2001; J2250; J2270; J2405; J2543; J2704; J3010; J3370; J3590; J7030; J7040; J7050; P9016

== ENCOUNTER 2023-11-22 12:51 | Inpatient (IN) | payer OTHER ==
--- OUTSIDE RECORDS SUMMARY | 2023-11-22 12:55 | XMS REPORT | Continuity of Care Document ---
Author Name Unknown Address [address] [facility] [address] thconnect Address [address] [facility] [address] [place] [address] Care Team Providers Care Order Administrator Name Role Phone NINA VEGA Attending Clinician Unavailable Payers Payer Name Policy Type Policy Number Effective Date Expirati on Date Source [employer] [id number] 2022 00:00:00 Encounters Start Date/Time End Date/Time Encounter Type Admission Type Attending Clinicians Care Facility Care Department Encounter ID Source 2022-09-22 16:55:[address] [facility] [id number] [facility] 2022-09-20 09:59:[address] [facility] [id number] [facility] 2022-09-29 10:15:00 2022-09-29 10:15:[address] [facility] [id number] [facility]
[2023-11-22 13:51] LABS: Hematocrit 27.7 % (39.6-49.0); Lymphocytes % 12.5 % (15.3-44.8); MCV 88.4 fL (80-100); MPV 8.3 fL (7.6-11.3); Platelets 254 thou/uL (152-406); RBC Red Blood Cell Count 3.13 M/uL (4.33-5.43)
--- NOTE | 2023-11-22 14:37 | RAD REPORT ---
EXAM DESCRIPTION: RAD - Foot Right 3 View - 11/22/2023 1:51 pm CLINICAL HISTORY: r/o osteo;Smash injury;Swelling COMPARISON: <Comparisons> FINDINGS: Previous amputation of the fourth toe. Diffuse osteopenia. No acute fracture or dislocatio n. Vascular calcifications. Moderate plantar calcaneal spurs. No finding to indicate osteomyelitis. I f osteomyelitis remains a clinical concern, MRI followup would be recommended.
--- NOTE | 2023-11-22 14:55 | EDPHYS ---
Physician Documentation [facility] Name: Charlie Sky Age: 68 yrs Sex: Male : 1955 Arrival Date: 11/22/2023 Time: 12:51 Bed 7 Private MD: Joao Vargas ED Physician Dion Lazo HPI: 11/22 13:18 This 68 yrs old Male presents to ER via Wheelchair with complaints of Toe Injury. [facility] 13:18 Onset: The symptoms/episode began/occurred 1 month(s) ago. 68-year-old male presents to [facility] the ER for right great toe pain, redness, and drainage. He reports that 1 [place] his toe. He states that over the past 3 days the toe has become swollen, red, and that there appears to be purulent drainage under the nail. Reports that he is having trouble walking. History of diabetes and dialysis Thursday, , Thursday. Denies fever at this time.. Historical: - Allergies: 13:20 Unknown DM medication; hb - PMHx: 13:20 diabetes mellitus; HD - MWF; Hypertensive disorder; kidney disease; hb - PSHx: 13:20 toe amputation; hb - Immunization history:: Adult Immunizations unknown. - Social history:: Smoking status: Reported history of juuling and/or vaping. ROS: 13:18 Constitutional: Negative for fever, chills, and weight loss, Neck: Negative for injury, [facility] pain, and swelling, Cardiovascular: Negative for chest pain, palpitations, and edema, Respiratory: Negative for shortness of breath, cough, wheezing, and pleuritic chest pain, Abdomen/GI: Negative for abdominal pain, nausea, vomiting, diarrhea, and constipation, Neuro: Negative for headache, weakness, numbness, tingling, and seizure, 13:18 MS/extremity: Positive for decreased range of motion, pain, tenderness, of the Right great toe, 13:18 Skin: Positive for cellulitis, of the right foot, 13:18 All other systems are negative, Exam: 13:18 Constitutional: This is a well developed, well nourished patient who is awake, alert, [facility] and in no acute distress. Head/Face: Normocephalic, atraumatic. Neck: Trachea midline, no thyromegaly or masses palpated, and no cervical lymphadenopathy. Supple, full range of motion without nuchal rigidity, or vertebral point tenderness. No Meningismus. Cardiovascular: Regular rate and rhythm with a normal S1 and S2. No gallops, murmurs, or rubs. Normal PMI, no JVD. No pulse deficits. Respiratory: Lungs have equal breath sounds bilaterally, clear to auscultation and percussion. No rales, rhonchi or wheezes noted. No increased work of breathing, no retractions or nasal flaring. Abdomen/GI: Soft, non-tender, with normal bowel sounds. No distension or tympany. No guarding or rebound. No evidence of tenderness throughout. Neuro: Awake and alert, GCS 15, oriented to person, place, time, and situation. Motor strength 5/5 in all extremities. Sensory grossly intact. Normal gait. 13:18 Musculoskeletal/extremity: ROM: limited active range of motion, Circulation is intact in all extremities. Pulses: Perfusion: the extremity is normally perfused throughout, pink, warm, with brisk capillary refill, Sensation intact. 13:18 Skin: cellulitis, that is moderate, on the Right great toe, Purulent drainage present under the nail. The entire toe is tender to palpation the patient is having difficulty ambulating., Vital Signs: 13:18 BP 134 / 78; Pulse 72; Resp 18; Temp 97.3; Pulse Ox 100% on R/A; Weight 81 kg; Height 5 hb ft. 7 in. ; Pain 10/10; 13:18 Body Mass Index 27.97 (81.00 kg, 170.18 cm) hb 13:18 Pain Scale: Adult hb MDM: 12:53 Patient medically screened. [facility] 14:45 Differential diagnosis: Cellulitis, osteomyelitis, paronychia, abscess, diabetic foot [facility] wound. Data reviewed: vital signs, nurses notes, lab test result(s), radiologic studies, plain films. Consideration of Admission/Observation Patient was admitted/placed on observation. Management of patient was discussed with the following: Hospitalist: Katelyn, hospitalist for Dr. Ford. I considered the following discharge prescriptions or medication management in the emergency department Medications were administered in the Emergency Department. See MAR. Historians other than the Patient: Friend: Friend. Care significantly affected by the following chronic conditions: Diabetes, Hypertension, Chronic Kidney Disease. Care significantly affected by the following Social Determinants of Health: Poor access to healthcare and/or lack of insurance. Counseling: I had a detailed discussion with the patient and/or guardian regarding the historical points, exam findings, and any diagnostic results supporting the discharge/admit diagnosis, the need for further work-up and treatment in the hospital. 11/22 13:16 Order name: BMP; Complete Time: 14:07 [facility] 11/22 13:16 Order name: CBC with Diff; Complete Time: 14:07 [facility] 11/22 13:16 Order name: Blood Culture Adult (2) [facility] 11/22 13:16 Order name: Lactate w/ 2H reflex if indic.; Complete Time: 14:16 [facility] 11/22 15:19 Order name: Basic Metabolic Panel MS 11/22 15:19 Order name: Basic Metabolic Panel EDMS 11/22 15:19 Order name: Basic Metabolic Panel EDMS 11/22 15:19 Order name: Basic Metabolic Panel MS 11/22 15:19 Order name: CBC with Automated Diff EDMS 11/22 15:19 Order name: CBC with Automated Diff EDMS 11/22 15:19 Order name: CBC with Automated Diff EDMS 11/22 15:19 Order name: CBC with Automated Diff EDMS 11/22 15:19 Order name: Magnesium EDMS 11/22 15:19 Order name: Magnesium EDMS 11/22 15:19 Order name: Magnesium EDMS 11/22 15:19 Order name: Magnesium EDMS 11/22 17:09 Order name: Glucose, Ancillary Testing [facility] 11/22 21:51 Order name: Glucose, Ancillary Testing [facility] 11/22 13:16 Order name: XRAY Foot RIGHT 3 View; Complete Time: 14:39 [facility] Administered Medications: 16:01 Drug: Cefepime IVPB 1 grams IVPB at 200 ml/hr once over 30 mins; (mix in NS 100 mL) ld1 Route: IVPB; Rate: 200 ml/hr; Infused Over: 30 mins; Site: left antecubital; 20:13 Follow up: Response: Not followed up by previous shift; IV Status: Completed infusion; vc1 IV Intake: 100ml 16:37 Not Given (Duplicate Order): vancomycin1 grams IVPB once over 2 hrs ld1 Disposition: 11/23 08:59 Co-signature as Attending Physician, Dion Lazo MD I reviewed the patient's care rn provided by the Advanced Practice Provider and agree with the diagnosis and treatment plan. Disposition Summary: 11/22/23 14:54 Hospitalization Ordered Notes: Hospitalization Status: Inpatient Admission [facility] Provider: Catracho Ford [facility] Condition: Stable [facility] Problem: new [facility] Symptoms: have worsened [facility] Bed/Room Type: Standard [facility] Location: Telemetry/MedSurg (Inpatient)(11/22/23 21:26) Room Assignment: [facility](11/22/23 21:26) Diagnosis - Cellulitis of toe [facility] Forms: - Medication Reconciliation Form [facility] - SBAR form [facility] - Leadership Thank You Letter [facility] Signatures: Dispatcher [employer] EDMS Dion Lazo MD MD rn Garcia, Cindy RN RN Aicha Neil RN RN Mariella Mendoza Lauren, RN RN ld1 Rupinder Huang, DIE EQUIPMENT OPERATOR DIE EQUIPMENT OPERATOR [facility] Sravani Figueredo RN vc1 Corrections: (The following items were deleted from the chart) 11/22 17:07 14:54 Telemetry/MedSurg (Inpatient) [facility] eb 17: 14:54 [facility] eb 21: 17:07 [facility] ER HOLD eb cg 21: 17:07 ERHOLD- eb cg
--- NOTE | 2023-11-22 14:55 | ER ---
Nurse's Notes [facility] Name: Charlie Sky Age: 68 yrs Sex: Male : 1955 Arrival Date: 11/22/2023 Time: 12:51 Bed 7 Private MD: Joao Vargas Diagnosis: Cellulitis of toe Presentation: 11/22 13:18 Chief complaint: Patient states: Pt c/o ongoing right great toe pain, swelling, and hb bruising since dropping a suitcase on it approx 1 month ago. Pt is diabetic. Coronavirus screen: Vaccine status: Patient reports receiving the 2nd dose of the covid vaccine. At this time, the client does not indicate any symptoms associated with coronavirus-19. Ebola Screen: Patient negative for fever greater than or equal to 101.5 degrees Fahrenheit, and additional compatible Ebola Virus Disease symptoms Patient denies exposure to infectious person. Patient denies travel to an Ebola-affected area in the 21 days before illness onset. No symptoms or risks identified at this time. 13:18 Method Of Arrival: Wheelchair 13:20 Initial Sepsis Screen: Does the patient meet any 2 criteria? No. Patient's initial hb sepsis screen is negative. Does the patient have a suspected source of infection? No. Patient's initial sepsis screen is negative. Risk Assessment: Do you want to hurt yourself or someone else? Patient reports no desire to harm self or others. Onset of symptoms was October 23, 2023. 13:20 Acuity: MAURIZIO 3 hb Triage Assessment: 13:21 General: Appears in no apparent distress. Behavior is calm, cooperative. Pain: hb Complains of pain in right great toe. Historical: - Allergies: 13:20 Unknown DM medication; hb - PMHx: 13:20 diabetes mellitus; HD - MWF; Hypertensive disorder; kidney disease; hb - PSHx: 13:20 toe amputation; hb - Immunization history:: Adult Immunizations unknown. - Social history:: Smoking status: Reported history of juuling and/or vaping. Screenin:00 [facility] ED Fall Risk Assessment (Adult) History of falling in the last 3 months, vc1 including since admission No falls in past 3 months (0 pts) Confusion or Disorientation No (0 pts) Intoxicated or Sedated No (0 pts) Impaired Gait No (0 pts) Mobility Assist Device Used No (0 pt) Altered Elimination No (0 pt) Score/Fall Risk Level 0 - 2 = Low Risk Oriented to surroundings, Maintained a safe environment, Educated pt \T\ family on fall prevention, incl call for assistance when getting out of bed. Abuse screen: Denies threats or abuse. Nutritional screening: No deficits noted. Tuberculosis screening: No symptoms or risk factors identified. Vital Signs: 13:18 BP 134 / 78; Pulse 72; Resp 18; Temp 97.3; Pulse Ox 100% on R/A; Weight 81 kg; Height 5 hb ft. 7 in. ; Pain 10/10; 13:18 Body Mass Index 27.97 (81.00 kg, 170.18 cm) hb 13:18 Pain Scale: Adult hb ED Course: 12:52 Patient arrived in ED. rg4 12:52 Joao Vargas DO is Private Physician. rg4 12:53 [facility]inder [facility] jh7 12:53 Dion Lazo MD is Attending Physician. 7 13:20 Triage completed. hb 13:21 Arm band placed on Patient placed in an exam room, on a stretcher. hb 13:30 Courtney Paulino, SAMARA is Primary Nurse. iw 13:46 Inserted saline lock: 20 gauge in left antecubital area, using aseptic technique. iw 13:53 XRAY Foot RIGHT 3 View In Process Unspecified. EDMS 14:53 Catracho Ford MD is Hospitalizing Provider. jh7 19:00 Patient has correct armband on for positive identification. Bed in low position. Call vc1 light in reach. Pulse ox on. NIBP on. 19:00 Provided Education on: NPO at midnight. vc1 19:00 No provider procedures requiring assistance completed. Patient admitted, IV remains in vc1 place. Administered Medications: 16:01 Drug: Cefepime IVPB 1 grams IVPB at 200 ml/hr once over 30 mins; (mix in NS 100 mL) ld1 Route: IVPB; Rate: 200 ml/hr; Infused Over: 30 mins; Site: left antecubital; 20:13 Follow up: Response: Not followed up by previous shift; IV Status: Completed infusion; vc1 IV Intake: 100ml 16:37 Not Given (Duplicate Order): vancomycin1 grams IVPB once over 2 hrs ld1 Medication: 19:00 VIS not applicable for this client. vc1 Intake: 20:13 IV: 100ml; Total: 100ml. vc1 Outcome: 14:54 Decision to Hospitalize by Provider. jh7 19:00 Admitted to ER Hold. Please see [facility] for further documentation. vc1 19:00 Condition: good 19:00 Instructed on the need for admit, 22:16 Patient left the ED. lg3 Signatures: Dispatcher [employer] Courtney Treviño, RN RN Aicha Valle RN Monserrat Tian 4 Quita Jaime RN RN lg3 Arlyn Valle RN RN ld1 Sravani Figueredo RN RN vc1 Rupinder Huang FNP LEG MAN [facility]
[2023-11-22] MEDS ORDERED: ACETAMINOPHEN 500 MG TAB PO PRN (15:14)
[2023-11-22] MEDS ORDERED: ONDANSETRON 4 MG/2 ML VIAL IV PRN (15:14)
[2023-11-22] MEDS ORDERED: HYDROCODONE/APAP 7.5/325 MG TAB PO PRN (15:21)
--- NOTE | 2023-11-22 15:22 | P.HP ---
Certification for Inpatient Patient admitted to: Inpatient With expected LOS: <2 Midnights Patient will require the following post-hospital care: None Practitioner: I am a practitioner with admitting privileges, knowledge of patient current condition, hospital course, and medical plan of care. Services: Services provided to patient in accordance with Admission requirements found in Title 42 Section 412.3 of the Code of Federal Regulations <Katelyn Peterson - Last Filed: 11/22/23 16:01> Patient History Date of Service: 11/22/23 Reason for admission: Cellulitis Right Great Toe History of Present Illness: 68 year old male with past medical history of IDDM, prior toe ampuations, ESRD on HD , presents to Emergency room with pain, swelling Right great toe. He reported dropping a Suitcase on his toe 1 month ago. He reports pain, redness, swelling, has gotten worse over the last month, He reports pain worse with ambulation. pain better with rest. He denies fever, chills, NVD. shortness of breath, chest pain, or leg swelling. He reports seeing Dr Ariza for HD, with Aj here in [place].BP 134 / 78; Pulse 72; Resp 18; Temp 97.3; Pulse Ox 100% on R/A; Weight 81 kg; Height 5 ft. 7 in. ; Pain 10/10; Plan to admit for cellulitis right great toe. foot x ray FINDINGS: Previous amputation of the fourth toe. Diffuse osteopenia. No acute fracture or dislocation. Vascular calcifications. Moderate plantar calcaneal spurs. No finding to indicate osteomyelitis. If osteomyelitis remains a clinical concern, MRI foll owup would be recommended.Lab evaluation JEROME 31, cr 3.92, BG 258, CBC No leukocytosis, left shift 75.6, microcytic anemia 9.6 27.7 surgery to consult to eval, IV antibiotics - Past Medical/Surgical History Diabetic: Yes -: End-stage renal disease on hemodialysis -: Diabetes mellitus type 2 -: Left fourth toe amputation -: Left fourth toe amputation Psychosocial/ Personal History: Patient lives at home. He has a son. - Family History Brother -: Diabetes - Social History Alcohol use: No CD- Drugs: No Caffeine use: No <Katelyn Peterson - Last Filed: 11/22/23 16:01> Date of Service: 11/22/23 <Catracho Ford - Last Filed: 11/22/23 18:31> Allergies unknown DM oral pill Allergy (Uncoded 09/21/22 21:41) Itching/Hives/Rash Home Medications: Amlodipine Besylate [Norvasc] 10 mg PO DAILY 09/13/22 Atorvastatin Calcium [Lipitor] 40 mg PO BEDTIME 09/13/22 Enalapril Maleate [Vasotec] 10 mg PO DAILY 09/13/22 Sitagliptin Phosphate [Januvia] 25 mg PO DAILY 09/13/22 carvediloL [Carvedilol] 6.25 mg PO BID 09/13/22 Clopidogrel Bisulfate [Plavix*] 75 mg PO DAILY #30 tab 09/26/22 Diphenhydramine [Benadryl*] 25 mg PO BEDTIME PRN #30 tab 09/26/22 Hydrocodone 5/APAP 325 [[place]ike 5/325*] 1 tab PO Q4H PRN #20 tab 09/26/22 Review of Systems per HPI <Katelyn Peterson - Last Filed: 11/22/23 16:01> Physical Examination - Physical Exam General: Alert, In no apparent distress, Oriented x3 HEENT: Atraumatic, Normocephalic Neck: Supple, 2+ carotid pulse no bruit Respiratory: Clear to auscultation bilaterally, Normal air movement Cardiovascular: No edema, Normal pulses Capillary refill: <2 Seconds Gastrointestinal: Normal bowel sounds, Soft and benign Musculoskeletal: No clubbing, No swelling, Other (cellultiis right great toe) Neurological: Normal speech, Normal strength at 5/5 x4 extr - Studies Laboratory Data (last 24 hrs) 11/22/23 11/22/23 13:39 13:39 WBC 8.00 Hgb 9.6 L Hct 27.7 L Plt Count 254 Sodium 136 Potassium 4.0 BUN 31 H Creatinine 3.92 H Glucose 258 H <Katelyn Peterson - Last Filed: 11/22/23 16:01> - Studies Laboratory Data (last 24 hrs) 11/22/23 11/22/23 13:39 13:39 WBC 8.00 Hgb 9.6 L Hct 27.7 L Plt Count 254 Sodium 136 Potassium 4.0 BUN 31 H Creatinine 3.92 H Glucose 258 H <Catracho Ford - Last Filed: 11/22/23 18:31> Assessment and Plan - Plan Assessment/plan cellulitis right great toe prior toe ampuations swelling Right great toe. He reported dropping a Suitcase on his toe 1 month ago. He reports pain, redness, swelling, has gotten worse over the last month, He reports pain worse with ambulation. pain lana wiht rest. BP 134 / 78; Pulse 72; Resp 18; Temp 97.3; Pulse Ox 100% on R/A; Weight 81 kg; Height 5 ft. 7 in. ; Pain 10/10; PRN analgesics foot x ray FINDINGS: Previous amputation of the fourth toe. Diffuse osteopenia. No acute fracture or dislocation. Vascular calcifications. Moderate plantar calcaneal spurs. No finding to indicate osteomyelitis. If osteomyelitis remains a clinical concern, MRI followup would be recommended.Lab evaluation CBC No leukocytosis, left shift 75.6, microcytic anemia 9.6 27.7 IDDM acck, SSI, A1C resume home meds ESRD on HD // fluid restriction, consult nephrolgy Dr Carr for HD, with Aj here in [place]. BUN 31, cr 3.92, BG 258, Full code DVT scd Diet NPO after MN Discharge Plan: Home Plan to discharge in: 48 Hours - Advance Directives Does patient have a Living Will: No Does patient have a Durable POA for Healthcare: No - Code Status/Comfort Care Code Status: Full Code Critical Care: No Time Spent Managing Pts Care (In Minutes): 55 <Katelyn Peterson - Last Filed: 11/22/23 16:01> Physician Review Additional Text: Mr. Sky is a 68 year old male who was admitted for toe cellulitis. Continue IV antibiotics. Appreciate ID and Surgery recs. Catracho Ford M.D. <Catracho Ford - Last Filed: 11/22/23 18:31>
[2023-11-22] MEDS ORDERED: NA CHLORIDE 0.9% 100 ML ONE (15:50)
[2023-11-22] MEDS ORDERED: CEFEPIME 1 GM/VIAL ONE (15:50)
[2023-11-22] MEDS ORDERED: NA CHLORIDE 0.9% 250 ML ONE (15:50)
[2023-11-22] MEDS ORDERED: VANCOMYCIN 1 GM/VIAL ONE (15:50)
[2023-11-22] MEDS ORDERED: NA CHLORIDE 0.9% 1,000 ML IV SCH (16:00)
[2023-11-22] MEDS ORDERED: VANCOMYCIN 1.5 GM in NA CHLORIDE 0.9% 500 ML IVPB ONE (16:00)
[2023-11-22] MEDS: INSULIN REGULAR (HUMAN) 100 UNIT/ML SQ SCH ×2 (16:30→21:00)
[2023-11-22 16:53] VITALS: BMI 27.9
[2023-11-22] MEDS ORDERED: VANCOMYCIN 1 GM in NA CHLORIDE 0.9% 250 ML IVPB SCH (17:00)
[2023-11-22] MEDS ORDERED: NA CHLORIDE 0.9% 1,000 ML ONE (17:07)
[2023-11-22] MEDS ORDERED: INSULIN REGULAR (HUMAN) 100 UNIT/ML ONE ×2 (17:07→21:42)
[2023-11-22 20:53] VITALS: BP 113/95; TEMP 97.3
[2023-11-22] MEDS ORDERED: CEFEPIME 1 GM in NA CHLORIDE 0.9% 100 ML IV SCH (21:00)
[2023-11-22] MEDS ORDERED: HYDROCODONE/APAP 7.5/325 MG TAB ONE (21:43)
[2023-11-22 22:34] VITALS: O2SAT 100
[2023-11-23 03:21] LABS: Absolute Lymphocytes (CBC) 0.8 K/uL (0.7-4.9); Hematocrit 23.2 % (39.6-49.0); Lymphocytes % 13.3 % (15.3-44.8); MCV 89.1 fL (80-100); MPV 8.6 fL (7.6-11.3); Platelets 216 thou/uL (152-406); RBC Red Blood Cell Count 2.61 M/uL (4.33-5.43)
[2023-11-23 03:38] LABS: Magnesium 1.9 mg/dL (1.6-2.4); Potassium 3.6 mEq/L (3.5-5.1)
[2023-11-23] MEDS: INSULIN REGULAR (HUMAN) 100 UNIT/ML SQ SCH ×2 (07:30→11:30)
--- NOTE | 2023-11-23 10:14 | P.PN ---
Subjective Date of Service: 11/23/23 Chief Complaint: Cellulitis Right Great Toe - Physical Exam General: Alert, In no apparent distress, Oriented x3 HEENT: Atraumatic, Normocephalic Neck: Supple, 2+ carotid pulse no bruit Respiratory: Clear to auscultation bilaterally, Normal air movement Cardiovascular: No edema, Normal pulses Capillary refill: <2 Seconds Gastrointestinal: Normal bowel sounds, Soft and benign Musculoskeletal: No clubbing, No swelling, Other (cellultiis right great toe) Neurological: Normal speech, Normal strength at 5/5 x4 extr Physical Examination - Vital Signs Temperature: 97.3 F Blood Pressure: 113/95 Pulse: 68 Respirations: 17 Pulse Ox (%): 100 - Studies Laboratory Data (last 24 hrs) 11/22/23 11/22/23 13:39 13:39 WBC 8.00 Hgb 9.6 L Hct 27.7 L Plt Count 254 Sodium 136 Potassium 4.0 BUN 31 H Creatinine 3.92 H Glucose 258 H Assessment And Plan - Plan Assessment/plan cellulitis right great toe prior toe ampuations swelling Right great toe. He reported dropping a Suitcase on his toe 1 month ago. He reports pain, redness, swelling, has gotten worse over the last month, He reports pain worse with ambulation. pain lana wiht rest. BP 134 / 78; Pulse 72; Resp 18; Temp 97.3; Pulse Ox 100% on R/A; Weight 81 kg; Height 5 ft. 7 in. ; Pain 10/10; PRN analgesics foot x ray FINDINGS: Previous amputation of the fourth toe. Diffuse osteopenia. No acute fracture or dislocation. Vascular calcifications. Moderate plantar calcaneal spurs. No finding to indicate osteomyelitis. If osteomyelitis remains a clinical concern, MRI followup would be recommended.Lab evaluation CBC No leukocytosis, left shift 75.6, WBC 6.20, no left shift today ID consulted Surger Consulted microcytic anemia HH 9.6 27.7->HH 8.0/23.2 IDDM acck, SSI, A1C resume home meds ESRD on HD T// fluid restriction, Dr Ariza for HD, with Aj here in [place]. BUN 31, cr 3.92, BG 258, Neph consulted Full code DVT scd Diet NPO after MN Plan to discharge in: 48 Hours Critical Care: No Time Spent Managing PTS Care (In Minutes): 35
--- NOTE | 2023-11-23 13:09 | P.CNS ---
Date of Consult: 11/23/23 Reason for Consult: ESRD Requesting Physician: Kristin Carter Chief Complaint: Cellulitis Right Great Toe History of Present Illness: 68 year old male with past medical history of IDDM, prior toe ampuations, ESRD on HD , presents to Emergency room with pain, swelling Right great toe. He reported dropping a Suitcase on his toe 1 month ago. He reports pain, redness, swelling, has gotten worse over the last month, He reports pain worse with ambulation. pain better with rest. He denies fever, chills, NVD. shortness of breath, chest pain, or leg swelling. He reports seeing Dr Ariza for HD, with Aj here in [place].BP 134 / 78; Pulse 72; Resp 18; Temp 97.3; Pulse Ox 100% on R/A; Weight 81 kg; Height 5 ft. 7 in. ; Pain 10/10; Plan to admit for cellulitis right great toe. foot x ray FINDINGS: Previous amputation of the fourth toe. Diffuse osteopenia. No acute fracture or dislocation. Vascular calcifications. Moderate plantar calcaneal spurs. No finding to indicate osteomyelitis. If osteomyelitis remains a clinical concern, MRI followup would be recommended.Lab evaluation JEROME 31, cr 3.92, BG 258, CBC No leukocytosis, left shift 75.6, microcytic anemia 9.6 27.7 surgery to consult to evdenis, IV antibiotics. 13:18 This 68 yrs old Male presents to ER via Wheelchair with complaints of Toe Injury. [facility] 13:18 Onset: The symptoms/episode began/occurred 1 month(s) ago. 68-year-old male presents to [facility] the ER for right great toe pain, redness, and drainage. He reports that 1 month [place] the airport [place] his toe. He states that over the past 3 days the toe has become swollen, red, and that there appears to be purulent drainage under the nail. Reports that he is having trouble walking. History of diabetes and dialysis Thursday, , Thursday. Denies fever at this time. Allergies unknown DM oral pill Allergy (Uncoded 11/22/23 23:47) Itching/Hives/Rash Home medications list reviewed: Yes Home Medications: Amlodipine Besylate 10 mg PO DAILY 11/23/23 Aspirin [Aspirin EC 81 MG] 81 mg PO DAILY 11/23/23 Atorvastatin Calcium [Lipitor] 80 mg PO BEDTIME 11/23/23 Clopidogrel Bisulfate [Plavix*] 75 mg PO DAILY 11/23/23 Enalapril [Vasotec*] 10 mg PO DAILY 11/23/23 Insulin -Regular Human [Novolin -R*] See Protocol SQ ACHS ml 11/23/23 Smz./Tmp. [Bactrim Ds 800 MG/160 MG] 1 tab PO BID 7 Days #14 tab 11/23/23 carvediloL [Carvedilol] 6.25 mg PO Q12H 11/23/23 - Past Medical/Surgical History Diabetic: Yes -: ESRD (Dr. Parish/ Dr. Louie) -: DM II -: HLD -: HTN -: Left fourth toe amputation -: Left fourth toe amputation Psychosocial/ Personal History: Patient lives at home. He has a son. - Family History Brother Medical History: Diabetes - Social History Smoking Status: Current every day smoker Alcohol use: No CD- Drugs: No Caffeine use: No Review of Systems 10-point ROS is otherwise unremarkable Respiratory: SOB with Excertion Integumentary: Lesions Physical Examination Temp Pulse Resp BP Pulse Ox 97.3 F 68 17 113/95 H 100 11/23/23 10:27 11/23/23 10:27 11/23/23 10:27 11/23/23 10:27 11/23/23 10:27 General: In no apparent distress, Oriented x3, Cooperative HEENT: Atraumatic Neck: Supple Respiratory: Clear to auscultation bilaterally Cardiovascular: No edema, Regular rate/rhythm Gastrointestinal: Soft and benign, Non-distended Musculoskeletal: No clubbing, No contractures, Tenderness Integumentary: No rashes, Erythema Neurological: Normal speech Laboratory Data (last 24 hrs) 11/22/23 11/22/23 13:39 13:39 WBC 8.00 Hgb 9.6 L Hct 27.7 L Plt Count 254 Sodium 136 Potassium 4.0 BUN 31 H Creatinine 3.92 H Glucose 258 H Imagings Data: EXAM DESCRIPTION: RAD - Foot Right 3 View - 11/22/2023 1:51 pm CLINICAL HISTORY: r/o osteo;Smash injury;Swelling COMPARISON: <Comparisons> FINDINGS: Previous amputation of the fourth toe. Diffuse osteopenia. No acute fracture or dislocation. Vascular calcifications. Moderate plantar calcaneal spurs. No finding to indicate osteomyelitis. If osteomyelitis remains a clinical concern, MRI followup would be recommended. Conclusions/Impression: ESRD on HD TTS -HD TIW HTN with CKD -Restart Enalapril and Amlodipine Diastolic CHF, chronic -HD with UF -Low sodium diet -Daily weight DM II with CKD & Hyperglycemia -RISS Anemia in CKD -Retacrit prn CKD MBD -Start Ergo Cigarette smoker -Recommend cessation Right great toe cellulitis -Continue Abx -ID following Case reviewed with hospitalist team Thank you kindly for the consultation
--- NOTE | 2023-11-23 13:18 | P.CNS ---
Date of Consult: 11/23/23 PC: I was asked to see this 62-year-old male in regards to the cellulitis of his great toe. HPC: Patient apparently dropped a suitcase on his great toe after returning from a trip. Has had pain and discomfort in that area. Toe started going red so he came to the emergency room for evaluation. He was admitted. PSHx: Previous amputation PMHx: Diabetes, on dialysis Social Hx: No known allergies Sys R: No other problems elicited O/E: Awake alert upset as he thought he was having surgery today HEENT: Negative Chest: Air entry equal bilaterally Abd: NAD [place]: On inspection of his right great toe, no fluctuance is elicited. There is some blood around the nail, but the nail shows chronic fungal infection and its viability is difficult to ascertain. There is no abscess to be drained. The toe itself is viable. Data: No fracture seen on x-ray next field Impression: Blunt trauma to right great toe Plan: Patient does not require any surgical intervention. He is free to be discharged when medically stable. He can follow-up with his own physicians, or at my wound care clinic if needed.
--- NOTE | 2023-11-23 14:40 | P.DS ---
Admission Date: 11/22/23 Discharge Date: 11/23/23 Reason for Admission: Cellulitis Right Great Toe Brief History of Present Illness: 68 year old male with past medical history of IDDM, prior toe ampuations, ESRD on HD , presents to Emergency room with pain, swelling Right great toe. He reported dropping a Suitcase on his toe 1 month ago. He reports pain, redness, swelling, has gotten worse over the last month, He reports pain worse with ambulation. pain better with rest. He denies fever, chills, NVD. shortness of breath, chest pain, or leg swelling. He reports seeing Dr Ariza for HD, with Aj here in [place].BP 134 / 78; Pulse 72; Resp 18; Temp 97.3; Pulse Ox 100% on R/A; Weight 81 kg; Height 5 ft. 7 in. ; Pain 10/10; Plan to admit for cellulitis right great toe. foot x ray FINDINGS: Previous amputation of the fourth toe. Diffuse osteopenia. No acute fracture or dislocation. Vascular calcifications. Moderate plantar calcaneal spurs. No finding to indicate osteomyelitis. If osteomyelitis remains a clinical concern, MRI followup would be recommended.Lab evaluation JEROME 31, cr 3.92, BG 258, CBC No leukocytosis, left shift 75.6, microcytic anemia 9.6 27.7 surgery to consult to eval, IV antibiotics - Physical Exam General: Alert, In no apparent distress, Oriented x3 HEENT: Atraumatic, Normocephalic Neck: Supple, 2+ carotid pulse no bruit Respiratory: Clear to auscultation bilaterally, Normal air movement Cardiovascular: No edema, Normal pulses Capillary refill: <2 Seconds Gastrointestinal: Normal bowel sounds, Soft and benign Musculoskeletal: No clubbing, No swelling, Other (cellultiis right great toe) Neurological: Normal speech, Normal strength at 5/5 x4 extr Hospital Course: - Plan Assessment/plan cellulitis right great toe prior toe ampuations swelling Right great toe. He reported dropping a Suitcase on his toe 1 month ago. He reports pain, redness, swelling, has gotten worse over the last month, He reports pain worse with ambulation. pain lana wiht rest. BP 134 / 78; Pulse 72; Resp 18; Temp 97.3; Pulse Ox 100% on R/A; Weight 81 kg; Height 5 ft. 7 in. ; Pain 10/10; PRN analgesics foot x ray FINDINGS: Previous amputation of the fourth toe. Diffuse osteopenia. No acute fracture or dislocation. Vascular calcifications. Moderate plantar calcaneal spurs. No finding to indicate osteomyelitis. If osteomyelitis remains a clinical concern, MRI followup would be recommended.Lab evaluation CBC No leukocytosis, left shift 75.6, WBC 6.20, no left shift today ID consulted Surgery Consulted Per surgery, discharge on antibiotics by mouth, follow up with primary care in 1 week bactrim twice daily for 7 days, take until gone microcytic anemia HH 9.6 27.7->HH 8.0/23.2 IDDM acck, SSI, A1C resume home meds ESRD on HD / fluid restriction, Dr Ariza for HD, with Aj here in [place]. BUN 31, cr 3.92, BG 258, Neph consulted <Katelyn Peterson - Last Filed: 11/23/23 18:34> Admission Date: 11/22/23 Discharge Date: 11/23/23 Hospital Course: Pt seen and examined. I agree with the note by the DOT ETCHER. Ok to dc with bactrim <Kristin Carter - Last Filed: 11/23/23 18:49> Disposition: ROUTINE DISCHARGE Discharge Condition: GOOD Vital Signs/Physical Exam: Temp Pulse Resp BP Pulse Ox 97.3 F 68 17 113/95 H 100 11/23/23 10:27 11/23/23 10:27 11/23/23 10:27 11/23/23 10:27 11/23/23 10:27 Laboratory Data at Discharge: WBC 6.20 thou/uL (4.3-10.9) 11/23/23 01:39 Hgb 8.0 g/dL (13.6-17.9) L D 11/23/23 01:39 Hct 23.2 % (39.6-49.0) L 11/23/23 01:39 Plt Count 216 thou/uL (152-406) 11/23/23 01:39 Sodium 140 mEq/L (136-145) 11/23/23 01:39 Potassium 3.6 mEq/L (3.5-5.1) 11/23/23 01:39 BUN 36 mg/dL (7-18) H 11/23/23 01:39 Creatinine 3.78 mg/dL (0.70-1.30) H 11/23/23 01:39 Glucose 152 mg/dL (74-106) H 11/23/23 01:39 Magnesium 1.9 mg/dL (1.6-2.4) 11/23/23 01:39 <Katelyn Peterson - Last Filed: 11/23/23 18:34> Vital Signs/Physical Exam: Temp Pulse Resp BP Pulse Ox 97.3 F 68 17 113/95 H 100 11/23/23 10:27 11/23/23 10:27 11/23/23 10:27 11/23/23 10:27 11/23/23 10:27 Laboratory Data at Discharge: WBC 6.20 thou/uL (4.3-10.9) 11/23/23 01:39 Hgb 8.0 g/dL (13.6-17.9) L D 11/23/23 01:39 Hct 23.2 % (39.6-49.0) L 11/23/23 01:39 Plt Count 216 thou/uL (152-406) 11/23/23 01:39 Sodium 140 mEq/L (136-145) 11/23/23 01:39 Potassium 3.6 mEq/L (3.5-5.1) 11/23/23 01:39 BUN 36 mg/dL (7-18) H 11/23/23 01:39 Creatinine 3.78 mg/dL (0.70-1.30) H 11/23/23 01:39 Glucose 152 mg/dL (74-106) H 11/23/23 01:39 Magnesium 1.9 mg/dL (1.6-2.4) 11/23/23 01:39 <Kristin Carter - Last Filed: 11/23/23 18:49> Diet: Low sodium Activity: Fall precautions Time spent managing pt's care (in minutes): 55 <Katelyn Peterson - Last Filed: 11/23/23 18:34> <Kristin Carter - Last Filed: 11/23/23 18:49> Home Medications: Amlodipine Besylate 10 mg PO DAILY 11/23/23 Aspirin [Aspirin EC 81 MG] 81 mg PO DAILY 11/23/23 Atorvastatin Calcium [Lipitor] 80 mg PO BEDTIME 11/23/23 Clopidogrel Bisulfate [Plavix*] 75 mg PO DAILY 11/23/23 Enalapril [Vasotec*] 10 mg PO DAILY 11/23/23 Insulin -Regular Human [Novolin -R*] See Protocol SQ ACHS ml 11/23/23 Smz./Tmp. [Bactrim Ds 800 MG/160 MG] 1 tab PO BID 7 Days #14 tab 11/23/23 carvediloL [Carvedilol] 6.25 mg PO Q12H 11/23/23 New Medications: Smz./Tmp. [Bactrim Ds 800 MG/160 MG] 1 tab PO BID 7 Days #14 tab Physician Discharge Instructions: Follow up with PCP in 1 week Take Bactrim 1 tablet twice daily until gone Take probiotic or yogurt with antibiotic to prevent C. difficile Follow-up with nephrology for hemodialysis as previously scheduled Return to the emergency room for worsening symptoms - Plan Assessment/plan cellulitis right great toe prior toe ampuations swelling Right great toe. He reported dropping a Suitcase on his toe 1 month ago. He reports pain, redness, swelling, has gotten worse over the last month, He reports pain worse with ambulation. pain lana wiht rest. BP 134 / 78; Pulse 72; Resp 18; Temp 97.3; Pulse Ox 100% on R/A; Weight 81 kg; Height 5 ft. 7 in. ; Pain 10/10; PRN analgesics foot x ray FINDINGS: Previous amputation of the fourth toe. Diffuse osteopenia. No acute fracture or dislocation. Vascular calcifications. Moderate plantar calcaneal spurs. No finding to indicate osteomyelitis. If osteomyelitis remains a clinical concern, MRI followup would be recommended.Lab evaluation CBC No leukocytosis, left shift 75.6, WBC 6.20, no left shift today ID consulted Surgery Consulted Per surgery, discharge on antibiotics by mouth, follow up with primary care in 1 week bactrim twice daily for 7 days, take until gone Followup: Joao Vargas DO [Primary Care Provider] -
--- NOTE | 2023-11-23 15:06 | P.CNS ---
Date of Consult: 11/23/23 Reason for Consult: cellulitis right great toe Chief Complaint: Cellulitis Right Great Toe History of Present Illness: 68 year old male with past medical history of diabetes mellitus type II, prior toe ampuations, ESRD on HD, hypertension who presented to the ED with complaints of pain, swelling of Right great toe. He reported dropping a Suitcase on his toe 1 month ago which has not improved. Concern for cellulitis, started on empiric antibiotics, Infectious disease was consulted. Allergies unknown DM oral pill Allergy (Uncoded 11/22/23 23:47) Itching/Hives/Rash Home medications list reviewed: Yes Home Medications: Amlodipine Besylate 10 mg PO DAILY 11/23/23 Aspirin [Aspirin EC 81 MG] 81 mg PO DAILY 11/23/23 Atorvastatin Calcium [Lipitor] 80 mg PO BEDTIME 11/23/23 Clopidogrel Bisulfate [Plavix*] 75 mg PO DAILY 11/23/23 Enalapril [Vasotec*] 10 mg PO DAILY 11/23/23 Insulin -Regular Human [Novolin -R*] See Protocol SQ ACHS ml 11/23/23 Smz./Tmp. [Bactrim Ds 800 MG/160 MG] 1 tab PO BID 7 Days #14 tab 11/23/23 carvediloL [Carvedilol] 6.25 mg PO Q12H 11/23/23 - Past Medical/Surgical History Diabetic: Yes -: ESRD (Dr. Parish/ Dr. Louie) -: DM II -: HLD -: HTN -: Left fourth toe amputation -: Left fourth toe amputation Psychosocial/ Personal History: Patient lives at home. He has a son. - Family History Brother Medical History: Diabetes - Social History Smoking Status: Current every day smoker Alcohol use: No CD- Drugs: No Caffeine use: No Review of Systems 10-point ROS is otherwise unremarkable Integumentary: As per HPI Physical Examination Temp Pulse Resp BP Pulse Ox 97.3 F 68 17 113/95 H 100 11/23/23 10:27 11/23/23 10:27 11/23/23 10:27 11/23/23 10:27 11/23/23 10:27 General: Alert, In no apparent distress, Oriented x3 HEENT: Atraumatic, Normocephalic Neck: Supple, JVD not distended Respiratory: Clear to auscultation bilaterally, Normal air movement Cardiovascular: Regular rate/rhythm, Abnormal pulses Gastrointestinal: Normal bowel sounds, Soft and benign Musculoskeletal: Other (left BKA) Integumentary: Tenderness/swelling (right great toe) Neurological: Normal speech Lab Data - Reviewed Microbiology Data - Reviewed Imagings Data: - Reviewed Conclusions/Impression: Problem List Blunt Trauma Right great toe Diabetes Mellitus type II ESRD on HD Hypertension Hyperlipidemia concern for cellulitis Onychomycosis - No leukocytosis. afebrile. - CT without evidence of osteomyelitis - Currently on Cefepime and Vancomycin - blunt trauma to right great toe 1 month ago. Has been having conitnued erythema, pain and swelling without improvement x1 month. No surgical intervention was recommended at this time. Recommendations - Dr. Ambrose consulted, noted no surgical intervention required at this time and to follow up with PCP or podiatry as outpatient - Discontinue Cefepime and Vancomycin. Consider start on Augmentin PO to complete a 10 day course of antibiotic therapy. - Keep leg elevated to help reduce swelling - Keep area clean- wash with mild soap and water daily. Pat dry. - strict blood glucose control - Follow up with podiatry or PCP as outpatient Case discussed with Rafy Mahmood
== END 2023-11-23 15:20 | disposition home or self-care (01) | DRG 602 ==
LOC: ER 12:51 → ERHOLD 15:12 → 2ND 21:45
PROVIDERS: ADMIT Internal Medicine; ATTEND Hospitalist
DX: L03.031 Cellulitis of right toe (principal); N18.6 End stage renal disease; I13.2 Hypertensive heart and chronic kidney disease with heart failure and with stage 5 chronic kidney disease, or end stage renal disease; I50.32 Chronic diastolic (congestive) heart failure; B35.1 Tinea unguium; M77.31 Calcaneal spur, right foot; E11.22 Type 2 diabetes mellitus with diabetic chronic kidney disease; M85.871 Other specified disorders of bone density and structure, right ankle and foot; E78.5 Hyperlipidemia, unspecified; E11.65 Type 2 diabetes mellitus with hyperglycemia; D63.1 Anemia in chronic kidney disease; D50.9 Iron deficiency anemia, unspecified; F17.210 Nicotine dependence, cigarettes, uncomplicated; Z99.2 Dependence on renal dialysis
CPT/HCPCS: 36415; 80048; 82947; 83036; 83605; 83735; 85025; 87040; 96365; 96366; 99285; J0692; J1815; J7030; J7040; J7050

== ENCOUNTER 2023-11-29 23:25 | Observation (INO) | payer OTHER ==
--- OUTSIDE RECORDS SUMMARY | 2023-11-29 23:30 | XMS REPORT | Continuity of Care Document ---
Author Name Unknown Address [address] [facility] [address] th[address] Address [address] [facility] [address] [place] [address] Care Team Providers Care Plate Maker Zinc Name Role Phone NINA VEGA Attending Clinician Unavailable Payers Payer Name Policy Type Policy Number Effective Date Expirati on Date Source [employer] [id number] 00:00:00 Encounters Start Date/Time End Date/Time Encounter Type Admission Type Attending Clinicians Care Facility Care Department Encounter ID Source 2022-09-22 16:55:26 Outpatient [facility] [id number] [facility] 2022-09-20 09:59:06 Outpatient [facility] [id number] [facility] 2022-09-29 10:15:00 2022-09-29 10:15:00 Outpatient NINA VEGA [facility] [id number] [facility]
[2023-11-29] MEDS ORDERED: NA CHLORIDE 0.9% 1,000 ML ONE (23:43)
[2023-11-29] MEDS ORDERED: ASPIRIN 81 MG CHEWABLE TABLET ONE (23:43)
[2023-11-30 00:28] LABS: Absolute Lymphocytes (CBC) 0.9 K/uL (0.7-4.9); Hematocrit 23.7 % (39.6-49.0); Lymphocytes % 14.3 % (15.3-44.8); MCV 87.8 fL (80-100); MPV 8.3 fL (7.6-11.3); Platelets 220 thou/uL (152-406); Protime INR 1.06
[2023-11-30 00:38] LABS: Albumin 3.2 g/dL (3.4-5.0); Bilirubin Direct 0.1 mg/dL (0-0.2); Bilirubin Indirect, Calculated 0.1 mg/dL (0.2-0.8); Bilirubin Total 0.2 mg/dL (0.2-1.0); Potassium 3.5 mEq/L (3.5-5.1); Protein, Total 6.6 g/dL (6.4-8.2); Troponin High Sensitivity 38.4 pg/mL (<58.9)
[2023-11-30] MEDS ORDERED: ONDANSETRON 4 MG/2 ML VIAL ONE (00:39)
[2023-11-30] MEDS ORDERED: MORPHINE 4 MG/ML SYR ONE (00:39)
[2023-11-30] MEDS ORDERED: FAMOTIDINE 20 MG/2 ML VIAL IV ONE (00:39)
[2023-11-30] MEDS ORDERED: HEPARIN/D5W 25,000 UNIT/500 ML BAG IV ONE (00:40)
--- NOTE | 2023-11-30 00:50 | EDPHYS ---
Physician Documentation [facility] Name: Charlie Sky Age: 68 yrs Sex: Male : 1955 Arrival Date: 11/29/2023 Time: 23:25 Bed 15 Private MD: Joao Vargas ED Physician Naseem Paz HPI: 11/30 00:38 This 68 yrs old Male presents to ER via Ambulatory with complaints of Chest nuris pains earlier, chest sore. 00:38 The patient or guardian reports chest pain that is located primarily in the substernal nuris area, epigastric area. Onset: just prior to arrival, today. CHEST PAIN, MWF DIALYSIS. The pain radiates to the left shoulder. Onset: The symptoms/episode began/occurred 6 hour(s) ago. Associated signs and symptoms: Pertinent positives: nausea. The chest pain is described as a heaviness, a pressure, squeezing. Modifying factors: The symptoms are alleviated by nothing. the symptoms are aggravated by nothing. Severity of pain: At its worst the pain was moderate in the emergency department the pain is unchanged. Severity of symptoms: At their worst the symptoms were moderate in the emergency department the symptoms have improved moderately. The patient has experienced similar episodes in the past, several times. Historical: - Allergies: 11/29 23:38 Unknown DM medication; cm10 - PMHx: 23:38 diabetes mellitus; HD - MWF; Hypertensive disorder; kidney disease; cm10 - PSHx: 23:38 toe amputation; Cardiac stents; cm10 - Immunization history:: Adult Immunizations up to date. - Social history:: Smoking status: Patient denies any tobacco usage or history of. ROS: 11/30 00:41 Constitutional: Negative for fever, chills, and weight loss, Eyes: Negative for injury, nuris pain, redness, and discharge, ENT: Negative for injury, pain, and discharge, Neck: Negative for injury, pain, and swelling, Respiratory: Negative for shortness of breath, cough, wheezing, and pleuritic chest pain, Abdomen/GI: Negative for abdominal pain, nausea, vomiting, diarrhea, and constipation, Back: Negative for injury and pain, : Negative for injury, bleeding, discharge, and swelling, MS/Extremity: Negative for injury and deformity, Skin: Negative for injury, rash, and discoloration, Neuro: Negative for headache, weakness, numbness, tingling, and seizure, Psych: Negative for depression, anxiety, suicide ideation, homicidal ideation, and hallucinations, Allergy/Immunology: Negative for hives, rash, and allergies, Endocrine: Negative for neck swelling, polydipsia, polyuria, polyphagia, and marked weight changes, Hematologic/Lymphatic: Negative for swollen nodes, abnormal bleeding, and unusual bruising, Cardiovascular: Positive for chest pain, Exam: 00:41 Constitutional: This is a well developed, well nourished patient who is awake, alert, nuris and in no acute distress. Head/Face: Normocephalic, atraumatic. Eyes: Pupils equal round and reactive to light, extra-ocular motions intact. Lids and lashes normal. Conjunctiva and sclera are non-icteric and not injected. Cornea within normal limits. Periorbital areas with no swelling, redness, or edema. ENT: Nares patent. No nasal discharge, no septal abnormalities noted. Tympanic membranes are normal and external auditory canals are clear. Oropharynx with no redness, swelling, or masses, exudates, or evidence of obstruction, uvula midline. Mucous membranes moist. Neck: Trachea midline, no thyromegaly or masses palpated, and no cervical lymphadenopathy. Supple, full range of motion without nuchal rigidity, or vertebral point tenderness. No Meningismus. Chest/axilla: Normal chest wall appearance and motion. Nontender with no deformity. No lesions are appreciated. Cardiovascular: Regular rate and rhythm with a normal S1 and S2. No gallops, murmurs, or rubs. Normal PMI, no JVD. No pulse deficits. Respiratory: Lungs have equal breath sounds bilaterally, clear to auscultation and percussion. No rales, rhonchi or wheezes noted. No increased work of breathing, no retractions or nasal flaring. Abdomen/GI: Soft, non-tender, with normal bowel sounds. No distension or tympany. No guarding or rebound. No evidence of tenderness throughout. Back: No spinal tenderness. No costovertebral tenderness. Full range of motion. Male : Normal genitalia with no discharge or lesions. Skin: Warm, dry with normal turgor. Normal color with no rashes, no lesions, and no evidence of cellulitis. MS/ Extremity: Pulses equal, no cyanosis. Neurovascular intact. Full, normal range of motion. Neuro: Awake and alert, GCS 15, oriented to person, place, time, and situation. Cranial nerves II-XII grossly intact. Motor strength 5/5 in all extremities. Sensory grossly intact. Cerebellar exam normal. Normal gait. Psych: Awake, alert, with orientation to person, place and time. Behavior, mood, and affect are within normal limits. 00:41 ECG was reviewed by the Attending Physician. Vital Signs: 11/29 23:36 BP 105 / 62; Pulse 77; Resp 16; Temp 97.4; Pulse Ox 100% on R/A; Weight 81 kg; Height 5 cm10 ft. 7 in. ; Pain 7/10; 11/30 00:30 BP 106 / 67; Pulse 72; Resp 20; Pulse Ox 98% on R/A; pf1 01:30 BP 112 / 65; Pulse 73; Resp 17; Pulse Ox 99% on R/A; pf1 02:30 BP 105 / 62; Pulse 71; Resp 18; Pulse Ox 100% on R/A; pf1 03:30 BP 99 / 61; Pulse 62; Resp 15; Pulse Ox 99% on R/A; Pain 2/10; pf1 04:30 BP 105 / 65; Pulse 66; Resp 16; Pulse Ox 100% on R/A; pf1 05:30 BP 103 / 66; Pulse 64; Resp 17; Pulse Ox 97% on R/A; Pain 0/10; pf1 11/29 23:36 Body Mass Index 27.97 (81.00 kg, 170.18 cm) cm10 11/29 23:36 Pain Scale: Adult cm10 03:30 Pain Scale: Adult pf1 05:30 Pain Scale: Adult pf1 MDM: 11/29 23:35 Patient medically screened. nuris 11/30 00:43 Antibiotic administration: Not indicated. Differential diagnosis: abnormal EKG, acute nuris myocardial infarction, acute pericarditis, anxiety, coronary artery disease chest wall pain, congestive heart failure pancreatitis. HEART Score: History: Moderately Suspicious (1), ECG: Non specific repolarization disturbance / LBTB / PM (1), Age: > or = 65 years (2), Risk Factors: > or = 3 Risk factors for atherosclerotic disease (2), [Hypercholesterolemia] [Hypertension] [DM] [+ Family HX] Troponin: < or = 1 x Normal Limit (0), Total Score = 6. The patient was given aspirin in the Emergency Department. ANA Risk Score: 1 - patient's age is greater or equal to 65 years, 1 - Three or more CAD risk factors, 1- Known CAD, 1 - Recent [<24hrs] Severe Angina, TOTAL SCORE = 4. Immunization status: Pneumococcal vaccine: Influenza vaccine: Data reviewed: vital signs, nurses notes, lab test result(s), EKG, radiologic studies, plain films. Consideration of Admission/Observation Patient was admitted/placed on observation. Escalation of care including admission/observation considered. Management of patient was discussed with the following: Hospitalist: DR REMY, NEPHROLOGY IS Tai RODRIGUEZW, FR. I considered the following discharge prescriptions or medication management in the emergency department Medications were administered in the Emergency Department. See MAR. Independent interpretation of the following test(s) in the Emergency Department EKG: See my EKG interpretation above. Test considered but Not performed: CT: NO CT CHEST. Historians other than the Patient: PT AND SON , WELL INFORMED. Care significantly affected by the following chronic conditions: Diabetes, Hypertension, Chronic Kidney Disease. Counseling: I had a detailed discussion with the patient and/or guardian regarding the historical points, exam findings, and any diagnostic results supporting the discharge/admit diagnosis, the presence of at least one elevated blood pressure reading (>120/80) during this emergency department visit, radiology results, the need for further work-up and treatment in the hospital. 00:47 Differential Diagnosis sepsis, flu. [facility] 11/29 23:36 Order name: Basic Metabolic Panel; Complete Time: [facility] 11/29 23:36 Order name: CBC with Diff; Complete Time: [facility] 11/29 23:36 Order name: LFT's; Complete Time: [facility] 11/29 23:36 Order name: Magnesium; Complete Time: [facility] 11/29 23:36 Order name: NT PRO-BNP; Complete Time: [facility] 11/29 23:36 Order name: PT-INR; Complete Time: : [facility] 11/29 23:36 Order name: Troponin HS; Complete Time: [facility] 11/29 23:36 Order name: Lipase; Complete Time: [facility] 11/29 23:36 Order name: Urinalysis w/ reflexes [facility] 11/30 01:17 Order name: PTT, Activated Partial Thromb; Complete Time: 01:22 EDMS 11/30 01:21 Order name: Type And Screen; Complete Time: 07:07 nuris 11/30 01:51 Order name: Urinalysis w/ reflexes EDMS 11/30 01:51 Order name: CBC with Automated Diff EDMS 11/30 01:51 Order name: CBC with Automated Diff EDMS 11/30 01:51 Order name: Comprehensive Metabolic Panel EDMS 11/30 01:51 Order name: Comprehensive Metabolic Panel EDMS 11/30 01:51 Order name: Lipid Profile EDMS 11/30 01:51 Order name: Lipid Profile; Complete Time: 07:07 EDMS 11/30 01:51 Order name: Troponin High Sensitivity EDMS 11/30 01:51 Order name: Troponin High Sensitivity EDMS 11/30 01:51 Order name: Troponin High Sensitivity EDMS 11/30 01:51 Order name: Troponin High Sensitivity EDMS 11/30 01:51 Order name: Troponin High Sensitivity; Complete Time: 07:07 EDMS 11/30 03:58 Order name: Glucose, Ancillary Testing; Complete Time: 07:07 EDMS 11/30 05:59 Order name: Ptt, Activated pf1 11/30 06:59 Order name: CBC with Automated Diff; Complete Time: 07:07 EDMS 11/30 07:01 Order name: PTT, Activated Partial Thromb; Complete Time: 07:07 EDMS 11/30 07:22 Order name: Comprehensive Metabolic Panel EDMS 11/30 07:40 Order name: Glucose, Ancillary Testing EDMS 11/29 23:36 Order name: XRAY Chest (1 view) [facility] 11/29 23:36 Order name: EKG; Complete Time: 23:37 nuris 11/29 23:36 Order name: Cardiac monitoring; Complete Time: 00:01 nuris 11/29 23:36 Order name: EKG - Nurse/Tech; Complete Time: 00:01 nuris 11/29 23:36 Order name: IV Saline Lock; Complete Time: 00:01 nuris 11/29 23:36 Order name: Labs collected and sent; Complete Time: 00:02 nuris 11/29 23:36 Order name: O2 Per Protocol; Complete Time: 00:02 nuris 11/29 23:36 Order name: O2 Sat Monitoring; Complete Time: 00:02 nuris EC:41 Rate is 77 beats/min. Rhythm is regular. QRS [place] is Normal. WI interval is normal. QRS nuris interval is normal. QT interval is normal. No Q waves. T waves are Normal. ST Segment is depressed in leads I, II, aVL, aVF. Clinical impression: NSR w/ Non-specific ST/T Changes and No evidence of ischemia. Administered Medications: 11/29 23:50 Drug: Aspirin PO Chewable Tablet 162 mg PO once Route: PO; pf1 11/30 00:49 Follow up: Response: No adverse reaction; Marked relief of symptoms; Pain is decreased pf1 11/29 23:50 Drug: NS 0.9% IV 1000 ml IV at 125 ml/hr continuous Route: IV; Rate: 125 ml/hr; Site: [facility] left forearm; 11/30 00:49 Follow up: Response: No adverse reaction; Marked relief of symptoms; IV Status: pf1 Infusion continued upon admission 00:45 Drug: Famotidine IVP 20 mg IVP once; dilute with 10 mL 0.9% NaCl; give over 2 minutes pf1 Route: IVP; Site: left forearm; 01:45 Follow up: Response: No adverse reaction; Marked relief of symptoms pf1 00:50 Drug: Ondansetron IVP 4 mg IVP once; over 2 minutes Route: IVP; Site: left forearm; pf1 01:50 Follow up: Response: No adverse reaction; Marked relief of symptoms pf1 00:59 Not Given (Patient Refused): morphineor iv 4 mg IVP once over 4 mins pf1 01:00 Drug: Heparin (UT-Bolus No thrombolytic) - HEParin IVP 60 units/kg IVP once; Max 5000 pf1 units {Co-Signature: [email or web address] (Quita Jaime RN).} Route: IVP; Site: left forearm; 02:00 Follow up: Response: No adverse reaction pf1 01:45 Drug: Insulin Regular Human IVP 5 units IVP once {Co-Signature: [email or web address] (Quita Jaime RN).} pf1 Route: IVP; Site: left forearm; 02:45 Follow up: Response: No adverse reaction; Marked relief of symptoms; Blood sugar is pf1 lowered 01:45 Drug: Insulin Regular Human Sub-Q 5 units Sub-Q once {Co-Signature: [email or web address] (Quita Jaime pfJory RN).} Route: Sub-Q; Site: right upper arm; 02:45 Follow up: Response: No adverse reaction; Marked relief of symptoms; Blood pressure is pf1 lowered 01:45 Drug: Insulin Glargine Sub-Q 24 units Sub-Q once {Co-Signature: [email or web address] (Quita Jaime RN).} pf1 Route: Sub-Q; Site: right upper arm; 02:45 Follow up: Response: No adverse reaction; Marked relief of symptoms; Blood sugar is pf1 lowered 02:00 Drug: Heparin (UT Drip) 12 units/kg/[place] - ([place] [address] units, D5W IV 500 ml) IV at pf1 calculated rate Per protocol; Max initial rate 1000 units/hr {Co-Signature: [email or web address] (Quita Jaime RN).} Route: IV; Rate: calculated rate; Site: left forearm; 03:00 Follow up: Response: No adverse reaction; IV Status: Infusion continued upon admission pf1 Disposition Summary: 11/30/23 00:49 Hospitalization Ordered Notes: Hospitalization Status: Observation nuris Provider: Ari Remy cha Condition: Fair nuris Problem: new nuris Symptoms: have improved nuris Bed/Room Type: Standard nuris Location: [facility] ER HOLD(11/30/23 05:55) jb4 Room Assignment: ERHOLD-(11/30/23 05:55) jb4 Diagnosis - Chest pain, unspecified nuris - Unspecified kidney failure - ON HD M,W,F nuris Forms: - Medication Reconciliation Form nuris - SBAR form nuris - Leadership Thank You Letter nuris Signatures: Dispatcher [employer] EDNaseem Sprague MD MD cha Attema, Lee, DECORATING CONSULTANT-C DECORATING CONSULTANT-Cla1 Colton Corcoran, RN RN jb4 Monae Amaya RN RN pf1 Heaven Vasques, RN RN cm10 Yoanna Elise pm6 Quita Jaime RN lg3 Corrections: (The following items were deleted from the chart) 01:02 00:49 Telemetry/MedSurg (observation) nuris pm6 01:02 00:49 nuris pm6 01:04 01:02 [facility] ER HOLD pm6 pm6 01:04 01:02 ERHOLD- pm6 pm6 01:17 01:11 PTT, ACTIVATED+COAG.LAB.BRZ ordered. EDNE EDMS 01:58 01:04 Intensive Care Unit pm6 jb4 01:58 01:04 pm6 jb4 05:55 01:58 Telemetry/MedSurg (observation) jb4 jb4 05:55 01:58 jb4 jb4 05:55 05:55 jb4 jb4
--- NOTE | 2023-11-30 00:50 | ER ---
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 Pt states that cm10 the pain radiates down his left arm. Pt describes the pain as a tightness. Coronavirus screen: Vaccine status: Patient reports receiving the 2nd dose of the covid vaccine. Client denies travel out of the [place] in the last 14 days. Ebola Screen: Patient denies travel to an Ebola-affected area in the 21 days before illness onset. No symptoms or risks identified at this time. Initial Sepsis Screen: Does the patient meet any 2 criteria? No. Patient's initial sepsis screen is negative. Does the patient have a suspected source of infection? No. Patient's initial sepsis screen is negative. Risk Assessment: Do you want to hurt yourself or someone else? Patient reports no desire to harm self or others. Onset of symptoms was November 29, 2023. 23:36 Method Of Arrival: Ambulatory cm10 23:36 Acuity: MAURIZIO 2 cm10 Historical: - Allergies: 23:38 Unknown DM medication; cm10 - PMHx: 23:38 diabetes mellitus; HD - MWF; Hypertensive disorder; kidney disease; cm10 - PSHx: 23:38 toe amputation; Cardiac stents; cm10 - Immunization history:: Adult Immunizations up to date. - Social history:: Smoking status: Patient denies any tobacco usage or history of. Screenin/08 00:00 [facility] ED Fall Risk Assessment (Adult) History of falling in the last 3 months, pf1 including since admission No falls in past 3 months (0 pts) Confusion or Disorientation No (0 pts) Intoxicated or Sedated No (0 pts) Impaired Gait No (0 pts) Mobility Assist Device Used No (0 pt) Altered Elimination No (0 pt) Score/Fall Risk Level 0 - 2 = Low Risk Oriented to surroundings, Maintained a safe environment, Educated pt \T\ family on fall prevention, incl call for assistance when getting out of bed, Assessed \T\ reinforced patient's understanding of fall precautions, Provided non-skid footwear, Hourly rounding (assess needs \T\ fall precautionary measures) done, Used ambulatory aids as needed (educated on \T\ assisted with), Used gait belt as appropriate. Abuse screen: Denies threats or abuse. Nutritional screening: No deficits noted. Tuberculosis screening: No symptoms or risk factors identified. Assessment: 11/29 23:40 General: Appears in no apparent distress. comfortable, well groomed, well developed, pf1 Behavior is calm, cooperative, appropriate for age, quiet. 23:40 Pain: Complains of pain in chest Pain began 2 hours ago. Neuro: No deficits noted. pf1 Level of Consciousness is awake, alert, obeys commands, Oriented to person, place, time, situation. Cardiovascular: Capillary refill < 3 seconds Patient's skin is warm and dry. Chest pain. Respiratory: No deficits noted. Airway is patent Respiratory effort is even, unlabored, Respiratory pattern is regular, symmetrical. GI: No deficits noted. Abdomen is round non-distended, Bowel sounds present X 4 quads. : No deficits noted. No signs and/or symptoms were reported regarding the genitourinary system. EENT: No deficits noted. No signs and/or symptoms were reported regarding the EENT system. Derm: No deficits noted. No signs and/or symptoms reported regarding the dermatologic system. 23:40 Musculoskeletal: Amputation of left BKA . Circulation, motion, and sensation intact. pf1 Capillary refill < 3 seconds. 11/30 00:30 Reassessment: Patient appears in no apparent distress at this time. Patient and/or pf1 family updated on plan of care and expected duration. Pain level reassessed. Patient is alert, oriented x 3, equal unlabored respirations, skin warm/dry/pink. Patient states feeling better. Patient states symptoms have improved. 01:20 Reassessment: Patient appears in no apparent distress at this time. Patient and/or pf1 family updated on plan of care and expected duration. Pain level reassessed. Patient is alert, oriented x 3, equal unlabored respirations, skin warm/dry/pink. Patient states feeling better. Patient states symptoms have improved. 02:30 Reassessment: Patient appears in no apparent distress at this time. Patient and/or pf1 family updated on plan of care and expected duration. Pain level reassessed. Patient is alert, oriented x 3, equal unlabored respirations, skin warm/dry/pink. Patient states symptoms have improved. 03:30 Reassessment: Patient appears in no apparent distress at this time. Patient and/or pf1 family updated on plan of care and expected duration. Pain level reassessed. Patient is alert, oriented x 3, equal unlabored respirations, skin warm/dry/pink. Patient states feeling better. Patient states symptoms have improved. 04:30 Reassessment: Patient appears in no apparent distress at this time. Patient and/or pf1 family updated on plan of care and expected duration. Pain level reassessed. Patient is alert, oriented x 3, equal unlabored respirations, skin warm/dry/pink. 05:30 Reassessment: Patient appears in no apparent distress at this time. Patient and/or pf1 family updated on plan of care and expected duration. Pain level reassessed. Patient is alert, oriented x 3, equal unlabored respirations, skin warm/dry/pink. Patient states feeling better. Patient states symptoms have improved. Vital Signs: 11/29 23:36 BP 105 / 62; Pulse 77; Resp 16; Temp 97.4; Pulse Ox 100% on R/A; Weight 81 kg; Height 5 cm10 ft. 7 in. ; Pain 7/10; 11/30 00:30 BP 106 / 67; Pulse 72; Resp 20; Pulse Ox 98% on R/A; pf1 01:30 BP 112 / 65; Pulse 73; Resp 17; Pulse Ox 99% on R/A; pf1 02:30 BP 105 / 62; Pulse 71; Resp 18; Pulse Ox 100% on R/A; pf1 03:30 BP 99 / 61; Pulse 62; Resp 15; Pulse Ox 99% on R/A; Pain 2/10; pf1 04:30 BP 105 / 65; Pulse 66; Resp 16; Pulse Ox 100% on R/A; pf1 05:30 BP 103 / 66; Pulse 64; Resp 17; Pulse Ox 97% on R/A; Pain 0/10; pf1 11/29 23:36 Body Mass Index 27.97 (81.00 kg, 170.18 cm) cm10 11/29 23:36 Pain Scale: Adult cm10 03:30 Pain Scale: Adult pf1 05:30 Pain Scale: Adult pf1 ED Course: 11/29 23:29 Patient arrived in ED. es 23:30 Joao Vargas DO is Private Physician. es 23:35 Naseem Paz MD is Attending Physician. nuris 23:38 Triage completed. cm10 23:38 Arm band placed on Patient placed in an exam room, on a stretcher. cm10 23:40 Patient has correct armband on for positive identification. Placed in gown. Bed in low pf1 position. Call light in reach. Side rails up X2. 23:51 Missed attempt(s): 20 gauge in left antecubital area. Bleeding controlled, band aid kmf applied, catheter tip intact. 23:52 XRAY Chest (1 view) In Process Unspecified. EDMS 23:52 Inserted saline lock: 20 gauge in left forearm, using aseptic technique. Blood kmf collected. 11/30 00:02 Basic Metabolic Panel Sent. pf1 00:02 CBC with Diff Sent. pf1 00:02 LFT's Sent. pf1 00:02 Magnesium Sent. pf1 00:02 NT PRO-BNP Sent. pf1 00:02 PT-INR Sent. pf1 00:02 Troponin HS Sent. pf1 00:48 Ari Remy MD is Hospitalizing Provider. nuris 01:20 No provider procedures requiring assistance completed. pf1 01:56 Type And Screen Sent. pf1 05:05 Provided Education on: need for admit. pf1 05:05 Patient admitted, IV remains in place. pf1 06:45 Inserted saline lock: 24 gauge in left hand, using aseptic technique. oe 07:00 Ptt, Activated Sent. pf1 09:09 Emma Tee is Primary Nurse. cp4 Administered Medications: 11/29 23:50 Drug: Aspirin PO Chewable Tablet 162 mg PO once Route: PO; pf1 11/30 00:49 Follow up: Response: No adverse reaction; Marked relief of symptoms; Pain is decreased pf1 11/29 23:50 Drug: NS 0.9% IV 1000 ml IV at 125 ml/hr continuous Route: IV; Rate: 125 ml/hr; Site: pf1 left forearm; 11/30 00:49 Follow up: Response: No adverse reaction; Marked relief of symptoms; IV Status: pf1 Infusion continued upon admission 00:45 Drug: Famotidine IVP 20 mg IVP once; dilute with 10 mL 0.9% NaCl; give over 2 minutes pf1 Route: IVP; Site: left forearm; 01:45 Follow up: Response: No adverse reaction; Marked relief of symptoms pf1 00:50 Drug: Ondansetron IVP 4 mg IVP once; over 2 minutes Route: IVP; Site: left forearm; pf1 01:50 Follow up: Response: No adverse reaction; Marked relief of symptoms pf1 00:59 Not Given (Patient Refused): morphineor iv 4 mg IVP once over 4 mins pf1 01:00 Drug: Heparin ([place]-Bolus No thrombolytic) - HEParin IVP 60 units/kg IVP once; Max 5000 pf1 units {Co-Signature: [email or web address] (Quita Jaime RN).} Route: IVP; Site: left forearm; 02:00 Follow up: Response: No adverse reaction pf1 01:45 Drug: Insulin Regular Human IVP 5 units IVP once {Co-Signature: [email or web address] (Quita Jaime RN).} pf1 Route: IVP; Site: left forearm; 02:45 Follow up: Response: No adverse reaction; Marked relief of symptoms; Blood sugar is pf1 lowered 01:45 Drug: Insulin Regular Human Sub-Q 5 units Sub-Q once {Co-Signature: [email or web address] (Quita Jaime RN).} Route: Sub-Q; Site: right upper arm; 02:45 Follow up: Response: No adverse reaction; Marked relief of symptoms; Blood pressure is pf1 lowered 01:45 Drug: Insulin Glargine Sub-Q 24 units Sub-Q once {Co-Signature: lg3 (Quita Jaime RN).} pf1 Route: Sub-Q; Site: right upper arm; 02:45 Follow up: Response: No adverse reaction; Marked relief of symptoms; Blood sugar is pf1 lowered 02:00 Drug: Heparin ([place] Drip) 12 units/kg/hr - ([place] [address] units, D5W IV 500 ml) IV at pf1 calculated rate Per protocol; Max initial rate 1000 units/hr {Co-Signature: lg3 (Quita Jaime RN).} Route: IV; Rate: calculated rate; Site: left forearm; 03:00 Follow up: Response: No adverse reaction; IV Status: Infusion continued upon admission pf1 Medication: 05:05 VIS not applicable for this client. pf1 Outcome: 00:49 Decision to Hospitalize by Provider. nuris 06:07 Admitted to ER Hold. Please see [facility] for further documentation. pf1 06:07 Condition: stable 06:07 Instructed on the need for admit, Demonstrated understanding of instructions, 11:24 Patient left the ED. iw Signatures: Dispatcher [employer] Naseem Foote MD MD cha Salyer, Edna es Williams, Irene, RN RN Jose Griggs Pamala, RN RN pf1 Heaven Vasques RN RN cm10 Emma Tee cp4 Kylee Richardf Quita Jaime RN lg3 Corrections: (The following items were deleted from the chart) 01:18 01:04 84.82 kg; pf1 pf1 06:12 03:30 Reassessment: Patient appears in no apparent distress at this time. Patient pf1 and/or family updated on plan of care and expected duration. Pain level reassessed. Patient is alert, oriented x 3, equal unlabored respirations, skin warm/dry/pink. Patient states feeling better. Critical care time stopped, patient has stabilized. pf1
[2023-11-30] MEDS ORDERED: HEPARIN 5000 UNIT/ML 1 ML VIAL ONE (00:56)
[2023-11-30] MEDS ORDERED: ACETAMINOPHEN 325 MG TABLET ONE ×2 (01:22→05:20)
[2023-11-30] MEDS ORDERED: ONDANSETRON 4 MG/2 ML VIAL IV PRN (01:43)
[2023-11-30] MEDS ORDERED: ACETAMINOPHEN 325 MG TABLET PO PRN (01:43)
--- NOTE | 2023-11-30 01:43 | P.HP ---
Certification for Inpatient Patient admitted to: Observation With expected LOS: <2 Midnights Practitioner: I am a practitioner with admitting privileges, knowledge of patient current condition, hospital course, and medical plan of care. Services: Services provided to patient in accordance with Admission requirements found in Title 42 Section 412.3 of the Code of Federal Regulations Patient History Date of Service: 11/30/23 Reason for admission: Chest Pain History of Present Illness: 68 yrs old Male history of diabetes, hypertension, ESRD on dialysis, CAD status post stents, hyperlipidemia who was brought to ER with chest pain. The pain started today. Retrosternal location with radiation to the left shoulder. Pressure-like squeezing associated with no nausea but no diaphoresis. Denies any shortness of breath. No fever or chills. Denies any cough. No sick contacts. At the time of interview the pain is better. The patient was assessed in the ER and was admitted for further management of unstable angina Allergies unknown DM oral pill Allergy (Uncoded 11/22/23 23:47) Itching/Hives/Rash Home medications list reviewed: Yes Home Medications: Amlodipine Besylate 10 mg PO DAILY 11/23/23 Aspirin [Aspirin EC 81 MG] 81 mg PO DAILY 11/23/23 Atorvastatin Calcium [Lipitor] 80 mg PO BEDTIME 11/23/23 Clopidogrel Bisulfate [Plavix*] 75 mg PO DAILY 11/23/23 Enalapril [Vasotec*] 10 mg PO DAILY 11/23/23 Insulin -Regular Human [Novolin -R*] See Protocol SQ ACHS ml 11/23/23 Smz./Tmp. [Bactrim Ds 800 MG/160 MG] 1 tab PO BID 7 Days #14 tab 11/23/23 carvediloL [Carvedilol] 6.25 mg PO Q12H 11/23/23 - Past Medical/Surgical History Diabetic: Yes Past Medical History: Reviewed- Non-Contributory -: ESRD (Dr. Parish/ Dr. Louie) -: DM II -: HLD -: HTN Past Surgical History: Reviewed- Non-Contributory -: Left fourth toe amputation -: Left fourth toe amputation Psychosocial/ Personal History: Patient lives at home. He has a son. - Family History Brother -: Diabetes - Social History Alcohol use: No CD- Drugs: No Caffeine use: No Review of Systems 10-point ROS is otherwise unremarkable General: Weakness Eyes: Unremarkable ENT: Unremarkable Respiratory: Unremarkable Cardiovascular: Chest Pain Gastrointestinal: Nausea, Unremarkable Genitourinary: Unremarkable Musculoskeletal: Unremarkable Integumentary: Unremarkable Neurological: Unremarkable Physical Examination - Vital Signs Temperature: 98.4 F Blood Pressure: 138/84 Pulse: 76 Respirations: 18 Pulse Ox (%): 97 - Physical Exam General: Alert, In no apparent distress, Oriented x3 HEENT: Atraumatic, Normocephalic Neck: Supple, 2+ carotid pulse no bruit Respiratory: Clear to auscultation bilaterally, Normal air movement Cardiovascular: Regular rate/rhythm, Normal S1 S2, No gallops Capillary refill: <2 Seconds Gastrointestinal: Soft and benign, W/out hepatosplenomegaly, No ascites, No tenderness Musculoskeletal: No clubbing, No swelling Integumentary: No rashes, No breakdown Neurological: Normal speech, Normal strength at 5/5 x4 extr, Cranial nerves 3-12 intact, Normal affect Lymphatics: No axilla or inguinal lymphadenopathy - Studies Laboratory Data (last 24 hrs) 11/30/23 11/29/23 11/29/23 01:10 23:50 23:50 WBC 6.10 Hgb 8.4 L Hct 23.7 L Plt Count 220 PT 11.6 INR 1.06 APTT Cancelled 38.4 H Sodium Potassium BUN Creatinine Glucose Magnesium Total Bilirubin AST ALT Alkaline Phosphatase Lipase 11/29/23 23:50 WBC Hgb Hct Plt Count PT INR APTT Sodium 135 L Potassium 3.5 BUN 50 H Creatinine 5.00 H Glucose 336 H Magnesium 2.0 Total Bilirubin 0.2 AST 18 ALT 21 Alkaline Phosphatase 135 H Lipase 57 Assessment and Plan - Problems (Diagnosis) (1) Unstable angina Current Visit: Yes Status: Acute Plan: Monitor closely on telemetry Trend cardiac enzymes Started on aspirin and statin Will get a cardiology consult Will get an echocardiogram Patient has history of CAD status post stents previously (2) Hypertension Current Visit: Yes Status: Chronic Plan: Continue home medications and titrate as needed Hydralazine as needed (3) History of CAD (coronary artery disease) Current Visit: Yes Status: Chronic Plan: Continue home medications Monitor closely on telemetry Getting an echocardiogram (4) End-stage renal disease on hemodialysis Current Visit: No Status: Chronic Plan: Monitor renal parameters Electrolytes monitor and replace accordingly Nephrology consult if the patient needs dialysis (5) Peripheral vascular disease Current Visit: No Status: Chronic Plan: Continue home medications and titrate as needed Discharge Plan: Home Plan to discharge in: 48 Hours - Advance Directives Does patient have a Living Will: No Does patient have a Durable POA for Healthcare: No - Code Status/Comfort Care Code Status: Full Code Time Spent Managing Pts Care (In Minutes): 48
[2023-11-30] MEDS ORDERED: INSULIN GLARGINE 100 UNIT/ML SQ ONE (02:07)
[2023-11-30] MEDS ORDERED: INSULIN REGULAR (HUMAN) 100 UNIT/ML ONE (02:08)
[2023-11-30 03:18] LABS: Troponin High Sensitivity 34.6 pg/mL (<58.9)
[2023-11-30] MEDS: carvediloL 6.25 MG TAB PO SCH ×2 (04:00→17:17)
[2023-11-30] MEDS ORDERED: carvediloL 6.25 MG TAB ONE (05:10)
[2023-11-30 06:52] LABS: Absolute Lymphocytes (CBC) 1.2 K/uL (0.7-4.9); Lymphocytes % 17.7 % (15.3-44.8); MPV 8.3 fL (7.6-11.3); Platelets 248 thou/uL (152-406); RBC Red Blood Cell Count 2.38 M/uL (4.33-5.43)
[2023-11-30 07:19] LABS: Albumin 3.4 g/dL (3.4-5.0); Bilirubin Total 0.3 mg/dL (0.2-1.0); Protein, Total 6.9 g/dL (6.4-8.2)
[2023-11-30 07:22] LABS: Potassium 3.5 mEq/L (3.5-5.1)
[2023-11-30] MEDS: INSULIN REGULAR (HUMAN) 100 UNIT/ML SQ SCH ×3 (07:30→20:00)
[2023-11-30] MEDS ORDERED: PNEUMOCOCCAL VACCINE 0.5 ML IMVAC ONE (08:00)
[2023-11-30] MEDS ORDERED: HEPARIN/D5W 25,000 UNIT/500 ML BAG IV SCH (08:00)
--- NOTE | 2023-11-30 08:13 | RAD REPORT ---
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 No prior films are available at this time for compari son. There is normal lung volume. Mediastinum: The cardiomediastinal silhouette appears normal in size and shape. Lungs: No areas of consolidations or masses are identified. Heart: The heart is normal in size. Aorta: The thoracic aorta demonstrate to be mildly tortuous Pulmonary vasculature: The pulmonary vasculature is normal in distribution. Pleura: The costophrenic angles demonstrate to be sharp. Osseous structures: The bony structures demonstrate to be within normal limits. Other: External EKG leads within the [id number] limits diagnosis. IMPRESSION: No acute cardiopulmonary disease is seen Electronically signed by: Charan Mcmahan MD 11/30/2023 12:12 AM ANSWERING SERVICE OPERATOR Due to temporary technical issues with the PACS/Fluency reporting system, reports are being signed by the in house radiologist without review as a courtesy to ensure prompt reporting. The interpreting r adiologist is fully responsible for the content of the report.
[2023-11-30] MEDS ORDERED: ASPIRIN EC 81 MG TAB PO SCH (09:00)
[2023-11-30] MEDS ORDERED: ENALAPRIL 10 MG TAB PO SCH (09:00)
[2023-11-30] MEDS ORDERED: AMLODIPINE 10 MG TAB PO SCH (09:00)
[2023-11-30] MEDS ORDERED: HEPARIN 5000 UNIT/ML 1 ML VIAL SQ SCH (09:00)
[2023-11-30] MEDS ORDERED: CLOPIDOGREL 75 MG TABLET PO SCH (09:00)
[2023-11-30] MEDS ORDERED: ASPIRIN 81 MG CHEWABLE TABLET ONE (09:15)
[2023-11-30] MEDS ORDERED: CLOPIDOGREL 75 MG TABLET ONE (09:15)
[2023-11-30] MEDS ORDERED: NA CHLORIDE 0.9% 500 ML ONE (11:09)
[2023-11-30] MEDS ORDERED: LIDOCAINE 1% 20 ML MDV ONE (11:45)
[2023-11-30] MEDS ORDERED: HEPA 1000U/500MLS 2,000 UNIT/1,000 ML BAG IV ONE (11:45)
--- NOTE | 2023-11-30 12:01 | CON ---
Date of Consultation: 11/30/2023 Reason For Consultation: Chest pain. History Of Present Illness: A 68-year-old male with history of diabetes, hypertension, coronary suellen ry disease, multiple stents in the past, end-stage renal disease, on hemodialysis, presented with janice st pain, pressure-like, left side, goes to the shoulder and to the arm, on and off while at rest and then it is produced by activities as well and it is similar to the chest pain that he had before his stent was put in. Past Medical History: As outlined above in the HPI. Medications: Refer reconciliation sheet for detailed list. Allergies: UNKNOWN. HE IS ALLERGIC TO DIABETES MEDICINE, DOES NOT KNOW THE NAME. Family History: No premature coronary artery disease or cancer. Social History: Does not smoke or drink. Does not use any drugs. Review of Systems: All systems reviewed and they were negative except as mentioned in the HPI. Physical Examination: Vital Signs: Reviewed. Head and Neck: Pupils are equal, reactive to light. Intact eye movements. No JVD. No cervical lym phadenopathy. Neck is supple. Thyroid is not enlarged. Lungs: Clear to auscultation bilaterally. No rhonchi, rales, or crackles. No accessory muscle use. Heart: Regular rate and rhythm. No extra sounds. Abdomen: Soft, nontender. Bowel sounds positive. No organomegaly. No masses or hernia. No rigidi ty or rebound. Extremities: No edema, clubbing, or cyanosis. Intact pulses. Skin: No rash. Neurologic: Alert, awake, oriented x3. No acute focal deficits appreciated. Investigations: Troponins are negative. BUN is 49, creatinine is 5.23, hemoglobin 7.4. Assessment/recommendation: 1.Chest pain, typical pain, known history of coronary artery disease. This is suggestive of unstabl e angina. Keep n.p.o., plan for coronary angiogram today. 2.End-stage renal disease, on hemodialysis. 3.Hypertension. Pressure is controlled. Continue on current management. 4.Dyslipidemia. Continue statin. SR/MODL Voice ID: [id number] Report ID: [id number]
--- NOTE | 2023-11-30 12:21 | EKG ---
Test Date: 2023-11-29 Test Time: 23:42:11 Rod Buster Helper: RV MEASUREMENT RESULTS: Intervals: Rate: 77 NE: 182 QRSD: 110 QT: 412 QTc: 466 [place]: P: 54 NE: 182 QRS: 19 T: -2 INTERPRETIVE STATEMENTS: Normal sinus rhythm Normal ECG Compared to ECG 09/21/2022 16:05:58 No significant changes Electronically Signed On 11-30-23 12:18:57 MARINE FUEL DOCK ATTENDANT by Amado Chandra
[2023-11-30] MEDS ORDERED: HEPARIN 10,000 UNIT/10 ML VIAL IV ONE (12:31)
[2023-11-30] MEDS ORDERED: FENTANYL CITR 100 MCG/2 ML ONE (12:33)
[2023-11-30] MEDS ORDERED: MIDAZOLAM HCL 2 MG/2 ML INJ ONE (12:33)
--- NOTE | 2023-11-30 13:52 | OP ---
Date of Procedure: 11/30/2023 Surgeon: ANGELICA MCFARLAND Procedures Performed: 1.Selective coronary angiogram. 2.Left heart catheterization. Indication: Unstable angina. Access: Right femoral artery 6-Mozambican closed with StarClose. Complications: None. Bleeding: Less than 20 mL. Anesthesia: Total sedation time was 30 minutes. Description Of Procedure: After risks, benefits, alternatives were explained, patient agreed to proc edure, and signed informed consent. Patient was brought into cardiac catheterization laboratory, pre pped and draped in the usual sterile fashion. Then, I accessed right femoral artery using micropunct ure kit, ultrasound guidance, and fluoroscopy, placed 6-Mozambican [place] sheath and took 6-Mozambican JL4 catheter into the aortic root over a J-wire, engaged left main, took standard views, exchanged for a 6-[place]ozambican JR4 catheter and over the wire across the aortic valve and measured the LVEDP. Pullback did not record any gradient and then I engaged the RCA, took standard views and then removed the cathete r and the sheath and StarClose was used for closure with good hemostasis. Findings: 1.Left main; large and normal. 2.LAD; diffuse proximal 60% stenosis and diagonal 1 branch has significant stenosis also about 80% s maller vessel and then I think the LAD becomes a BACKUP ADMINISTRATOR after diagonal 2 branch comes off and diagonal 2 is very large with luminal irregularities. 3.Left circumflex is 100% occluded, proximally, BACKUP ADMINISTRATOR, 100% and then it is a large artery and gets col laterals from the RCA. 4.RCA; proximal 80%, mid 70%, and distal long 50% stenosis and gives collaterals probably to the OM, but I did not see collaterals to the LAD. 5.LVEDP elevated at 20 mmHg. Conclusion: 1.Severe multivessel coronary artery disease. 2.Elevated LVEDP. Recommendation: Transfer for CABG evaluation. SR/MODL Voice ID: [id number] Report ID: [id number]
[2023-11-30 14:07] VITALS: O2SAT 99
[2023-11-30 17:18] VITALS: BP 118/59; TEMP 97.8
--- NOTE | 2023-11-30 17:20 | P.PN ---
Date of Service: 11/30/23 Patient seen on rounds this morning. Pain resolved. Pain at rest, concerning for unstable angina, with recent PCI continued heparin drip in ED cath today with multivessel CAD per report and Dr. Chandra recommended transfer to [facility] for CABG evaluation anemia of chronic disease, recheck h/h this evening. pt denies any bleeding
[2023-11-30 18:17] LABS: Hematocrit 21.9 % (39.6-49.0); MCV 87.8 fL (80-100); MPV 8.1 fL (7.6-11.3); Platelets 224 thou/uL (152-406); RBC Red Blood Cell Count 2.49 M/uL (4.33-5.43)
[2023-11-30 18:52] LABS: Hepatitis B Surface Ab - Quant 6.33 mIU/mL (<8.0); Hepatitis B surface AG Interp. Nonreactive (Nonreactive)
[2023-11-30 19:43] VITALS: BMI 29.3
[2023-11-30] MEDS: ATORVASTATIN 80 MG TAB PO SCH (19:56)
[2023-11-30] MEDS ORDERED: SMZ./TMP. 800/160 MG TABLET PO SCH (21:00)
--- NOTE | 2023-11-30 21:33 | P.CNS ---
Date of Consult: 11/30/23 Reason for Consult: ESRD Requesting Physician: Segun Lazo Chief Complaint: Chest Pain History of Present Illness: 68 yrs old Male history of diabetes, hypertension, ESRD on dialysis, CAD status post stents, hyperlipidemia who was brought to ER with chest pain. The pain started today. Retrosternal location with radiation to the left shoulder. Pressure-like squeezing associated with no nausea but no diaphoresis. Denies any shortness of breath. No fever or chills. Denies any cough. No sick contacts. At the time of interview the pain is better. The patient was assessed in the ER and was admitted for further management of unstable angina. [email or web address] 00:38 This 68 yrs old Male presents to ER via Ambulatory with complaints of Chest nuris pains earlier, chest sore. 00:38 The patient or guardian reports chest pain that is located primarily in the substernal nuris area, epigastric area. Onset: just prior to arrival, today. CHEST PAIN, MWF DIALYSIS. The pain radiates to the left shoulder. Onset: The symptoms/episode began/occurred 6 hour(s) ago. Associated signs and symptoms: Pertinent positives: nausea. The chest pain is described as a heaviness, a pressure, squeezing. Modifying factors: The symptoms are alleviated by nothing. the symptoms are aggravated by nothing. Severity of pain: At its worst the pain was moderate in the emergency department the pain is unchanged. Severity of symptoms: At their worst the symptoms were moderate in the emergency department the symptoms have improved moderately. The patient has experienced similar episodes in the past, several times. Allergies unknown DM oral pill Allergy (Uncoded 11/22/23 23:47) Itching/Hives/Rash Home medications list reviewed: Yes Home Medications: Amlodipine Besylate 10 mg PO DAILY 11/23/23 Aspirin [Aspirin EC 81 MG] 81 mg PO DAILY 11/23/23 Atorvastatin Calcium [Lipitor] 80 mg PO BEDTIME 11/23/23 Clopidogrel Bisulfate [Plavix*] 75 mg PO DAILY 11/23/23 Enalapril [Vasotec*] 10 mg PO DAILY 11/23/23 Insulin -Regular Human [Novolin -R*] See Protocol SQ ACHS ml 11/23/23 Smz./Tmp. [Bactrim Ds 800 MG/160 MG] 1 tab PO BID 7 Days #14 tab 11/23/23 carvediloL [Carvedilol] 6.25 mg PO Q12H 11/23/23 - Past Medical/Surgical History Diabetic: Yes -: ESRD (Dr. Parish/ Dr. Louie) -: DM II -: HLD -: HTN -: CAD -: Left fourth toe amputation -: Left fourth toe amputation -: left BKA Psychosocial/ Personal History: Patient lives at home. He has a son. - Family History Brother Medical History: Diabetes - Social History Smoking Status: Current every day smoker Alcohol use: No CD- Drugs: No Caffeine use: No Place of Residence: Home Review of Systems 10-point ROS is otherwise unremarkable Cardiovascular: Chest Pain Physical Examination Temp Pulse Resp BP Pulse Ox 97.8 F 63 17 118/59 L 99 11/30/23 16:00 11/30/23 17:17 11/30/23 16:00 11/30/23 17:17 11/30/23 16:00 General: In no apparent distress, Oriented x3, Cooperative HEENT: Atraumatic Neck: Supple Respiratory: Clear to auscultation bilaterally, Normal air movement Cardiovascular: No edema, Regular rate/rhythm Gastrointestinal: Soft and benign, Non-distended Musculoskeletal: No clubbing, No contractures Integumentary: No rashes, No cyanosis Neurological: Normal speech Laboratory Data (last 24 hrs) 11/30/23 11/29/23 11/29/23 01:10 23:50 23:50 WBC 6.10 Hgb 8.4 L Hct 23.7 L Plt Count 220 PT 11.6 INR 1.06 APTT Cancelled 38.4 H Sodium Potassium BUN Creatinine Glucose Magnesium Total Bilirubin AST ALT Alkaline Phosphatase Lipase 11/29/23 23:50 WBC Hgb Hct Plt Count PT INR APTT Sodium 135 L Potassium 3.5 BUN 50 H Creatinine 5.00 H Glucose 336 H Magnesium 2.0 Total Bilirubin 0.2 AST 18 ALT 21 Alkaline Phosphatase 135 H Lipase 57 Imagings Data: darrenrice EXAM DESCRIPTION: Chest Single View 11/30/2023 12:02 AM [employer] CLINICAL HISTORY: 68 years, Male, CHEST PAIN COMPARISON: None FINDINGS: 1 views of the chest was obtained. No prior films are available at this time for comparison. There is normal lung volume. Mediastinum: The cardiomediastinal silhouette appears normal in size and shape. Lungs: No areas of consolidations or masses are identified. Heart: The heart is normal in size. Aorta: The thoracic aorta demonstrate to be mildly tortuous Pulmonary vasculature: The pulmonary vasculature is normal in distribution. Pleura: The costophrenic angles demonstrate to be sharp. Osseous structures: The bony structures demonstrate to be within normal limits. Other: External EKG leads within the [id number] limits diagnosis. IMPRESSION: No acute cardiopulmonary disease is seen Conclusions/Impression: ESRD on HD -HD TIW HTN with CKD/ CHF -Continue Coreg -Continue Enalapril Diastolic CHF, chronic -Low sodium diet -HD with UF DM II with CKD -RISS Anemia in CKD -Retacrit TIW CKD MBD -Start Ergo and Calcitriol Cigarette Smoker -Recommend cessation -Nicotine TD prn Hospitalist and ER notes reviewed Case discussed with hospitalist team Thank you kindly for the consultation
== END 2023-11-30 21:15 | disposition short-term general hospital (02) ==
LOC: ER 23:25 → ERHOLD 11-30 01:43 → 2ND 11-30 15:44
PROVIDERS: ADMIT Family Medicine; ATTEND Hospitalist
PROC: 4A023N7 Measurement of Cardiac Sampling and Pressure, Left Heart, Percutaneous Approach (ICD-10-PCS; principal; 2023-11-30)
PROC: B2111ZZ Fluoroscopy of Multiple Coronary Arteries using Low Osmolar Contrast (ICD-10-PCS; 2023-11-30)
DX: I25.110 Atherosclerotic heart disease of native coronary artery with unstable angina pectoris (principal); I25.82 Chronic total occlusion of coronary artery; I13.2 Hypertensive heart and chronic kidney disease with heart failure and with stage 5 chronic kidney disease, or end stage renal disease; I50.32 Chronic diastolic (congestive) heart failure; N18.6 End stage renal disease; E11.22 Type 2 diabetes mellitus with diabetic chronic kidney disease; D63.1 Anemia in chronic kidney disease; I73.9 Peripheral vascular disease, unspecified; R11.0 Nausea; E78.5 Hyperlipidemia, unspecified; Z95.5 Presence of coronary angioplasty implant and graft; Z99.2 Dependence on renal dialysis; F17.210 Nicotine dependence, cigarettes, uncomplicated; Z71.6 Tobacco abuse counseling; Z79.02 Long term (current) use of antithrombotics/antiplatelets; Z79.82 Long term (current) use of aspirin; Z79.4 Long term (current) use of insulin; Z79.899 Other long term (current) drug therapy; Z88.8 Allergy status to other drugs, medicaments and biological substances; Z89.512 Acquired absence of left leg below knee; Z83.3 Family history of diabetes mellitus
CPT/HCPCS: 96365; 96361; 93005; 85025 ×2; 80048; 36415; 86900; 83735; 86850; 85610; 80061; 86901; 82947 ×5; 80076; 85730 ×2; 85027; 84484 ×3; 83690; 80053; 83880; 87340; 86706; 71045; 93458; 76937; 96375; 96372; 99285; C1893; Q9966; J1815 ×2; J1644; J2001; J3010; J2405; G0378 ×4; J7040; J7030; 99152; 99153; J2250